=== PATIENT | male | born 1950 | race African-American/Black ===

== ENCOUNTER 2017-03-31 11:30 | Outpatient (RCR) | payer MEDICARE, MEDICAID ==
[~2017-03-31 11:30] MED LIST: ATORVASTATIN CA40 MG ORAL; GLIPIZIDE5 MG ORAL; GLUCOPHAGE500 MG PO; INVOKANA300 MG PO; LASIX40 MG PO; LEVAQUIN500 MG ORAL; LEVEMIR FL100 UNIT/1 SUBQ; LISINOPRIL5 MG ORAL; NOVOLOG100 UNIT/3 SUBQ; VIBRAMYCIN100 MG ORAL; asa
== END 2017-04-24 | disposition home or self-care (01) ==
LOC: WCC 11:30
DX: L97.512 Non-pressure chronic ulcer of other part of right foot with fat layer exposed (principal); M86.671 Other chronic osteomyelitis, right ankle and foot; E11.621 Type 2 diabetes mellitus with foot ulcer; E11.628 Type 2 diabetes mellitus with other skin complications; E11.9 Type 2 diabetes mellitus without complications; Z79.4 Long term (current) use of insulin
CPT/HCPCS: 82962; G0277; G0463

== ENCOUNTER 2017-03-31 13:27 | Outpatient (CLI) | payer MEDICARE, MEDICAID ==
--- NOTE | 2017-03-31 14:56 | Diagnostic Imaging Report ---
Indication: Dyspnea Comparison: 02/05/14 2 views of the chest obtained. Findings: Cardiomediastinal silhouette and pulmonary vascularity are within normal limits for age. The diaphragmatic contour is smooth and costophrenic angles are sharp. No pleural effusions are identified. The bones are osteopenic. Impression: No acute disease
== END 2017-03-31 15:27 | disposition home or self-care (01) ==
LOC: RAD 13:27
DX: R05 Cough (principal); M85.80 Other specified disorders of bone density and structure, unspecified site
CPT/HCPCS: 71020

== ENCOUNTER 2017-04-25 10:30 | Outpatient (RCR) | payer MEDICARE, MEDICAID | END 2017-05-25 | disposition home or self-care (01) | LOC: WCC 10:30 | DX: M86.671 Other chronic osteomyelitis, right ankle and foot (principal); L97.512 Non-pressure chronic ulcer of other part of right foot with fat layer exposed; E11.621 Type 2 diabetes mellitus with foot ulcer; E11.628 Type 2 diabetes mellitus with other skin complications; Z79.4 Long term (current) use of insulin | CPT/HCPCS: 82962; G0277 ==

== ENCOUNTER 2017-05-28 09:27 | Outpatient (RCR) | payer MEDICARE, MEDICAID | END 2017-06-25 | disposition home or self-care (01) | LOC: WCC 09:27 | DX: M86.671 Other chronic osteomyelitis, right ankle and foot (principal); L97.512 Non-pressure chronic ulcer of other part of right foot with fat layer exposed; E11.621 Type 2 diabetes mellitus with foot ulcer; E11.628 Type 2 diabetes mellitus with other skin complications; Z87.891 Personal history of nicotine dependence; Z80.9 Family history of malignant neoplasm, unspecified; Z82.49 Family history of ischemic heart disease and other diseases of the circulatory system; Z89.412 Acquired absence of left great toe; Z79.4 Long term (current) use of insulin | CPT/HCPCS: 82962; G0277 ==

== ENCOUNTER 2017-07-02 14:00 | Outpatient (RCR) | payer MEDICARE, MEDICAID ==
[2017-07-20] MEDS ORDERED: ACETAMINOPHEN325 M1 ORAL (07:48)
== END 2017-07-23 | disposition home or self-care (01) ==
LOC: WCC 14:00
DX: T86.821 Skin graft (allograft) (autograft) failure (principal); L97.512 Non-pressure chronic ulcer of other part of right foot with fat layer exposed; E11.621 Type 2 diabetes mellitus with foot ulcer; Z89.412 Acquired absence of left great toe; Z79.82 Long term (current) use of aspirin
CPT/HCPCS: 82962; G0277; G0463

== ENCOUNTER 2017-07-19 21:08 | Inpatient (IN) | payer MEDICARE, MEDICAID ==
[~2017-07-19] VITALS: Ht 193 cm; Wt 133.4 kg
[2017-07-19] MEDS ORDERED: Piperacillin/Tazobactam 3.375 GM in NS 110 ML IVPB ONE (21:30)
[2017-07-19] MEDS ORDERED: Vancomycin 1.5gm/D5W 250ml 250 ML IVPB ONE (21:30)
[2017-07-19] MEDS ORDERED: Zosyn 3.375gm inj ONE (21:39)
[2017-07-19 21:58] LABS: HEMATOCRIT 22.9 % (42.0-52.0); HEMOGLOBIN 7.5 G/DL (14.2-18.0); MEAN CORPUSCULAR VOLUME 92 FL (80-99); PLATELET COUNT 183 K/UL (150-450); RED CELL DISTRIBUTION WIDTH 16.7 % (11.6-14.8); WHITE BLOOD COUNT 2.8 K/UL (4.8-10.8)
[2017-07-19 22:02] LABS: ANION GAP 11 mmol/L (5-15); BLOOD UREA NITROGEN 33 mg/dL (7-18); CALCIUM 8.3 MG/DL (8.5-10.1); CARBON DIOXIDE 21 MMOL/L (21-32); CHLORIDE 105 MMOL/L (98-107); CREATININE 2.3 MG/DL (0.55-1.30); SODIUM 137 MMOL/L (136-145)
[2017-07-19 22:13] LABS: ALANINE AMINOTRANSFERASE 25 U/L (12-78); ALBUMIN/GLOBULIN RATIO 0.6 (1.0-2.7); ALKALINE PHOSPHATASE 63 U/L (46-116); ASPARTATE AMINO TRANSFERASE 42 U/L (15-37); BILIRUBIN,TOTAL 0.8 MG/DL (0.2-1.0)
--- NOTE | 2017-07-19 22:24 | Emergency Room Report ---
History of Present Illness General Chief Complaint: Lower Extremity Injury Source: Patient, EMS Present Illness HPI 67-year-old male, history of hypertension, diabetes, chronic right lower foot wound, recent surgery/debridement at [facility] 2 weeks ago, undergoing hyperbaric treatment, has a nurse every other day to wrap his wound, presenting with right lower leg pain for one day. Patient denying any fever or chills. States that his right lower lip it has been gradual. States that his foot does not hurt but his leg hurts. There was no trauma. Denies any history of DVT or PE in the past. Has been taking antibiotics since he was discharged from [facility] Allergies: Coded Allergies: No Known Allergies (Verified , 11/14/10) Patient History Past Medical History: see triage record Past Surgical History: none Pertinent Family History: none Reviewed Nursing Documentation: PMH: Agreed, PSxH: Agreed Nursing Documentation-PMH Hx Cardiac Problems: Yes Hx Hypertension: Yes Hx Diabetes: Yes Hx Cancer: No Hx Gastrointestinal Problems: Yes - GERD, nausea vomiting and recent stomach pain Hx Neurological Problems: No Review of Systems All Other Systems: negative except mentioned in HPI Physical Exam Vital Signs Date Time Temp Pulse Resp B/P (MAP) Pulse Ox O2 Delivery O2 Flow Rate FiO2 07/19/17 20:47 100.0 112 18 151/72 99 Room Air 100.0 Sp02 EP Interpretation: reviewed, normal General Appearance: alert, GCS 15, non-toxic, moderate distress Head: normocephalic, atraumatic Eyes: bilateral eye normal inspection, bilateral eye PERRL, bilateral eye EOMI ENT: normal ENT inspection, normal pharynx, normal voice, moist mucus membranes Neck: normal inspection, full range of motion, supple Respiratory: normal inspection, lungs clear, normal breath sounds, no respiratory distress, no retraction, no wheezing, speaking full sentences, chest symmetrical Cardiovascular #1: normal inspection, regular rate, rhythm, normal capillary refill Cardiovascular #2: 2+ radial (R), 2+ radial (L) Gastrointestinal: normal inspection, non tender, soft, non-distended, no guarding Genitourinary: no CVA tenderness Musculoskeletal: other - Bilateral lower extremity edema noted, right lower leg more swollen than left. Tender to palpation. Warm. Her skin is still unable to tell if there is erythema. Right foot with chronic wound. Ulceration. Mostly around the toe Neurologic: normal inspection, alert, oriented x3, responsive, motor strength/ tone normal, sensory intact, normal gait, speech normal Psychiatric: normal inspection, judgement/insight normal, memory normal Skin: normal inspection, normal color, no rash, warm/dry, well hydrated, normal turgor Procedures Critical Care Time Critical Care Time 40 minutes of CC time 67-year-old male with right lower leg pain VS: Fever, tachycardic Airway patent. Not hypoxic. PLAN: IV access, labs, lactate, troponin, Blood/Urine Cx, Abx, IVF, ultrasound, CT of extremity Anticipate admission to Tele CC time also includes review of labs, review of EMR, discussion with family and paperwork from SNF, d/w hospitalist CC could include dosing of pressors, additional Abx CC time does not include procedures Medical Decision Making Diagnostic Impression: Primary Impression: Cellulitis Additional Impressions: Anemia Renal failure (ARF), acute on chronic Osteomyelitis Severe sepsis ER Course 67-year-old male with right lower extremity pain DDX: Cellulitis /DVT No crepitus / pain out of proportion / rapid spreading for concern for nec fasc Plan: Obtain labs, ua, EKG, CXR Vascular study ER course: Patient given 2 L normal saline, pain control no definite DVT noted on US however + edema so limited study given broad spec abx CT lower ext - n eg for soft tissue gas, +osteomyelitis of great toe Sepsis Re-examination Time: 12 AM VS: Temp 100 HR 100 BP 120/80 RR 20 CVS: RRR Respiratory: Lungs clear bilaterally Peripheral pulses: 2+ radial Capillary refill: <2 seconds Skin exam: warm, dry, +cellulitis RLE Disposition: Patient is to be admitted to TELE D/W hospitalist Dr Hill covering for Dr Florez Please note that this Emergency Department Report was dictated using [employer] manager technology software, occasionally this can lead to erroneous entry secondary to interpretation by the dictation equipment. EKG Diagnostic Results EP Interpretation: Yes Rate: normal Rhythm: NSR ST Segments: No acute changes ASA given to patient: No Rhythm Strip EP Interpretation: Yes Rate: 100 Rhythm: NSR, no PVCs, no ectopy Chest X-ray CXR: Ordered: Yes 1 view Indication: Pain EP interpretation: Yes Interpretation: Cardiomegaly with slight pulmonary vascular congestion Impression: Mild CHF Electronically signed by Colt Queen MD Laboratory Tests Test 07/19/17 21:30 White Blood Count 2.8 K/UL (4.8-10.8) L Red Blood Count 2.50 M/UL (4.70-6.10) L Hemoglobin 7.5 G/DL (14.2-18.0) L Hematocrit 22.9 % (42.0-52.0) L Mean Corpuscular Volume 92 FL (80-99) Mean Corpuscular Hemoglobin 29.8 PG (27.0-31.0) Mean Corpuscular Hemoglobin Concent 32.6 G/DL (32.0-36.0) Red Cell Distribution Width 16.7 % (11.6-14.8) H Platelet Count 183 K/UL (150-450) Mean Platelet Volume 6.2 FL (6.5-10.1) L Neutrophils (%) (Auto) % (45.0-75.0) Lymphocytes (%) (Auto) % (20.0-45.0) Monocytes (%) (Auto) % (1.0-10.0) Eosinophils (%) (Auto) % (0.0-3.0) Basophils (%) (Auto) % (0.0-2.0) Neutrophils % (Manual) Pending Lymphocytes % (Manual) Pending Platelet Estimate Pending Platelet Morphology Pending Urine Color Pending Urine Appearance Pending Urine pH Pending Urine Specific [place] Pending Urine Protein Pending Urine Glucose (UA) Pending Urine Ketones Pending Urine Occult Blood Pending Urine Nitrite Pending Urine Bilirubin Pending Urine Urobilinogen Pending Urine Leukocyte Esterase Pending Sodium Level 137 MMOL/L (136-145) Potassium Level 5.0 MMOL/L (3.5-5.1) Chloride Level 105 MMOL/L (98-107) Carbon Dioxide Level 21 MMOL/L (21-32) Anion Gap 11 mmol/L (5-15) Blood Urea Nitrogen 33 mg/dL (7-18) H Creatinine 2.3 MG/DL (0.55-1.30) H Estimate Glomerular Filtration Rate 34.3 mL/min (>60) Glucose Level 184 MG/DL (74-106) H Lactic Acid Level 4.80 mmol/L (0.66-2.22) H Calcium Level 8.3 MG/DL (8.5-10.1) L Total Bilirubin 0.8 MG/DL (0.2-1.0) Aspartate Amino Transferase (AST) 42 U/L (15-37) H Alanine Aminotransferase (ALT) 25 U/L (12-78) Alkaline Phosphatase 63 U/L (46-116) Pro-B-Type Natriuretic Peptide 351 pg/mL (0-125) H Total Protein 8.3 G/DL (6.4-8.2) H Albumin 3.0 G/DL (3.4-5.0) L Globulin 5.3 g/dL Albumin/Globulin Ratio 0.6 (1.0-2.7) L CT/MRI/US Diagnostic Results CT/MRI/US Diagnostic Results #1: Imaging Test Ordered: DVT sono Impression no definite DVT noted however ++ edema so unable to properly see vessels per sonogram tech CT/MRI/US Diagnostic Results #2: Imaging Test Ordered: CT lower ext Impression CT EXTREMITY RIGHT LOWER: Limited without contrast. Large erosion at the distal phalanx of the great toe, likely due to osteomyelitis in the appropriate clinical setting. There is associated fracturing through the proximal aspect of the distal phalanx. Postoperative changes at the head of the proximal phalanx of the great toe. Erosion versus postoperative changes at the base of the proximal phalanx of the great toe. Chronic-appearing changes of the fifth metatarsal and fifth toe. Diffuse subcutaneous edema and skin thickening, may be due to cellulitis in the appropriate clinical setting. Last Vital Signs Date Time Temp Pulse Resp B/P (MAP) Pulse Ox O2 Delivery O2 Flow Rate FiO2 07/19/17 20:47 100.0 112 18 151/72 99 Room Air 100.0 Disposition: ADMITTED INPATIENT Condition: Serious Referrals: NON PHYSICIAN (PCP) Colt Queen M.D. Jul 19, 2017 22:24
[2017-07-19] MEDS ORDERED: Morphine Sulfate 4mg/ml Inj IVP ONE (22:30)
[2017-07-19 23:00] VITALS: BP 125/74
[2017-07-19 23:11] LABS: APPEARANCE,URINE CLEAR; BILIRUBIN, URINE NEGATIVE (NEGATIVE); COLOR,URINE PALE YELLOW; GLUCOSE, URINE (UA) NEGATIVE (NEGATIVE); KETONES,URINE NEGATIVE (NEGATIVE); LEUKOCYTE ESTERASE ,URINE 1+ (NEGATIVE); NITRITE,URINE NEGATIVE (NEGATIVE); PH,URINE 5 (4.5-8.0); PROTEIN,URINE 2+ (NEGATIVE); UROBILINOGEN,URINE NORMAL MG/DL (0.0-1.0)
[2017-07-20] VITALS (9 sets, daily range): BP systolic 115–132; BP diastolic 36–73
[2017-07-20] MEDS: HYDROcodone/Acetamin 10/325 tab ORAL PRN ×2 (04:23→13:56)
[2017-07-20] MEDS: NovoLOG Insulin Flexpen SUBQ SCH ×4 (06:30→20:55)
[2017-07-20] MEDS: GlipiZIDE 5mg tab ORAL SCH ×2 (06:35→17:17)
[2017-07-20] MEDS ORDERED: ACETAMINOPHEN325 M1 ORAL (07:48)
--- NOTE | 2017-07-20 08:21 | Diagnostic Imaging Report ---
Indication: Right lower extremity pain Technique: CT of the right lower extremity from just above the knee to the foot. Axial, coronal, and sagittal images were generated. Dose: Total Dose Length Product - DLP [address] Dose Index - CTDIvol(s) 15.26 mGy. Automated exposure control was utilized for dose reduction. Comparison: None Findings: There is soft tissue swelling in the subcutaneous tissues with diffuse increased density. Multiple phleboliths are present. There is erosive change in the first distal phalanx. Some flattening of the base of the first proximal phalanx is noted. This may be surgical. There is widening of the interphalangeal joint. Ulceration of the skin is noted over the distal phalanx of the first toe. There is some lucency in the base of the first metatarsal head as well. There is considerable deformity of the fifth metatarsal and fifth phalanx. Impression: Diffuse cellulitis in the lower leg. Erosive changes of the first distal phalanx and possibly first metatarsal head. This is consistent with osteomyelitis. Postoperative changes in the base of the first proximal phalanx. Chronic changes in the fifth metatarsal phalangeal joint. This may be surgical as well. The above report is concordant with preliminary reading by [employer] . The CT scanner at [facility] is accredited by the [employer] and the scans are performed using protocols designed to limit radiation exposure to as low as reasonably achievable to attain images of sufficient resolution adequate for diagnostic evaluation.
[2017-07-20] MEDS ORDERED: Lisinopril 2.5mg tab ORAL SCH (09:00)
[2017-07-20] MEDS: Atorvastatin 20mg tab ORAL SCH (09:15)
[2017-07-20] MEDS: Furosemide 40mg tab ORAL SCH (09:16)
--- NOTE | 2017-07-20 09:24 | Diagnostic Imaging Report ---
Indication: Chest pain Technique: XRAY Chest 1v. Comparison: 03/31/2017 Findings: The cardiomediastinal silhouette is stable. There are no acute infiltrates. Impression: No acute abnormality. .
[2017-07-20 09:54] LABS: HEMATOCRIT 20.6 % (42.0-52.0); HEMOGLOBIN 6.8 G/DL (14.2-18.0); MEAN CORPUSCULAR VOLUME 92 FL (80-99); PLATELET COUNT 177 K/UL (150-450); RED BLOOD COUNT 2.23 M/UL (4.70-6.10); RED CELL DISTRIBUTION WIDTH 17.6 % (11.6-14.8); WHITE BLOOD COUNT 5.4 K/UL (4.8-10.8)
[2017-07-20 10:04] LABS: ANION GAP 12 mmol/L (5-15); BLOOD UREA NITROGEN 34 mg/dL (7-18); CARBON DIOXIDE 21 MMOL/L (21-32); CHLORIDE 105 MMOL/L (98-107); CREATININE 2.2 MG/DL (0.55-1.30); POTASSIUM 4.9 MMOL/L (3.5-5.1); SODIUM 138 MMOL/L (136-145)
--- NOTE | 2017-07-20 12:14 | Infectious Diseases Prog Note ---
Assessment/Plan Assessment/Plan Full consult to follow: A) 1) right leg cellulitis, osteo right great toe/foot, right foot great toe wound infection, ? sepsis, elevated lactic acid, fevers 2) allergies - negative 3) pmh noted P) 1) zosyn and vancomycin 2) check wound culture, labs, sed rate, bc 3) podiatry evaluation 4) thanks Subjective Allergies: Coded Allergies: No Known Allergies (Verified , 11/14/10) Objective Vital Signs Last 24 Hour Vital Signs Date Time Temp Pulse Resp B/P (MAP) Pulse Ox O2 Delivery O2 Flow Rate FiO2 07/20/17 09:15 123/68 07/20/17 08:00 98.6 93 20 130/60 96 Room Air 98.6 07/20/17 06:36 100.0 07/20/17 04:00 106 22 123/68 97 Room Air 07/20/17 03:55 98.9 97 19 130/36 98 Room Air 100.0 07/20/17 03:30 97 19 130/36 98 Room Air 07/20/17 03:00 102 21 120/54 95 Room Air 07/20/17 01:00 56 11 115/73 99 Room Air 07/20/17 00:56 100.0 07/20/17 00:38 100.0 07/20/17 00:09 100.0 07/20/17 00:08 100.0 07/20/17 00:06 22 117/40 96 Room Air 07/19/17 23:00 71 19 125/74 99 Room Air 07/19/17 20:47 100.0 112 18 151/72 99 Room Air 100.0 Height (Feet): 6 Height (Inches): 4.00 Weight (Pounds): 295 Laboratory Tests Test 07/19/17 21:30 07/19/17 23:00 07/20/17 02:00 07/20/17 09:10 White Blood Count 2.8 K/UL (4.8-10.8) L 5.4 K/UL (4.8-10.8) # Red Blood Count 2.50 M/UL (4.70-6.10) L 2.23 M/UL (4.70-6.10) L Hemoglobin 7.5 G/DL (14.2-18.0) L 6.8 G/DL (14.2-18.0) *L Hematocrit 22.9 % (42.0-52.0) L 20.6 % (42.0-52.0) L Mean Corpuscular Volume 92 FL (80-99) 92 FL (80-99) Mean Corpuscular Hemoglobin 29.8 PG (27.0-31.0) 30.5 PG (27.0-31.0) Mean Corpuscular Hemoglobin Concent 32.6 G/DL (32.0-36.0) 33.1 G/DL (32.0-36.0) Red Cell Distribution Width 16.7 % (11.6-14.8) H 17.6 % (11.6-14.8) H Platelet Count 183 K/UL (150-450) 177 K/UL (150-450) Mean Platelet Volume 6.2 FL (6.5-10.1) L 6.5 FL (6.5-10.1) Neutrophils (%) (Auto) % (45.0-75.0) % (45.0-75.0) Lymphocytes (%) (Auto) % (20.0-45.0) % (20.0-45.0) Monocytes (%) (Auto) % (1.0-10.0) % (1.0-10.0) Eosinophils (%) (Auto) % (0.0-3.0) % (0.0-3.0) Basophils (%) (Auto) % (0.0-2.0) % (0.0-2.0) Differential Total Cells Counted 100 100 Neutrophils % (Manual) 64 % (45-75) 64 % (45-75) Lymphocytes % (Manual) 13 % (20-45) L 8 % (20-45) L Monocytes % (Manual) 4 % (1-10) 7 % (1-10) Eosinophils % (Manual) 0 % (0-3) 1 % (0-3) Basophils % (Manual) 0 % (0-2) 0 % (0-2) Band Neutrophils 19 % (0-8) H 20 % (0-8) H Platelet Estimate Adequate Adequate Platelet Morphology Normal Normal Hypochromasia 2+ 2+ Anisocytosis 2+ 1+ Sodium Level 137 MMOL/L (136-145) 138 MMOL/L (136-145) Potassium Level 5.0 MMOL/L (3.5-5.1) 4.9 MMOL/L (3.5-5.1) Chloride Level 105 MMOL/L (98-107) 105 MMOL/L (98-107) Carbon Dioxide Level 21 MMOL/L (21-32) 21 MMOL/L (21-32) Anion Gap 11 mmol/L (5-15) 12 mmol/L (5-15) Blood Urea Nitrogen 33 mg/dL (7-18) H 34 mg/dL (7-18) H Creatinine 2.3 MG/DL (0.55-1.30) H 2.2 MG/DL (0.55-1.30) H Estimat Glomerular Filtration Rate 34.3 mL/min (>60) 36.1 mL/min (>60) Glucose Level 184 MG/DL (74-106) H 94 MG/DL (74-106) Lactic Acid Level 4.80 mmol/L (0.66-2.22) H 5.00 mmol/L (0.66-2.22) H 4.40 mmol/L (0.66-2.22) H Pending Calcium Level 8.3 MG/DL (8.5-10.1) L 8.0 MG/DL (8.5-10.1) L Total Bilirubin 0.8 MG/DL (0.2-1.0) Aspartate Amino Transf (AST/SGOT) 42 U/L (15-37) H Alanine Aminotransferase (ALT/SGPT) 25 U/L (12-78) Alkaline Phosphatase 63 U/L (46-116) Pro-B-Type Natriuretic Peptide 351 pg/mL (0-125) H Total Protein 8.3 G/DL (6.4-8.2) H Albumin 3.0 G/DL (3.4-5.0) L Globulin 5.3 g/dL Albumin/Globulin Ratio 0.6 (1.0-2.7) L Urine Color Pale yellow Urine Appearance Clear Urine pH 5 (4.5-8.0) Urine Specific [place] 1.010 (1.005-1.035) Urine Protein 2+ (NEGATIVE) H Urine Glucose (UA) Negative (NEGATIVE) Urine Ketones Negative (NEGATIVE) Urine Occult Blood 1+ (NEGATIVE) H Urine Nitrite Negative (NEGATIVE) Urine Bilirubin Negative (NEGATIVE) Urine Urobilinogen Normal MG/DL (0.0-1.0) Urine Leukocyte Esterase 1+ (NEGATIVE) H Urine RBC 2-4 /HPF (0 - 0) H Urine WBC 0-2 /HPF (0 - 0) Urine Squamous Epithelial Cells None /LPF (NONE/OCC) Urine Bacteria Few /HPF (NONE) Hemoglobin A1c 10.7 % (4.3-6.0) H Current Medications Medications (Trade) Dose Ordered Sig/Xiao Route PRN Reason Start Time Stop Time Status Last Admin Dose Admin Acetaminophen (Tylenol) 650 mg Q4H PRN ORAL Mild Pain/Temp > 100.5 07/20/17 08:15 08/19/17 08:14 Acetaminophen/ Hydrocodone Bitart ([place] 10/325) 1 tab Q6H PRN ORAL Severe Pain (Pain Scale 7-10) 07/20/17 01:30 07/27/17 01:29 07/20/17 04:23 Acetaminophen/ Hydrocodone Bitart ([place] 5/325) 1 tab Q6H PRN ORAL Mild Pain (Pain Scale 1-3) 07/20/17 01:30 07/27/17 01:29 Atorvastatin Calcium (Lipitor) 40 mg DAILY ORAL 07/20/17 09:00 08/19/17 08:59 07/20/17 09:15 Dextrose (Dextrose 50%) STAT PRN IV Hypoglycemia 07/20/17 05:15 08/19/17 05:14 Furosemide (Lasix) 40 mg DAILY ORAL 07/20/17 09:00 08/19/17 08:59 07/20/17 09:16 Glipizide (Glucotrol) 5 mg BIAC ORAL 07/20/17 06:30 08/19/17 06:29 07/20/17 06:35 Insulin Aspart (NovoLOG) BEFORE MEALS AND HS SUBQ 07/20/17 06:30 08/19/17 06:29 Insulin Detemir (Levemir) 50 units BEDTIME SUBQ 07/20/17 21:00 08/19/17 20:59 Lisinopril (Zestril) 5 mg DAILY ORAL 07/20/17 09:00 08/19/17 08:59 07/20/17 09:15 Vancomycin HCl (Vanco rx to dose) 1 ea DAILY PRN MISC Per rx protocol 07/20/17 06:00 08/19/17 05:59 Vancomycin HCl/ Dextrose 250 ml @ 125 mls/hr Q24H IVPB 07/20/17 22:00 07/25/17 21:59 ESE HARO Jul 20, 2017 12:14
[2017-07-20] MEDS: Zosyn 4.5gm in NS 110ml q8h IVPB SCH ×2 (14:00→23:20)
--- NOTE | 2017-07-20 16:10 | Cardiology Report ---
APPROVED REPORT EKG Measurement Heart [id number] Sinus tachycardia Inferior infarct, age undetermined Abnormal ECG
--- NOTE | 2017-07-20 16:28 | History & Physical ---
History and Physical History & Physicial Patient seen and examined. Full H&P to follow. Assessment: 1. right big toe osteomyelitis 2. right leg cellulitis 3. diabetes 4. anemia Plan: podiatry and ID consulted. check MRI right foot, continue IV abx. f/u labs, wound cultures, blood cultures, A1c. blood sugar control transfuse prn hgb < 7. check stool OB and iron w/u. hematology consulted Suzanne Mustafa N.P. Jul 20, 2017 16:28
[2017-07-20 19:52] LABS: FERRITIN 308 NG/ML (8-388); LACTATE DEHYDROGENASE 213 U/L (81-234)
[2017-07-20 20:02] LABS: % IRON SATURATION 8 % (15-50); IRON 16 ug/dL (50-175); TOTAL IRON BINDING CAPACITY 198 ug/dL (250-450)
[2017-07-20] MEDS: Levemir Flexpen SUBQ SCH (20:57)
[2017-07-20] MEDS: Norco 5mg/325mg tab ORAL PRN (21:09)
[2017-07-20] MEDS ORDERED: Vancomycin 1500mg IVPB SCH (22:00)
--- NOTE | 2017-07-20 23:26 | History and Physical ---
History of Present Illness General Date patient seen: Jul 20, 2017 Time patient seen: 14:00 Reason for Hospitalization: Lower Extremity Injury Present Illness HPI 67 y/o male with a PMH of diabetes mellitus, HLD, and chronic diabetic ulcers presents from home for right foot swelling x 1 day. Patient states he noticed his right lower extremity became extremely red, swollen, and tender for 1 day and has been difficult to ambulate with it. He states that he regularly has a home health wound care nurse for his dressing changes to his diabetic ulcer to right great toe. He states he was just at another hospital a few weeks ago for his right foot gangrene and at that time he was discharged with PO antibiotics and wound care instructions. Patient states the right great toe has also been worsening and becoming more gangrenous. Denies chest pain, sob, n/v, abdominal pain, fevers, chills, myalgias. Allergies: Coded Allergies: No Known Allergies (Verified , 11/14/10) Medication History Scheduled Atorvastatin Calcium* (Atorvastatin Calcium*), 40 MG ORAL DAILY, (Reported) Doxycycline Hyclate* (Vibramycin*), 100 MG ORAL BID, (Reported) Furosemide* (Lasix*), 40 MG PO DAILY, (Reported) Glipizide* (Glipizide*), 5 MG ORAL BIDAC, (Reported) Insulin Aspart* (Novolog*), 15 UNITS SUBQ BID, (Reported) Levofloxacin* (Levaquin*), 500 MG ORAL DAILY, (Reported) Lisinopril (Lisinopril*), 5 MG ORAL DAILY, (Reported) Scheduled PRN Acetaminophen* (Acetaminophen 325MG Tablet*), 650 MG ORAL Q4H PRN for Prn Headache/Temp > 101, (Reported) Miscellaneous Medications Insulin Detemir (Levemir Flexpen), 50 SUBQ, (Reported) [asa ], (Reported) Patient History History Provided By: Patient Healthcare decision maker Resuscitation status Full Code Advanced Directive on File Review of Systems Constitutional: Reports: weakness Eye: Reports: no symptoms ENT: Reports: no symptoms Respiratory: Reports: no symptoms Cardiovascular: Reports: no symptoms Gastrointestinal: Reports: no symptoms Genitourinary: Reports: no symptoms Musculoskeletal: Reports: no symptoms Skin: Reports: see HPI Psychiatric: Reports: no symptoms Neurological: Reports: no symptoms Endocrine: Reports: no symptoms Hematologic/Lymphatic: Reports: no symptoms Physical Exam General Appearance: no apparent distress, alert HEENT: normocephalic, atraumatic Neck: non-tender, normal alignment, supple Respiratory/Chest: chest wall non-tender, lungs clear, normal breath sounds Cardiovascular/Chest: normal peripheral pulses, normal rate, regular rhythm Abdomen: normal bowel sounds, non tender, soft Skin Exam: other - right lower extremity erythema, edema, and TTP. 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, no motor/sensory deficits, alert, oriented x 3 Last 24 Hour Vital Signs Date Time Temp Pulse Resp B/P (MAP) Pulse Ox O2 Delivery O2 Flow Rate FiO2 07/20/17 20:00 98 07/20/17 20:00 99.7 98 21 132/50 99 Room Air 99.7 07/20/17 16:00 96 07/20/17 16:00 97.9 94 20 127/63 98 Room Air 97.9 07/20/17 12:00 97.9 99 20 131/67 98 Room Air 97.9 07/20/17 12:00 102 07/20/17 09:15 123/68 07/20/17 08:00 98.6 93 20 130/60 96 Room Air 98.6 07/20/17 08:00 94 07/20/17 06:36 100.0 07/20/17 04:00 106 22 123/68 97 Room Air 07/20/17 03:55 98.9 97 19 130/36 98 Room Air 100.0 07/20/17 03:30 97 19 130/36 98 Room Air 07/20/17 03:00 102 21 120/54 95 Room Air 07/20/17 01:00 56 11 115/73 99 Room Air 07/20/17 00:56 100.0 07/20/17 00:38 100.0 07/20/17 00:09 100.0 07/20/17 00:08 100.0 07/20/17 00:06 22 117/40 96 Room Air Intake and Output 07/19/17 07/20/17 19:00 07:00 Intake Total 0 ml Balance 0 ml Intake Oral 0 ml Laboratory Tests Test 07/20/17 02:00 07/20/17 09:10 07/20/17 16:18 Lactic Acid Level 4.40 mmol/L (0.66-2.22) H 4.20 mmol/L (0.66-2.22) H 4.90 mmol/L (0.66-2.22) H White Blood Count 5.4 K/UL (4.8-10.8) # Red Blood Count 2.23 M/UL (4.70-6.10) L Hemoglobin 6.8 G/DL (14.2-18.0) *L Hematocrit 20.6 % (42.0-52.0) L Mean Corpuscular Volume 92 FL (80-99) Mean Corpuscular Hemoglobin 30.5 PG (27.0-31.0) Mean Corpuscular Hemoglobin Concent 33.1 G/DL (32.0-36.0) Red Cell Distribution Width 17.6 % (11.6-14.8) H Platelet Count 177 K/UL (150-450) Mean Platelet Volume 6.5 FL (6.5-10.1) Neutrophils (%) (Auto) % (45.0-75.0) Lymphocytes (%) (Auto) % (20.0-45.0) Monocytes (%) (Auto) % (1.0-10.0) Eosinophils (%) (Auto) % (0.0-3.0) Basophils (%) (Auto) % (0.0-2.0) Differential Total Cells Counted 100 Neutrophils % (Manual) 64 % (45-75) Lymphocytes % (Manual) 8 % (20-45) L Monocytes % (Manual) 7 % (1-10) Eosinophils % (Manual) 1 % (0-3) Basophils % (Manual) 0 % (0-2) Band Neutrophils 20 % (0-8) H Platelet Estimate Adequate Platelet Morphology Normal Hypochromasia 2+ Anisocytosis 1+ Sodium Level 138 MMOL/L (136-145) Potassium Level 4.9 MMOL/L (3.5-5.1) Chloride Level 105 MMOL/L (98-107) Carbon Dioxide Level 21 MMOL/L (21-32) Anion Gap 12 mmol/L (5-15) Blood Urea Nitrogen 34 mg/dL (7-18) H Creatinine 2.2 MG/DL (0.55-1.30) H Estimat Glomerular Filtration Rate 36.1 mL/min (>60) Glucose Level 94 MG/DL (74-106) Hemoglobin A1c 10.7 % (4.3-6.0) H Calcium Level 8.0 MG/DL (8.5-10.1) L Reticulocyte Count 0.5 % (0.0-2.0) Haptoglobin Pending Uric Acid 7.1 MG/DL (2.6-7.2) Iron Level 16 ug/dL (50-175) L Total Iron Binding Capacity 198 ug/dL (250-450) L Percent Iron Saturation 8 % (15-50) L Unsaturated Iron Binding 182 ug/dL (112-346) Soluble Transferrin Receptor Pending Ferritin 308 NG/ML (8-388) Lactate Dehydrogenase 213 U/L (81-234) Vitamin B12 Level 637 PG/ML (193-986) Methylmalonic Acid Pending Folate 13.4 NG/ML (8.6-58.9) Homocystine Pending Thyroid Stimulating Hormone (TSH) 1.819 uiU/mL (0.358-3.740) Hepatitis A IgM Antibody Pending Hepatitis B Surface Antigen Pending Hepatitis B Core IgM Antibody Pending Hepatitis C Antibody Pending HIV (1&2) Antibody Rapid Negative (NEGATIVE) Height (Feet): 6 Height (Inches): 4.00 Weight (Pounds): 295 Medications Current Medications Medications (Trade) Dose Ordered Sig/Xiao Route PRN Reason Start Time Stop Time Status Last Admin Dose Admin Acetaminophen (Tylenol) 650 mg Q4H PRN ORAL Mild Pain/Temp > 100.5 07/20/17 08:15 08/19/17 08:14 Acetaminophen/ Hydrocodone Bitart ([place] 10/325) 1 tab Q6H PRN ORAL Severe Pain (Pain Scale 7-10) 07/20/17 01:30 07/27/17 01:29 07/20/17 13:56 Acetaminophen/ Hydrocodone Bitart ([place] 5/325) 1 tab Q6H PRN ORAL Mild Pain (Pain Scale 1-3) 07/20/17 01:30 07/27/17 01:29 07/20/17 21:09 Atorvastatin Calcium (Lipitor) 40 mg DAILY ORAL 07/20/17 09:00 08/19/17 08:59 07/20/17 09:15 Dextrose (Dextrose 50%) STAT PRN IV Hypoglycemia 07/20/17 05:15 08/19/17 05:14 Furosemide (Lasix) 40 mg DAILY ORAL 07/20/17 09:00 08/19/17 08:59 07/20/17 09:16 Glipizide (Glucotrol) 5 mg BIAC ORAL 07/20/17 06:30 08/19/17 06:29 07/20/17 17:17 Insulin Aspart (NovoLOG) BEFORE MEALS AND HS SUBQ 07/20/17 06:30 08/19/17 06:29 07/20/17 20:55 Insulin Detemir (Levemir) 50 units BEDTIME SUBQ 07/20/17 21:00 08/19/17 20:59 07/20/17 20:57 Lisinopril (Zestril) 5 mg DAILY ORAL 07/20/17 09:00 08/19/17 08:59 07/20/17 09:15 Piperacillin Sod/ Tazobactam Sod 4.5 gm/Sodium Chloride 110 ml @ 27.5 mls/hr EVERY 8 HOURS IVPB 07/20/17 14:00 07/25/17 13:59 07/20/17 23:20 Vancomycin HCl (Vanco rx to dose) 1 ea DAILY PRN MISC Per rx protocol 07/20/17 06:00 08/19/17 05:59 Vancomycin HCl/ Dextrose 250 ml @ 125 mls/hr Q24H IVPB 07/20/17 22:00 07/25/17 21:59 07/20/17 21:12 Assessment/Plan Problem List: (1) Diabetes ICD Codes: E11.9 - Diabetes SNOMED: 37242623 (2) Hyperlipidemia ICD Codes: E78.5 - Hyperlipidemia SNOMED: 08740890 (3) Hypertension ICD Codes: I10 - Hypertension SNOMED: 65311340 (4) Osteomyelitis ICD Codes: M86.9 - Osteomyelitis, unspecified SNOMED: 73327144 (5) Severe sepsis ICD Codes: A41.9 - Sepsis, unspecified organism; R65.20 - Severe sepsis without septic shock SNOMED: 24406611 (6) Cellulitis and abscess of foot ICD Codes: L03.119 - Cellulitis and abscess of foot; L02.619 - Cutaneous abscess of unspecified foot SNOMED: 695442255 (7) Renal failure (ARF), acute on chronic ICD Codes: N17.9 - Acute kidney failure, unspecified; N18.9 - Chronic kidney disease, unspecified SNOMED: 673836514 (8) Anemia ICD Codes: D64.9 - Anemia, unspecified SNOMED: 789656568 Status: stable Assessment/Plan Admit to inpatient Podiatry, ID, hematology, and nephrology consulted. s/p 1 unit pRBC check stool OB x 3 and iron workup per heme unknown baseline Cr, trend Cr hold ACEi in the setting of CHIQUITA IVF Continue IV vancomycin and zosyn (06/19 - ) F/u blood cultures, wound cultures CT of right foot noted with possible osteomyelitis. Will check non-contrast MRI of right foot as greater sensitivity for osteomyelitis F/u venous ultrasound of RLE to r/o DVT SSi and detemir Continue home diabetic meds Continue home bp meds Continue to achieve tight glucose control for improved wound healing Total time spent: 55 min. >50% time spent in care and coordination. D/w patient, RN, podiatry, and ID. Once patient is medically cleared, I anticipate patient to be discharged to: home with home health vs. SNF Suzanne Mustafa N.P. Jul 20, 2017 23:25
[2017-07-21] VITALS: BP 107/47
[2017-07-21 04:00] VITALS: BP 100/35
[2017-07-21] MEDS: Norco 5mg/325mg tab ORAL PRN (04:37)
[2017-07-21] MEDS: Zosyn 4.5gm in NS 110ml q8h IVPB SCH ×2 (05:59→15:06)
[2017-07-21] MEDS: GlipiZIDE 5mg tab ORAL SCH (06:00)
[2017-07-21] MEDS: NovoLOG Insulin Flexpen SUBQ SCH ×4 (06:08→21:00)
--- NOTE | 2017-07-21 06:45 | Consultation ---
DATE OF CONSULTATION: 07/20/2017 NOTE: POOR AUDIO HEMATOLOGY/ONCOLOGY CONSULTATION CONSULTING PHYSICIAN: Guido Lopez M.D. REQUESTING PHYSICIAN: Main Florez M.D. REASON FOR CONSULTATION: Evaluation of ongoing anemia, hemoglobin 6.8. IDENTIFICATION DATA: Dear Dr. Florez and . The patient is a pleasant 67-year-old male with past medical history, which is significant for right big toe osteomyelitis, right leg cellulitis, diabetes mellitus as well as anemia. He has been here before at the [facility] several times in the past. At this time, he presents to the ER, has been seen by Dr. Norris, currently on antibiotics broad spectrum. He was seen by Dr. Queen, three weeks ago. Denies any history of DVT or PE. Denies any fevers or chills. Hematology service consulted. PAST MEDICAL HISTORY: by review of systems. PAST SURGICAL HISTORY: None known. SOCIAL HISTORY: No alcohol, tobacco, or illicit drug use. FAMILY HISTORY: Noncontributory. REVIEW OF SYSTEMS: CONSTITUTIONAL: No fever, chills, or night sweats. SKIN: No rashes, bumps, or itching. HEENT: No headache, hearing, or vision changes. BREASTS: No lumps, pain, or discharge. PULMONARY: No cough, sputum, or shortness of breath. GASTROINTESTINAL: No nausea, vomiting, or diarrhea. GENITOURINARY: No dysuria, frequency, or urgency. MUSCULOSKELETAL: No joint swelling, muscle pain, or trauma. PHYSICAL EXAMINATION: VITAL SIGNS: Reviewed. GENERAL: No distress. PULMONARY: Decreased breath sounds. CARDIOVASCULAR: Regular rate. No S3 or S4. ABDOMEN: Soft, nontender, and nondistended. EXTREMITIES: No cyanosis, clubbing, or edema. LABORATORY AND DIAGNOSTIC DATA: WBC 5.4, hemoglobin 6.8, hematocrit 21, and platelet count 177,000. Imaging, lower extremity CAT scan showed diffuse cellulitis of the lower leg, erosive changes of the first distal phalanx and first metatarsal head. ASSESSMENT AND RECOMMENDATIONS: 1. Anemia. Obtain anemia workup at this time. We will order this workup including occult blood and other procedures as needed. 2. Leukopenia, likely secondary to underlying infection from osteomyelitis . 3. Lactic acidosis secondary to sepsis from underlying infection. Continue to monitor. 4. Diabetes mellitus, on insulin sliding scale. Blood sugar control as needed. 5. Right big toe osteomyelitis, to be seen by the Neuroscientist as well as surgical team. I appreciate consultation. Guido Lopez M.D. DR: Mitali JOB#: [id number] CC:
[2017-07-21 08:00] VITALS: BP 118/78
[2017-07-21 08:32] LABS: HEMOGLOBIN 7.7 G/DL (14.2-18.0); MEAN CORPUSCULAR VOLUME 91 FL (80-99); PLATELET COUNT 162 K/UL (150-450); RED BLOOD COUNT 2.52 M/UL (4.70-6.10); RED CELL DISTRIBUTION WIDTH 17.1 % (11.6-14.8); WHITE BLOOD COUNT 7.3 K/UL (4.8-10.8)
[2017-07-21 08:49] LABS: ALANINE AMINOTRANSFERASE 25 U/L (12-78); ALBUMIN 2.5 G/DL (3.4-5.0); ALBUMIN/GLOBULIN RATIO 0.5 (1.0-2.7); ALKALINE PHOSPHATASE 64 U/L (46-116); ANION GAP 12 mmol/L (5-15); ASPARTATE AMINO TRANSFERASE 49 U/L (15-37); BLOOD UREA NITROGEN 34 mg/dL (7-18); CALCIUM 8.2 MG/DL (8.5-10.1); CARBON DIOXIDE 22 MMOL/L (21-32); CHLORIDE 102 MMOL/L (98-107); CREATININE 2.3 MG/DL (0.55-1.30); POTASSIUM 4.5 MMOL/L (3.5-5.1); SODIUM 136 MMOL/L (136-145)
[2017-07-21] MEDS: Atorvastatin 20mg tab ORAL SCH (09:07)
[2017-07-21] MEDS: Furosemide 40mg tab ORAL SCH (09:07)
--- NOTE | 2017-07-21 11:38 | Consultation ---
Consult Note Assessment/Plan Podiatry consult A/ 1) Cellulitis right LE with possible abscess 2) Osteomyelitis seen on CT 3) Sepsis 4) DM foot ulcer P/ 1) Patient could not have MRI done due to his weight. 2) NPO after midnight tonight. Consent ordered 3) Discussed with patient need for amputation due to severity of infection. Understands that this is limb salvage procedure. 4) Case d/w PMD. 5) Arterial ultrasound BLE pending. Thank you !! Wiliam Bernard DPM Jul 21, 2017 11:38
[2017-07-21] MEDS ORDERED: NS 275ml ONE (15:02)
[2017-07-21] MEDS ORDERED: Tubing Blood Filter IV ONE (15:02)
[2017-07-21] MEDS ORDERED: Tubing IV Secondary IV ONE (15:02)
--- NOTE | 2017-07-21 15:29 | Consultation ---
Consult Note Consult Note asked to eval for renal failure- 67-year-old male, history of hypertension, diabetes, chronic right lower foot wound, recent surgery/debridement at [facility] 2 weeks ago, undergoing hyperbaric treatment, has a nurse every other day to wrap his wound, presenting with right lower leg pain for one day. Patient denying any fever or chills. States that his right lower lip it has been gradual. States that his foot does not hurt but his leg hurts. There was no trauma. Denies any history of DVT or PE in the past. Has been taking antibiotics since he was discharged from [place] Hx Cardiac Problems: Yes Hx Hypertension: Yes Hx Diabetes: Yes Hx Gastrointestinal Problems: Yes - GERD, nausea vomiting and recent stomach pain patient interviewed and examined data reviewed . Assessment/Plan Renal failure, Mainly Chronic due to DM Proteinuria, Diabetic Nephropathy, HypoAlbuminemia On going lower exteremity cellulitis / Osteo and high Lactic level PVD High Cholestrol Plan: 2D echo- Kidney Noemi slow hydrate urine studies per orders GRIFFIN ASTORGA Jul 21, 2017 15:29
[2017-07-21 16:00] VITALS: BP 123/61
[2017-07-21] MEDS ORDERED: Iron Sucrose 200 MG in NS 110 ML IV ONE (16:30)
--- NOTE | 2017-07-21 17:17 | General Progress Note ---
Assessment/Plan Problem List: (1) Severe sepsis ICD Codes: A41.9 - Sepsis, unspecified organism; R65.20 - Severe sepsis without septic shock SNOMED: 94435716 (2) Cellulitis of right lower extremity ICD Codes: L03.115 - Cellulitis of right lower limb SNOMED: 660587382 (3) Concern for abscess of R foot (4) Likely 1st toe ostemyelitis (5) Lactic acidosis ICD Codes: E87.2 - Acidosis SNOMED: 20203502 (6) Diabetic foot ulcer ICD Codes: E11.621 - Type 2 diabetes mellitus with foot ulcer; L97.509 - Non- pressure chronic ulcer of other part of unspecified foot with unspecified severity SNOMED: 22384307, 340395288 (7) DM2 (diabetes mellitus, type 2) Assessment & Plan: A1C 10.7 ICD Codes: E11.9 - Type 2 diabetes mellitus without complications SNOMED: 38866399 Qualifiers: (8) Renal failure (ARF), acute on chronic ICD Codes: N17.9 - Acute kidney failure, unspecified; N18.9 - Chronic kidney disease, unspecified SNOMED: 562170523 (9) Acute on chronic anemia (10) Leukopenia ICD Codes: D72.819 - Decreased white blood cell count, unspecified SNOMED: 35322157, 512136523 (11) Hypertension ICD Codes: I10 - Hypertension SNOMED: 93735855 (12) Hyperlipidemia ICD Codes: E78.5 - Hyperlipidemia SNOMED: 72677647 Status: stable Assessment/Plan Podiatry, ID, hematology, and nephrology consulted s/p 1 unit pRBC on 07/20/17 F/u stool OB x 3 and iron workup per heme Unknown baseline Cr, trend Cr Hold ACEi and lasix in the setting of CHIQUITA Continue IV vancomycin and zosyn (06/19 - ) F/u blood cultures, wound cultures CT of right foot noted with possible osteomyelitis and concern for abscess. D/w podiatry who plans for OR tomorrow. Unable to get MRI given pt size F/u venous ultrasound of RLE to r/o DVT F/u arterial duplex SSi and detemir Hold PO hypoglycemic agents Continue home bp meds Continue to achieve tight glucose control for improved wound healing If patient is required to have surgery, based on the patient's medical history, and other available ancillary data, the patient is a INTERMEDIATE risk for an INTERMEDIATE risk procedure. Per the most recent ACC/AHA guidelines, the patient does not need any further cardiopulmonary testing prior to the procedure and there do not appear to be any clear medical contraindications to proceeding with the proposed procedure. TTE shows EF 55%. No active cardiac issues. DVT Prophylaxis: SCD, HSQ Code Status: Full Hospital Classification Declaration: Based on this initial evaluation, and depending on the patient's clinical course, I anticipate that this patient will require hospitalization for 2-3 days for surgical mgmt and close respiratory/ hemodynamic monitoring. Disposition: Once the patient is stable to leave the hospital, I anticipate the patient will likely be discharged to the following environment: home with HH vs SNF Discussed with patient/family, nursing staff, SW/CM, podiatry, ID, renal regarding clinical status, treatment course, and disposition planning. Time of note may not reflect time of encounter. Subjective Date patient seen: Jul 21, 2017 Time patient seen: 14:00 ROS Limited/Unobtainable: No Constitutional: Reports: malaise, weakness HEENT: Reports: no symptoms Cardiovascular: Reports: no symptoms Respiratory: Reports: no symptoms Gastrointestinal/Abdominal: Reports: no symptoms Genitourinary: Reports: no symptoms Neurologic/Psychiatric: Reports: no symptoms Endocrine: Reports: no symptoms Allergies: Coded Allergies: No Known Allergies (Verified , 11/14/10) All Systems: reviewed and negative except above Subjective No acute o/n events Unable to get MRI given pt size C/o R foot pain. Sarah f/c, n/v, d/c, chest pain, SOB, abd pain Objective Last 24 Hour Vital Signs Date Time Temp Pulse Resp B/P (MAP) Pulse Ox O2 Delivery O2 Flow Rate FiO2 07/21/17 12:00 98.2 81 22 98.2 81 07/21/17 08:00 97.5 97 21 118/78 97 97.5 97 07/21/17 04:00 99.4 97 21 100/35 93 Room Air 99.4 07/21/17 04:00 100 07/21/17 00:00 98.7 99 21 107/47 95 Room Air 98.7 07/21/17 00:00 99 07/20/17 20:00 98 07/20/17 20:00 99.7 98 21 132/50 99 Room Air 99.7 Intake and Output 07/20/17 07/21/17 19:00 07:00 Intake Total 360 ml 717.5 ml Output Total 1000 ml 1210 ml Balance -640 ml -492.5 ml Intake Oral 360 ml 240 ml IV Total 477.5 ml Output Urine Total 1000 ml 1210 ml # Voids 1 Laboratory Tests 07/21/17 07:10: White Blood Count 7.3, Red Blood Count 2.52L, Hemoglobin 7.7L, Hematocrit 23.0L , Mean Corpuscular Volume 91, Mean Corpuscular Hemoglobin 30.5, Mean Corpuscular Hemoglobin Concent 33.5, Red Cell Distribution Width 17.1H, Platelet Count 162, Mean Platelet Volume 5.8L, Neutrophils (%) (Auto) , Lymphocytes (%) (Auto) , Monocytes (%) (Auto) , Eosinophils (%) (Auto) , Basophils (%) (Auto) , Differential Total Cells Counted 100, Neutrophils % ( Manual) 76H, Lymphocytes % (Manual) 10L, Monocytes % (Manual) 12H, Eosinophils % (Manual) 2, Basophils % (Manual) 0, Band Neutrophils 0, Platelet Estimate Adequate, Platelet Morphology Normal, Hypochromasia 3+, Anisocytosis 1+, Sodium Level 136, Potassium Level 4.5, Chloride Level 102, Carbon Dioxide Level 22, Anion Gap 12, Blood Urea Nitrogen 34H, Creatinine 2.3H, Estimat Glomerular Filtration Rate 34.3, Glucose Level 79, Calcium Level 8.2L, Total Bilirubin 1.0 , Aspartate Amino Transf (AST/SGOT) 49H, Alanine Aminotransferase (ALT/SGPT) 25 , Alkaline Phosphatase 64, Total Protein 7.9, Albumin 2.5L, Globulin 5.4, Albumin/Globulin Ratio 0.5L 07/21/17 12:20: Lactic Acid Level 5.60H 07/21/17 16:50: Lactic Acid Level [Pending], Prothrombin Time [Pending], Prothromb Time International Ratio [Pending], Activated Partial Thromboplast Time [Pending], C- Reactive Protein, Quantitative [Pending] Height (Feet): 6 Height (Inches): 4.00 Weight (Pounds): 295 Objective General Appearance: no apparent distress, alert HEENT: normocephalic, atraumatic Neck: non-tender, normal alignment, supple Respiratory/Chest: chest wall non-tender, lungs clear, normal breath sounds Cardiovascular/Chest: normal peripheral pulses, normal rate, regular rhythm Abdomen: normal bowel sounds, non tender, soft Skin Exam: other - right lower extremity erythema, edema, and TTP. 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 Jul 21, 2017 17:17
[2017-07-21 17:26] LABS: INR 1.2 (0.9-1.1)
[2017-07-21] MEDS: Docusate 100mg cap ORAL SCH (17:43)
[2017-07-21] MEDS: D5NS 1,000 ML IV SCH (17:43)
--- NOTE | 2017-07-21 17:45 | Consultation ---
DATE OF CONSULTATION: 07/20/2017 HISTORY: This is a 67-year-old male with a history of multiple medical problems, osteomyelitis, cellulitis of right leg, diabetic mellitus, anemia of chronic disease who has been admitted to the hospital due to cellulitis. Psychiatry was consulted as the patient presented with anxiety and depressive symptoms. During the evaluation, the patient endorses anxiety, depressed mood, hopelessness, helplessness, difficulty sleeping and at times decreased appetite. PAST MEDICAL HISTORY: Significant for osteomyelitis, right leg cellulitis, diabetic mellitus, possible neuropathy and anemia. ALLERGIES: No known drug allergies. SUBSTANCE ABUSE HISTORY: He denies any illicit drug use or alcohol. No history of smoking, MENTAL STATUS EXAMINATION: The patient is alert and oriented times self, place, and situation he is in. Mood is dysphoric. Affect is constricted, congruent with mood. Thought process is concrete. Thought content, no suicidal or homicidal ideation. ASSESSMENT: 1. Depression. 2. Anxiety. 3. Diabetic mellitus. 4. Lactic acidosis. 5. Leukopenia. 6. Depression. PLAN: 1. I do suggest SSRI for the patient. 2. Provide the patient with supportive therapy and reality orientation. Kory Bales M.D. DR: SARMAD JOB#: [id number] CC:
--- NOTE | 2017-07-21 17:54 | Infectious Diseases Prog Note ---
Assessment/Plan Assessment/Plan Full consult dictated: A) 1) right leg cellulitis/abscess, osteo right great toe/foot, right foot great toe wound infection, sepsis, elevated lactic acid, fevers 2) allergies - negative 3) pmh noted P) 1) zosyn and vancomycin - day # 2 abx 2) check wound culture, labs, sed rate, bc 3) podiatry evaluation noted, plan for surgery/?amputation 4) watch cr Subjective Constitutional: Denies: fever Respiratory: Denies: shortness of breath Cardiovascular: Denies: chest pain Gastrointestinal/Abdominal: Denies: nausea Genitourinary: Denies: dysuria Allergies: Coded Allergies: No Known Allergies (Verified , 11/14/10) Objective Vital Signs Last 24 Hour Vital Signs Date Time Temp Pulse Resp B/P (MAP) Pulse Ox O2 Delivery O2 Flow Rate FiO2 07/21/17 12:00 98.2 81 22 98.2 81 07/21/17 08:00 97.5 97 21 118/78 97 97.5 97 07/21/17 04:00 99.4 97 21 100/35 93 Room Air 99.4 07/21/17 04:00 100 07/21/17 00:00 98.7 99 21 107/47 95 Room Air 98.7 07/21/17 00:00 99 07/20/17 20:00 98 07/20/17 20:00 99.7 98 21 132/50 99 Room Air 99.7 Height (Feet): 6 Height (Inches): 4.00 Weight (Pounds): 295 General Appearance: no acute distress HEENT: normocephalic, atraumatic, anicteric, mucous membranes moist Respiratory/Chest: lungs clear, normal breath sounds, no accessory muscle use Cardiovascular: normal rate, regular rhythm Abdomen: normal bowel sounds, soft, non tender, no organomegaly Microbiology Date/Time Source Procedure Growth Status 07/19/17 21:30 Blood Blood Culture - Preliminary NO GROWTH AFTER 24 HOURS Resulted 07/19/17 21:15 Blood Blood Culture - Preliminary NO GROWTH AFTER 24 HOURS Resulted Laboratory Tests Test 07/21/17 07:10 07/21/17 12:20 07/21/17 16:50 White Blood Count 7.3 K/UL (4.8-10.8) Red Blood Count 2.52 M/UL (4.70-6.10) L Hemoglobin 7.7 G/DL (14.2-18.0) L Hematocrit 23.0 % (42.0-52.0) L Mean Corpuscular Volume 91 FL (80-99) Mean Corpuscular Hemoglobin 30.5 PG (27.0-31.0) Mean Corpuscular Hemoglobin Concent 33.5 G/DL (32.0-36.0) Red Cell Distribution Width 17.1 % (11.6-14.8) H Platelet Count 162 K/UL (150-450) Mean Platelet Volume 5.8 FL (6.5-10.1) L Neutrophils (%) (Auto) % (45.0-75.0) Lymphocytes (%) (Auto) % (20.0-45.0) Monocytes (%) (Auto) % (1.0-10.0) Eosinophils (%) (Auto) % (0.0-3.0) Basophils (%) (Auto) % (0.0-2.0) Differential Total Cells Counted 100 Neutrophils % (Manual) 76 % (45-75) H Lymphocytes % (Manual) 10 % (20-45) L Monocytes % (Manual) 12 % (1-10) H Eosinophils % (Manual) 2 % (0-3) Basophils % (Manual) 0 % (0-2) Band Neutrophils 0 % (0-8) Platelet Estimate Adequate Platelet Morphology Normal Hypochromasia 3+ Anisocytosis 1+ Sodium Level 136 MMOL/L (136-145) Potassium Level 4.5 MMOL/L (3.5-5.1) Chloride Level 102 MMOL/L (98-107) Carbon Dioxide Level 22 MMOL/L (21-32) Anion Gap 12 mmol/L (5-15) Blood Urea Nitrogen 34 mg/dL (7-18) H Creatinine 2.3 MG/DL (0.55-1.30) H Estimat Glomerular Filtration Rate 34.3 mL/min (>60) Glucose Level 79 MG/DL (74-106) Calcium Level 8.2 MG/DL (8.5-10.1) L Total Bilirubin 1.0 MG/DL (0.2-1.0) Aspartate Amino Transf (AST/SGOT) 49 U/L (15-37) H Alanine Aminotransferase (ALT/SGPT) 25 U/L (12-78) Alkaline Phosphatase 64 U/L (46-116) Total Protein 7.9 G/DL (6.4-8.2) Albumin 2.5 G/DL (3.4-5.0) L Globulin 5.4 g/dL Albumin/Globulin Ratio 0.5 (1.0-2.7) L Lactic Acid Level 5.60 mmol/L (0.66-2.22) H 2.00 mmol/L (0.66-2.22) Prothrombin Time 12.4 SEC (9.30-11.50) H Prothromb Time International Ratio 1.2 (0.9-1.1) H Activated Partial Thromboplast Time 40 SEC (23-33) H C-Reactive Protein, Quantitative Pending Current Medications Medications (Trade) Dose Ordered Sig/Xiao Route PRN Reason Start Time Stop Time Status Last Admin Dose Admin Acetaminophen (Tylenol) 650 mg Q4H PRN ORAL Mild Pain/Temp > 100.5 07/20/17 08:15 08/19/17 08:14 Acetaminophen/ Hydrocodone Bitart ([place] 10/325) 1 tab Q6H PRN ORAL Severe Pain (Pain Scale 7-10) 07/20/17 01:30 07/27/17 01:29 07/20/17 13:56 Acetaminophen/ Hydrocodone Bitart ([place] 5/325) 1 tab Q6H PRN ORAL Mild Pain (Pain Scale 1-3) 07/20/17 01:30 07/27/17 01:29 07/21/17 04:37 Atorvastatin Calcium (Lipitor) 40 mg QHS ORAL 07/22/17 21:00 08/19/17 08:59 Dextrose (Dextrose 50%) STAT PRN IV Hypoglycemia 07/20/17 05:15 08/19/17 05:14 Dextrose/Sodium Chloride 1,000 ml @ 75 mls/hr [id number] IV 07/21/17 15:30 08/20/17 15:29 07/21/17 17:43 Docusate Sodium (Colace) 100 mg THREE TIMES A DAY ORAL 07/21/17 18:00 08/20/17 17:59 07/21/17 17:43 Insulin Aspart (NovoLOG) BEFORE MEALS AND HS SUBQ 07/20/17 06:30 08/19/17 06:29 07/20/17 20:55 Insulin Detemir (Levemir) 50 units BEDTIME SUBQ 07/20/17 21:00 08/19/17 20:59 07/20/17 20:57 Pantoprazole (Protonix) 40 mg EVERY 12 HOURS ORAL 07/21/17 15:30 08/20/17 15:29 07/21/17 17:45 Piperacillin Sod/ Tazobactam Sod 2.25 gm/Sodium Chloride 55 ml @ 13.75 mls/ hr EVERY 8 HOURS IVPB 07/21/17 22:00 07/28/17 21:59 Vancomycin HCl (Vanco rx to dose) 1 ea DAILY PRN MISC Per rx protocol 07/20/17 06:00 08/19/17 05:59 Vancomycin HCl/ Dextrose 250 ml @ 125 mls/hr Q24H IVPB 07/20/17 22:00 07/25/17 21:59 07/20/17 21:12 ESE HARO Jul 21, 2017 17:54
--- NOTE | 2017-07-21 18:30 | Consultation ---
DATE OF CONSULTATION: 07/21/2017 REQUESTING PHYSICIAN: Main Florez M.D. CONSULTING PHYSICIAN: Wiliam Bernard D.P.M. REASON FOR CONSULTATION: Right lower extremity cellulitis and osteomyelitis. HISTORY OF PRESENT ILLNESS: The patient is a 67-year-old male who was admitted to [facility] on 07/19/2017 for the above diagnoses. The patient has been followed by Dr. Arellano, body and fender worker who has been managing his wound and has been coming to [facility] for hyperbaric oxygen treatments for chronic osteomyelitis. The patient noted over the weekend that his foot is becoming increasingly swollen and more painful. The patient had to call paramedics to take him to the hospital. He denies any fevers, chills, nausea, or vomiting. PAST MEDICAL HISTORY: Significant for 1. Diabetes mellitus. 2. Hyperlipidemia. 3. Diabetic foot ulcers. MEDICATIONS: Per MAR and include vancomycin and Zosyn as well as Lasix. ALLERGIES: He has no known drug allergies. SOCIAL HISTORY: Noncontributory. FAMILY HISTORY: Noncontributory. REVIEW OF SYSTEMS: HEENT: The patient denies any headaches, blurred vision, or ringing in the ears. CARDIOVASCULAR: The patient denies any chest pain or shortness of breath. GENITOURINARY: The patient denies any urgency, frequency, burning upon urination or hematuria. GASTROINTESTINAL: The patient denies any constipation, diarrhea or blood in stool. PHYSICAL EXAMINATION: VITAL SIGNS: Temperature is 97.5 degrees, pulse is 97, respirations 21, blood pressure 118/78 and saturating 97% on room air. EXTREMITIES: Lower extremity physical exam, vascular, weakly palpable pedal pulses noted bilaterally. Right foot is warmer than the left. There is 3+ pitting edema noted on the right lower extremity. Mild edema noted on the left. DERMATOLOGICAL: There is a full-thickness ulceration noted of the right hallux, which is rather extensive, there is bone exposed. There is a serous sanguinous drainage noted from the site. No malodor is noted. No other wounds are noted in the lower extremities. NEUROLOGICAL: Protective threshold is diminished. MUSCULOSKELETAL: The patient is ambulatory. LABORATORY AND DIAGNOSTIC DATA: White blood cell count 7.3, hemoglobin and hematocrit is 7.7 and 23.0 and platelet count is 162. BUN is 34 and creatinine is 2.3, potassium is 4.5, and glucose is 79. Hemoglobin A1c is 10.7. Lactic acid on admission was 4.90. Albumin is 2.5. Imaging, of the right lower extremity shows diffuse cellulitis of the lower leg, erosive change of the first distal phalanx and possibly first metatarsal head consistent with osteomyelitis. Postoperative changes noted to the base of the first proximal phalanx. ASSESSMENT: 1. Cellulitis right lower extremity with possible abscess. 2. Osteomyelitis seen on CT. 3. Sepsis. 4. Diabetic foot ulcer. PLAN: 1. The patient cannot have MRI done due to his weight. Technologist just called and reported to me. 2. NPO after midnight tonight, consent ordered. 3. Discussed with patient need for amputation due to severity of infection. The patient understands that it is a long salvage procedure. 4. Case was discussed with the Dr. Weinstein. The patient will be cleared preoperatively. 5. Arterial ultrasound bilateral lower extremity is pending. Thank you for the courtesy of this consultation. Wiliam Bernard D.P.M. DR: ZAC JOB#: [id number] CC:
[2017-07-21 20:00] VITALS: BP 126/79
[2017-07-21] MEDS: Levemir Flexpen SUBQ SCH (21:00)
[2017-07-21] MEDS: Vancomycin 1500mg IVPB SCH (21:09)
--- NOTE | 2017-07-21 21:30 | Consultation ---
DATE OF CONSULTATION: 07/21/2017 INFECTIOUS DISEASE PROGRESS NOTE CONSULTING PHYSICIAN: Jerome Norris M.D. ATTENDING PHYSICIAN: Main Florez M.D. REFERRING PHYSICIAN: Dr. Weinstein. REASON FOR CONSULTATION: Right leg cellulitis, possible abscess and also right foot infected wound with cellulitis, possible abscess, also sepsis, fevers, leukopenia. REASON FOR ADMISSION: Cellulitis of right lower extremity, infected right foot, also sepsis. HISTORY OF PRESENT ILLNESS: This is a 67-year-old male, who has history of multiple medical problems, who comes in to [facility] with right leg cellulitis. The patient has severe right leg cellulitis. The patient has infected right foot great toe/first toe wound. CT scan showed osteomyelitis. There is also concern of abscess to the right lower extremity. The patient was seen by Podiatry and surgery is planned. The patient currently is on vancomycin and Zosyn. The patient came in febrile and temperatures have improved somewhat. The patient was leukopenic and septic. MAR was noted. Orders were noted. Notes were reviewed. Again, infectious disease consultation was requested for antibiotic management. This patient has multiple infectious disease issues. REVIEW OF SYSTEMS: CONSTITUTIONAL: The patient has generalized weakness and fatigue. He has no central line or Saavedra. HEAD AND NECK: No thrush, dysphagia, sinus tenderness, neck stiffness, or change in vision. CARDIAC: No chest pain or palpitations. GASTROINTESTINAL: No nausea, vomiting, or diarrhea. GENITOURINARY: He has no history of frequency. PULMONARY: No significant congestion, shortness of breath, hemoptysis, or secretions. SKIN: No rash or itching. EXTREMITIES: He has right leg pain that is severe. NEUROLOGIC: No seizures. He has fevers and chills coming in. No night sweats or weight loss. PAST MEDICAL HISTORY: The patient's past medical history includes history of following. The patient has past medical history of chronic renal failure, anemia, history of diabetic ulcers, history of right foot swelling, history of right leg swelling, he has elevated creatinine, hyperlipidemia, diabetes, questionable history of hypertension. He is on lisinopril. He does have history of hypertension also actually and history of anemia. ALLERGIES: The patient has no known drug allergies. No antibiotic allergies. FAMILY HISTORY: Noncontributory. Negative for exposure to tuberculosis or cancer. SOCIAL HISTORY: At this time, negative for smoking, alcohol, or drug use. MEDICATIONS: Upon reviewing the MAR, he is on the following medications. He is on atorvastatin. He is on Zosyn, vancomycin, docusate, pantoprazole, IV fluids. He is on insulin. He is on acetaminophen, lisinopril, hydrocodone. Outside medications were reviewed and reconciliated. PHYSICAL EXAMINATION: VITAL SIGNS: Temperature 98.2, pulse rate is 81, respiratory rate 21, blood pressure is 118/70, saturation 97%. GENERAL: Alert, responsive, in no acute distress. HEAD AND NECK: Oral exam, no thrush. Eye exam, no icterus. Normocephalic. No facial droop. No neck stiffness. Neck is supple. HEART: Regular. No gallop or murmur. ABDOMEN: Soft. Positive bowel sounds. Nontender. LUNGS: Clear bilaterally. No rhonchi or rales. SKIN: No rash. MUSCULOSKELETAL: No evidence of arthritis. Lower extremity exam, he has severe right leg cellulitis and right foot cellulitis. He has an infected right foot great toe ulcer and wound. No evidence of gangrene that I could appreciate at this time. LINE SITES: Without phlebitis. GENITOURINARY: No Saavedra. No CVA tenderness. NEUROLOGIC: Awake, alert, and responsive. LABORATORY DATA: On admission, white count 2.8 and now it is 7.3, hemoglobin 7.7, and platelet count is 162,000. Creatinine is 2.3. LFTs were noted. UA was 0 to 2 white blood cells. Blood cultures are negative to date. IMAGING STUDIES: Chest x-ray showed no acute abnormality, no evidence of pneumonia. Lower extremity CT scan showed the following. It showed cellulitis of right lower extremity, it showed erosive changes of the first distal phalanx and possible first metatarsal head consistent with osteomyelitis. ASSESSMENT AND PLAN: 1. The patient has right leg and right foot cellulitis. Possible abscess in the right lower extremity. The patient has right foot/great toe osteomyelitis and infected wound and ulcer. The patient is to undergo surgery by Podiatry. The patient may need amputation, it is unclear at what level at this time, and also possible debridement. Continue vancomycin and Zosyn for now. Check final cultures. Watch labs. Watch creatinine closely on vancomycin. 2. Sepsis, fevers. The patient did have temperature on admission of 100.0 and SIRS criteria included heart rate over 102. Sepsis seems to be improved today. Fevers have improved. Leukopenia is improved. 3. Elevated creatinine, chronic renal failure. 4. Anemia. 5. Diabetes. 6. Hypertension. 7. Hyperlipidemia. 8. Blood sugar, blood pressure, and lipid treatment per primary. 9. History of ulcers. 10. Wound care protocol. 11. No known allergies. 12. Social history negative. 13. Family history noncontributory. 14. MAR was noted. 15. Continue treatment per primary consultants. 16. Podiatry followup. 17. Notes and records were noted. 18. Orders were entered. 19. Case discussed with RN. Jerome Norris M.D. DR: Jack JOB#: [id number] CC:
[2017-07-21] MEDS: Piperacillin/Tazobactam 2.25 GM in NS 55 ML IVPB SCH (22:33)
--- NOTE | 2017-07-21 23:55 | General Progress Note ---
Assessment/Plan Assessment/Plan 1. Anemia. --> Anemia workup reviewed. --> Iron 16, TIBC 198, % sat 8, Folate 13.4, B12 637, Ferritin 308 --> Iron levels are low. Monitor closely and trend cbc daily. --> Transfuse if hgb <7 2. Leukopenia, likely secondary to underlying infection from osteomyelitis --> HIV/Hep panel pending --> On abx. ID following. 3. Lactic acidosis secondary to sepsis from underlying infection. --> Continue to monitor. 4. Diabetes mellitus, on insulin sliding scale. Blood sugar control as needed. 5. Right big toe osteomyelitis, to be seen by the Steam Turbine Operator as well as surgical team. Subjective Date patient seen: Jul 21, 2017 Constitutional: Denies: no symptoms, chills, diaphoresis, fever, malaise, weakness, other HEENT: Denies: no symptoms, eye pain, blurred vision, tearing, double vision, ear pain, ear discharge, nose pain, nose congestion, throat pain, throat swelling, mouth pain, mouth swelling, other Cardiovascular: Denies: no symptoms, chest pain, edema, irregular heart rate, lightheadedness, palpitations, syncope, other Respiratory: Denies: no symptoms, cough, orthopnea, shortness of breath, SOB with excertion, SOB at rest, sputum, stridor, wheezing, other Gastrointestinal/Abdominal: Denies: no symptoms, abdomen distended, abdominal pain, black stools, tarry stools, blood in stool, constipated, diarrhea, difficulty swallowing, nausea, poor appetite, poor fluid intake, rectal bleeding , vomiting, other Genitourinary: Denies: no symptoms, burning, discharge, frequency, flank pain, hematuria, incontinence, pain, urgency, other Neurologic/Psychiatric: Denies: no symptoms, anxiety, depressed, emotional problems, headache, numbness, paresthesia, pre-existing deficit, seizure, tingling, tremors, weakness, other Hematologic/Lymphatic: Reports: anemia Allergies: Coded Allergies: No Known Allergies (Verified , 11/14/10) Subjective S/P PRBC. Patient on antibiotics. BP low today. Objective Last 24 Hour Vital Signs Date Time Temp Pulse Resp B/P (MAP) Pulse Ox O2 Delivery O2 Flow Rate FiO2 07/21/17 20:00 99 07/21/17 20:00 99.7 100 20 126/79 97 Room Air 99.7 07/21/17 16:00 99.3 88 20 123/61 97 Room Air 99.3 88 07/21/17 16:00 88 07/21/17 12:00 98.2 81 22 98.2 81 07/21/17 12:00 78 07/21/17 08:00 97.5 97 21 118/78 97 97.5 97 07/21/17 08:00 69 07/21/17 04:00 99.4 97 21 100/35 93 Room Air 99.4 07/21/17 04:00 100 07/21/17 00:00 98.7 99 21 107/47 95 Room Air 98.7 07/21/17 00:00 99 Intake and Output 07/20/17 07/21/17 19:00 07:00 Intake Total 360 ml 717.5 ml Output Total 1000 ml 1210 ml Balance -640 ml -492.5 ml Intake Oral 360 ml 240 ml IV Total 477.5 ml Output Urine Total 1000 ml 1210 ml # Voids 1 Laboratory Tests 07/21/17 07:10: White Blood Count 7.3, Red Blood Count 2.52L, Hemoglobin 7.7L, Hematocrit 23.0L , Mean Corpuscular Volume 91, Mean Corpuscular Hemoglobin 30.5, Mean Corpuscular Hemoglobin Concent 33.5, Red Cell Distribution Width 17.1H, Platelet Count 162, Mean Platelet Volume 5.8L, Neutrophils (%) (Auto) , Lymphocytes (%) (Auto) , Monocytes (%) (Auto) , Eosinophils (%) (Auto) , Basophils (%) (Auto) , Differential Total Cells Counted 100, Neutrophils % ( Manual) 76H, Lymphocytes % (Manual) 10L, Monocytes % (Manual) 12H, Eosinophils % (Manual) 2, Basophils % (Manual) 0, Band Neutrophils 0, Platelet Estimate Adequate, Platelet Morphology Normal, Hypochromasia 3+, Anisocytosis 1+, Sodium Level 136, Potassium Level 4.5, Chloride Level 102, Carbon Dioxide Level 22, Anion Gap 12, Blood Urea Nitrogen 34H, Creatinine 2.3H, Estimat Glomerular Filtration Rate 34.3, Glucose Level 79, Calcium Level 8.2L, Total Bilirubin 1.0 , Aspartate Amino Transf (AST/SGOT) 49H, Alanine Aminotransferase (ALT/SGPT) 25 , Alkaline Phosphatase 64, Total Protein 7.9, Albumin 2.5L, Globulin 5.4, Albumin/Globulin Ratio 0.5L 07/21/17 12:20: Lactic Acid Level 5.60H 07/21/17 16:50: Lactic Acid Level 2.00, Prothrombin Time 12.4H, Prothromb Time International Ratio 1.2H, Activated Partial Thromboplast Time 40H, C-Reactive Protein, Quantitative > 70.0H 07/21/17 19:13: Vancomycin Level Trough < 2.0L Height (Feet): 6 Height (Inches): 4.00 Weight (Pounds): 294 General Appearance: confused Respiratory/Chest: decreased breath sounds Abdomen: non tender, soft Edema: other - cellulitis lower leg Guido Lopez Jul 21, 2017 23:55
[2017-07-22] VITALS (11 sets, daily range): BP systolic 95–133; BP diastolic 42–72
[2017-07-22] MEDS: D5NS 1,000 ML IV SCH (04:24)
[2017-07-22 04:52] LABS: HEMATOCRIT 21.7 % (42.0-52.0); HEMOGLOBIN 7.2 G/DL (14.2-18.0); MEAN CORPUSCULAR VOLUME 91 FL (80-99); PLATELET COUNT 163 K/UL (150-450); RED BLOOD COUNT 2.39 M/UL (4.70-6.10); WHITE BLOOD COUNT 8.5 K/UL (4.8-10.8)
[2017-07-22 04:56] LABS: INR 1.1 (0.9-1.1)
[2017-07-22 05:33] LABS: ALANINE AMINOTRANSFERASE 26 U/L (12-78); ALBUMIN 2.2 G/DL (3.4-5.0); ALBUMIN/GLOBULIN RATIO 0.4 (1.0-2.7); ALKALINE PHOSPHATASE 87 U/L (46-116); ANION GAP 9 mmol/L (5-15); ASPARTATE AMINO TRANSFERASE 56 U/L (15-37); BILIRUBIN,TOTAL 1.3 MG/DL (0.2-1.0); BLOOD UREA NITROGEN 29 mg/dL (7-18); CALCIUM 7.9 MG/DL (8.5-10.1); CARBON DIOXIDE 23 MMOL/L (21-32); CHLORIDE 104 MMOL/L (98-107); POTASSIUM 3.5 MMOL/L (3.5-5.1); SODIUM 136 MMOL/L (136-145)
[2017-07-22] MEDS: Piperacillin/Tazobactam 2.25 GM in NS 55 ML IVPB SCH ×3 (06:00→23:22)
[2017-07-22 06:02] LABS: CHOLESTEROL 71 MG/DL (< 200); CREATINE KINASE 114 U/L (26-308); GAMMA GLUTAMYL TRANSPEPTIDASE 45 U/L (5-85); HDL CHOLESTEROL 34 MG/DL (40-60); PHOSPHORUS 2.1 MG/DL (2.5-4.9); TRIGLYCERIDES 66 MG/DL (30-150)
[2017-07-22 06:05] LABS: BILIRUBIN,DIRECT 0.5 MG/DL (0.0-0.3)
[2017-07-22] MEDS: NovoLOG Insulin Flexpen SUBQ SCH ×4 (06:30→21:38)
--- NOTE | 2017-07-22 06:47 | Pre-Procedure Note/Attestation ---
Pre-Procedure Note/Attestation Complete Prior to Procedure Planned Procedure: right Procedure Narrative: Right hallux amputation with debridement and I&D Indications for Procedure Pre-Operative Diagnosis: 1) Cellulitis right LE with possible abscess 2) Osteomyelitis seen on CT 3) Sepsis 4) DM foot ulcer Attestation I attest that I discussed the nature of the procedure; its benefits; risks and complications; and alternatives (and the risks and benefits of such alternatives ), prior to the procedure, with the patient (or the patient's legal retail field representative). I attest that, if there was a reasonable possibility of needing a blood transfusion, the patient (or the patient's legal retail field representative) was given the [place] Department of [employer] Services standardized written summary, pursuant to the Trevon [place] Blood Safety Act ([place] Health and Safety Code # 1645, as amended). I attest that I re-evaluated the patient just prior to the surgery and that there has been no change in the patient's H&P, except as documented below: Wiliam Bernard DPM Jul 22, 2017 06:47
[2017-07-22] MEDS ORDERED: Bupivacaine 0.25% Inj 30ml INJ ONE (06:54)
[2017-07-22] MEDS ORDERED: Labetalol 5mg/ml 20ml vial IV ONE (07:00)
[2017-07-22] MEDS ORDERED: Midazolam 2mg/2ml Inj ONE (07:00)
[2017-07-22] MEDS ORDERED: LR 1000ml ONE (07:00)
[2017-07-22] MEDS ORDERED: Sterile Water Irrig 1000ml IRRIG ONE (07:00)
[2017-07-22] MEDS ORDERED: fentaNYL 100 mcg/2 mL IV ONE (07:00)
[2017-07-22] MEDS ORDERED: NS Irrig 1000ml ONE (07:00)
[2017-07-22] MEDS ORDERED: Propofol 200mg/20ml IV ONE (07:49)
[2017-07-22] MEDS ORDERED: LR 1000ml 1,000 ML IVLG SCH (08:03)
--- NOTE | 2017-07-22 08:09 | Anethesia Preoperative Eval ---
Anesthesia Pre-op PMH/ROS General Date of Evaluation: Jul 22, 2017 Time of Evaluation: 06:50 Anesthesiologist: Zheng ASA Score: ASA 3 Mallampati Score Class I : Soft palate, uvula, fauces, pillars visible Class II: Soft palate, uvula, fauces visible Class III: Soft palate, base of uvula visible Class IV: Only hard plate visible Mallampati Classification: Class III Surgeon: Marco Antonio Diagnosis: Osteomyelitis right great toe Surgical Procedure: Amputation Allergies: Coded Allergies: No Known Allergies (Verified , 11/14/10) Medications: see eMAR Past Medical History Cardiovascular: Denies: HTN, CAD, AR, valve dz, arrhythmia, other Pulmonary: Denies: asthma, COPD, NEFTALI, other Gastrointestinal/Genitourinary: Reports: GERD, CRI, Denies: ESRD, other Neurologic/Psychiatric: Denies: dementia, CVA, depression/anxiety, TIA, other Endocrine: Reports: DM, Denies: hypothyroidism, steroids, other HEENT: Denies: cataract (L), cataract (R), glaucoma, DIOMEDE (L), DIOMEDE (R), other Hematology/Immune: Reports: anemia, Denies: DVT, bleeding disorder, other Musculoskeletal/Integumentary: Denies: OA, RA, DJD, DDD, edema, other Other: obesity PMH Narrative: DM, GERD, CRI, obesity, osteomyelitis/cellulitis PSxH Narrative: Right foot Anesthesia Pre-op Phys. Exam Physician Exam Last Vital Signs Date Time Temp Pulse Resp B/P (MAP) Pulse Ox O2 Delivery O2 Flow Rate FiO2 07/22/17 05:24 99.8 07/22/17 04:00 86 07/22/17 04:00 18 133/53 97 Room Air Constitutional: NAD Neurologic: CN 2-12 intact Cardiovascular: no M/R/G Respiratory: CTA Gastrointestinal: S/NT/ND Airway Exam Mallampati Score: Class III MO: full ROM: full Teeth: missing Anesthesia Pre-op A/P Labs Hematology Test 07/22/17 04:15 White Blood Count 8.5 K/UL (4.8-10.8) Red Blood Count 2.39 M/UL (4.70-6.10) L Hemoglobin 7.2 G/DL (14.2-18.0) L Hematocrit 21.7 % (42.0-52.0) L Mean Corpuscular Volume 91 FL (80-99) Mean Corpuscular Hemoglobin 30.0 PG (27.0-31.0) Mean Corpuscular Hemoglobin Concent 33.1 G/DL (32.0-36.0) Red Cell Distribution Width 17.0 % (11.6-14.8) H Platelet Count 163 K/UL (150-450) Mean Platelet Volume 6.1 FL (6.5-10.1) L Neutrophils (%) (Auto) % (45.0-75.0) Lymphocytes (%) (Auto) % (20.0-45.0) Monocytes (%) (Auto) % (1.0-10.0) Eosinophils (%) (Auto) % (0.0-3.0) Basophils (%) (Auto) % (0.0-2.0) Neutrophils % (Manual) Pending Lymphocytes % (Manual) Pending Platelet Estimate Pending Platelet Morphology Pending Coagulation Test 07/21/17 16:50 07/22/17 04:15 Prothrombin Time 12.4 SEC (9.30-11.50) H 12.0 SEC (9.30-11.50) H Prothromb Time International Ratio 1.2 (0.9-1.1) H 1.1 (0.9-1.1) Activated Partial Thromboplast Time 40 SEC (23-33) H 41 SEC (23-33) H Chemistry Test 07/21/17 12:20 07/21/17 16:50 07/22/17 04:15 07/22/17 06:00 Lactic Acid Level 5.60 mmol/L (0.66-2.22) H 2.00 mmol/L (0.66-2.22) 1.00 mmol/L (0.66-2.22) C-Reactive Protein, Quantitative > 70.0 mg/dL (0.00-0.90) H Sodium Level 136 MMOL/L (136-145) Potassium Level 3.5 MMOL/L (3.5-5.1) Chloride Level 104 MMOL/L (98-107) Carbon Dioxide Level 23 MMOL/L (21-32) Anion Gap 9 mmol/L (5-15) Blood Urea Nitrogen 29 mg/dL (7-18) H Creatinine 2.0 MG/DL (0.55-1.30) H Estimat Glomerular Filtration Rate 40.4 mL/min (>60) Glucose Level 58 MG/DL (74-106) L Hemoglobin A1c 9.6 % (4.3-6.0) H Uric Acid 5.7 MG/DL (2.6-7.2) Calcium Level 7.9 MG/DL (8.5-10.1) L Phosphorus Level 2.1 MG/DL (2.5-4.9) L Magnesium Level 2.1 MG/DL (1.8-2.4) Total Bilirubin 1.3 MG/DL (0.2-1.0) H Direct Bilirubin 0.5 MG/DL (0.0-0.3) H Gamma Glutamyl Transpeptidase 45 U/L (5-85) Aspartate Amino Transf (AST/SGOT) 56 U/L (15-37) H Alanine Aminotransferase (ALT/SGPT) 26 U/L (12-78) Alkaline Phosphatase 87 U/L (46-116) Total Creatine Kinase 114 U/L (26-308) Troponin I 0.052 ng/mL (0.000-0.056) Pro-B-Type Natriuretic Peptide 1171 pg/mL (0-125) H Total Protein 7.5 G/DL (6.4-8.2) Albumin 2.2 G/DL (3.4-5.0) L Globulin 5.3 g/dL Albumin/Globulin Ratio 0.4 (1.0-2.7) L Triglycerides Level 66 MG/DL (30-150) Cholesterol Level 71 MG/DL (< 200) LDL Cholesterol 26 mg/dL (<100) HDL Cholesterol 34 MG/DL (40-60) L Cholesterol/HDL Ratio 2.1 (3.3-4.4) L Vitamin D 25-Hydroxy Pending 25-Hydroxy Vitamin D2 Pending 25-Hydroxy Vitamin D3 Pending Studies Pre-op Studies: EKG - NSR, echo - Difficult study, EF- 55% Risk Assessment & Plan Assessment: Class 3 patient for right great toe amputation Plan: MAC, ankle block by surgeon, transfusion 1 unit PRBC Status Change Before Surgery: No Pre-Antibiotics Drug: Patient on antibiotics BRENDAN EASON M.D. Jul 22, 2017 08:09
--- NOTE | 2017-07-22 08:10 | Immediate Post-Op Evaluation ---
Immediate Post-Op Evalulation Immediate Post-Op Evalulation Procedure: Amputation of right great toe Date of Evaluation: Jul 22, 2017 Time of Evaluation: 09:20 IV Fluids: 500 Blood Products: 250 PRBC Estimated Blood Loss: 100 Blood Pressure Systolic: 113 Blood Pressure Diastolic: 53 Pulse Rate: 78 Respiratory Rate: 20 O2 Sat by Pulse Oximetry: 100 Temperature (Fahrenheit): 97.9 Pain Score (1-10): 0 Nausea: No Vomiting: No Complications No complication Patient Status: awake, patent, none Hydration Status: adequate Drug: Patient on antibiotics BRENDAN EASON M.D. Jul 22, 2017 08:10
[2017-07-22] MEDS ORDERED: DiphenhydrAMINE 50mg/ml Inj IVP PRN (08:15)
[2017-07-22] MEDS ORDERED: Hydromorphone 0.5mg/0.5ml inj IVP PRN (08:15)
[2017-07-22] MEDS ORDERED: Surgicel 4in x 8in TOPIC ONE ×2 (08:19→08:24)
[2017-07-22] MEDS ORDERED: Lidocaine 1% 10mg/ml/Epi 0.005mg/ml 30ml vial INJ ONE (08:49)
--- NOTE | 2017-07-22 09:11 | Brief Operative Note ---
Immediate Post Operative Note Operative Note Chief Complaint: Dict # [id number] Pre-op Diagnosis: 1) Cellulitis right LE with possible abscess 2) Osteomyelitis seen on CT 3) Sepsis 4) DM foot ulcer Procedure: 1) Right partial first ray amp 2) Excisional debridement of necrotic tissue to level of bone Post-op Diagnosis: same as pre-op Surgeon: LILLIE BERNARD DPM Mirror Machine Feeder: NONE Anesthesiologist: DR EASON Anesthesia: local, MAC Specimen: yes - PARTIAL FIRST RAY, BONE FOR CULTURE Complications: none Condition: stable Fluids: per anesthesia Estimated Blood Loss: volume - 100 Drains: none Tourniquet time: 75 - min Implant(s) used?: No Lillie Bernard DPM Jul 22, 2017 09:10
--- NOTE | 2017-07-22 09:21 | Wound Nurse Progress Note ---
Wound RN Progress Note Wound Consult Pt is under the care of Dr Bernard. No further recommendation. Follow Md's order. CRISTI RING RN Jul 22, 2017 09:21
[2017-07-22 10:01] LABS: HEMATOCRIT 23.7 % (42.0-52.0); HEMOGLOBIN 7.9 G/DL (14.2-18.0); MEAN CORPUSCULAR VOLUME 91 FL (80-99); PLATELET COUNT 159 K/UL (150-450); RED CELL DISTRIBUTION WIDTH 16.7 % (11.6-14.8); WHITE BLOOD COUNT 11.1 K/UL (4.8-10.8)
[2017-07-22] MEDS: Docusate 100mg cap ORAL SCH ×3 (10:41→18:00)
[2017-07-22] MEDS: Vancomycin 1500mg IVPB SCH (10:42)
--- NOTE | 2017-07-22 11:10 | Nephrology Progress Note ---
Assessment/Plan Problem List: (1) Renal failure (ARF), acute on chronic (2) DM2 (diabetes mellitus, type 2) (3) Acute on chronic anemia (4) Diabetic foot ulcer Assessment Renal failure, Mainly Chronic due to DM Cr lower at 2 Proteinuria, Diabetic Nephropathy, HypoAlbuminemia On going lower exteremity cellulitis / Osteo and high Lactic level PVD High Cholestrol Anemia Plan Plan: 2D echo- pending Kidney Noemi pending slow hydrate urine studies per orders Subjective ROS Limited/Unobtainable: No Constitutional: Reports: malaise Objective Objective Last 24 Hour Vital Signs Date Time Temp Pulse Resp B/P (MAP) Pulse Ox O2 Delivery O2 Flow Rate FiO2 07/22/17 10:00 82 07/22/17 09:45 98.6 79 18 115/53 100 Nasal Cannula 3.0 98.6 07/22/17 09:30 77 13 112/53 100 Simple Mask 6.0 07/22/17 09:21 208.2 78 20 100 07/22/17 09:20 77 15 109/50 100 Simple Mask 6.0 07/22/17 09:15 76 19 110/42 100 Simple Mask 6.0 07/22/17 09:10 98.5 83 13 113/53 100 Simple Mask 6.0 98.5 07/22/17 05:24 99.8 07/22/17 04:25 101.0 07/22/17 04:00 86 07/22/17 04:00 101.0 94 18 133/53 97 Room Air 101.0 07/22/17 00:00 100.6 70 20 95/60 95 Room Air 100.6 07/22/17 00:00 89 07/21/17 20:00 99 07/21/17 20:00 99.7 100 20 126/79 97 Room Air 99.7 07/21/17 16:00 99.3 88 20 123/61 97 Room Air 99.3 88 07/21/17 16:00 88 07/21/17 12:00 98.2 81 22 98.2 81 07/21/17 12:00 78 Intake and Output 07/21/17 07/22/17 19:00 07:00 Intake Total 575 ml 670 ml Output Total 800 ml 500 ml Balance -225 ml 170 ml Intake Oral 500 ml 120 ml IV Total 75 ml 550 ml Output Urine Total 800 ml 500 ml # Voids 2 # Bowel Movements 1 Laboratory Tests 07/21/17 12:20: Lactic Acid Level 5.60H 07/21/17 16:50: Lactic Acid Level 2.00, Prothrombin Time 12.4H, Prothromb Time International Ratio 1.2H, Activated Partial Thromboplast Time 40H, C-Reactive Protein, Quantitative > 70.0H 07/21/17 19:13: Vancomycin Level Trough < 2.0L 07/22/17 04:15: Lactic Acid Level 1.00, Prothrombin Time 12.0H, Prothromb Time International Ratio 1.1, Activated Partial Thromboplast Time 41H, White Blood Count 8.5, Red Blood Count 2.39L, Hemoglobin 7.2L, Hematocrit 21.7L, Mean Corpuscular Volume 91 , Mean Corpuscular Hemoglobin 30.0, Mean Corpuscular Hemoglobin Concent 33.1, Red Cell Distribution Width 17.0H, Platelet Count 163, Mean Platelet Volume 6.1L , Neutrophils (%) (Auto) , Lymphocytes (%) (Auto) , Monocytes (%) (Auto) , Eosinophils (%) (Auto) , Basophils (%) (Auto) , Differential Total Cells Counted 100, Neutrophils % (Manual) 86H, Lymphocytes % (Manual) 3L, Monocytes % (Manual) 11H, Eosinophils % (Manual) 0, Basophils % (Manual) 0, Band Neutrophils 0, Platelet Estimate Adequate, Platelet Morphology Normal, Hypochromasia 3+, Anisocytosis 1+, Spherocytes 2+, Sodium Level 136, Potassium Level 3.5, Chloride Level 104, Carbon Dioxide Level 23, Anion Gap 9, Blood Urea Nitrogen 29H, Creatinine 2.0H, Estimat Glomerular Filtration Rate 40.4, Glucose Level 58L, Hemoglobin A1c 9.6H, Uric Acid 5.7, Calcium Level 7.9L, Phosphorus Level 2.1L, Magnesium Level 2.1, Total Bilirubin 1.3H, Direct Bilirubin 0.5H, Gamma Glutamyl Transpeptidase 45, Aspartate Amino Transf (AST/SGOT) 56H, Alanine Aminotransferase (ALT/SGPT) 26, Alkaline Phosphatase 87, Total Creatine Kinase 114, Troponin I 0.052, Pro-B-Type Natriuretic Peptide 1171H, Total Protein 7.5, Albumin 2.2L, Globulin 5.3, Albumin/Globulin Ratio 0.4L, Triglycerides Level 66, Cholesterol Level 71, LDL Cholesterol 26, HDL Cholesterol 34L, Cholesterol/HDL Ratio 2.1L 07/22/17 06:00: Vitamin D 25-Hydroxy [Pending], 25-Hydroxy Vitamin D2 [Pending], 25-Hydroxy Vitamin D3 [Pending] 07/22/17 06:27: Urine Random Sodium 86 07/22/17 09:45: White Blood Count 11.1H, Red Blood Count 2.60L, Hemoglobin 7.9L, Hematocrit 23.7L, Mean Corpuscular Volume 91, Mean Corpuscular Hemoglobin 30.5, Mean Corpuscular Hemoglobin Concent 33.6, Red Cell Distribution Width 16.7H, Platelet Count 159, Mean Platelet Volume 6.3L, Neutrophils (%) (Auto) , Lymphocytes (%) (Auto) , Monocytes (%) (Auto) , Eosinophils (%) (Auto) , Basophils (%) (Auto) , Differential Total Cells Counted 100, Neutrophils % ( Manual) 83H, Lymphocytes % (Manual) 5L, Monocytes % (Manual) 11H, Eosinophils % (Manual) 0, Basophils % (Manual) 0, Band Neutrophils 1, Platelet Estimate Adequate, Platelet Morphology Normal, Hypochromasia 3+, Anisocytosis 1+, Spherocytes 2+ Height (Feet): 6 Height (Inches): 4.00 Weight (Pounds): 294 General Appearance: no apparent distress Respiratory/Chest: decreased breath sounds Abdomen: soft, distended GRIFFIN ASTORGA Jul 22, 2017 11:10
[2017-07-22] MEDS ORDERED: Phospha 250 Neutral tab ORAL ONE (11:15)
[2017-07-22] MEDS: Vitamin D 50,000 units cap ORAL SCH (13:00)
--- NOTE | 2017-07-22 13:05 | General Progress Note ---
Assessment/Plan Problem List: (1) Severe sepsis ICD Codes: A41.9 - Sepsis, unspecified organism; R65.20 - Severe sepsis without septic shock SNOMED: 59833693 (2) Cellulitis of right lower extremity ICD Codes: L03.115 - Cellulitis of right lower limb SNOMED: 066461852 (3) Concern for abscess of R foot (4) Likely 1st toe ostemyelitis (5) Acute blood loss anemia ICD Codes: D62 - Acute posthemorrhagic anemia SNOMED: 253504777 (6) Lactic acidosis ICD Codes: E87.2 - Acidosis SNOMED: 25394735 (7) Diabetic foot ulcer ICD Codes: E11.621 - Type 2 diabetes mellitus with foot ulcer; L97.509 - Non- pressure chronic ulcer of other part of unspecified foot with unspecified severity SNOMED: 46237353, 889847971 (8) DM2 (diabetes mellitus, type 2) Assessment & Plan: A1C 10.7 ICD Codes: E11.9 - Type 2 diabetes mellitus without complications SNOMED: 19204836 Qualifiers: (9) Renal failure (ARF), acute on chronic ICD Codes: N17.9 - Acute kidney failure, unspecified; N18.9 - Chronic kidney disease, unspecified SNOMED: 753643163 (10) Acute on chronic anemia (11) Leukopenia ICD Codes: D72.819 - Decreased white blood cell count, unspecified SNOMED: 82403166, 796245450 (12) Hypertension ICD Codes: I10 - Hypertension SNOMED: 14942478 (13) Hyperlipidemia ICD Codes: E78.5 - Hyperlipidemia SNOMED: 05150611 Status: stable Assessment/Plan Podiatry, ID, hematology, and nephrology consulted s/p 1 unit pRBC on 07/20/17 Transfuse 1U pRBC today for hgb 7.2 F/u stool OB x 3 and iron workup per heme Unknown baseline Cr, trend Cr F/u renal U/S--neg Hold ACEi and lasix in the setting of CHIQUITA mIVFs Continue IV vancomycin and zosyn (06/19 - ) F/u blood cultures, wound cultures CT of right foot noted with possible osteomyelitis and concern for abscess. Unable to get MRI given pt size s/p R partial first ray amputation, and excisional debridement of necrotic tissue to level of bone on 07/22/17 F/u venous ultrasound of RLE to r/o DVT--neg F/u arterial duplex SSI Hold PO hypoglycemic agents Continue home bp meds Continue to achieve tight glucose control for improved wound healing DVT Prophylaxis: SCD, HSQ Code Status: Full Hospital Classification Declaration: Based on this initial evaluation, and depending on the patient's clinical course, I anticipate that this patient will require hospitalization for 2-3 days for surgical mgmt and close respiratory/ hemodynamic monitoring. Disposition: Once the patient is stable to leave the hospital, I anticipate the patient will likely be discharged to the following environment: home with HH vs SNF Discussed with patient/family, nursing staff, SW/CM, podiatry, ID, renal regarding clinical status, treatment course, and disposition planning. Time of note may not reflect time of encounter. Subjective Date patient seen: Jul 22, 2017 Time patient seen: 13:05 ROS Limited/Unobtainable: No Constitutional: Reports: no symptoms HEENT: Reports: no symptoms Cardiovascular: Reports: no symptoms Respiratory: Reports: no symptoms Gastrointestinal/Abdominal: Reports: no symptoms Genitourinary: Reports: no symptoms Neurologic/Psychiatric: Reports: no symptoms Endocrine: Reports: no symptoms Hematologic/Lymphatic: Reports: no symptoms Allergies: Coded Allergies: No Known Allergies (Verified , 11/14/10) Subjective No acute o/n events Unable to get MRI given pt size Hgb 7.2 this AM. 1U pRBC transfused s/p R partial first ray amputation, and excisional debridement of necrotic tissue to level of bone C/o R foot pain. Sarah f/c, n/v, d/c, chest pain, SOB, abd pain Objective Last 24 Hour Vital Signs Date Time Temp Pulse Resp B/P (MAP) Pulse Ox O2 Delivery O2 Flow Rate FiO2 07/22/17 12:00 99.1 87 20 116/69 99 Nasal Cannula 3.0 99.1 07/22/17 10:00 82 07/22/17 09:45 98.6 79 18 115/53 100 Nasal Cannula 3.0 98.6 07/22/17 09:30 77 13 112/53 100 Simple Mask 6.0 07/22/17 09:21 208.2 78 20 100 07/22/17 09:20 77 15 109/50 100 Simple Mask 6.0 07/22/17 09:15 76 19 110/42 100 Simple Mask 6.0 07/22/17 09:10 98.5 83 13 113/53 100 Simple Mask 6.0 98.5 07/22/17 05:24 99.8 07/22/17 04:25 101.0 07/22/17 04:00 86 07/22/17 04:00 101.0 94 18 133/53 97 Room Air 101.0 07/22/17 00:00 100.6 70 20 95/60 95 Room Air 100.6 07/22/17 00:00 89 07/21/17 20:00 99 07/21/17 20:00 99.7 100 20 126/79 97 Room Air 99.7 07/21/17 16:00 99.3 88 20 123/61 97 Room Air 99.3 88 07/21/17 16:00 88 Intake and Output 07/21/17 07/22/17 19:00 07:00 Intake Total 575 ml 670 ml Output Total 800 ml 500 ml Balance -225 ml 170 ml Intake Oral 500 ml 120 ml IV Total 75 ml 550 ml Output Urine Total 800 ml 500 ml # Voids 2 # Bowel Movements 1 Laboratory Tests 07/21/17 16:50: Prothrombin Time 12.4H, Prothromb Time International Ratio 1.2H, Activated Partial Thromboplast Time 40H, Lactic Acid Level 2.00, C-Reactive Protein, Quantitative > 70.0H 07/21/17 19:13: Vancomycin Level Trough < 2.0L 07/22/17 04:15: Prothrombin Time 12.0H, Prothromb Time International Ratio 1.1, Activated Partial Thromboplast Time 41H, Lactic Acid Level 1.00, White Blood Count 8.5, Red Blood Count 2.39L, Hemoglobin 7.2L, Hematocrit 21.7L, Mean Corpuscular Volume 91, Mean Corpuscular Hemoglobin 30.0, Mean Corpuscular Hemoglobin Concent 33.1, Red Cell Distribution Width 17.0H, Platelet Count 163, Mean Platelet Volume 6.1L, Neutrophils (%) (Auto) , Lymphocytes (%) (Auto) , Monocytes (%) (Auto) , Eosinophils (%) (Auto) , Basophils (%) (Auto) , Differential Total Cells Counted 100, Neutrophils % (Manual) 86H, Lymphocytes % (Manual) 3L, Monocytes % (Manual) 11H, Eosinophils % (Manual) 0, Basophils % ( Manual) 0, Band Neutrophils 0, Platelet Estimate Adequate, Platelet Morphology Normal, Hypochromasia 3+, Anisocytosis 1+, Spherocytes 2+, Sodium Level 136, Potassium Level 3.5, Chloride Level 104, Carbon Dioxide Level 23, Anion Gap 9, Blood Urea Nitrogen 29H, Creatinine 2.0H, Estimat Glomerular Filtration Rate 40.4, Glucose Level 58L, Hemoglobin A1c 9.6H, Uric Acid 5.7, Calcium Level 7.9L , Phosphorus Level 2.1L, Magnesium Level 2.1, Total Bilirubin 1.3H, Direct Bilirubin 0.5H, Gamma Glutamyl Transpeptidase 45, Aspartate Amino Transf (AST/ SGOT) 56H, Alanine Aminotransferase (ALT/SGPT) 26, Alkaline Phosphatase 87, Total Creatine Kinase 114, Troponin I 0.052, Pro-B-Type Natriuretic Peptide 1171H, Total Protein 7.5, Albumin 2.2L, Globulin 5.3, Albumin/Globulin Ratio 0.4L, Triglycerides Level 66, Cholesterol Level 71, LDL Cholesterol 26, HDL Cholesterol 34L, Cholesterol/HDL Ratio 2.1L 07/22/17 06:00: Vitamin D 25-Hydroxy [Pending], 25-Hydroxy Vitamin D2 [Pending], 25-Hydroxy Vitamin D3 [Pending] 07/22/17 06:27: Urine Random Sodium 86 07/22/17 09:45: White Blood Count 11.1H, Red Blood Count 2.60L, Hemoglobin 7.9L, Hematocrit 23.7L, Mean Corpuscular Volume 91, Mean Corpuscular Hemoglobin 30.5, Mean Corpuscular Hemoglobin Concent 33.6, Red Cell Distribution Width 16.7H, Platelet Count 159, Mean Platelet Volume 6.3L, Neutrophils (%) (Auto) , Lymphocytes (%) (Auto) , Monocytes (%) (Auto) , Eosinophils (%) (Auto) , Basophils (%) (Auto) , Differential Total Cells Counted 100, Neutrophils % ( Manual) 83H, Lymphocytes % (Manual) 5L, Monocytes % (Manual) 11H, Eosinophils % (Manual) 0, Basophils % (Manual) 0, Band Neutrophils 1, Platelet Estimate Adequate, Platelet Morphology Normal, Hypochromasia 3+, Anisocytosis 1+, Spherocytes 2+, C-Reactive Protein, Quantitative 26.3H Height (Feet): 6 Height (Inches): 4.00 Weight (Pounds): 294 Objective General Appearance: no apparent distress, alert HEENT: normocephalic, atraumatic Neck: non-tender, normal alignment, supple Respiratory/Chest: chest wall non-tender, lungs clear, normal breath sounds Cardiovascular/Chest: normal peripheral pulses, normal rate, regular rhythm Abdomen: normal bowel sounds, non tender, soft Skin Exam: other - right lower extremity erythema, edema, and TTP. right great toe with gangrenous changes and open wound but no drainage, [id number] Neurologic: celery cutter II-XII grossly normal, no motor/sensory deficits, alert, oriented x 3 Js Garcia M.D. Jul 22, 2017 13:05
--- NOTE | 2017-07-22 14:49 | Diagnostic Imaging Report ---
Indication:Renal failure. Elevated BUN/creatinine. Flank pain Technique: Grayscale and duplex Doppler imaging of the kidneys performed. Comparison: None Findings: Size, contour, echogenicity the kidneys are within normal limits. There is no hydronephrosis demonstrated. The right kidney measures 10 cm. The left kidney measures 11.8 cm. The bladder is moderately distended with a volume of 474 cc. There is no postvoid residual. IVC is unremarkable. IMPRESSION: Negative ultrasound of the kidneys.
--- NOTE | 2017-07-22 15:00 | Operative Note - Dictated ---
DATE OF OPERATION: 07/22/2017 SURGEON: Wiliam Bernard D.P.M. SCRAP SEPARATOR SURGEON: None. ANESTHESIOLOGIST: Trevon Calzada M.D. TYPE OF ANESTHESIA: MAC with local. PREOPERATIVE DIAGNOSES: 1. Cellulitis, right lower extremity with possible abscess. 2. Osteomyelitis seen on CT. 3. Sepsis. 4. Diabetic foot ulcer. POSTOPERATIVE DIAGNOSES: 1. Cellulitis, right lower extremity with possible abscess. 2. Osteomyelitis seen on CT. 3. Sepsis. 4. Diabetic foot ulcer. PROCEDURE PERFORMED: 1. Right partial first ray amputation. 2. Excisional debridement of necrotic tissue to the level of bone, right foot. OPERATIVE PROCEDURE: The patient was transported to the operating room and placed on the operating table in supine position. Anesthesiologist then began IV sedation. Also one unit of blood was also given to the patient during the procedure due to his decreased H and H. Right lower extremity was anesthetized utilizing an ankle block 6 mL of 0.25% plain Marcaine. Right lower extremity was scrubbed, prepped, and draped in usual aseptic manner. After anesthesia check, right hallux was disarticulated One-third of the distal aspect of first metatarsal head was freed of soft tissue attachments and sagittal saw was utilized to excise. Sesamoids were also removed. The wound was debrided of nonviable tissue. Bleeders were cauterized. There was oozing noted from the wound. Surgicel was placed in the wound as well as 1% lidocaine with epinephrine was utilized for hemostasis. Wound was coapted utilizing 2-0 Vicryl and 2-0 nylon stitch and augie. The patient tolerated procedure and anesthesia well. He was transferred to the recovery room in stable condition. There were no complications, had about 100 mL of blood loss. Wiliam Bernard D.P.M. DR: MARY JO JOB#: [id number] CC:
--- NOTE | 2017-07-22 17:52 | General Progress Note ---
Assessment/Plan Status: stable Assessment/Plan mdd -cont current meds provided ro/st Subjective Date patient seen: Jul 22, 2017 Neurologic/Psychiatric: Reports: anxiety, depressed, emotional problems Allergies: Coded Allergies: No Known Allergies (Verified , 11/14/10) Objective Last 24 Hour Vital Signs Date Time Temp Pulse Resp B/P (MAP) Pulse Ox O2 Delivery O2 Flow Rate FiO2 07/22/17 16:33 99.0 07/22/17 16:00 100.6 93 20 125/72 97 Nasal Cannula 3.0 100.6 07/22/17 16:00 93 07/22/17 15:34 100.6 07/22/17 12:00 90 07/22/17 12:00 99.1 87 20 116/69 99 Nasal Cannula 3.0 99.1 07/22/17 10:00 82 07/22/17 09:45 98.6 79 18 115/53 100 Nasal Cannula 3.0 98.6 07/22/17 09:30 77 13 112/53 100 Simple Mask 6.0 07/22/17 09:21 208.2 78 20 100 07/22/17 09:20 77 15 109/50 100 Simple Mask 6.0 07/22/17 09:15 76 19 110/42 100 Simple Mask 6.0 07/22/17 09:10 98.5 83 13 113/53 100 Simple Mask 6.0 98.5 07/22/17 04:25 101.0 07/22/17 04:00 86 07/22/17 04:00 101.0 94 18 133/53 97 Room Air 101.0 07/22/17 00:00 100.6 70 20 95/60 95 Room Air 100.6 07/22/17 00:00 89 07/21/17 20:00 99 07/21/17 20:00 99.7 100 20 126/79 97 Room Air 99.7 Intake and Output 07/21/17 07/22/17 19:00 07:00 Intake Total 575 ml 670 ml Output Total 800 ml 500 ml Balance -225 ml 170 ml Intake Oral 500 ml 120 ml IV Total 75 ml 550 ml Output Urine Total 800 ml 500 ml # Voids 2 # Bowel Movements 1 Laboratory Tests 07/21/17 19:13: Vancomycin Level Trough < 2.0L 07/22/17 04:15: White Blood Count 8.5, Red Blood Count 2.39L, Hemoglobin 7.2L, Hematocrit 21.7L , Mean Corpuscular Volume 91, Mean Corpuscular Hemoglobin 30.0, Mean Corpuscular Hemoglobin Concent 33.1, Red Cell Distribution Width 17.0H, Platelet Count 163, Mean Platelet Volume 6.1L, Neutrophils (%) (Auto) , Lymphocytes (%) (Auto) , Monocytes (%) (Auto) , Eosinophils (%) (Auto) , Basophils (%) (Auto) , Differential Total Cells Counted 100, Neutrophils % ( Manual) 86H, Lymphocytes % (Manual) 3L, Monocytes % (Manual) 11H, Eosinophils % (Manual) 0, Basophils % (Manual) 0, Band Neutrophils 0, Platelet Estimate Adequate, Platelet Morphology Normal, Hypochromasia 3+, Anisocytosis 1+, Spherocytes 2+, Prothrombin Time 12.0H, Prothromb Time International Ratio 1.1, Activated Partial Thromboplast Time 41H, Sodium Level 136, Potassium Level 3.5, Chloride Level 104, Carbon Dioxide Level 23, Anion Gap 9, Blood Urea Nitrogen 29H, Creatinine 2.0H, Estimat Glomerular Filtration Rate 40.4, Glucose Level 58L , Hemoglobin A1c 9.6H, Lactic Acid Level 1.00, Uric Acid 5.7, Calcium Level 7.9L , Phosphorus Level 2.1L, Magnesium Level 2.1, Total Bilirubin 1.3H, Direct Bilirubin 0.5H, Gamma Glutamyl Transpeptidase 45, Aspartate Amino Transf (AST/ SGOT) 56H, Alanine Aminotransferase (ALT/SGPT) 26, Alkaline Phosphatase 87, Total Creatine Kinase 114, Troponin I 0.052, Pro-B-Type Natriuretic Peptide 1171H, Total Protein 7.5, Albumin 2.2L, Globulin 5.3, Albumin/Globulin Ratio 0.4L, Triglycerides Level 66, Cholesterol Level 71, LDL Cholesterol 26, HDL Cholesterol 34L, Cholesterol/HDL Ratio 2.1L 07/22/17 06:00: Vitamin D 25-Hydroxy [Pending], 25-Hydroxy Vitamin D2 [Pending], 25-Hydroxy Vitamin D3 [Pending] 07/22/17 06:27: Urine Random Sodium 86 07/22/17 09:45: White Blood Count 11.1H, Red Blood Count 2.60L, Hemoglobin 7.9L, Hematocrit 23.7L, Mean Corpuscular Volume 91, Mean Corpuscular Hemoglobin 30.5, Mean Corpuscular Hemoglobin Concent 33.6, Red Cell Distribution Width 16.7H, Platelet Count 159, Mean Platelet Volume 6.3L, Neutrophils (%) (Auto) , Lymphocytes (%) (Auto) , Monocytes (%) (Auto) , Eosinophils (%) (Auto) , Basophils (%) (Auto) , Differential Total Cells Counted 100, Neutrophils % ( Manual) 83H, Lymphocytes % (Manual) 5L, Monocytes % (Manual) 11H, Eosinophils % (Manual) 0, Basophils % (Manual) 0, Band Neutrophils 1, Platelet Estimate Adequate, Platelet Morphology Normal, Hypochromasia 3+, Anisocytosis 1+, Spherocytes 2+, C-Reactive Protein, Quantitative 26.3H Height (Feet): 6 Height (Inches): 4.00 Weight (Pounds): 294 General Appearance: no apparent distress, alert Neurologic: alert, oriented x 3, responsive, depressed affect Kory Bales M.D. Jul 22, 2017 17:52
--- NOTE | 2017-07-22 17:53 | Geriatric Progress Note ---
Subjective Interval Events 07/21/17 Mood/Memory: Reports: prior hx, depressed feelings, emotional problems Geriatric Geriatric Last 24 Hour Vital Signs Date Time Temp Pulse Resp B/P (MAP) Pulse Ox O2 Delivery O2 Flow Rate FiO2 07/22/17 16:33 99.0 07/22/17 16:00 100.6 93 20 125/72 97 Nasal Cannula 3.0 100.6 07/22/17 16:00 93 07/22/17 15:34 100.6 07/22/17 12:00 90 07/22/17 12:00 99.1 87 20 116/69 99 Nasal Cannula 3.0 99.1 07/22/17 10:00 82 07/22/17 09:45 98.6 79 18 115/53 100 Nasal Cannula 3.0 98.6 07/22/17 09:30 77 13 112/53 100 Simple Mask 6.0 07/22/17 09:21 208.2 78 20 100 07/22/17 09:20 77 15 109/50 100 Simple Mask 6.0 07/22/17 09:15 76 19 110/42 100 Simple Mask 6.0 07/22/17 09:10 98.5 83 13 113/53 100 Simple Mask 6.0 98.5 07/22/17 04:25 101.0 07/22/17 04:00 86 07/22/17 04:00 101.0 94 18 133/53 97 Room Air 101.0 07/22/17 00:00 100.6 70 20 95/60 95 Room Air 100.6 07/22/17 00:00 89 07/21/17 20:00 99 07/21/17 20:00 99.7 100 20 126/79 97 Room Air 99.7 Intake and Output 07/21/17 07/22/17 18:59 06:59 Intake Total 550 ml 745 ml Output Total 800 ml 500 ml Balance -250 ml 245 ml Intake Oral 500 ml 120 ml IV Total 50 ml 625 ml Output Urine Total 800 ml 500 ml # Voids 2 # Bowel Movements 1 Laboratory Tests Test 07/21/17 19:13 07/22/17 04:15 07/22/17 06:00 07/22/17 06:27 Vancomycin Level Trough < 2.0 ug/mL (5.0-12.0) L White Blood Count 8.5 K/UL (4.8-10.8) Red Blood Count 2.39 M/UL (4.70-6.10) L Hemoglobin 7.2 G/DL (14.2-18.0) L Hematocrit 21.7 % (42.0-52.0) L Mean Corpuscular Volume 91 FL (80-99) Mean Corpuscular Hemoglobin 30.0 PG (27.0-31.0) Mean Corpuscular Hemoglobin Concent 33.1 G/DL (32.0-36.0) Red Cell Distribution Width 17.0 % (11.6-14.8) H Platelet Count 163 K/UL (150-450) Mean Platelet Volume 6.1 FL (6.5-10.1) L Neutrophils (%) (Auto) % (45.0-75.0) Lymphocytes (%) (Auto) % (20.0-45.0) Monocytes (%) (Auto) % (1.0-10.0) Eosinophils (%) (Auto) % (0.0-3.0) Basophils (%) (Auto) % (0.0-2.0) Differential Total Cells Counted 100 Neutrophils % (Manual) 86 % (45-75) H Lymphocytes % (Manual) 3 % (20-45) L Monocytes % (Manual) 11 % (1-10) H Eosinophils % (Manual) 0 % (0-3) Basophils % (Manual) 0 % (0-2) Band Neutrophils 0 % (0-8) Platelet Estimate Adequate Platelet Morphology Normal Hypochromasia 3+ Anisocytosis 1+ Spherocytes 2+ Prothrombin Time 12.0 SEC (9.30-11.50) H Prothromb Time International Ratio 1.1 (0.9-1.1) Activated Partial Thromboplast Time 41 SEC (23-33) H Sodium Level 136 MMOL/L (136-145) Potassium Level 3.5 MMOL/L (3.5-5.1) Chloride Level 104 MMOL/L (98-107) Carbon Dioxide Level 23 MMOL/L (21-32) Anion Gap 9 mmol/L (5-15) Blood Urea Nitrogen 29 mg/dL (7-18) H Creatinine 2.0 MG/DL (0.55-1.30) H Estimat Glomerular Filtration Rate 40.4 mL/min (>60) Glucose Level 58 MG/DL (74-106) L Hemoglobin A1c 9.6 % (4.3-6.0) H Lactic Acid Level 1.00 mmol/L (0.66-2.22) Uric Acid 5.7 MG/DL (2.6-7.2) Calcium Level 7.9 MG/DL (8.5-10.1) L Phosphorus Level 2.1 MG/DL (2.5-4.9) L Magnesium Level 2.1 MG/DL (1.8-2.4) Total Bilirubin 1.3 MG/DL (0.2-1.0) H Direct Bilirubin 0.5 MG/DL (0.0-0.3) H Gamma Glutamyl Transpeptidase 45 U/L (5-85) Aspartate Amino Transf (AST/SGOT) 56 U/L (15-37) H Alanine Aminotransferase (ALT/SGPT) 26 U/L (12-78) Alkaline Phosphatase 87 U/L (46-116) Total Creatine Kinase 114 U/L (26-308) Troponin I 0.052 ng/mL (0.000-0.056) Pro-B-Type Natriuretic Peptide 1171 pg/mL (0-125) H Total Protein 7.5 G/DL (6.4-8.2) Albumin 2.2 G/DL (3.4-5.0) L Globulin 5.3 g/dL Albumin/Globulin Ratio 0.4 (1.0-2.7) L Triglycerides Level 66 MG/DL (30-150) Cholesterol Level 71 MG/DL (< 200) LDL Cholesterol 26 mg/dL (<100) HDL Cholesterol 34 MG/DL (40-60) L Cholesterol/HDL Ratio 2.1 (3.3-4.4) L Vitamin D 25-Hydroxy Pending 25-Hydroxy Vitamin D2 Pending 25-Hydroxy Vitamin D3 Pending Urine Random Sodium 86 MEQ/L (20-110) Test 07/22/17 09:45 White Blood Count 11.1 K/UL (4.8-10.8) H Red Blood Count 2.60 M/UL (4.70-6.10) L Hemoglobin 7.9 G/DL (14.2-18.0) L Hematocrit 23.7 % (42.0-52.0) L Mean Corpuscular Volume 91 FL (80-99) Mean Corpuscular Hemoglobin 30.5 PG (27.0-31.0) Mean Corpuscular Hemoglobin Concent 33.6 G/DL (32.0-36.0) Red Cell Distribution Width 16.7 % (11.6-14.8) H Platelet Count 159 K/UL (150-450) Mean Platelet Volume 6.3 FL (6.5-10.1) L Neutrophils (%) (Auto) % (45.0-75.0) Lymphocytes (%) (Auto) % (20.0-45.0) Monocytes (%) (Auto) % (1.0-10.0) Eosinophils (%) (Auto) % (0.0-3.0) Basophils (%) (Auto) % (0.0-2.0) Differential Total Cells Counted 100 Neutrophils % (Manual) 83 % (45-75) H Lymphocytes % (Manual) 5 % (20-45) L Monocytes % (Manual) 11 % (1-10) H Eosinophils % (Manual) 0 % (0-3) Basophils % (Manual) 0 % (0-2) Band Neutrophils 1 % (0-8) Platelet Estimate Adequate Platelet Morphology Normal Hypochromasia 3+ Anisocytosis 1+ Spherocytes 2+ C-Reactive Protein, Quantitative 26.3 mg/dL (0.00-0.90) H Current Medications Medications (Trade) Dose Ordered Sig/Xiao Route PRN Reason Start Time Stop Time Status Last Admin Dose Admin Acetaminophen (Tylenol) 650 mg Q4H PRN ORAL Mild Pain/Temp > 100.5 07/20/17 08:15 08/19/17 08:14 07/22/17 15:34 Acetaminophen/ Hydrocodone Bitart ([place] 10/325) 1 tab Q6H PRN ORAL Severe Pain (Pain Scale 7-10) 07/20/17 01:30 07/27/17 01:29 07/20/17 13:56 Acetaminophen/ Hydrocodone Bitart ([place] 5/325) 1 tab Q6H PRN ORAL Mild Pain (Pain Scale 1-3) 07/20/17 01:30 07/27/17 01:29 07/21/17 04:37 Atorvastatin Calcium (Lipitor) 40 mg QHS ORAL 07/22/17 21:00 08/19/17 08:59 Dextrose (Dextrose 50%) STAT PRN IV Hypoglycemia 07/20/17 05:15 08/19/17 05:14 Docusate Sodium (Colace) 100 mg THREE TIMES A DAY ORAL 07/22/17 13:00 08/21/17 12:59 07/22/17 13:00 Epoetin Norberto (Procrit (for non ESRD use)) 10,000 units MON-WED-FRI SUBQ 07/23/17 21:00 08/22/17 20:59 Ergocalciferol (Drisdol) 50,000 intlu QWEEK ORAL 07/22/17 12:30 08/21/17 12:29 07/22/17 13:00 Insulin Aspart (NovoLOG) BEFORE MEALS AND HS SUBQ 07/20/17 06:30 08/19/17 06:29 07/20/17 20:55 Insulin Detemir (Levemir) 50 units BEDTIME SUBQ 07/20/17 21:00 08/19/17 20:59 07/21/17 21:00 Iron Sucrose 100 mg/Sodium Chloride 60 ml @ 240 mls/hr BEDTIME IVPB 07/22/17 21:00 07/26/17 21:14 Pantoprazole (Protonix) 40 mg EVERY 12 HOURS ORAL 07/21/17 15:30 08/20/17 15:29 07/22/17 10:41 Piperacillin Sod/ Tazobactam Sod 2.25 gm/Sodium Chloride 55 ml @ 13.75 mls/ hr EVERY 8 HOURS IVPB 07/21/17 22:00 07/28/17 21:59 07/22/17 13:46 Sodium Chloride 1,000 ml @ 75 mls/hr [id number] IV 07/22/17 13:15 08/21/17 13:14 07/22/17 14:38 Vancomycin HCl (Vanco rx to dose) 1 ea DAILY PRN MISC Per rx protocol 07/20/17 06:00 08/19/17 05:59 Vancomycin HCl/ Dextrose 250 ml @ 125 mls/hr Q12H IVPB 07/21/17 22:00 07/26/17 21:59 07/22/17 10:42 Height (Feet): 6 Height (Inches): 4.00 Weight (Pounds): 294 General Appearance: well appearing, well dressed, well groomed, well nourished , no apparent distress, alert Psychiatric Orientation: person, place, time, situation Kory Bales M.D. Jul 22, 2017 17:53
[2017-07-22] MEDS: Iron Sucrose 100 MG in NS 55 ML IVPB SCH (21:35)
[2017-07-22] MEDS: Atorvastatin 20mg tab ORAL SCH (21:35)
[2017-07-22] MEDS: Levemir Flexpen SUBQ SCH (21:44)
[2017-07-23] VITALS (7 sets, daily range): BP systolic 117–166; BP diastolic 43–94
[2017-07-23] MEDS: Piperacillin/Tazobactam 2.25 GM in NS 55 ML IVPB SCH ×4 (02:11→21:46)
[2017-07-23] MEDS: Vancomycin 1gm/D5W 275ml IVPB SCH ×4 (05:17→18:23)
[2017-07-23] MEDS: NovoLOG Insulin Flexpen SUBQ SCH ×4 (06:30→20:51)
--- NOTE | 2017-07-23 07:06 | 48 Hour Post Anesthesia Eval ---
Post Anesthesia Evaluation Procedure: Amputation of right great toe Date of Evaluation: Jul 23, 2017 Time of Evaluation: 06:05 Blood Pressure Systolic: 128 0: 68 Pulse Rate: 73 Respiratory Rate: 20 Temperature (Fahrenheit): 100 O2 Sat by Pulse Oximetry: 98 Airway: patent Nausea: No Vomiting: No Pain Intensity: 2 Hydration Status: adequate Cardiopulmonary Status: at baseline Mental Status/LOC: patient returned to baseline Post-Anesthesia Complications: 0 Follow-up care needed: N/A - further care as per primary team CINDY OKEEFE M.D. Jul 23, 2017 07:05
[2017-07-23] MEDS: Docusate 100mg cap ORAL SCH ×3 (09:08→17:26)
[2017-07-23] MEDS: HYDROcodone/Acetamin 10/325 tab ORAL PRN (09:09)
[2017-07-23] MEDS: Heparin 5000 units/ml inj SUBQ SCH ×2 (09:14→20:53)
[2017-07-23 09:36] LABS: HEMATOCRIT 21.3 % (42.0-52.0); HEMOGLOBIN 7.2 G/DL (14.2-18.0); MEAN CORPUSCULAR VOLUME 90 FL (80-99); PLATELET COUNT 145 K/UL (150-450); RED BLOOD COUNT 2.36 M/UL (4.70-6.10); RED CELL DISTRIBUTION WIDTH 16.3 % (11.6-14.8); WHITE BLOOD COUNT 15.3 K/UL (4.8-10.8)
[2017-07-23 10:03] LABS: ALANINE AMINOTRANSFERASE 24 U/L (12-78); ALBUMIN/GLOBULIN RATIO 0.4 (1.0-2.7); ALKALINE PHOSPHATASE 106 U/L (46-116); ANION GAP 9 mmol/L (5-15); ASPARTATE AMINO TRANSFERASE 54 U/L (15-37); BILIRUBIN,TOTAL 1.2 MG/DL (0.2-1.0); BLOOD UREA NITROGEN 22 mg/dL (7-18); CALCIUM 7.7 MG/DL (8.5-10.1); CARBON DIOXIDE 22 MMOL/L (21-32); CHLORIDE 106 MMOL/L (98-107); CREATININE 1.9 MG/DL (0.55-1.30); PHOSPHORUS 1.8 MG/DL (2.5-4.9); POTASSIUM 3.4 MMOL/L (3.5-5.1); SODIUM 136 MMOL/L (136-145)
[2017-07-23 10:07] LABS: BILIRUBIN,DIRECT 0.6 MG/DL (0.0-0.3)
--- NOTE | 2017-07-23 10:17 | General Progress Note ---
Assessment/Plan Assessment/Plan 1. Anemia. --> Anemia workup reviewed. --> Iron 16, TIBC 198, % sat 8, Folate 13.4, B12 637, Ferritin 308 --> Iron levels are low. Monitor closely and trend cbc daily. --> Hgb levels downtrended, pending prbc. --> Transfuse if hgb <7 2. Leukopenia, likely secondary to underlying infection from osteomyelitis --> HIV/Hep panel pending --> On abx. ID following. 3. Lactic acidosis secondary to sepsis from underlying infection. --> Continue to monitor. 4. Diabetes mellitus, on insulin sliding scale. Blood sugar control as needed. 5. Right big toe osteomyelitis, to be seen by the [facility] as well as surgical team. Subjective Date patient seen: Jul 22, 2017 Constitutional: Denies: no symptoms, chills, diaphoresis, fever, malaise, weakness, other HEENT: Denies: no symptoms, eye pain, blurred vision, tearing, double vision, ear pain, ear discharge, nose pain, nose congestion, throat pain, throat swelling, mouth pain, mouth swelling, other Cardiovascular: Denies: no symptoms, chest pain, edema, irregular heart rate, lightheadedness, palpitations, syncope, other Respiratory: Denies: no symptoms, cough, orthopnea, shortness of breath, SOB with excertion, SOB at rest, sputum, stridor, wheezing, other Gastrointestinal/Abdominal: Denies: no symptoms, abdomen distended, abdominal pain, black stools, tarry stools, blood in stool, constipated, diarrhea, difficulty swallowing, nausea, poor appetite, poor fluid intake, rectal bleeding , vomiting, other Genitourinary: Denies: no symptoms, burning, discharge, frequency, flank pain, hematuria, incontinence, pain, urgency, other Hematologic/Lymphatic: Reports: anemia Allergies: Coded Allergies: No Known Allergies (Verified , 11/14/10) Subjective Hemoglobin downtrending again. Pending PRBC. ++Hematochezia. Objective Last 24 Hour Vital Signs Date Time Temp Pulse Resp B/P (MAP) Pulse Ox O2 Delivery O2 Flow Rate FiO2 07/23/17 09:47 102.0 07/23/17 07:05 212.0 73 20 98 07/23/17 04:00 100.0 73 20 128/68 98 Nasal Cannula 3.0 100.0 07/23/17 04:00 91 07/23/17 01:52 99.5 07/23/17 00:53 101.7 07/23/17 00:00 101.7 95 20 142/76 99 Nasal Cannula 3.0 101.7 07/23/17 00:00 90 07/22/17 20:00 100.2 96 20 124/60 98 Nasal Cannula 3.0 100.2 07/22/17 20:00 92 07/22/17 16:00 100.6 93 20 125/72 97 Nasal Cannula 3.0 100.6 07/22/17 16:00 93 07/22/17 15:34 100.6 07/22/17 12:00 90 07/22/17 12:00 99.1 87 20 116/69 99 Nasal Cannula 3.0 99.1 Intake and Output 07/22/17 07/23/17 19:00 07:00 Intake Total 1480 ml Output Total 800 ml 900 ml Balance 680 ml -900 ml Intake Oral 680 ml IV Total 550 ml Blood Product 250 ml Output Urine Total 700 ml 900 ml Estimated Blood Loss 100 ml # Voids 3 Laboratory Tests 07/22/17 18:30: Stool Occult Blood Positive 07/22/17 21:00: Vancomycin Level Trough 23.7H 07/23/17 09:30: White Blood Count 15.3H, Red Blood Count 2.36L, Hemoglobin 7.2L, Hematocrit 21.3L, Mean Corpuscular Volume 90, Mean Corpuscular Hemoglobin 30.4, Mean Corpuscular Hemoglobin Concent 33.7, Red Cell Distribution Width 16.3H, Platelet Count 145L, Mean Platelet Volume 7.5, Neutrophils (%) (Auto) , Lymphocytes (%) (Auto) , Monocytes (%) (Auto) , Eosinophils (%) (Auto) , Basophils (%) (Auto) , Neutrophils % (Manual) [Pending], Lymphocytes % (Manual) [Pending], Platelet Estimate [Pending], Platelet Morphology [Pending], Sodium Level 136, Potassium Level 3.4L, Chloride Level 106, Carbon Dioxide Level 22, Anion Gap 9, Blood Urea Nitrogen 22H, Creatinine 1.9H, Estimat Glomerular Filtration Rate 42.8, Glucose Level 124H, Uric Acid 5.5, Calcium Level 7.7L, Phosphorus Level 1.8L, Magnesium Level 2.0, Total Bilirubin 1.2H, Direct Bilirubin 0.6H, Aspartate Amino Transf (AST/SGOT) 54H, Alanine Aminotransferase (ALT/SGPT) 24, Alkaline Phosphatase 106, Pro-B-Type Natriuretic Peptide 1799H, Total Protein 6.9, Albumin 2.0L, Globulin 4.9, Albumin/Globulin Ratio 0.4L Height (Feet): 6 Height (Inches): 4.00 Weight (Pounds): 294 General Appearance: confused Respiratory/Chest: decreased breath sounds Skin: warm/dry Guido Lopez Jul 23, 2017 10:17
--- NOTE | 2017-07-23 10:22 | Nephrology Progress Note ---
Assessment/Plan Problem List: (1) Renal failure (ARF), acute on chronic (2) DM2 (diabetes mellitus, type 2) (3) Acute on chronic anemia (4) Diabetic foot ulcer Assessment Renal failure, Mainly Chronic due to DM Cr lower Proteinuria, Diabetic Nephropathy, HypoAlbuminemia On going lower exteremity cellulitis / Osteo and high Lactic level- FEVER PERSISTS PVD High Cholestrol Anemia Plan Plan: K Phos IV 2D echo- 55% EjFx Kidney Noemi Negative ultrasound of the kidneys. slow hydrate urine studies per orders Subjective ROS Limited/Unobtainable: No Constitutional: Reports: fever Objective Objective Last 24 Hour Vital Signs Date Time Temp Pulse Resp B/P (MAP) Pulse Ox O2 Delivery O2 Flow Rate FiO2 07/23/17 09:47 102.0 07/23/17 07:05 212.0 73 20 98 07/23/17 04:00 100.0 73 20 128/68 98 Nasal Cannula 3.0 100.0 07/23/17 04:00 91 07/23/17 01:52 99.5 07/23/17 00:53 101.7 07/23/17 00:00 101.7 95 20 142/76 99 Nasal Cannula 3.0 101.7 07/23/17 00:00 90 07/22/17 20:00 100.2 96 20 124/60 98 Nasal Cannula 3.0 100.2 07/22/17 20:00 92 07/22/17 16:00 100.6 93 20 125/72 97 Nasal Cannula 3.0 100.6 07/22/17 16:00 93 07/22/17 15:34 100.6 07/22/17 12:00 90 07/22/17 12:00 99.1 87 20 116/69 99 Nasal Cannula 3.0 99.1 Intake and Output 07/22/17 07/23/17 19:00 07:00 Intake Total 1480 ml Output Total 800 ml 900 ml Balance 680 ml -900 ml Intake Oral 680 ml IV Total 550 ml Blood Product 250 ml Output Urine Total 700 ml 900 ml Estimated Blood Loss 100 ml # Voids 3 Laboratory Tests 07/22/17 18:30: Stool Occult Blood Positive 07/22/17 21:00: Vancomycin Level Trough 23.7H 07/23/17 09:30: White Blood Count 15.3H, Red Blood Count 2.36L, Hemoglobin 7.2L, Hematocrit 21.3L, Mean Corpuscular Volume 90, Mean Corpuscular Hemoglobin 30.4, Mean Corpuscular Hemoglobin Concent 33.7, Red Cell Distribution Width 16.3H, Platelet Count 145L, Mean Platelet Volume 7.5, Neutrophils (%) (Auto) , Lymphocytes (%) (Auto) , Monocytes (%) (Auto) , Eosinophils (%) (Auto) , Basophils (%) (Auto) , Neutrophils % (Manual) [Pending], Lymphocytes % (Manual) [Pending], Platelet Estimate [Pending], Platelet Morphology [Pending], Sodium Level 136, Potassium Level 3.4L, Chloride Level 106, Carbon Dioxide Level 22, Anion Gap 9, Blood Urea Nitrogen 22H, Creatinine 1.9H, Estimat Glomerular Filtration Rate 42.8, Glucose Level 124H, Uric Acid 5.5, Calcium Level 7.7L, Phosphorus Level 1.8L, Magnesium Level 2.0, Total Bilirubin 1.2H, Direct Bilirubin 0.6H, Aspartate Amino Transf (AST/SGOT) 54H, Alanine Aminotransferase (ALT/SGPT) 24, Alkaline Phosphatase 106, Pro-B-Type Natriuretic Peptide 1799H, Total Protein 6.9, Albumin 2.0L, Globulin 4.9, Albumin/Globulin Ratio 0.4L Height (Feet): 6 Height (Inches): 4.00 Weight (Pounds): 294 General Appearance: no apparent distress, lethargic Respiratory/Chest: decreased breath sounds Abdomen: soft GRIFFIN ASTORGA Jul 23, 2017 10:22
[2017-07-23] MEDS ORDERED: Potassium Phosphate 30 MM in NS 275 ML IV ONE (11:30)
--- NOTE | 2017-07-23 12:39 | GI Initial Consult Note ---
Adele Avila N.PSylvie 07/23/17 1239: History of Present Illness General Date patient seen: Jul 23, 2017 Time patient seen: 12:33 Reason for Hospitalization: Lower Extremity Injury Referring physician: JULIET Reason for Consultation: GI BLEED Present Illness HPI 67-year-old male, history of hypertension, diabetes, chronic right lower foot wound, recent surgery/debridement at [facility] 2 weeks ago, undergoing hyperbaric treatment, has a nurse every other day to wrap his wound, presenting with right lower leg pain for one day. Patient denying any fever or chills. States that his right lower lip it has been gradual. States that his foot does not hurt but his leg hurts. There was no trauma. Denies any history of DVT or PE in the past. Has been taking antibiotics since he was discharged from [place]. GI consulted for GI bleed. Pt seen, awake A&Ox4 NAD with no active s/sx of N/ V. Patient presents today with anemia requiring multiple blood transfusions over the past few days. OB stool was sent, positive. Lab reviewed showed electrolyte imbalance, abnormal LFTs, elevated CRP. Hepatitis panel negative. Patient unsure about any history of endoscopy / colonoscopies. Home Meds Reported Medications Acetaminophen* (ACETAMINOPHEN 325MG TABLET*) 325 Mg Tablet, 650 MG ORAL Q4H Y for Prn Headache/Temp > 101, TAB 07/20/17 Doxycycline Hyclate* (VIBRAMYCIN*) 100 Mg Capsule, 100 MG ORAL BID for 5 Days, CAP 0 Refills 02/09/14 Levofloxacin* (LEVAQUIN*) 500 Mg Tablet, 500 MG ORAL DAILY for 5 Days, TAB 02/09/14 Glipizide* (GLIPIZIDE*) 5 Mg Tablet, 5 MG ORAL BIDAC, TAB 12/07/13 Atorvastatin Calcium* (ATORVASTATIN CALCIUM*) 40 Mg Tablet, 40 MG ORAL DAILY, TAB 08/31/13 Lisinopril (LISINOPRIL*) 5 Mg Tablet, 5 MG ORAL DAILY, TAB 08/31/13 [asa ] No Conflict Check 01/21/13 Insulin Detemir (LEVEMIR FLEXPEN) 100 Unit/1 Ml Insuln.pen, 50 SUBQ, #1 UNITS 15 Refills 01/21/13 Insulin Aspart* (NOVOLOG*) 100 Unit/1 Ml Insuln.pen, 15 UNITS SUBQ BID, UNITS Inject subcutaneously per sliding scale order 04/03/12 Furosemide* (LASIX*) 40 Mg Tablet, 40 MG PO DAILY, TAB Take 1 tablet by mouth every day. 04/03/12 Med list reviewed/reconciled: Yes Allergies: Coded Allergies: No Known Allergies (Verified , 11/14/10) Patient History History Provided By: Patient, Medical Record PMH Narrative Past Medical History: see triage record Past Surgical History: none Pertinent Family History: none Reviewed Nursing Documentation: PMH: Agreed, PSxH: Agreed Nursing Documentation-PMH Hx Cardiac Problems: Yes Hx Hypertension: Yes Hx Diabetes: Yes Hx Cancer: No Hx Gastrointestinal Problems: Yes - GERD, nausea vomiting and recent stomach pain Hx Neurological Problems: No Review of Systems All Other Systems: negative except mentioned in HPI Physical Exam Vital Signs Date Time Temp Pulse Resp B/P (MAP) Pulse Ox O2 Delivery O2 Flow Rate FiO2 07/19/17 20:47 100.0 112 18 151/72 99 Room Air 100.0 07/22/17 09:10 6.0 Sp02 EP Interpretation: reviewed, normal Labs Laboratory Tests Test 07/22/17 18:30 07/22/17 21:00 07/23/17 09:30 Stool Occult Blood Positive (NEGATIVE) Vancomycin Level Trough 23.7 ug/mL (5.0-12.0) H White Blood Count 15.3 K/UL (4.8-10.8) H Red Blood Count 2.36 M/UL (4.70-6.10) L Hemoglobin 7.2 G/DL (14.2-18.0) L Hematocrit 21.3 % (42.0-52.0) L Mean Corpuscular Volume 90 FL (80-99) Mean Corpuscular Hemoglobin 30.4 PG (27.0-31.0) Mean Corpuscular Hemoglobin Concent 33.7 G/DL (32.0-36.0) Red Cell Distribution Width 16.3 % (11.6-14.8) H Platelet Count 145 K/UL (150-450) L Mean Platelet Volume 7.5 FL (6.5-10.1) Neutrophils (%) (Auto) % (45.0-75.0) Lymphocytes (%) (Auto) % (20.0-45.0) Monocytes (%) (Auto) % (1.0-10.0) Eosinophils (%) (Auto) % (0.0-3.0) Basophils (%) (Auto) % (0.0-2.0) Differential Total Cells Counted 100 Neutrophils % (Manual) 81 % (45-75) H Lymphocytes % (Manual) 4 % (20-45) L Monocytes % (Manual) 14 % (1-10) H Eosinophils % (Manual) 0 % (0-3) Basophils % (Manual) 0 % (0-2) Band Neutrophils 1 % (0-8) Platelet Estimate Decreased L Platelet Morphology Normal Hypochromasia 1+ Anisocytosis 1+ Sodium Level 136 MMOL/L (136-145) Potassium Level 3.4 MMOL/L (3.5-5.1) L Chloride Level 106 MMOL/L (98-107) Carbon Dioxide Level 22 MMOL/L (21-32) Anion Gap 9 mmol/L (5-15) Blood Urea Nitrogen 22 mg/dL (7-18) H Creatinine 1.9 MG/DL (0.55-1.30) H Estimat Glomerular Filtration Rate 42.8 mL/min (>60) Glucose Level 124 MG/DL (74-106) H Uric Acid 5.5 MG/DL (2.6-7.2) Calcium Level 7.7 MG/DL (8.5-10.1) L Phosphorus Level 1.8 MG/DL (2.5-4.9) L Magnesium Level 2.0 MG/DL (1.8-2.4) Total Bilirubin 1.2 MG/DL (0.2-1.0) H Direct Bilirubin 0.6 MG/DL (0.0-0.3) H Aspartate Amino Transf (AST/SGOT) 54 U/L (15-37) H Alanine Aminotransferase (ALT/SGPT) 24 U/L (12-78) Alkaline Phosphatase 106 U/L (46-116) C-Reactive Protein, Quantitative 27.0 mg/dL (0.00-0.90) H Pro-B-Type Natriuretic Peptide 1799 pg/mL (0-125) H Total Protein 6.9 G/DL (6.4-8.2) Albumin 2.0 G/DL (3.4-5.0) L Globulin 4.9 g/dL Albumin/Globulin Ratio 0.4 (1.0-2.7) L General Appearance: well appearing, no apparent distress, alert, obese Head: normocephalic EENT: PERRL/EOMI, normal ENT inspection Neck: supple Respiratory: normal breath sounds, no respiratory distress Cardiovascular: normal rate Gastrointestinal: normal inspection, non tender, soft, normal bowel sounds, non -distended Rectal: deferred Genitourinary: deferred Musculoskeletal: normal inspection, back normal Neurologic: normal inspection, alert, oriented x3, responsive Psychiatric: normal inspection, judgement/insight normal, memory normal Skin: normal inspection, normal color, no rash, warm/dry, palpation normal, well hydrated Lymphatic: normal inspection, no adenopathy Current Medications Current Medications Medications (Trade) Dose Ordered Sig/Xiao Route PRN Reason Start Time Stop Time Status Last Admin Dose Admin Acetaminophen (Tylenol) 650 mg Q4H PRN ORAL Mild Pain/Temp > 100.5 07/20/17 08:15 08/19/17 08:14 07/23/17 09:47 Acetaminophen/ Hydrocodone Bitart ([place] 10/325) 1 tab Q6H PRN ORAL Severe Pain (Pain Scale 7-10) 07/20/17 01:30 07/27/17 01:29 07/23/17 09:09 Acetaminophen/ Hydrocodone Bitart ([place] 5/325) 1 tab Q6H PRN ORAL Mild Pain (Pain Scale 1-3) 07/20/17 01:30 07/27/17 01:29 07/21/17 04:37 Atorvastatin Calcium (Lipitor) 40 mg QHS ORAL 07/22/17 21:00 08/19/17 08:59 07/22/17 21:35 Dextrose (Dextrose 50%) STAT PRN IV Hypoglycemia 07/20/17 05:15 08/19/17 05:14 Docusate Sodium (Colace) 100 mg THREE TIMES A DAY ORAL 07/22/17 13:00 08/21/17 12:59 07/23/17 12:26 Epoetin Norberto (Procrit (for non ESRD use)) 10,000 units MON-WED-FRI SUBQ 07/23/17 21:00 08/22/17 20:59 Ergocalciferol (Drisdol) 50,000 intlu QWEEK ORAL 07/22/17 12:30 08/21/17 12:29 07/22/17 13:00 Heparin Sodium (Porcine) (Heparin 5000 units/ml) 5,000 units EVERY 12 HOURS SUBQ 07/23/17 09:00 08/22/17 08:59 07/23/17 09:14 Insulin Aspart (NovoLOG) BEFORE MEALS AND HS SUBQ 07/20/17 06:30 08/19/17 06:29 07/23/17 12:28 Insulin Detemir (Levemir) 50 units BEDTIME SUBQ 07/20/17 21:00 08/19/17 20:59 07/22/17 21:44 Iron Sucrose 100 mg/Sodium Chloride 60 ml @ 240 mls/hr BEDTIME IVPB 07/22/17 21:00 07/26/17 21:14 07/22/17 21:35 Pantoprazole (Protonix) 40 mg EVERY 12 HOURS ORAL 07/21/17 15:30 08/20/17 15:29 07/23/17 09:08 Piperacillin Sod/ Tazobactam Sod 2.25 gm/Sodium Chloride 55 ml @ 110 mls/hr EVERY 8 HOURS IVPB 07/23/17 14:00 07/30/17 13:59 Potassium Phosphate 30 mm/ Sodium Chloride 285 ml @ 47.5 mls/hr ONCE ONCE IV 07/23/17 11:30 07/23/17 17:29 07/23/17 11:58 Sodium Chloride 1,000 ml @ 75 mls/hr [id number] IV 07/22/17 13:15 08/21/17 13:14 07/23/17 08:10 Vancomycin HCl (Vanco rx to dose) 1 ea DAILY PRN MISC Per rx protocol 07/20/17 06:00 08/19/17 05:59 Vancomycin HCl 1 gm/Dextrose 275 ml @ 183.708 mls/hr Q12H IVPB 07/23/17 05:00 07/28/17 23:59 07/23/17 05:17 GI: Plan Problems: (1) Abdominal pain (2) Acute blood loss anemia Plan OB stool positive downtrending Hgb requiring blood transfusion hepatitis panel negative anemia work up reviewed >> iron deficiency EGD/colonoscopy scheduled for tomorrow. - CLD now, NPO @ [facility]. - hold all blood thinners tonight. monitor H&H, prn transfusions bowel regime ppi fu labs Discussed with Dr. Yoder. Thank you for this patient referral, we will follow. DREWELDER 07/23/17 1329: History of Present Illness General Reason for Hospitalization: Lower Extremity Injury Present Illness Home Meds Reported Medications Acetaminophen* (ACETAMINOPHEN 325MG TABLET*) 325 Mg Tablet, 650 MG ORAL Q4H Y for Prn Headache/Temp > 101, TAB 07/20/17 Doxycycline Hyclate* (VIBRAMYCIN*) 100 Mg Capsule, 100 MG ORAL BID for 5 Days, CAP 0 Refills 02/09/14 Levofloxacin* (LEVAQUIN*) 500 Mg Tablet, 500 MG ORAL DAILY for 5 Days, TAB 02/09/14 Glipizide* (GLIPIZIDE*) 5 Mg Tablet, 5 MG ORAL BIDAC, TAB 12/07/13 Atorvastatin Calcium* (ATORVASTATIN CALCIUM*) 40 Mg Tablet, 40 MG ORAL DAILY, TAB 08/31/13 Lisinopril (LISINOPRIL*) 5 Mg Tablet, 5 MG ORAL DAILY, TAB 08/31/13 [asa ] No Conflict Check 01/21/13 Insulin Detemir (LEVEMIR FLEXPEN) 100 Unit/1 Ml Insuln.pen, 50 SUBQ, #1 UNITS 15 Refills 01/21/13 Insulin Aspart* (NOVOLOG*) 100 Unit/1 Ml Insuln.pen, 15 UNITS SUBQ BID, UNITS Inject subcutaneously per sliding scale order 04/03/12 Furosemide* (LASIX*) 40 Mg Tablet, 40 MG PO DAILY, TAB Take 1 tablet by mouth every day. 04/03/12 Allergies: Coded Allergies: No Known Allergies (Verified , 11/14/10) GI: Plan Plan The patient was seen and examined at bedside and all new and available data was reviewed in the patients chart. I agree with the above findings, impression and plan. (Patient seen earlier today. Signature stamp does not reflect patient encounter time.). - MD Margarita Sawant,[facility] Jul 23, 2017 12:39 ELDER YODER Jul 23, 2017 13:29
--- NOTE | 2017-07-23 13:02 | Diagnostic Imaging Report ---
APPROVED REPORT CPT Code: 97451 Symptoms Comments: RIGHT LEG WOUND BILATERAL: Common femoral artery waveform analysis is within normal limits at rest. Color flow duplex sonography reveals patency of the superficial femoral, popliteal, and tibial arteries, there is no evidence of stenosis or occlusion within these segments. Doppler tibial artery waveform analysis is within normal limits, bilaterally. There is no evidence of significant arterial occlusive disease, bilaterally.
--- NOTE | 2017-07-23 13:03 | Diagnostic Imaging Report ---
APPROVED REPORT CPT Code: 44896 Present Symptoms Lower Extremity Pain: Right Lower Extremity Edema: Right RIGHT LEG: Venous imaging reveals a patent deep venous system. There is no evidence of thrombus within the femoral or popliteal vain .Calf veins not visualized due to swelling. The greater saphenous vein is also within normal limits. Doppler indicates normal spontaneous flow within these segments.
[2017-07-23] MEDS ORDERED: Bisacodyl EC 5mg tab ORAL ONE (16:00)
[2017-07-23] MEDS ORDERED: Nulytely 4L ORAL ONE (16:00)
[2017-07-23] MEDS ORDERED: Tubing IV Secondary IV ONE (17:40)
[2017-07-23] MEDS ORDERED: Tubing Blood Filter IV ONE (17:40)
[2017-07-23] MEDS ORDERED: D5NS 1000ml IV ONE (17:40)
[2017-07-23] MEDS ORDERED: NS 275ml ONE (17:40)
--- NOTE | 2017-07-23 19:57 | Cardiology Report ---
APPROVED REPORT EXAM: Two-dimensional and M-mode echocardiogram with Doppler and color Doppler. INDICATION Pre-Op M-Mode DIMENSIONS IVSd0.9 (0.7-1.1cm)Left Atrium (MM)3.8 (1.6-4.0cm) LVDd5.4 (3.5-5.6cm)Aortic Root3.6 (2.0-3.7cm) PWd0.8 (0.7-1.1cm)Aortic Cusp Exc.2.7 (1.5-2.0cm) LVDs3.1 (2.5-4.0cm) PWs1.8 cm Technically difficult study due to poor acoustic windows. Study quality precludes accurate assessment of regional wall motion. Normal left ventricular chamber size, systolic function and wall motion to extent visualized. Left ventricular ejection fraction estimated to be 55 %. No evidence of left ventricular hypertrophy. No evidence of pericardial effusion. All other cardiac chamber sizes are within normal limits. Focal aortic valve sclerosis with adequate cusp excursion. Thickened mitral valve leaflets with normal excursion. Mild mitral annulus and aortic root calcification. Normal pulmonic valve structure. Normal tricuspid valve structure. Subcostal views not obtained. A color flow and spectral Doppler study was performed and revealed: No aortic regurgitation. Trace mitral regurgitation. reduced left ventricular relaxation c/w impaired relaxation diastolic dysfunction. Trace tricuspid regurgitation. Tricuspid systolic velocities suggests peak right ventricular systolic pressure of 47 mmHg, consistent with moderate pulmonary hypertension. No pulmonic regurgitation present.
--- NOTE | 2017-07-23 20:16 | Progress Note ---
DATE: 07/23/2017 SUBJECTIVE: The patient is calm and cooperative. Still has anxiety and mild depressive symptoms. Compliant with his medication. No behavior issues. Participates in evaluation and answer questions appropriately. MENTAL STATUS EXAMINATION: The patient is alert and oriented times self, place, and situation he is in. Mood is dysphoric. Affect is constricted, congruent with mood. Thought process is concrete. Thought content, no suicidal or homicidal ideations. ASSESSMENT: 1. Anxiety. 2. Depression. PLAN: We will continue with the current medications. Kory Bales M.D. DR: Brigid JOB#: [id number] CC:
[2017-07-23] MEDS: Atorvastatin 20mg tab ORAL SCH (20:48)
[2017-07-23] MEDS: Epogen (for non ESRD use) SUBQ SCH (20:50)
[2017-07-23] MEDS: Levemir Flexpen SUBQ SCH (20:52)
[2017-07-23] MEDS: Iron Sucrose 100 MG in NS 55 ML IVPB SCH (20:53)
--- NOTE | 2017-07-23 21:30 | Infectious Diseases Prog Note ---
Assessment/Plan Assessment/Plan ASSESSMENT AND PLAN: 1. right leg/foot cellulitis, ? 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 Weinstein and Dr. Bernard - post op fevers and leukocytosis noted, f/u on labs and watch temps 2. Sepsis, fevers and leukocytosis - continue abx, check cultures 3. Elevated creatinine, chronic renal failure. 4. Anemia. 5. Diabetes. 6. Hypertension. 7. Hyperlipidemia. 8. Blood sugar, blood pressure, and lipid treatment per primary. 9. History of ulcers. 10. Wound care protocol. 11. No known allergies. 12. Social history negative. 13. Family history noncontributory. 14. MAR was noted. 15. Continue treatment per primary consultants. 16. Podiatry followup. 17. Notes and records were noted. 18. Orders were entered. 19. Case discussed with RN. Subjective Constitutional: Reports: fever, fatigue HEENT: Denies: congestion Respiratory: Denies: shortness of breath, dry cough Cardiovascular: Denies: chest pain, palpitations Gastrointestinal/Abdominal: Denies: nausea, vomiting Genitourinary: Reports: other - no meyer, Denies: dysuria, hematuria Psychiatric: Denies: depression Skin: Denies: rash Hematologic: Denies: bleeding Musculoskeletal: Denies: pain Allergies: Coded Allergies: No Known Allergies (Verified , 11/14/10) Objective Vital Signs Last 24 Hour Vital Signs Date Time Temp Pulse Resp B/P (MAP) Pulse Ox O2 Delivery O2 Flow Rate FiO2 07/23/17 16:00 88 07/23/17 16:00 98.8 98 20 131/70 100 Nasal Cannula 3.0 98.8 07/23/17 13:42 Nasal Cannula 2.0 28 07/23/17 13:42 98 Nasal Cannula 2.0 28 07/23/17 12:00 100.9 91 20 127/67 98 Nasal Cannula 3.0 100.9 07/23/17 12:00 87 07/23/17 10:46 100.0 07/23/17 10:08 102.0 07/23/17 09:47 102.0 07/23/17 09:00 102.0 98 20 134/67 100 Nasal Cannula 3.0 102.0 07/23/17 08:00 97.9 100 20 166/94 100 Nasal Cannula 3.0 97.9 07/23/17 08:00 95 07/23/17 07:05 212.0 73 20 98 07/23/17 04:00 100.0 73 20 128/68 98 Nasal Cannula 3.0 100.0 07/23/17 04:00 91 07/23/17 00:53 101.7 07/23/17 00:00 101.7 95 20 142/76 99 Nasal Cannula 3.0 101.7 07/23/17 00:00 90 Height (Feet): 6 Height (Inches): 4.00 Weight (Pounds): 294 General Appearance: no acute distress HEENT: normocephalic, atraumatic, anicteric, mucous membranes moist, pharynx normal, supple, no JVD Respiratory/Chest: lungs clear, normal breath sounds, no respiratory distress, no accessory muscle use Cardiovascular: normal rate, regular rhythm, no gallop/murmur, no JVD Abdomen: normal bowel sounds, soft, non tender, no organomegaly, non distended Genitourinary: other - no meyer Extremities: no cyanosis, other - right foot covered, right leg cellulitis noted with swelling Skin: no rash Neurologic/Psychiatric: general ophthalmologist II-XII grossly normal, alert, responsive Lymphatic: no neck adenopathy Musculoskeletal: no effusion Objective Right leg/foot CT scan - Impression: Diffuse cellulitis in the lower leg. Erosive changes of the first distal phalanx and possibly first metatarsal head. This is consistent with osteomyelitis. Postoperative changes in the base of the first proximal phalanx. Chronic changes in the fifth metatarsal phalangeal joint. This may be surgical as well. The above report is concordant with preliminary reading by [facility] . Chest x-ray - negative Microbiology Date/Time Source Procedure Growth Status 07/19/17 21:30 Blood Blood Culture - Preliminary NO GROWTH AFTER 72 HOURS Resulted 07/20/17 01:55 Nasal Nares MRSA Culture - Final NO METHICILLIN RESISTANT STAPH AUREUS... Complete 07/22/17 09:00 Toe Right Big Gram Stain - Final Resulted 07/22/17 09:00 Toe Right Big Aerobic Culture - Preliminary NO GROWTH AFTER 24 HOURS Resulted 07/22/17 09:00 Toe Right Big Anaerobic Culture Pending Resulted Microbiology Date/Time Source Procedure Growth Status 07/22/17 09:00 Toe Right Big Gram Stain - Final Resulted 07/22/17 09:00 Toe Right Big Aerobic Culture - Preliminary NO GROWTH AFTER 24 HOURS Resulted 07/22/17 09:00 Toe Right Big Anaerobic Culture Pending Resulted 07/21/17 04:45 Toe Right Big Gram Stain Pending Resulted 07/21/17 04:45 Wound Culture - Preliminary Gram Negative Bacillus 1 Gram Negative Bacillus 2 Resulted Laboratory Tests Test 07/23/17 09:30 White Blood Count 15.3 K/UL (4.8-10.8) H Red Blood Count 2.36 M/UL (4.70-6.10) L Hemoglobin 7.2 G/DL (14.2-18.0) L Hematocrit 21.3 % (42.0-52.0) L Mean Corpuscular Volume 90 FL (80-99) Mean Corpuscular Hemoglobin 30.4 PG (27.0-31.0) Mean Corpuscular Hemoglobin Concent 33.7 G/DL (32.0-36.0) Red Cell Distribution Width 16.3 % (11.6-14.8) H Platelet Count 145 K/UL (150-450) L Mean Platelet Volume 7.5 FL (6.5-10.1) Neutrophils (%) (Auto) % (45.0-75.0) Lymphocytes (%) (Auto) % (20.0-45.0) Monocytes (%) (Auto) % (1.0-10.0) Eosinophils (%) (Auto) % (0.0-3.0) Basophils (%) (Auto) % (0.0-2.0) Differential Total Cells Counted 100 Neutrophils % (Manual) 81 % (45-75) H Lymphocytes % (Manual) 4 % (20-45) L Monocytes % (Manual) 14 % (1-10) H Eosinophils % (Manual) 0 % (0-3) Basophils % (Manual) 0 % (0-2) Band Neutrophils 1 % (0-8) Platelet Estimate Decreased L Platelet Morphology Normal Hypochromasia 1+ Anisocytosis 1+ Sodium Level 136 MMOL/L (136-145) Potassium Level 3.4 MMOL/L (3.5-5.1) L Chloride Level 106 MMOL/L (98-107) Carbon Dioxide Level 22 MMOL/L (21-32) Anion Gap 9 mmol/L (5-15) Blood Urea Nitrogen 22 mg/dL (7-18) H Creatinine 1.9 MG/DL (0.55-1.30) H Estimat Glomerular Filtration Rate 42.8 mL/min (>60) Glucose Level 124 MG/DL (74-106) H Uric Acid 5.5 MG/DL (2.6-7.2) Calcium Level 7.7 MG/DL (8.5-10.1) L Phosphorus Level 1.8 MG/DL (2.5-4.9) L Magnesium Level 2.0 MG/DL (1.8-2.4) Total Bilirubin 1.2 MG/DL (0.2-1.0) H Direct Bilirubin 0.6 MG/DL (0.0-0.3) H Aspartate Amino Transf (AST/SGOT) 54 U/L (15-37) H Alanine Aminotransferase (ALT/SGPT) 24 U/L (12-78) Alkaline Phosphatase 106 U/L (46-116) C-Reactive Protein, Quantitative 27.0 mg/dL (0.00-0.90) H Pro-B-Type Natriuretic Peptide 1799 pg/mL (0-125) H Total Protein 6.9 G/DL (6.4-8.2) Albumin 2.0 G/DL (3.4-5.0) L Globulin 4.9 g/dL Albumin/Globulin Ratio 0.4 (1.0-2.7) L Current Medications Medications (Trade) Dose Ordered Sig/Xiao Route PRN Reason Start Time Stop Time Status Last Admin Dose Admin Acetaminophen (Tylenol) 650 mg Q4H PRN ORAL Mild Pain/Temp > 100.5 07/20/17 08:15 08/19/17 08:14 07/23/17 09:47 Acetaminophen/ Hydrocodone Bitart ([place] 10/325) 1 tab Q6H PRN ORAL Severe Pain (Pain Scale 7-10) 07/20/17 01:30 07/27/17 01:29 07/23/17 09:09 Acetaminophen/ Hydrocodone Bitart ([place] 5/325) 1 tab Q6H PRN ORAL Mild Pain (Pain Scale 1-3) 07/20/17 01:30 07/27/17 01:29 07/21/17 04:37 Atorvastatin Calcium (Lipitor) 40 mg QHS ORAL 07/22/17 21:00 08/19/17 08:59 07/23/17 20:48 Dextrose (Dextrose 50%) STAT PRN IV Hypoglycemia 07/20/17 05:15 08/19/17 05:14 Docusate Sodium (Colace) 100 mg THREE TIMES A DAY ORAL 07/22/17 13:00 08/21/17 12:59 07/23/17 17:26 Epoetin Norberto (Procrit (for non ESRD use)) 10,000 units FRI-FRI-FRI SUBQ 07/23/17 21:00 08/22/17 20:59 07/23/17 20:50 Ergocalciferol (Drisdol) 50,000 intlu QWEEK ORAL 07/22/17 12:30 08/21/17 12:29 07/22/17 13:00 Heparin Sodium (Porcine) (Heparin 5000 units/ml) 5,000 units EVERY 12 HOURS SUBQ 07/23/17 09:00 08/22/17 08:59 07/23/17 09:14 Insulin Aspart (NovoLOG) BEFORE MEALS AND HS SUBQ 07/20/17 06:30 08/19/17 06:29 07/23/17 20:51 Insulin Detemir (Levemir) 50 units BEDTIME SUBQ 07/20/17 21:00 08/19/17 20:59 07/23/17 20:52 Iron Sucrose 100 mg/Sodium Chloride 60 ml @ 240 mls/hr BEDTIME IVPB 07/22/17 21:00 07/26/17 21:14 07/22/17 21:35 Pantoprazole (Protonix) 40 mg EVERY 12 HOURS ORAL 07/21/17 15:30 08/20/17 15:29 07/23/17 20:48 Piperacillin Sod/ Tazobactam Sod 2.25 gm/Sodium Chloride 55 ml @ 110 mls/hr EVERY 8 HOURS IVPB 07/23/17 14:00 07/30/17 13:59 Sodium Chloride 1,000 ml @ 75 mls/hr [id number] IV 07/22/17 13:15 08/21/17 13:14 07/23/17 08:10 Sodium Phosphate (Fleet's Sodium Phosl Enema) 133 ml ONCE ONCE RECTAL 07/23/17 23:00 07/23/17 23:01 Vancomycin HCl (Vanco rx to dose) 1 ea DAILY PRN MISC Per rx protocol 07/20/17 06:00 08/19/17 05:59 Vancomycin HCl 1 gm/Dextrose 275 ml @ 183.708 mls/hr Q12H IVPB 07/23/17 05:00 07/28/17 23:59 07/23/17 18:23 ESE HARO Jul 23, 2017 21:30
[2017-07-23] MEDS ORDERED: Fleet's Enema 133ml RECTAL ONE (23:00)
--- NOTE | 2017-07-23 23:39 | General Progress Note ---
Assessment/Plan Problem List: (1) Severe sepsis ICD Codes: A41.9 - Sepsis, unspecified organism; R65.20 - Severe sepsis without septic shock SNOMED: 86108322 (2) Cellulitis of right lower extremity ICD Codes: L03.115 - Cellulitis of right lower limb SNOMED: 040385581 (3) Concern for abscess of R foot (4) Likely 1st toe ostemyelitis (5) Acute blood loss anemia ICD Codes: D62 - Acute posthemorrhagic anemia SNOMED: 836775190 (6) Lactic acidosis ICD Codes: E87.2 - Acidosis SNOMED: 29745197 (7) Diabetic foot ulcer ICD Codes: E11.621 - Type 2 diabetes mellitus with foot ulcer; L97.509 - Non- pressure chronic ulcer of other part of unspecified foot with unspecified severity SNOMED: 20843104, 400984394 (8) DM2 (diabetes mellitus, type 2) Assessment & Plan: A1C 9.6 ICD Codes: E11.9 - Type 2 diabetes mellitus without complications SNOMED: 63217773 Qualifiers: (9) Renal failure (ARF), acute on chronic ICD Codes: N17.9 - Acute kidney failure, unspecified; N18.9 - Chronic kidney disease, unspecified SNOMED: 424453492 (10) Acute on chronic anemia (11) Leukopenia ICD Codes: D72.819 - Decreased white blood cell count, unspecified SNOMED: 17014143, 480682827 (12) Hypertension ICD Codes: I10 - Hypertension SNOMED: 30108446 (13) Hyperlipidemia ICD Codes: E78.5 - Hyperlipidemia SNOMED: 62986034 Status: stable Assessment/Plan Podiatry, ID, hematology, and nephrology consulted s/p 1 unit pRBC on 07/20/17 s/p 1 units pRBCs on 07/22/17 Transfuse 1 unit pRBC today Epogen + IV iron per renal F/u stool OB--positive GI consulted w/ plan for EGD and colo tomorrow, NPO at IN Hold ACEi and lasix in the setting of CHIQUITA mIVFs Continue IV vancomycin and zosyn (06/19-) per ID F/u blood cultures, wound cultures CT of right foot noted with possible osteomyelitis and concern for abscess. Unable to get MRI given pt size s/p R partial first ray amputation, and excisional debridement of necrotic tissue to level of bone on 07/22/17. Per Dr. Bernard margins are positive, so pt will need PICC and long-term IV abx F/u venous ultrasound of RLE to r/o DVT--neg F/u arterial duplex-wnl SSI Hold PO hypoglycemic agents Continue home bp meds CM consult for SNF placement DVT Prophylaxis: SCD, HSQ Code Status: Full Hospital Classification Declaration: Based on this initial evaluation, and depending on the patient's clinical course, I anticipate that this patient will require hospitalization for 2-3 days for surgical mgmt and close respiratory/ hemodynamic monitoring. Disposition: Once the patient is stable to leave the hospital, I anticipate the patient will likely be discharged to the following environment: home with HH vs SNF Discussed with patient/family, nursing staff, SW/CM, podiatry, ID, renal regarding clinical status, treatment course, and disposition planning. D/w GI re plan for scope. D/w ID re abx Time of note may not reflect time of encounter. Subjective Date patient seen: Jul 23, 2017 Time patient seen: 13:00 ROS Limited/Unobtainable: No Constitutional: Reports: weakness HEENT: Reports: no symptoms Cardiovascular: Reports: no symptoms Respiratory: Reports: no symptoms Genitourinary: Reports: no symptoms Neurologic/Psychiatric: Reports: no symptoms Endocrine: Reports: no symptoms Hematologic/Lymphatic: Reports: no symptoms Allergies: Coded Allergies: No Known Allergies (Verified , 11/14/10) All Systems: reviewed and negative except above Subjective No acute o/n events Unable to get MRI given pt size Hgb 7.2 this AM despite transfusions yesterday. FOBT positive. GI consulted s/p R partial first ray amputation, and excisional debridement of necrotic tissue to level of bone POD#1 C/o R foot pain. Sarah f/c, n/v, d/c, chest pain, SOB, abd pain Objective Last 24 Hour Vital Signs Date Time Temp Pulse Resp B/P (MAP) Pulse Ox O2 Delivery O2 Flow Rate FiO2 07/23/17 20:00 99.5 95 20 117/43 99 Nasal Cannula 3.0 99.5 07/23/17 20:00 92 07/23/17 19:30 Nasal Cannula 2.0 28 07/23/17 19:30 94 Nasal Cannula 2.0 28 07/23/17 16:00 88 07/23/17 16:00 98.8 98 20 131/70 100 Nasal Cannula 3.0 98.8 07/23/17 13:42 Nasal Cannula 2.0 28 07/23/17 13:42 98 Nasal Cannula 2.0 28 07/23/17 12:00 100.9 91 20 127/67 98 Nasal Cannula 3.0 100.9 07/23/17 12:00 87 07/23/17 10:46 100.0 07/23/17 10:08 102.0 07/23/17 09:47 102.0 07/23/17 09:00 102.0 98 20 134/67 100 Nasal Cannula 3.0 102.0 07/23/17 08:00 97.9 100 20 166/94 100 Nasal Cannula 3.0 97.9 07/23/17 08:00 95 07/23/17 07:05 212.0 73 20 98 07/23/17 04:00 100.0 73 20 128/68 98 Nasal Cannula 3.0 100.0 07/23/17 04:00 91 07/23/17 00:53 101.7 07/23/17 00:00 101.7 95 20 142/76 99 Nasal Cannula 3.0 101.7 07/23/17 00:00 90 Intake and Output 07/22/17 07/23/17 19:00 07:00 Intake Total 1480 ml Output Total 800 ml 900 ml Balance 680 ml -900 ml Intake Oral 680 ml IV Total 550 ml Blood Product 250 ml Output Urine Total 700 ml 900 ml Estimated Blood Loss 100 ml # Voids 3 Laboratory Tests 07/23/17 09:30: White Blood Count 15.3H, Red Blood Count 2.36L, Hemoglobin 7.2L, Hematocrit 21.3L, Mean Corpuscular Volume 90, Mean Corpuscular Hemoglobin 30.4, Mean Corpuscular Hemoglobin Concent 33.7, Red Cell Distribution Width 16.3H, Platelet Count 145L, Mean Platelet Volume 7.5, Neutrophils (%) (Auto) , Lymphocytes (%) (Auto) , Monocytes (%) (Auto) , Eosinophils (%) (Auto) , Basophils (%) (Auto) , Differential Total Cells Counted 100, Neutrophils % ( Manual) 81H, Lymphocytes % (Manual) 4L, Monocytes % (Manual) 14H, Eosinophils % (Manual) 0, Basophils % (Manual) 0, Band Neutrophils 1, Platelet Estimate DecreasedL, Platelet Morphology Normal, Hypochromasia 1+, Anisocytosis 1+, Sodium Level 136, Potassium Level 3.4L, Chloride Level 106, Carbon Dioxide Level 22, Anion Gap 9, Blood Urea Nitrogen 22H, Creatinine 1.9H, Estimat Glomerular Filtration Rate 42.8, Glucose Level 124H, Uric Acid 5.5, Calcium Level 7.7L, Phosphorus Level 1.8L, Magnesium Level 2.0, Total Bilirubin 1.2H, Direct Bilirubin 0.6H, Aspartate Amino Transf (AST/SGOT) 54H, Alanine Aminotransferase (ALT/SGPT) 24, Alkaline Phosphatase 106, C-Reactive Protein, Quantitative 27.0H, Pro-B-Type Natriuretic Peptide 1799H, Total Protein 6.9, Albumin 2.0L, Globulin 4.9, Albumin/Globulin Ratio 0.4L Height (Feet): 6 Height (Inches): 4.00 Weight (Pounds): 294 Objective General Appearance: no apparent distress, alert HEENT: normocephalic, atraumatic Neck: non-tender, normal alignment, supple Respiratory/Chest: chest wall non-tender, lungs clear, normal breath sounds Cardiovascular/Chest: normal peripheral pulses, normal rate, regular rhythm Abdomen: normal bowel sounds, non tender, soft Skin Exam: other - right lower extremity erythema, edema, and TTP. right foot dressing c/d/i Neurologic: orthotics technician II-XII grossly normal, no motor/sensory deficits, alert, oriented x 3 Js Garcia M.D. Jul 23, 2017 23:39
[2017-07-24] VITALS (11 sets, daily range): BP systolic 122–166; BP diastolic 59–88
[2017-07-24] MEDS: Zoysn 3.37gm in NS 100ML IVPB SCH ×2 (06:25→14:44)
[2017-07-24] MEDS: NovoLOG Insulin Flexpen SUBQ SCH ×4 (06:30→22:12)
[2017-07-24 08:36] LABS: HEMATOCRIT 21.2 % (42.0-52.0); HEMOGLOBIN 7.3 G/DL (14.2-18.0); MEAN CORPUSCULAR VOLUME 90 FL (80-99); PLATELET COUNT 149 K/UL (150-450); RED BLOOD COUNT 2.36 M/UL (4.70-6.10); RED CELL DISTRIBUTION WIDTH 16.1 % (11.6-14.8); WHITE BLOOD COUNT 16.7 K/UL (4.8-10.8)
[2017-07-24 08:38] LABS: INR 1.1 (0.9-1.1)
[2017-07-24] MEDS: Heparin 5000 units/ml inj SUBQ SCH ×2 (09:00→22:10)
[2017-07-24] MEDS ORDERED: Acetaminophen 650 MG SUPP RECTAL ONE (09:00)
[2017-07-24] MEDS: Docusate 100mg cap ORAL SCH ×3 (09:00→17:47)
[2017-07-24 09:26] LABS: ALANINE AMINOTRANSFERASE 31 U/L (12-78); ALBUMIN/GLOBULIN RATIO 0.4 (1.0-2.7); ALKALINE PHOSPHATASE 131 U/L (46-116); ANION GAP 9 mmol/L (5-15); ASPARTATE AMINO TRANSFERASE 69 U/L (15-37); BLOOD UREA NITROGEN 18 mg/dL (7-18); CALCIUM 7.6 MG/DL (8.5-10.1); CARBON DIOXIDE 22 MMOL/L (21-32); CHLORIDE 107 MMOL/L (98-107); CREATININE 1.9 MG/DL (0.55-1.30); PHOSPHORUS 2.1 MG/DL (2.5-4.9); POTASSIUM 3.1 MMOL/L (3.5-5.1); SODIUM 138 MMOL/L (136-145)
--- NOTE | 2017-07-24 09:39 | General Progress Note ---
Assessment/Plan Assessment/Plan 1. Anemia of chronic disease. --> Occult blood has been found. --> Anemia workup reviewed. --> Iron 16, TIBC 198, % sat 8, Folate 13.4, B12 637, Ferritin 308 --> Iron levels are low. Monitor closely and trend cbc daily. --> Hgb levels downtrended, S/P PRBC. --> Transfuse if hgb <7 2. Leukopenia, likely secondary to underlying infection from osteomyelitis --> HIV/Hep panel both negative. --> Improving. --> On abx. ID following. 3. Lactic acidosis secondary to sepsis from underlying infection. --> Continue to monitor. 4. Diabetes mellitus, on insulin sliding scale. Blood sugar control as needed. 5. Right big toe osteomyelitis, to be seen by the Cartoon Designer as well as surgical team. Subjective Date patient seen: Jul 23, 2017 Constitutional: Denies: no symptoms, chills, diaphoresis, fever, malaise, weakness, other HEENT: Denies: no symptoms, eye pain, blurred vision, tearing, double vision, ear pain, ear discharge, nose pain, nose congestion, throat pain, throat swelling, mouth pain, mouth swelling, other Cardiovascular: Denies: no symptoms, chest pain, edema, irregular heart rate, lightheadedness, palpitations, syncope, other Respiratory: Denies: no symptoms, cough, orthopnea, shortness of breath, SOB with excertion, SOB at rest, sputum, stridor, wheezing, other Gastrointestinal/Abdominal: Denies: no symptoms, abdomen distended, abdominal pain, black stools, tarry stools, blood in stool, constipated, diarrhea, difficulty swallowing, nausea, poor appetite, poor fluid intake, rectal bleeding , vomiting, other Genitourinary: Denies: no symptoms, burning, discharge, frequency, flank pain, hematuria, incontinence, pain, urgency, other Neurologic/Psychiatric: Denies: no symptoms, anxiety, depressed, emotional problems, headache, numbness, paresthesia, pre-existing deficit, seizure, tingling, tremors, weakness, other Hematologic/Lymphatic: Reports: anemia Allergies: Coded Allergies: No Known Allergies (Verified , 11/14/10) Subjective S/P PRBC. No adverse events. Hgb remains low. Objective Last 24 Hour Vital Signs Date Time Temp Pulse Resp B/P (MAP) Pulse Ox O2 Delivery O2 Flow Rate FiO2 07/24/17 09:15 101.5 07/24/17 04:00 94 07/24/17 04:00 97.4 89 20 122/62 96 Nasal Cannula 3.0 97.4 07/24/17 00:00 99.5 96 20 128/66 99 Nasal Cannula 3.0 99.5 07/24/17 00:00 91 07/23/17 20:00 99.5 95 20 117/43 99 Nasal Cannula 3.0 99.5 07/23/17 20:00 92 07/23/17 19:30 Nasal Cannula 2.0 28 07/23/17 19:30 94 Nasal Cannula 2.0 28 07/23/17 16:00 88 07/23/17 16:00 98.8 98 20 131/70 100 Nasal Cannula 3.0 98.8 07/23/17 13:42 Nasal Cannula 2.0 28 07/23/17 13:42 98 Nasal Cannula 2.0 28 07/23/17 12:00 100.9 91 20 127/67 98 Nasal Cannula 3.0 100.9 07/23/17 12:00 87 07/23/17 10:46 100.0 07/23/17 10:08 102.0 07/23/17 09:47 102.0 Intake and Output 07/23/17 07/24/17 19:00 07:00 Intake Total 360 ml 927.5 ml Output Total 800 ml 800 ml Balance -440 ml 127.5 ml Intake Oral 360 ml IV Total 927.5 ml Output Urine Total 800 ml 800 ml # Bowel Movements 4 Laboratory Tests 07/24/17 07:50: White Blood Count 16.7H, Red Blood Count 2.36L, Hemoglobin 7.3L, Hematocrit 21.2L, Mean Corpuscular Volume 90, Mean Corpuscular Hemoglobin 31.1H, Mean Corpuscular Hemoglobin Concent 34.6, Red Cell Distribution Width 16.1H, Platelet Count 149L, Mean Platelet Volume 7.8, Neutrophils (%) (Auto) , Lymphocytes (%) (Auto) , Monocytes (%) (Auto) , Eosinophils (%) (Auto) , Basophils (%) (Auto) , Neutrophils % (Manual) [Pending], Lymphocytes % (Manual) [Pending], Platelet Estimate [Pending], Platelet Morphology [Pending], Prothrombin Time 11.1, Prothromb Time International Ratio 1.1, Activated Partial Thromboplast Time 38H, Sodium Level 138, Potassium Level 3.1L, Chloride Level 107, Carbon Dioxide Level 22, Anion Gap 9, Blood Urea Nitrogen 18, Creatinine 1.9H, Estimat Glomerular Filtration Rate 42.8, Glucose Level 48L, Uric Acid 5.2, Calcium Level 7.6L, Phosphorus Level 2.1L, Magnesium Level 1.9, Total Bilirubin 1.0, Aspartate Amino Transf (AST/SGOT) 69H, Alanine Aminotransferase (ALT/SGPT) 31, Alkaline Phosphatase 131H, Pro-B-Type Natriuretic Peptide 2744H, Total Protein 6.9, Albumin 2.0L, Globulin 4.9, Albumin/Globulin Ratio 0.4L Height (Feet): 6 Height (Inches): 4.00 Weight (Pounds): 294 General Appearance: lethargic Respiratory/Chest: decreased breath sounds Abdomen: non tender, soft Edema: mild edema Guido Lopez Jul 24, 2017 09:39
--- NOTE | 2017-07-24 09:57 | Anethesia Preoperative Eval ---
Anesthesia Pre-op PMH/ROS General Date of Evaluation: Jul 24, 2017 Time of Evaluation: 09:55 Anesthesiologist: carolyn ASA Score: ASA 4 Mallampati Score Class I : Soft palate, uvula, fauces, pillars visible Class II: Soft palate, uvula, fauces visible Class III: Soft palate, base of uvula visible Class IV: Only hard plate visible Mallampati Classification: Class II Surgeon: darlene Diagnosis: abdominal pain Surgical Procedure: egd/colonoscopy Anesthesia History: none Social History: current smoker Family History: no anesthesia problems Allergies: Coded Allergies: No Known Allergies (Verified , 11/14/10) Medications: see eMAR Past Medical History Cardiovascular: Reports: HTN Gastrointestinal/Genitourinary: Reports: GERD, CRI Endocrine: Reports: DM Hematology/Immune: Reports: anemia Musculoskeletal/Integumentary: Reports: OA, other - osteomyelitis Other: obesity Anesthesia Pre-op Phys. Exam Physician Exam Last Vital Signs Date Time Temp Pulse Resp B/P (MAP) Pulse Ox O2 Delivery O2 Flow Rate FiO2 07/24/17 09:15 101.5 07/24/17 04:00 94 07/24/17 04:00 20 122/62 96 Nasal Cannula 3.0 07/23/17 19:30 28 Constitutional: NAD Neurologic: CN 2-12 intact Cardiovascular: RRR Respiratory: CTA Gastrointestinal: S/NT/ND Airway Exam Mallampati Score: Class III MO: full Neck: supple TMD: 2fb ROM: limited Teeth: missing Anesthesia Pre-op A/P Labs Hematology Test 07/24/17 07:50 White Blood Count 16.7 K/UL (4.8-10.8) H Red Blood Count 2.36 M/UL (4.70-6.10) L Hemoglobin 7.3 G/DL (14.2-18.0) L Hematocrit 21.2 % (42.0-52.0) L Mean Corpuscular Volume 90 FL (80-99) Mean Corpuscular Hemoglobin 31.1 PG (27.0-31.0) H Mean Corpuscular Hemoglobin Concent 34.6 G/DL (32.0-36.0) Red Cell Distribution Width 16.1 % (11.6-14.8) H Platelet Count 149 K/UL (150-450) L Mean Platelet Volume 7.8 FL (6.5-10.1) Neutrophils (%) (Auto) % (45.0-75.0) Lymphocytes (%) (Auto) % (20.0-45.0) Monocytes (%) (Auto) % (1.0-10.0) Eosinophils (%) (Auto) % (0.0-3.0) Basophils (%) (Auto) % (0.0-2.0) Neutrophils % (Manual) Pending Lymphocytes % (Manual) Pending Platelet Estimate Pending Platelet Morphology Pending Coagulation Test 07/24/17 07:50 Prothrombin Time 11.1 SEC (9.30-11.50) Prothromb Time International Ratio 1.1 (0.9-1.1) Activated Partial Thromboplast Time 38 SEC (23-33) H Chemistry Test 07/24/17 07:50 Sodium Level 138 MMOL/L (136-145) Potassium Level 3.1 MMOL/L (3.5-5.1) L Chloride Level 107 MMOL/L (98-107) Carbon Dioxide Level 22 MMOL/L (21-32) Anion Gap 9 mmol/L (5-15) Blood Urea Nitrogen 18 mg/dL (7-18) Creatinine 1.9 MG/DL (0.55-1.30) H Estimat Glomerular Filtration Rate 42.8 mL/min (>60) Glucose Level 48 MG/DL (74-106) L Uric Acid 5.2 MG/DL (2.6-7.2) Calcium Level 7.6 MG/DL (8.5-10.1) L Phosphorus Level 2.1 MG/DL (2.5-4.9) L Magnesium Level 1.9 MG/DL (1.8-2.4) Total Bilirubin 1.0 MG/DL (0.2-1.0) Aspartate Amino Transf (AST/SGOT) 69 U/L (15-37) H Alanine Aminotransferase (ALT/SGPT) 31 U/L (12-78) Alkaline Phosphatase 131 U/L (46-116) H Pro-B-Type Natriuretic Peptide 2744 pg/mL (0-125) H Total Protein 6.9 G/DL (6.4-8.2) Albumin 2.0 G/DL (3.4-5.0) L Globulin 4.9 g/dL Albumin/Globulin Ratio 0.4 (1.0-2.7) L Risk Assessment & Plan Assessment: [email or web address] Plan: mac Status Change Before Surgery: No Pre-Antibiotics Drug: GRECIA Gunderson Jul 24, 2017 09:57
[2017-07-24] MEDS ORDERED: Fleet's Enema 133ml RECTAL ONE (10:00)
[2017-07-24] MEDS ORDERED: Lidocaine 1% MPF 10mg/ml 5ml INJ ONE (10:00)
[2017-07-24] MEDS ORDERED: Heparin 2000 units/Ns 1000ml IV ONE (10:30)
--- NOTE | 2017-07-24 11:37 | Diagnostic Imaging Report ---
Indications: Needs long-term IV access Technique: Ultrasound confirms patent compressible left basilic vein. Total sterile technique, including sterile probe cover and sterile gel, hat, mask,, sterile gown, large sterile drape, and preparation with 2% chlorhexidine utilized. Local anesthesia with 1% lidocaine. Under real-time ultrasound guidance, puncture basilic vein using 21-gauge needle, documented and archived, passage 0.018 guidewire under direct fluoroscopy, which was used to determine appropriate catheter length, exchange for 5 Khmer peel-away sheath. 5 Khmer Bard dual-lumen power PICC cut to 49 cm. It was inserted through the peel-away sheath. Peel-away sheath and guidewire were removed. Fluoroscopy indicated the catheter was cut too long. The guidewire was reinserted, the catheter was removed and cut to 46 cm. A new peel-away sheath was inserted, through which was inserted the shorter catheter. Peel-away sheath and guidewire removed. Catheter fixed to the skin. Both catheter ports aspirated and flushed. Patient tolerated procedure well, without immediate complication. Digital radiograph documents satisfactory catheter tip position, at the cavoatrial junction. Total fluoroscopy time 0.9 minutes. Total dose area product 30 dGycm2 Impression: Successful placement of left arm PICC under sonographic and fluoroscopic guidance, as described above.
[2017-07-24] MEDS ORDERED: Propofol 200mg/20ml IV ONE (12:00)
[2017-07-24] MEDS ORDERED: Lidocaine 1% MPF 10mg/ml 5ml ONE (12:00)
[2017-07-24] MEDS ORDERED: Potassium Phosphate 30 MM in NS 275 ML IV ONE (12:00)
[2017-07-24] MEDS ORDERED: NS 500ML IV ONE (12:15)
--- NOTE | 2017-07-24 12:16 | General Progress Note ---
Assessment/Plan Problem List: (1) Abdominal pain ICD Codes: R10.9 - Unspecified abdominal pain SNOMED: 58388061 (2) Anemia ICD Codes: D64.9 - Anemia, unspecified SNOMED: 115131546 (3) DM2 (diabetes mellitus, type 2) ICD Codes: E11.9 - Type 2 diabetes mellitus without complications SNOMED: 88685426 Qualifiers: (4) Diabetes ICD Codes: E11.9 - Diabetes SNOMED: 07463869 Assessment/Plan plan EGD and colonoscopy today Subjective ROS Limited/Unobtainable: Yes Allergies: Coded Allergies: No Known Allergies (Verified , 11/14/10) All Systems: reviewed and negative except above Objective Last 24 Hour Vital Signs Date Time Temp Pulse Resp B/P (MAP) Pulse Ox O2 Delivery O2 Flow Rate FiO2 07/24/17 12:01 99.0 85 20 155/85 98 Nasal Cannula 3.0 99.0 07/24/17 09:15 101.5 07/24/17 08:00 101.5 93 18 134/59 95 Nasal Cannula 3.0 101.5 07/24/17 04:00 94 07/24/17 04:00 97.4 89 20 122/62 96 Nasal Cannula 3.0 97.4 07/24/17 00:00 99.5 96 20 128/66 99 Nasal Cannula 3.0 99.5 07/24/17 00:00 91 07/23/17 20:00 99.5 95 20 117/43 99 Nasal Cannula 3.0 99.5 07/23/17 20:00 92 07/23/17 19:30 Nasal Cannula 2.0 28 07/23/17 19:30 94 Nasal Cannula 2.0 28 07/23/17 16:00 88 07/23/17 16:00 98.8 98 20 131/70 100 Nasal Cannula 3.0 98.8 07/23/17 13:42 Nasal Cannula 2.0 28 07/23/17 13:42 98 Nasal Cannula 2.0 28 Intake and Output 07/23/17 07/24/17 19:00 07:00 Intake Total 360 ml 927.5 ml Output Total 800 ml 800 ml Balance -440 ml 127.5 ml Intake Oral 360 ml IV Total 927.5 ml Output Urine Total 800 ml 800 ml # Bowel Movements 4 Laboratory Tests 3/1/18 07:50: White Blood Count 16.7H, Red Blood Count 2.36L, Hemoglobin 7.3L, Hematocrit 21.2L, Mean Corpuscular Volume 90, Mean Corpuscular Hemoglobin 31.1H, Mean Corpuscular Hemoglobin Concent 34.6, Red Cell Distribution Width 16.1H, Platelet Count 149L, Mean Platelet Volume 7.8, Neutrophils (%) (Auto) , Lymphocytes (%) (Auto) , Monocytes (%) (Auto) , Eosinophils (%) (Auto) , Basophils (%) (Auto) , Differential Total Cells Counted 100, Neutrophils % ( Manual) 74, Lymphocytes % (Manual) 9L, Monocytes % (Manual) 17H, Eosinophils % ( Manual) 0, Basophils % (Manual) 0, Band Neutrophils 0, Platelet Estimate Adequate, Platelet Morphology Normal, Polychromasia 1+, Hypochromasia 1+, Anisocytosis 1+, Prothrombin Time 11.1, Prothromb Time International Ratio 1.1, Activated Partial Thromboplast Time 38H, Sodium Level 138, Potassium Level 3.1L , Chloride Level 107, Carbon Dioxide Level 22, Anion Gap 9, Blood Urea Nitrogen 18, Creatinine 1.9H, Estimat Glomerular Filtration Rate 42.8, Glucose Level 48L , Uric Acid 5.2, Calcium Level 7.6L, Phosphorus Level 2.1L, Magnesium Level 1.9 , Total Bilirubin 1.0, Aspartate Amino Transf (AST/SGOT) 69H, Alanine Aminotransferase (ALT/SGPT) 31, Alkaline Phosphatase 131H, Pro-B-Type Natriuretic Peptide 2744H, Total Protein 6.9, Albumin 2.0L, Globulin 4.9, Albumin/Globulin Ratio 0.4L Height (Feet): 6 Height (Inches): 4.00 Weight (Pounds): 294 General Appearance: no apparent distress EENT: normal ENT inspection Neck: supple Cardiovascular: normal rate Respiratory/Chest: decreased breath sounds Abdomen: normal bowel sounds, non tender, soft Extremities: non-tender ELDER RUSSELL Jul 24, 2017 12:16
[2017-07-24] MEDS ORDERED: Midazolam 2mg/2ml Inj IVP PRN (13:00)
[2017-07-24] MEDS ORDERED: DiphenhydrAMINE 50mg/ml Inj IVP PRN (13:00)
[2017-07-24] MEDS ORDERED: Atropine Inj 1mg/10ml Syr IV PRN (13:00)
[2017-07-24] MEDS ORDERED: fentaNYL 100 mcg/2 mL IV PRN (13:00)
--- NOTE | 2017-07-24 13:01 | Endoscopy Procedure Note ---
Endoscopy Procedure Note General Indication for Procedure: anemia Procedures Performed: EGD, colonoscopy Operative Findings/Diagnosis: esophagitis, gastritis, one colon polyp Specimen: yes Pt Tolerated Procedure Well: Yes Estimated Blood Loss: none Anesthesia Anesthesiologist: jose Anesthesia: MAC Inserted Devices Implant(s) used?: No Quality Quality of Bowel Preparation: Poor Did scope reach the cecum?: No Why scope didn't reach cecum: Bowel preparation poor Was there any complications?: No GI Core Measures 50 yrs or older w/o bx or poly: Not Applicable 10yrs. F/U not recommended: Not Applicable ELDER RUSSELL Jul 24, 2017 13:00
--- NOTE | 2017-07-24 15:02 | Nephrology Progress Note ---
Assessment/Plan Problem List: (1) Renal failure (ARF), acute on chronic (2) DM2 (diabetes mellitus, type 2) (3) Acute on chronic anemia (4) Diabetic foot ulcer Assessment Renal failure, Mainly Chronic due to DM Cr lower 1.9 Proteinuria, Diabetic Nephropathy, HypoAlbuminemia On going lower exteremity cellulitis / Osteo and high Lactic level- FEVER PERSISTS PVD High Cholestrol Anemia Plan Plan: consider transfusion K Phos IV 2D echo- 55% EjFx Kidney Noemi Negative ultrasound of the kidneys. slow hydrate urine studies per orders Subjective ROS Limited/Unobtainable: No Constitutional: Reports: malaise Objective Objective Last 24 Hour Vital Signs Date Time Temp Pulse Resp B/P (MAP) Pulse Ox O2 Delivery O2 Flow Rate FiO2 07/24/17 13:45 98.2 81 22 165/85 100 Nasal Cannula 3.0 98.2 07/24/17 13:30 81 22 166/88 100 Nasal Cannula 3.0 07/24/17 13:18 82 22 146/83 100 Nasal Cannula 3.0 07/24/17 13:13 86 22 155/84 100 Nasal Cannula 3.0 07/24/17 13:08 98.2 82 22 151/80 99 Nasal Cannula 3.0 98.2 07/24/17 12:01 99.0 85 20 155/85 98 Nasal Cannula 3.0 99.0 07/24/17 09:15 101.5 07/24/17 08:00 101.5 93 18 134/59 95 Nasal Cannula 3.0 101.5 07/24/17 04:00 94 07/24/17 04:00 97.4 89 20 122/62 96 Nasal Cannula 3.0 97.4 07/24/17 00:00 99.5 96 20 128/66 99 Nasal Cannula 3.0 99.5 07/24/17 00:00 91 07/23/17 20:00 99.5 95 20 117/43 99 Nasal Cannula 3.0 99.5 07/23/17 20:00 92 07/23/17 19:30 Nasal Cannula 2.0 28 07/23/17 19:30 94 Nasal Cannula 2.0 28 07/23/17 16:00 88 07/23/17 16:00 98.8 98 20 131/70 100 Nasal Cannula 3.0 98.8 Intake and Output 07/23/17 07/24/17 19:00 07:00 Intake Total 360 ml 927.5 ml Output Total 800 ml 800 ml Balance -440 ml 127.5 ml Intake Oral 360 ml IV Total 927.5 ml Output Urine Total 800 ml 800 ml # Bowel Movements 4 Laboratory Tests 07/24/17 07:50: White Blood Count 16.7H, Red Blood Count 2.36L, Hemoglobin 7.3L, Hematocrit 21.2L, Mean Corpuscular Volume 90, Mean Corpuscular Hemoglobin 31.1H, Mean Corpuscular Hemoglobin Concent 34.6, Red Cell Distribution Width 16.1H, Platelet Count 149L, Mean Platelet Volume 7.8, Neutrophils (%) (Auto) , Lymphocytes (%) (Auto) , Monocytes (%) (Auto) , Eosinophils (%) (Auto) , Basophils (%) (Auto) , Differential Total Cells Counted 100, Neutrophils % ( Manual) 74, Lymphocytes % (Manual) 9L, Monocytes % (Manual) 17H, Eosinophils % ( Manual) 0, Basophils % (Manual) 0, Band Neutrophils 0, Platelet Estimate Adequate, Platelet Morphology Normal, Polychromasia 1+, Hypochromasia 1+, Anisocytosis 1+, Prothrombin Time 11.1, Prothromb Time International Ratio 1.1, Activated Partial Thromboplast Time 38H, Sodium Level 138, Potassium Level 3.1L , Chloride Level 107, Carbon Dioxide Level 22, Anion Gap 9, Blood Urea Nitrogen 18, Creatinine 1.9H, Estimat Glomerular Filtration Rate 42.8, Glucose Level 48L , Uric Acid 5.2, Calcium Level 7.6L, Phosphorus Level 2.1L, Magnesium Level 1.9 , Total Bilirubin 1.0, Aspartate Amino Transf (AST/SGOT) 69H, Alanine Aminotransferase (ALT/SGPT) 31, Alkaline Phosphatase 131H, Pro-B-Type Natriuretic Peptide 2744H, Total Protein 6.9, Albumin 2.0L, Globulin 4.9, Albumin/Globulin Ratio 0.4L Height (Feet): 6 Height (Inches): 4.00 Weight (Pounds): 294 General Appearance: no apparent distress, lethargic Cardiovascular: regular rhythm Respiratory/Chest: decreased breath sounds Abdomen: distended GRIFFIN ASTORGA Jul 24, 2017 15:02
--- NOTE | 2017-07-24 15:17 | Podiatric Progress Note ---
Assessment/Plan Patient Best Dhillon is a 67 year old male who was admitted on Jul 19, 2017 at 21:57 with Problems: Assessment/Plan A/ 1) Cellulitis right LE 2) Osteomyelitis seen on CT 3) Sepsis 4) DM foot ulcer P/ 1) Dressings changed today. 2 augie removed and wound was flushed and packed. Will order daily wound care to consist of flushing inside wound and packing 2) Cont abx per ID 3) Patient was advised of his condition and possible residual infection. He understands. 4) Case d/w PMD and ID, also concern for anemia. s/p transfusion 5) Patient is amenable to SNF placement. Subjective Allergies: Coded Allergies: No Known Allergies (Verified , 11/14/10) Subjective Patient states he is feeling better and his pain is better. Objective Exam Last 24 Hour Vital Signs Date Time Temp Pulse Resp B/P (MAP) Pulse Ox O2 Delivery O2 Flow Rate FiO2 07/24/17 13:45 98.2 81 22 165/85 100 Nasal Cannula 3.0 98.2 07/24/17 13:30 81 22 166/88 100 Nasal Cannula 3.0 07/24/17 13:18 82 22 146/83 100 Nasal Cannula 3.0 07/24/17 13:13 86 22 155/84 100 Nasal Cannula 3.0 07/24/17 13:08 98.2 82 22 151/80 99 Nasal Cannula 3.0 98.2 07/24/17 12:01 99.0 85 20 155/85 98 Nasal Cannula 3.0 99.0 07/24/17 09:15 101.5 07/24/17 08:00 101.5 93 18 134/59 95 Nasal Cannula 3.0 101.5 07/24/17 04:00 94 07/24/17 04:00 97.4 89 20 122/62 96 Nasal Cannula 3.0 97.4 07/24/17 00:00 99.5 96 20 128/66 99 Nasal Cannula 3.0 99.5 07/24/17 00:00 91 07/23/17 20:00 99.5 95 20 117/43 99 Nasal Cannula 3.0 99.5 07/23/17 20:00 92 07/23/17 19:30 Nasal Cannula 2.0 28 07/23/17 19:30 94 Nasal Cannula 2.0 28 07/23/17 16:00 88 07/23/17 16:00 98.8 98 20 131/70 100 Nasal Cannula 3.0 98.8 Laboratory Tests Test 07/24/17 07:50 White Blood Count 16.7 K/UL (4.8-10.8) H Red Blood Count 2.36 M/UL (4.70-6.10) L Hemoglobin 7.3 G/DL (14.2-18.0) L Hematocrit 21.2 % (42.0-52.0) L Mean Corpuscular Volume 90 FL (80-99) Mean Corpuscular Hemoglobin 31.1 PG (27.0-31.0) H Mean Corpuscular Hemoglobin Concent 34.6 G/DL (32.0-36.0) Red Cell Distribution Width 16.1 % (11.6-14.8) H Platelet Count 149 K/UL (150-450) L Mean Platelet Volume 7.8 FL (6.5-10.1) Neutrophils (%) (Auto) % (45.0-75.0) Lymphocytes (%) (Auto) % (20.0-45.0) Monocytes (%) (Auto) % (1.0-10.0) Eosinophils (%) (Auto) % (0.0-3.0) Basophils (%) (Auto) % (0.0-2.0) Differential Total Cells Counted 100 Neutrophils % (Manual) 74 % (45-75) Lymphocytes % (Manual) 9 % (20-45) L Monocytes % (Manual) 17 % (1-10) H Eosinophils % (Manual) 0 % (0-3) Basophils % (Manual) 0 % (0-2) Band Neutrophils 0 % (0-8) Platelet Estimate Adequate Platelet Morphology Normal Polychromasia 1+ Hypochromasia 1+ Anisocytosis 1+ Prothrombin Time 11.1 SEC (9.30-11.50) Prothromb Time International Ratio 1.1 (0.9-1.1) Activated Partial Thromboplast Time 38 SEC (23-33) H Sodium Level 138 MMOL/L (136-145) Potassium Level 3.1 MMOL/L (3.5-5.1) L Chloride Level 107 MMOL/L (98-107) Carbon Dioxide Level 22 MMOL/L (21-32) Anion Gap 9 mmol/L (5-15) Blood Urea Nitrogen 18 mg/dL (7-18) Creatinine 1.9 MG/DL (0.55-1.30) H Estimat Glomerular Filtration Rate 42.8 mL/min (>60) Glucose Level 48 MG/DL (74-106) L Uric Acid 5.2 MG/DL (2.6-7.2) Calcium Level 7.6 MG/DL (8.5-10.1) L Phosphorus Level 2.1 MG/DL (2.5-4.9) L Magnesium Level 1.9 MG/DL (1.8-2.4) Total Bilirubin 1.0 MG/DL (0.2-1.0) Aspartate Amino Transf (AST/SGOT) 69 U/L (15-37) H Alanine Aminotransferase (ALT/SGPT) 31 U/L (12-78) Alkaline Phosphatase 131 U/L (46-116) H Pro-B-Type Natriuretic Peptide 2744 pg/mL (0-125) H Total Protein 6.9 G/DL (6.4-8.2) Albumin 2.0 G/DL (3.4-5.0) L Globulin 4.9 g/dL Albumin/Globulin Ratio 0.4 (1.0-2.7) L Microbiology Date/Time Source Procedure Growth Status 07/19/17 21:30 Blood Blood Culture - Preliminary NO GROWTH AFTER 4 DAYS Resulted 07/20/17 01:55 Nasal Nares MRSA Culture - Final NO METHICILLIN RESISTANT STAPH AUREUS... Complete 07/22/17 09:00 Toe Right Big Gram Stain - Final Resulted 07/22/17 09:00 Toe Right Big Aerobic Culture - Preliminary NO GROWTH AFTER 48 HOURS Resulted 07/22/17 09:00 Toe Right Big Anaerobic Culture Pending Resulted Dermatological Dermatological Narrative Right foot incision is well coapted. Mild serous drainage noted from wound. Concern for residual infection in foot. Edema has improved. Remaining toes remain viable Wiliam Bernard DPM Jul 24, 2017 15:16
[2017-07-24] MEDS ORDERED: NS 275ml ONE (15:31)
--- NOTE | 2017-07-24 15:37 | General Progress Note ---
Assessment/Plan Problem List: (1) Severe sepsis ICD Codes: A41.9 - Sepsis, unspecified organism; R65.20 - Severe sepsis without septic shock SNOMED: 14966626 (2) Cellulitis of right lower extremity ICD Codes: L03.115 - Cellulitis of right lower limb SNOMED: 841221072 (3) Concern for abscess of R foot (4) Likely 1st toe ostemyelitis (5) Acute blood loss anemia ICD Codes: D62 - Acute posthemorrhagic anemia SNOMED: 845466095 (6) Lactic acidosis ICD Codes: E87.2 - Acidosis SNOMED: 42298914 (7) Diabetic foot ulcer ICD Codes: E11.621 - Type 2 diabetes mellitus with foot ulcer; L97.509 - Non- pressure chronic ulcer of other part of unspecified foot with unspecified severity SNOMED: 92026695, 923074628 (8) DM2 (diabetes mellitus, type 2) Assessment & Plan: A1C 9.6 ICD Codes: E11.9 - Type 2 diabetes mellitus without complications SNOMED: 62650206 Qualifiers: (9) Renal failure (ARF), acute on chronic ICD Codes: N17.9 - Acute kidney failure, unspecified; N18.9 - Chronic kidney disease, unspecified SNOMED: 795942044 (10) Acute on chronic anemia (11) Leukopenia ICD Codes: D72.819 - Decreased white blood cell count, unspecified SNOMED: 35371310, 826884936 (12) Hypertension ICD Codes: I10 - Hypertension SNOMED: 67957293 (13) Hyperlipidemia ICD Codes: E78.5 - Hyperlipidemia SNOMED: 32474381 Status: stable Assessment/Plan Podiatry, ID, hematology, and nephrology consulted s/p 1 unit pRBC on 07/20/17 s/p 1 units pRBC on 07/22/17 s/p 1U pRBC on 07/23/17 Transfuse 1 unit pRBC today Epogen + IV iron per renal F/u stool OB--positive GI consulted s/p EGD and colo on 07/24/17 which showed gastritis, distal esophageal ulcerations w/ esophagitis, hemorrhoids, 1 colonic polyp s/p removal, no active bleeidng Hold ACEi and lasix in the setting of CHIQUITA Continue IV vancomycin Start meropenem given persistent fevers (07/24-), d/c zosyn (06/19-07/24) per ID F/u blood cultures, wound cultures Repeat FFWU today CT of right foot noted with possible osteomyelitis and concern for abscess. Unable to get MRI given pt size s/p R partial first ray amputation, and excisional debridement of necrotic tissue to level of bone on 07/22/17. Per Dr. Bernard margins are positive, so pt will need PICC and long-term IV abx F/u OR culture and path PICC ordered F/u venous ultrasound of RLE to r/o DVT--neg F/u arterial duplex-wnl SSI Hold PO hypoglycemic agents Continue home bp meds CM consult for SNF placement DVT Prophylaxis: SCD, HSQ Code Status: Full Hospital Classification Declaration: Based on this initial evaluation, and depending on the patient's clinical course, I anticipate that this patient will require hospitalization for 2-3 days for surgical mgmt and close respiratory/ hemodynamic monitoring. Disposition: Once the patient is stable to leave the hospital, I anticipate the patient will likely be discharged to the following environment: home with HH vs SNF Discussed with patient/family, nursing staff, SW/CM, podiatry, ID, renal regarding clinical status, treatment course, and disposition planning. D/w GI re scope results. D/w ID re abx. D/w podiatry re wound infection Time of note may not reflect time of encounter. Subjective Date patient seen: Jul 24, 2017 Time patient seen: 15:37 ROS Limited/Unobtainable: No Allergies: Coded Allergies: No Known Allergies (Verified , 11/14/10) Subjective No acute o/n events Fever to 101.5 this AM. Repeat cultures sent. D/w ID and zosyn changed to meropenem s/p EGD and colo this AM which showed gastritis, distal esophageal ulcerations w / esophagitis, hemorrhoids, 1 colonic polyp s/p removal, no active bleeding Hgb 7.3 this AM despite 1U pRBC transfusions yesterday s/p R partial first ray amputation, and excisional debridement of necrotic tissue to level of bone POD#2 C/o R foot pain. Sarah f/c, n/v, d/c, chest pain, SOB, abd pain Purulent discharge expressed from R foot wound Objective Last 24 Hour Vital Signs Date Time Temp Pulse Resp B/P (MAP) Pulse Ox O2 Delivery O2 Flow Rate FiO2 07/24/17 13:45 98.2 81 22 165/85 100 Nasal Cannula 3.0 98.2 07/24/17 13:30 81 22 166/88 100 Nasal Cannula 3.0 07/24/17 13:18 82 22 146/83 100 Nasal Cannula 3.0 07/24/17 13:13 86 22 155/84 100 Nasal Cannula 3.0 07/24/17 13:08 98.2 82 22 151/80 99 Nasal Cannula 3.0 98.2 07/24/17 12:01 99.0 85 20 155/85 98 Nasal Cannula 3.0 99.0 07/24/17 09:15 101.5 07/24/17 08:00 101.5 93 18 134/59 95 Nasal Cannula 3.0 101.5 07/24/17 04:00 94 07/24/17 04:00 97.4 89 20 122/62 96 Nasal Cannula 3.0 97.4 07/24/17 00:00 99.5 96 20 128/66 99 Nasal Cannula 3.0 99.5 07/24/17 00:00 91 07/23/17 20:00 99.5 95 20 117/43 99 Nasal Cannula 3.0 99.5 07/23/17 20:00 92 07/23/17 19:30 Nasal Cannula 2.0 28 07/23/17 19:30 94 Nasal Cannula 2.0 28 07/23/17 16:00 88 07/23/17 16:00 98.8 98 20 131/70 100 Nasal Cannula 3.0 98.8 Intake and Output 07/23/17 07/24/17 19:00 07:00 Intake Total 360 ml 927.5 ml Output Total 800 ml 800 ml Balance -440 ml 127.5 ml Intake Oral 360 ml IV Total 927.5 ml Output Urine Total 800 ml 800 ml # Bowel Movements 4 Laboratory Tests 07/24/17 07:50: White Blood Count 16.7H, Red Blood Count 2.36L, Hemoglobin 7.3L, Hematocrit 21.2L, Mean Corpuscular Volume 90, Mean Corpuscular Hemoglobin 31.1H, Mean Corpuscular Hemoglobin Concent 34.6, Red Cell Distribution Width 16.1H, Platelet Count 149L, Mean Platelet Volume 7.8, Neutrophils (%) (Auto) , Lymphocytes (%) (Auto) , Monocytes (%) (Auto) , Eosinophils (%) (Auto) , Basophils (%) (Auto) , Differential Total Cells Counted 100, Neutrophils % ( Manual) 74, Lymphocytes % (Manual) 9L, Monocytes % (Manual) 17H, Eosinophils % ( Manual) 0, Basophils % (Manual) 0, Band Neutrophils 0, Platelet Estimate Adequate, Platelet Morphology Normal, Polychromasia 1+, Hypochromasia 1+, Anisocytosis 1+, Prothrombin Time 11.1, Prothromb Time International Ratio 1.1, Activated Partial Thromboplast Time 38H, Sodium Level 138, Potassium Level 3.1L , Chloride Level 107, Carbon Dioxide Level 22, Anion Gap 9, Blood Urea Nitrogen 18, Creatinine 1.9H, Estimat Glomerular Filtration Rate 42.8, Glucose Level 48L , Uric Acid 5.2, Calcium Level 7.6L, Phosphorus Level 2.1L, Magnesium Level 1.9 , Total Bilirubin 1.0, Aspartate Amino Transf (AST/SGOT) 69H, Alanine Aminotransferase (ALT/SGPT) 31, Alkaline Phosphatase 131H, Pro-B-Type Natriuretic Peptide 2744H, Total Protein 6.9, Albumin 2.0L, Globulin 4.9, Albumin/Globulin Ratio 0.4L Height (Feet): 6 Height (Inches): 4.00 Weight (Pounds): 294 Objective General Appearance: no apparent distress, alert HEENT: normocephalic, atraumatic Neck: non-tender, normal alignment, supple Respiratory/Chest: chest wall non-tender, lungs clear, normal breath sounds Cardiovascular/Chest: normal peripheral pulses, normal rate, regular rhythm Abdomen: normal bowel sounds, non tender, soft Skin Exam: other - right lower extremity erythema, edema, and TTP. right foot dressing c/d/i Neurologic: rn procedures II-XII grossly normal, no motor/sensory deficits, alert, oriented x 3 Js Garcia M.D. Jul 24, 2017 15:37
--- NOTE | 2017-07-24 16:45 | Procedure Note ---
DATE OF PROCEDURE: 07/24/2017 PROCEDURE: Upper endoscopy with biopsy and colonoscopy with biopsy. SURGEON: Catarino Yoder M.D. ANESTHESIOLOGIST: Dr. Barger. REFERRING PHYSICIAN: Main Florez M.D. ANESTHESIA: Per Dr. Charbel M.D. INSTRUMENT: Olympus adult flexible upper endoscope and colonoscope. INDICATION: Anemia, stool OB positive, iron deficiency. The procedure, risks, benefits, and possible consequences, including hemorrhage, aspiration, perforation and infection, and alternative treatments, were explained to the patient/legal guardian by Dr. Catarino Yoder and the patient/legal guardian understood and accepted these risks. DESCRIPTION OF PROCEDURE: After informed consent was obtained and the patient was adequately sedated, Olympus upper endoscope was advanced from the mouth to the second portion of duodenum and retroflexion was performed in the stomach. The patient has evidence of 4-cm hiatal hernia with associated distal esophageal ulceration and distal esophagitis that also was right at the GE junction, most probably the source of bleeding. In the stomach, there was diffuse gastritis. Random biopsy from antrum was obtained to rule out H. pylori infection. At this time, the upper endoscope was retrieved and the patient was turned over for colonoscopy. First, rectal exam was performed which was normal. Then, the scope was advanced from rectum into what seems to be proximal transverse colon. We could not see exactly where we were because the prep was poor but we definitely were deeply into the colon, may be ascending but for sure proximal transverse colon. Quality of prep was poor, so we could not do full colonoscopy examination. There was one diminutive polyp in the transverse colon, which was removed with cold biopsy forceps technique. There was no active bleeding at this time in the colon. One diverticulum was seen in the left colon. The retroflexion of rectum was not performed given there was lot of stool in the rectum. SUMMARY OF FINDINGS: 1. A 4-cm hiatal hernia. 2. Distal esophageal ulcerations plus esophagitis. 3. Gastritis, status post biopsy. 4. Poor colonic prep and incomplete colonoscopy examination. 5. One colonic polyp removed, see above for details. 6. One diverticulum seen in the left colon. 7. Hemorrhoids. RECOMMENDATIONS: Follow up biopsy results and treat accordingly. I want to thank Dr. Florez for this kind referral. Catarino Yoder M.D. DR: Odilia JOB#: [id number] CC: Main Florez M.D.; Fax#: [phone]
--- NOTE | 2017-07-24 18:27 | Immediate Post-Op Evaluation ---
Immediate Post-Op Evalulation Immediate Post-Op Evalulation Procedure: egd/colonoscopy Date of Evaluation: Jul 24, 2017 Time of Evaluation: 13:20 IV Fluids: 300ml 0.9ns Blood Products: none Estimated Blood Loss: negligible Blood Pressure Systolic: 151 Blood Pressure Diastolic: 80 Pulse Rate: 81 Respiratory Rate: 18 O2 Sat by Pulse Oximetry: 100 Temperature (Fahrenheit): 98.2 Pain Score (1-10): 0 Nausea: No Vomiting: No Complications none Patient Status: awake, reacts, patent Hydration Status: adequate Drug: GRECIA Gunderson Jul 24, 2017 18:27
--- NOTE | 2017-07-24 18:29 | 48 Hour Post Anesthesia Eval ---
Post Anesthesia Evaluation Procedure: egd/colonoscopy Date of Evaluation: Jul 24, 2017 Time of Evaluation: 13:22 Blood Pressure Systolic: 146 0: 83 Pulse Rate: 82 Respiratory Rate: 18 Temperature (Fahrenheit): 98.2 O2 Sat by Pulse Oximetry: 100 Airway: patent Nausea: No Vomiting: No Pain Intensity: 0 Hydration Status: adequate Cardiopulmonary Status: stable Mental Status/LOC: patient returned to baseline Post-Anesthesia Complications: none Follow-up care needed: N/A GRECIA BUSTOS Jul 24, 2017 18:29
[2017-07-24] MEDS: Meropenem 2 GM in NS 110 ML IVPB SCH ×2 (18:55→23:49)
[2017-07-24] MEDS: Atorvastatin 20mg tab ORAL SCH (22:07)
[2017-07-24] MEDS: Iron Sucrose 100 MG in NS 55 ML IVPB SCH (22:07)
[2017-07-24] MEDS: Levemir Flexpen SUBQ SCH (22:10)
--- NOTE | 2017-07-24 23:15 | Progress Note ---
DATE: 07/24/2017 SUBJECTIVE: The patient is doing well in bed, no acute distress. Continues to have mild anxiety. No behavior issues. Compliant, difficulty sleeping last night falling sleep. MENTAL STATUS EXAMINATION: Alert and oriented x3. Mood is neutral. Affect is constricted, congruent with mood. Thought process is concrete. Thought content, no suicidal or homicidal ideation. ASSESSMENT: Anxiety and depression. PLAN: 1. We will continue current medications. 2. Provide the patient supportive therapy and reality orientation. Kory Bales M.D. DR: SARMAD JOB#: [id number] CC:
--- NOTE | 2017-07-24 23:45 | General Progress Note ---
Assessment/Plan Assessment/Plan 1. Anemia of chronic disease. --> Occult blood has been found. Consider GI services and recs. --> Anemia workup reviewed. --> Iron 16, TIBC 198, % sat 8, Folate 13.4, B12 637, Ferritin 308 --> Iron levels are low. Monitor closely and trend cbc daily. --> Hemoglobin levels remain low, prbc pending. --> Transfuse if hgb <7 2. Leukopenia, likely secondary to underlying infection from osteomyelitis --> HIV/Hep panel both negative. --> Improving. --> On abx. ID following. 3. Lactic acidosis secondary to sepsis from underlying infection. --> Continue to monitor. 4. Diabetes mellitus, on insulin sliding scale. Blood sugar control as needed. 5. Right big toe osteomyelitis, to be seen by the Senior Military Analyst as well as surgical team. Subjective Date patient seen: Jul 24, 2017 Constitutional: Denies: no symptoms, chills, diaphoresis, fever, malaise, weakness, other HEENT: Denies: no symptoms, eye pain, blurred vision, tearing, double vision, ear pain, ear discharge, nose pain, nose congestion, throat pain, throat swelling, mouth pain, mouth swelling, other Cardiovascular: Denies: no symptoms, chest pain, edema, irregular heart rate, lightheadedness, palpitations, syncope, other Respiratory: Denies: no symptoms, cough, orthopnea, shortness of breath, SOB with excertion, SOB at rest, sputum, stridor, wheezing, other Gastrointestinal/Abdominal: Denies: no symptoms, abdomen distended, abdominal pain, black stools, tarry stools, blood in stool, constipated, diarrhea, difficulty swallowing, nausea, poor appetite, poor fluid intake, rectal bleeding , vomiting, other Genitourinary: Denies: no symptoms, burning, discharge, frequency, flank pain, hematuria, incontinence, pain, urgency, other Hematologic/Lymphatic: Reports: anemia Allergies: Coded Allergies: No Known Allergies (Verified , 11/14/10) Subjective S/P blood transfusion. No adverse events. Resting in bed. Objective Last 24 Hour Vital Signs Date Time Temp Pulse Resp B/P (MAP) Pulse Ox O2 Delivery O2 Flow Rate FiO2 07/24/17 20:23 Nasal Cannula 2.0 28 07/24/17 20:23 97 Nasal Cannula 2.0 28 07/24/17 20:00 86 07/24/17 20:00 100.2 92 20 153/85 99 Nasal Cannula 2.0 100.2 07/24/17 18:29 208.8 82 18 100 07/24/17 18:27 208.8 81 18 100 07/24/17 16:56 98.1 07/24/17 16:00 93 07/24/17 15:57 101.7 07/24/17 15:49 101.7 88 22 143/79 16 Nasal Cannula 2.0 101.7 07/24/17 13:45 98.2 81 22 165/85 100 Nasal Cannula 3.0 98.2 07/24/17 13:30 81 22 166/88 100 Nasal Cannula 3.0 07/24/17 13:18 82 22 146/83 100 Nasal Cannula 3.0 07/24/17 13:13 86 22 155/84 100 Nasal Cannula 3.0 07/24/17 13:08 98.2 82 22 151/80 99 Nasal Cannula 3.0 98.2 07/24/17 12:01 99.0 85 20 155/85 98 Nasal Cannula 3.0 99.0 07/24/17 10:15 99.0 07/24/17 09:15 101.5 07/24/17 08:00 89 07/24/17 08:00 101.5 93 18 134/59 95 Nasal Cannula 3.0 101.5 07/24/17 04:00 94 07/24/17 04:00 97.4 89 20 122/62 96 Nasal Cannula 3.0 97.4 07/24/17 00:00 99.5 96 20 128/66 99 Nasal Cannula 3.0 99.5 07/24/17 00:00 91 Intake and Output 07/23/17 07/24/17 19:00 07:00 Intake Total 360 ml 927.5 ml Output Total 800 ml 800 ml Balance -440 ml 127.5 ml Intake Oral 360 ml IV Total 927.5 ml Output Urine Total 800 ml 800 ml # Bowel Movements 4 Laboratory Tests 07/24/17 07:50: White Blood Count 16.7H, Red Blood Count 2.36L, Hemoglobin 7.3L, Hematocrit 21.2L, Mean Corpuscular Volume 90, Mean Corpuscular Hemoglobin 31.1H, Mean Corpuscular Hemoglobin Concent 34.6, Red Cell Distribution Width 16.1H, Platelet Count 149L, Mean Platelet Volume 7.8, Neutrophils (%) (Auto) , Lymphocytes (%) (Auto) , Monocytes (%) (Auto) , Eosinophils (%) (Auto) , Basophils (%) (Auto) , Differential Total Cells Counted 100, Neutrophils % ( Manual) 74, Lymphocytes % (Manual) 9L, Monocytes % (Manual) 17H, Eosinophils % ( Manual) 0, Basophils % (Manual) 0, Band Neutrophils 0, Platelet Estimate Adequate, Platelet Morphology Normal, Polychromasia 1+, Hypochromasia 1+, Anisocytosis 1+, Prothrombin Time 11.1, Prothromb Time International Ratio 1.1, Activated Partial Thromboplast Time 38H, Sodium Level 138, Potassium Level 3.1L , Chloride Level 107, Carbon Dioxide Level 22, Anion Gap 9, Blood Urea Nitrogen 18, Creatinine 1.9H, Estimat Glomerular Filtration Rate 42.8, Glucose Level 48L , Uric Acid 5.2, Calcium Level 7.6L, Phosphorus Level 2.1L, Magnesium Level 1.9 , Total Bilirubin 1.0, Aspartate Amino Transf (AST/SGOT) 69H, Alanine Aminotransferase (ALT/SGPT) 31, Alkaline Phosphatase 131H, Pro-B-Type Natriuretic Peptide 2744H, Total Protein 6.9, Albumin 2.0L, Globulin 4.9, Albumin/Globulin Ratio 0.4L 07/24/17 18:00: Vancomycin Level Trough 11.8 Height (Feet): 6 Height (Inches): 4.00 Weight (Pounds): 294 Neck: normal alignment Cardiovascular: normal rate Respiratory/Chest: decreased breath sounds Guido Lopez Jul 24, 2017 23:45
[2017-07-24] MEDS: Vancomycin 750mg/NS 250ml IVPB SCH (23:49)
[2017-07-25] VITALS (7 sets, daily range): BP systolic 126–167; BP diastolic 70–88
[2017-07-25 05:39] LABS: APPEARANCE,URINE CLEAR; BILIRUBIN, URINE NEGATIVE (NEGATIVE); GLUCOSE, URINE (UA) NEGATIVE (NEGATIVE); KETONES,URINE NEGATIVE (NEGATIVE); LEUKOCYTE ESTERASE ,URINE NEGATIVE (NEGATIVE); NITRITE,URINE NEGATIVE (NEGATIVE); PH,URINE 5 (4.5-8.0); PROTEIN,URINE 3+ (NEGATIVE); UROBILINOGEN,URINE NORMAL MG/DL (0.0-1.0)
[2017-07-25] MEDS: NovoLOG Insulin Flexpen SUBQ SCH ×4 (06:25→21:31)
[2017-07-25 06:45] LABS: COLOR,URINE YELLOW
[2017-07-25 07:04] LABS: HEMATOCRIT 20.5 % (42.0-52.0); MEAN CORPUSCULAR VOLUME 91 FL (80-99); PLATELET COUNT 154 K/UL (150-450); RED BLOOD COUNT 2.26 M/UL (4.70-6.10); RED CELL DISTRIBUTION WIDTH 17.8 % (11.6-14.8); WHITE BLOOD COUNT 13.8 K/UL (4.8-10.8)
[2017-07-25 07:16] LABS: HEMOGLOBIN 6.9 G/DL (14.2-18.0)
[2017-07-25 07:22] LABS: ALANINE AMINOTRANSFERASE 37 U/L (12-78); ALBUMIN 1.8 G/DL (3.4-5.0); ALBUMIN/GLOBULIN RATIO 0.4 (1.0-2.7); ALKALINE PHOSPHATASE 151 U/L (46-116); ANION GAP 11 mmol/L (5-15); ASPARTATE AMINO TRANSFERASE 78 U/L (15-37); BILIRUBIN,TOTAL 0.6 MG/DL (0.2-1.0); BLOOD UREA NITROGEN 17 mg/dL (7-18); CALCIUM 7.7 MG/DL (8.5-10.1); CARBON DIOXIDE 21 MMOL/L (21-32); CHLORIDE 106 MMOL/L (98-107); CREATININE 1.8 MG/DL (0.55-1.30); PHOSPHORUS 2.3 MG/DL (2.5-4.9); POTASSIUM 3.2 MMOL/L (3.5-5.1); SODIUM 138 MMOL/L (136-145)
[2017-07-25] MEDS: Heparin 5000 units/ml inj SUBQ SCH ×2 (07:36→21:31)
[2017-07-25] MEDS: Docusate 100mg cap ORAL SCH ×3 (07:55→17:57)
[2017-07-25] MEDS ORDERED: HydrALAZINE 10mg Tab ORAL PRN (08:30)
[2017-07-25] MEDS: Vancomycin 750mg/NS 250ml IVPB SCH ×2 (10:00→23:17)
--- NOTE | 2017-07-25 11:44 | Diagnostic Imaging Report ---
Indication: Dyspnea Comparison: 07/15/1939 A single view chest radiograph was obtained. Findings: PICC line noted in good position with the tip in the SVC. There is vascular congestion present. The heart is enlarged. Bones are unremarkable. IMPRESSION: CHF/interstitial edema.
--- NOTE | 2017-07-25 12:08 | Infectious Diseases Prog Note ---
Assessment/Plan Assessment/Plan ASSESSMENT AND PLAN: 1. right leg/foot cellulitis, ? abscess, right foot great toe/1st toes infected wound and osteomyelitis on CT scan - s/p right partial first ray amputation and debridement - 07/21 great toe wound culture with enterobacter and klebsiella, jerri likely colonizer - surgical culture negative, path pending - check surgical margins and culture final - abx changed to meropenem and vancomycin - favor 6 weeks abx total - d/w Dr. Weinstein and Dr. Bernard - post op fevers and leukocytosis noted, f/u on labs and watch temps, f/u cultures ordered 2. Sepsis, fevers and leukocytosis - continue abx, check cultures, chest x-ray with chf/edema 3. Elevated creatinine, chronic renal failure. 4. Anemia. 5. Diabetes. 6. Hypertension. 7. Hyperlipidemia. 8. Blood sugar, blood pressure, and lipid treatment per primary. 9. History of ulcers. 10. Wound care protocol. 11. No known allergies. 12. Social history negative. 13. Family history noncontributory. 14. MAR was noted. 15. Continue treatment per primary consultants. 16. Podiatry followup. 17. Notes and records were noted. 18. Orders were entered. 19. Case discussed with RN. Subjective Constitutional: Reports: fever, fatigue HEENT: Reports: congestion - mild Respiratory: Reports: shortness of breath - mild Cardiovascular: Denies: chest pain Gastrointestinal/Abdominal: Denies: nausea, vomiting, diarrhea Genitourinary: Reports: other - no meyer, Denies: dysuria, hematuria Neurologic: Denies: headache Psychiatric: Denies: depression Skin: Denies: rash Hematologic: Denies: bleeding Musculoskeletal: Denies: pain Allergies: Coded Allergies: No Known Allergies (Verified , 11/14/10) Objective Vital Signs Last 24 Hour Vital Signs Date Time Temp Pulse Resp B/P (MAP) Pulse Ox O2 Delivery O2 Flow Rate FiO2 07/25/17 09:50 100.2 07/25/17 09:40 100.2 91 18 144/70 97 Room Air 100.2 07/25/17 08:53 167/88 07/25/17 08:51 100.6 07/25/17 08:19 100.6 91 18 167/88 97 Room Air 100.6 3/2/18 07:43 93 07/25/17 04:00 86 07/25/17 04:00 100.0 91 20 147/74 97 Nasal Cannula 2.0 100.0 07/25/17 00:00 101.8 91 20 154/80 98 Nasal Cannula 2.0 101.8 07/25/17 00:00 92 07/24/17 23:50 100.2 07/24/17 20:23 Nasal Cannula 2.0 28 07/24/17 20:23 97 Nasal Cannula 2.0 28 07/24/17 20:00 86 07/24/17 20:00 100.2 92 20 153/85 99 Nasal Cannula 2.0 100.2 07/24/17 18:29 208.8 82 18 100 07/24/17 18:27 208.8 81 18 100 07/24/17 16:00 93 07/24/17 15:57 101.7 07/24/17 15:49 101.7 88 22 143/79 16 Nasal Cannula 2.0 101.7 07/24/17 13:45 98.2 81 22 165/85 100 Nasal Cannula 3.0 98.2 07/24/17 13:30 81 22 166/88 100 Nasal Cannula 3.0 07/24/17 13:18 82 22 146/83 100 Nasal Cannula 3.0 07/24/17 13:13 86 22 155/84 100 Nasal Cannula 3.0 07/24/17 13:08 98.2 82 22 151/80 99 Nasal Cannula 3.0 98.2 07/24/17 12:01 99.0 85 20 155/85 98 Nasal Cannula 3.0 99.0 Height (Feet): 6 Height (Inches): 4.00 Weight (Pounds): 294 General Appearance: no acute distress HEENT: normocephalic, atraumatic, anicteric, mucous membranes moist, EOMI, pharynx normal, supple, no JVD Respiratory/Chest: crackles/rales, rhonchi - bilaterally Cardiovascular: normal rate, regular rhythm, no gallop/murmur, no JVD Abdomen: normal bowel sounds, soft, non tender, no organomegaly, non distended Genitourinary: other - no meyer, no cva pain Extremities: other - + right leg cellulitis, edema, right foot covered post surgery Skin: no rash 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 Erosive changes of the first distal phalanx and possibly first metatarsal head. This is consistent with osteomyelitis. Postoperative changes in the base of the first proximal phalanx. Chronic changes in the fifth metatarsal phalangeal joint. This may be surgical as well. The above report is concordant with preliminary reading by [facility] . Chest - x-ray with chf and edema Microbiology Date/Time Source Procedure Growth Status 07/19/17 21:30 Blood Blood Culture - Final NO GROWTH AFTER 5 DAYS Complete 07/20/17 01:55 Nasal Nares MRSA Culture - Final NO METHICILLIN RESISTANT STAPH AUREUS... Complete 07/22/17 09:00 Toe Right Big Gram Stain - Final Resulted 07/22/17 09:00 Toe Right Big Aerobic Culture - Preliminary NO GROWTH AFTER 48 HOURS Resulted 07/22/17 09:00 Toe Right Big Anaerobic Culture - Preliminary NO GROWTH AFTER 48 HOURS Resulted Laboratory Tests Test 07/24/17 18:00 07/25/17 04:50 07/25/17 06:00 Vancomycin Level Trough 11.8 ug/mL (5.0-12.0) Urine Color Yellow Urine Appearance Clear Urine pH 5 (4.5-8.0) Urine Specific [place] 1.020 (1.005-1.035) Urine Protein 3+ (NEGATIVE) H Urine Glucose (UA) Negative (NEGATIVE) Urine Ketones Negative (NEGATIVE) Urine Occult Blood 3+ (NEGATIVE) H Urine Nitrite Negative (NEGATIVE) Urine Bilirubin Negative (NEGATIVE) Urine Urobilinogen Normal MG/DL (0.0-1.0) Urine Leukocyte Esterase Negative (NEGATIVE) Urine RBC 2-4 /HPF (0 - 0) H Urine WBC 0-2 /HPF (0 - 0) Urine Squamous Epithelial Cells Occasional /LPF Urine Bacteria Occasional /HPF (NONE) Urine Yeast Few /HPF (NONE) H White Blood Count 13.8 K/UL (4.8-10.8) H Red Blood Count 2.26 M/UL (4.70-6.10) L Hemoglobin 6.9 G/DL (14.2-18.0) *L Hematocrit 20.5 % (42.0-52.0) L Mean Corpuscular Volume 91 FL (80-99) Mean Corpuscular Hemoglobin 30.4 PG (27.0-31.0) Mean Corpuscular Hemoglobin Concent 33.5 G/DL (32.0-36.0) Red Cell Distribution Width 17.8 % (11.6-14.8) H Platelet Count 154 K/UL (150-450) Mean Platelet Volume 8.0 FL (6.5-10.1) Neutrophils (%) (Auto) % (45.0-75.0) Lymphocytes (%) (Auto) % (20.0-45.0) Monocytes (%) (Auto) % (1.0-10.0) Eosinophils (%) (Auto) % (0.0-3.0) Basophils (%) (Auto) % (0.0-2.0) Differential Total Cells Counted 100 Neutrophils % (Manual) 74 % (45-75) Lymphocytes % (Manual) 14 % (20-45) L Monocytes % (Manual) 11 % (1-10) H Eosinophils % (Manual) 1 % (0-3) Basophils % (Manual) 0 % (0-2) Band Neutrophils 0 % (0-8) Platelet Estimate Adequate Platelet Morphology Normal Polychromasia 2+ Hypochromasia 2+ Anisocytosis 1+ Sodium Level 138 MMOL/L (136-145) Potassium Level 3.2 MMOL/L (3.5-5.1) L Chloride Level 106 MMOL/L (98-107) Carbon Dioxide Level 21 MMOL/L (21-32) Anion Gap 11 mmol/L (5-15) Blood Urea Nitrogen 17 mg/dL (7-18) Creatinine 1.8 MG/DL (0.55-1.30) H Estimat Glomerular Filtration Rate 45.6 mL/min (>60) Glucose Level 73 MG/DL (74-106) L Calcium Level 7.7 MG/DL (8.5-10.1) L Phosphorus Level 2.3 MG/DL (2.5-4.9) L Magnesium Level 1.8 MG/DL (1.8-2.4) Total Bilirubin 0.6 MG/DL (0.2-1.0) Aspartate Amino Transf (AST/SGOT) 78 U/L (15-37) H Alanine Aminotransferase (ALT/SGPT) 37 U/L (12-78) Alkaline Phosphatase 151 U/L (46-116) H Total Protein 6.7 G/DL (6.4-8.2) Albumin 1.8 G/DL (3.4-5.0) L Globulin 4.9 g/dL Albumin/Globulin Ratio 0.4 (1.0-2.7) L Current Medications Medications (Trade) Dose Ordered Sig/Xiao Route PRN Reason Start Time Stop Time Status Last Admin Dose Admin Acetaminophen (Tylenol) 650 mg Q4H PRN ORAL Mild Pain/Temp > 100.5 07/20/17 08:15 08/19/17 08:14 07/25/17 08:51 Acetaminophen/ Hydrocodone Bitart ([place] 10/325) 1 tab Q6H PRN ORAL Severe Pain (Pain Scale 7-10) 07/20/17 01:30 07/27/17 01:29 07/23/17 09:09 Acetaminophen/ Hydrocodone Bitart ([place] 5/325) 1 tab Q6H PRN ORAL Mild Pain (Pain Scale 1-3) 07/20/17 01:30 07/27/17 01:29 07/21/17 04:37 Atorvastatin Calcium (Lipitor) 40 mg QHS ORAL 07/22/17 21:00 08/19/17 08:59 07/24/17 22:07 Chlorhexidine Gluconate (Joyce-Hex 2%) 1 applic DAILY@1999 TOPIC 07/25/17 20:00 08/24/17 19:59 Dextrose (Dextrose 50%) STAT PRN IV Hypoglycemia 07/20/17 05:15 08/19/17 05:14 07/24/17 11:41 Docusate Sodium (Colace) 100 mg THREE TIMES A DAY ORAL 07/22/17 13:00 08/21/17 12:59 07/25/17 07:55 Epoetin Norberto (Procrit (for non ESRD use)) 10,000 units FRI-WED-FRI SUBQ 07/23/17 21:00 08/22/17 20:59 07/23/17 20:50 Ergocalciferol (Drisdol) 50,000 intlu QWEEK ORAL 07/22/17 12:30 08/21/17 12:29 07/22/17 13:00 Heparin Sodium (Porcine) (Heparin 5000 units/ml) 5,000 units EVERY 12 HOURS SUBQ 07/23/17 09:00 08/22/17 08:59 07/24/17 22:10 Hydralazine HCl (Apresoline) 20 mg Q6HR PRN ORAL SBP>160 07/25/17 08:30 08/24/17 08:29 07/25/17 08:53 Insulin Aspart (NovoLOG) BEFORE MEALS AND HS SUBQ 07/20/17 06:30 08/19/17 06:29 07/24/17 22:12 Insulin Detemir (Levemir) 35 units BEDTIME SUBQ 07/24/17 21:00 08/23/17 20:59 07/24/17 22:10 Iron Sucrose 100 mg/Sodium Chloride 60 ml @ 240 mls/hr BEDTIME IVPB 07/22/17 21:00 07/26/17 21:14 07/24/17 22:07 Meropenem 2 gm/ Sodium Chloride 110 ml @ 220 mls/hr Q8HR@0000,1600,1800 IVPB 07/24/17 18:00 07/29/17 17:59 07/24/17 23:49 Pantoprazole (Protonix) 40 mg EVERY 12 HOURS ORAL 07/21/17 15:30 08/20/17 15:29 07/25/17 07:55 Vancomycin HCl (Vanco rx to dose) 1 ea DAILY PRN MISC Per rx protocol 07/20/17 06:00 08/19/17 05:59 Vancomycin/Sodium Chloride 250 ml @ 166.667 mls/hr Q12HR@1000,2200 IVPB 07/24/17 22:00 07/29/17 21:59 07/25/17 10:00 ESE HARO 2, 2018 12:08
--- NOTE | 2017-07-25 13:00 | GI Progress Note ---
Assessment/Plan Problems: (1) Abdominal pain ICD Codes: R10.9 - Unspecified abdominal pain SNOMED: 39621233 (2) Acute blood loss anemia ICD Codes: D62 - Acute posthemorrhagic anemia SNOMED: 566450139 (3) Acute on chronic anemia (4) Anemia ICD Codes: D64.9 - Anemia, unspecified SNOMED: 610749382 Status: progressing Status Narrative Discussed with Dr. Yoder. Assessment/Plan EGD/colonoscopy SUMMARY OF FINDINGS: 1. A 4-cm hiatal hernia. 2. Distal esophageal ulcerations plus esophagitis. 3. Gastritis, status post biopsy. 4. Poor colonic prep and incomplete colonoscopy examination. 5. One colonic polyp removed, see above for details. 6. One diverticulum seen in the left colon. 7. Hemorrhoids. RECOMMENDATIONS: Follow up biopsy results and treat accordingly. monitor H&H, prn transfusions bowel regime ppi fu labs The patient was seen and examined at bedside and all new and available data was reviewed in the patients chart. I agree with the above findings, impression and plan. (Patient seen earlier today. Signature stamp does not reflect patient encounter time.). - Janneth Yoder MD Subjective Gastrointestinal/Abdominal: Reports: no symptoms Objective Last 24 Hour Vital Signs Date Time Temp Pulse Resp B/P (MAP) Pulse Ox O2 Delivery O2 Flow Rate FiO2 07/25/17 09:50 100.2 07/25/17 09:40 100.2 91 18 144/70 97 Room Air 100.2 07/25/17 08:53 167/88 07/25/17 08:51 100.6 07/25/17 08:19 100.6 91 18 167/88 97 Room Air 100.6 07/25/17 07:43 93 07/25/17 04:00 86 07/25/17 04:00 100.0 91 20 147/74 97 Nasal Cannula 2.0 100.0 07/25/17 00:00 101.8 91 20 154/80 98 Nasal Cannula 2.0 101.8 07/25/17 00:00 92 07/24/17 23:50 100.2 07/24/17 20:23 Nasal Cannula 2.0 28 07/24/17 20:23 97 Nasal Cannula 2.0 28 07/24/17 20:00 86 07/24/17 20:00 100.2 92 20 153/85 99 Nasal Cannula 2.0 100.2 07/24/17 18:29 208.8 82 18 100 07/24/17 18:27 208.8 81 18 100 07/24/17 16:00 93 07/24/17 15:57 101.7 07/24/17 15:49 101.7 88 22 143/79 16 Nasal Cannula 2.0 101.7 07/24/17 13:45 98.2 81 22 165/85 100 Nasal Cannula 3.0 98.2 07/24/17 13:30 81 22 166/88 100 Nasal Cannula 3.0 07/24/17 13:18 82 22 146/83 100 Nasal Cannula 3.0 07/24/17 13:13 86 22 155/84 100 Nasal Cannula 3.0 07/24/17 13:08 98.2 82 22 151/80 99 Nasal Cannula 3.0 98.2 Intake and Output 07/24/17 07/25/17 19:00 07:00 Intake Total 497.5 ml 1600 ml Output Total 600 ml Balance -102.5 ml 1600 ml Intake Oral 120 ml 1600 ml IV Total 377.5 ml Output Urine Total 600 ml # Bowel Movements 2 1 Laboratory Tests Test 07/24/17 18:00 07/25/17 04:50 07/25/17 06:00 Vancomycin Level Trough 11.8 ug/mL (5.0-12.0) Urine Color Yellow Urine Appearance Clear Urine pH 5 (4.5-8.0) Urine Specific [place] 1.020 (1.005-1.035) Urine Protein 3+ (NEGATIVE) H Urine Glucose (UA) Negative (NEGATIVE) Urine Ketones Negative (NEGATIVE) Urine Occult Blood 3+ (NEGATIVE) H Urine Nitrite Negative (NEGATIVE) Urine Bilirubin Negative (NEGATIVE) Urine Urobilinogen Normal MG/DL (0.0-1.0) Urine Leukocyte Esterase Negative (NEGATIVE) Urine RBC 2-4 /HPF (0 - 0) H Urine WBC 0-2 /HPF (0 - 0) Urine Squamous Epithelial Cells Occasional /LPF Urine Bacteria Occasional /HPF (NONE) Urine Yeast Few /HPF (NONE) H White Blood Count 13.8 K/UL (4.8-10.8) H Red Blood Count 2.26 M/UL (4.70-6.10) L Hemoglobin 6.9 G/DL (14.2-18.0) *L Hematocrit 20.5 % (42.0-52.0) L Mean Corpuscular Volume 91 FL (80-99) Mean Corpuscular Hemoglobin 30.4 PG (27.0-31.0) Mean Corpuscular Hemoglobin Concent 33.5 G/DL (32.0-36.0) Red Cell Distribution Width 17.8 % (11.6-14.8) H Platelet Count 154 K/UL (150-450) Mean Platelet Volume 8.0 FL (6.5-10.1) Neutrophils (%) (Auto) % (45.0-75.0) Lymphocytes (%) (Auto) % (20.0-45.0) Monocytes (%) (Auto) % (1.0-10.0) Eosinophils (%) (Auto) % (0.0-3.0) Basophils (%) (Auto) % (0.0-2.0) Differential Total Cells Counted 100 Neutrophils % (Manual) 74 % (45-75) Lymphocytes % (Manual) 14 % (20-45) L Monocytes % (Manual) 11 % (1-10) H Eosinophils % (Manual) 1 % (0-3) Basophils % (Manual) 0 % (0-2) Band Neutrophils 0 % (0-8) Platelet Estimate Adequate Platelet Morphology Normal Polychromasia 2+ Hypochromasia 2+ Anisocytosis 1+ Sodium Level 138 MMOL/L (136-145) Potassium Level 3.2 MMOL/L (3.5-5.1) L Chloride Level 106 MMOL/L (98-107) Carbon Dioxide Level 21 MMOL/L (21-32) Anion Gap 11 mmol/L (5-15) Blood Urea Nitrogen 17 mg/dL (7-18) Creatinine 1.8 MG/DL (0.55-1.30) H Estimat Glomerular Filtration Rate 45.6 mL/min (>60) Glucose Level 73 MG/DL (74-106) L Calcium Level 7.7 MG/DL (8.5-10.1) L Phosphorus Level 2.3 MG/DL (2.5-4.9) L Magnesium Level 1.8 MG/DL (1.8-2.4) Total Bilirubin 0.6 MG/DL (0.2-1.0) Aspartate Amino Transf (AST/SGOT) 78 U/L (15-37) H Alanine Aminotransferase (ALT/SGPT) 37 U/L (12-78) Alkaline Phosphatase 151 U/L (46-116) H Total Protein 6.7 G/DL (6.4-8.2) Albumin 1.8 G/DL (3.4-5.0) L Globulin 4.9 g/dL Albumin/Globulin Ratio 0.4 (1.0-2.7) L Height (Feet): 6 Height (Inches): 4.00 Weight (Pounds): 294 General Appearance: WD/WN, no apparent distress, alert Cardiovascular: normal rate Respiratory/Chest: normal breath sounds, no respiratory distress Abdominal Exam: normal bowel sounds, non tender, soft Extremities: normal range of motion, non-tender Adele Avila N.P. Jul 25, 2017 12:59 ELDER YODER Jul 28, 2017 10:10
[2017-07-25] MEDS: Meropenem 2 GM in NS 110 ML IVPB SCH (15:52)
--- NOTE | 2017-07-25 17:37 | Nephrology Progress Note ---
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 slow hydrate urine studies per orders Subjective ROS Limited/Unobtainable: No Constitutional: Reports: malaise Objective Objective Last 24 Hour Vital Signs Date Time Temp Pulse Resp B/P (MAP) Pulse Ox O2 Delivery O2 Flow Rate FiO2 07/25/17 16:00 99.1 93 18 144/71 97 Room Air 99.1 07/25/17 15:12 92 07/25/17 12:00 100.0 95 18 140/71 97 Room Air 100.0 07/25/17 11:40 80 07/25/17 09:50 100.2 07/25/17 09:40 100.2 91 18 144/70 97 Room Air 100.2 07/25/17 08:53 167/88 07/25/17 08:51 100.6 07/25/17 08:19 100.6 91 18 167/88 97 Room Air 100.6 07/25/17 07:43 93 07/25/17 04:00 86 07/25/17 04:00 100.0 91 20 147/74 97 Nasal Cannula 2.0 100.0 07/25/17 00:00 101.8 91 20 154/80 98 Nasal Cannula 2.0 101.8 07/25/17 00:00 92 07/24/17 23:50 100.2 07/24/17 20:23 Nasal Cannula 2.0 28 07/24/17 20:23 97 Nasal Cannula 2.0 28 07/24/17 20:00 86 07/24/17 20:00 100.2 92 20 153/85 99 Nasal Cannula 2.0 100.2 07/24/17 18:29 208.8 82 18 100 07/24/17 18:27 208.8 81 18 100 Intake and Output 07/24/17 07/25/17 19:00 07:00 Intake Total 497.5 ml 1600 ml Output Total 600 ml Balance -102.5 ml 1600 ml Intake Oral 120 ml 1600 ml IV Total 377.5 ml Output Urine Total 600 ml # Bowel Movements 2 1 Laboratory Tests 07/24/17 18:00: Vancomycin Level Trough 11.8 07/25/17 04:50: Urine Color Yellow, Urine Appearance Clear, Urine pH 5, Urine Specific [place] 1.020, Urine Protein 3+H, Urine Glucose (UA) Negative, Urine Ketones Negative, Urine Occult Blood 3+H, Urine Nitrite Negative, Urine Bilirubin Negative, Urine Urobilinogen Normal, Urine Leukocyte Esterase Negative, Urine RBC 2-4H, Urine WBC 0-2, Urine Squamous Epithelial Cells Occasional, Urine Bacteria Occasional, Urine Yeast FewH 07/25/17 06:00: White Blood Count 13.8H, Red Blood Count 2.26L, Hemoglobin 6.9*L, Hematocrit 20.5L, Mean Corpuscular Volume 91, Mean Corpuscular Hemoglobin 30.4, Mean Corpuscular Hemoglobin Concent 33.5, Red Cell Distribution Width 17.8H, Platelet Count 154, Mean Platelet Volume 8.0, Neutrophils (%) (Auto) , Lymphocytes (%) (Auto) , Monocytes (%) (Auto) , Eosinophils (%) (Auto) , Basophils (%) (Auto) , Differential Total Cells Counted 100, Neutrophils % ( Manual) 74, Lymphocytes % (Manual) 14L, Monocytes % (Manual) 11H, Eosinophils % (Manual) 1, Basophils % (Manual) 0, Band Neutrophils 0, Platelet Estimate Adequate, Platelet Morphology Normal, Polychromasia 2+, Hypochromasia 2+, Anisocytosis 1+, Sodium Level 138, Potassium Level 3.2L, Chloride Level 106, Carbon Dioxide Level 21, Anion Gap 11, Blood Urea Nitrogen 17, Creatinine 1.8H, Estimat Glomerular Filtration Rate 45.6, Glucose Level 73L, Calcium Level 7.7L, Phosphorus Level 2.3L, Magnesium Level 1.8, Total Bilirubin 0.6, Aspartate Amino Transf (AST/SGOT) 78H, Alanine Aminotransferase (ALT/SGPT) 37, Alkaline Phosphatase 151H, Total Protein 6.7, Albumin 1.8L, Globulin 4.9, Albumin/ Globulin Ratio 0.4L Height (Feet): 6 Height (Inches): 4.00 Weight (Pounds): 294 General Appearance: no apparent distress Objective no change GRIFFIN ASTORGA Jul 25, 2017 17:37
[2017-07-25] MEDS ORDERED: HydrALAZINE 25mg tab ORAL PRN (18:00)
[2017-07-25] MEDS ORDERED: Potassium Phosphate 30 MM in NS 275 ML IV ONE (19:30)
[2017-07-25] MEDS: Dyna-Hex 2% Top Sol 2oz TOPIC SCH (20:08)
--- NOTE | 2017-07-25 21:00 | Progress Note ---
DATE: 07/25/2017 SUBJECTIVE: The patient is in bed, in no acute distress, has anxiety. MENTAL STATUS EXAMINATION: The patient is alert and oriented x3. Mood is anxious. Affect is constricted. Thought process is concrete. Thought content, no suicidal or homicidal ideations. ASSESSMENT: 1. Depression. 2. Anxiety. PLAN: We will continue current medications. Provide the patient with supportive therapy and reality orientation. We will continue to follow and readjust the medications. Kory Bales M.D. DR: Brigid JOB#: [id number] CC:
[2017-07-25] MEDS: Epogen (for non ESRD use) SUBQ SCH (21:27)
[2017-07-25] MEDS: Iron Sucrose 100 MG in NS 55 ML IVPB SCH (21:27)
[2017-07-25] MEDS: Levemir Flexpen SUBQ SCH (21:30)
[2017-07-25] MEDS: Atorvastatin 20mg tab ORAL SCH (21:32)
--- NOTE | 2017-07-25 23:59 | General Progress Note ---
Assessment/Plan Problem List: (1) Severe sepsis ICD Codes: A41.9 - Sepsis, unspecified organism; R65.20 - Severe sepsis without septic shock SNOMED: 37939923 (2) Cellulitis of right lower extremity ICD Codes: L03.115 - Cellulitis of right lower limb SNOMED: 410221079 (3) Concern for abscess of R foot (4) Likely 1st toe ostemyelitis (5) Acute blood loss anemia ICD Codes: D62 - Acute posthemorrhagic anemia SNOMED: 976891520 (6) Lactic acidosis ICD Codes: E87.2 - Acidosis SNOMED: 15887943 (7) Diabetic foot ulcer ICD Codes: E11.621 - Type 2 diabetes mellitus with foot ulcer; L97.509 - Non- pressure chronic ulcer of other part of unspecified foot with unspecified severity SNOMED: 94385404, 764606711 (8) DM2 (diabetes mellitus, type 2) Assessment & Plan: A1C 9.6 ICD Codes: E11.9 - Type 2 diabetes mellitus without complications SNOMED: 73443606 Qualifiers: (9) Renal failure (ARF), acute on chronic ICD Codes: N17.9 - Acute kidney failure, unspecified; N18.9 - Chronic kidney disease, unspecified SNOMED: 851432398 (10) Acute on chronic anemia (11) Leukopenia ICD Codes: D72.819 - Decreased white blood cell count, unspecified SNOMED: 19348390, 460980237 (12) Hypertension ICD Codes: I10 - Hypertension SNOMED: 93649860 (13) Hyperlipidemia ICD Codes: E78.5 - Hyperlipidemia SNOMED: 77543534 Status: stable Assessment/Plan Podiatry, ID, hematology, and nephrology consulted s/p 1U pRBC on 07/20/17 s/p 1U pRBC on 07/22/17 s/p 1U pRBC on 07/23/17 Transfuse 1 unit pRBC today (was not given yesterday) Consider CT a/p if cont to drop Epogen + IV iron per renal F/u stool OB--positive GI consulted s/p EGD and colo on 07/24/17 which showed gastritis, distal esophageal ulcerations w/ esophagitis, hemorrhoids, 1 colonic polyp s/p removal, no active bleeding Hold ACEi and lasix in the setting of CHIQUITA Continue IV vancomycin Cont meropenem given persistent fevers (07/24-), d/c zosyn (06/19-07/24) per ID F/u blood cultures, wound cultures Repeat FFWU today CT of right foot noted with possible osteomyelitis and concern for abscess. Unable to get MRI given pt size s/p R partial first ray amputation, and excisional debridement of necrotic tissue to level of bone on 07/22/17 F/u OR culture and path PICC placed 07/24/17 F/u venous ultrasound of RLE to r/o DVT--neg F/u arterial duplex-wnl SSI Hold PO hypoglycemic agents Continue home bp meds CM consult for SNF placement DC pending hgb stabilized and improvement in fevers DVT Prophylaxis: SCD, HSQ Code Status: Full Hospital Classification Declaration: Based on this initial evaluation, and depending on the patient's clinical course, I anticipate that this patient will require hospitalization for 2-3 days for surgical mgmt and close respiratory/ hemodynamic monitoring. Disposition: Once the patient is stable to leave the hospital, I anticipate the patient will likely be discharged to the following environment: home with HH vs SNF Discussed with patient/family, nursing staff, SW/CM, podiatry, ID, renal regarding clinical status, treatment course, and disposition planning. D/w GI re scope results. D/w ID re abx. D/w podiatry re wound infection Time of note may not reflect time of encounter. Subjective Date patient seen: Jul 25, 2017 Time patient seen: 15:50 ROS Limited/Unobtainable: No Constitutional: Reports: no symptoms HEENT: Reports: no symptoms Cardiovascular: Reports: no symptoms Respiratory: Reports: no symptoms Gastrointestinal/Abdominal: Reports: no symptoms Genitourinary: Reports: no symptoms Neurologic/Psychiatric: Reports: no symptoms Endocrine: Reports: no symptoms Hematologic/Lymphatic: Reports: no symptoms Allergies: Coded Allergies: No Known Allergies (Verified , 11/14/10) Subjective No acute o/n events Fever to 101 o/n s/p EGD and colo yesterday which showed gastritis, distal esophageal ulcerations w/ esophagitis, hemorrhoids, 1 colonic polyp s/p removal, no active bleeding Hgg 6.9 this AM. Did not get pRBC transfusion yesterday given fever s/p R partial first ray amputation, and excisional debridement of necrotic tissue to level of bone POD#3 C/o R foot pain. Sarah f/c, n/v, d/c, chest pain, SOB, abd pain Objective Last 24 Hour Vital Signs Date Time Temp Pulse Resp B/P (MAP) Pulse Ox O2 Delivery O2 Flow Rate FiO2 07/25/17 21:33 102.1 07/25/17 20:29 96 Room Air 21 07/25/17 20:29 Room Air 07/25/17 20:00 90 07/25/17 20:00 102.0 90 26 156/72 95 Room Air 102.0 07/25/17 16:00 99.1 93 18 144/71 97 Room Air 99.1 07/25/17 15:12 92 07/25/17 12:00 100.0 95 18 140/71 97 Room Air 100.0 07/25/17 11:40 80 07/25/17 09:50 100.2 07/25/17 09:40 100.2 91 18 144/70 97 Room Air 100.2 07/25/17 08:53 167/88 07/25/17 08:51 100.6 07/25/17 08:19 100.6 91 18 167/88 97 Room Air 100.6 07/25/17 07:43 93 07/25/17 04:00 86 07/25/17 04:00 100.0 91 20 147/74 97 Nasal Cannula 2.0 100.0 07/25/17 00:00 101.8 91 20 154/80 98 Nasal Cannula 2.0 101.8 07/25/17 00:00 92 Intake and Output 07/24/17 07/25/17 19:00 07:00 Intake Total 497.5 ml 1600 ml Output Total 600 ml Balance -102.5 ml 1600 ml Intake Oral 120 ml 1600 ml IV Total 377.5 ml Output Urine Total 600 ml # Bowel Movements 2 1 Laboratory Tests 07/25/17 04:50: Urine Color Yellow, Urine Appearance Clear, Urine pH 5, Urine Specific [place] 1.020, Urine Protein 3+H, Urine Glucose (UA) Negative, Urine Ketones Negative, Urine Occult Blood 3+H, Urine Nitrite Negative, Urine Bilirubin Negative, Urine Urobilinogen Normal, Urine Leukocyte Esterase Negative, Urine RBC 2-4H, Urine WBC 0-2, Urine Squamous Epithelial Cells Occasional, Urine Bacteria Occasional, Urine Yeast FewH 3/2/18 06:00: White Blood Count 13.8H, Red Blood Count 2.26L, Hemoglobin 6.9*L, Hematocrit 20.5L, Mean Corpuscular Volume 91, Mean Corpuscular Hemoglobin 30.4, Mean Corpuscular Hemoglobin Concent 33.5, Red Cell Distribution Width 17.8H, Platelet Count 154, Mean Platelet Volume 8.0, Neutrophils (%) (Auto) , Lymphocytes (%) (Auto) , Monocytes (%) (Auto) , Eosinophils (%) (Auto) , Basophils (%) (Auto) , Differential Total Cells Counted 100, Neutrophils % ( Manual) 74, Lymphocytes % (Manual) 14L, Monocytes % (Manual) 11H, Eosinophils % (Manual) 1, Basophils % (Manual) 0, Band Neutrophils 0, Platelet Estimate Adequate, Platelet Morphology Normal, Polychromasia 2+, Hypochromasia 2+, Anisocytosis 1+, Sodium Level 138, Potassium Level 3.2L, Chloride Level 106, Carbon Dioxide Level 21, Anion Gap 11, Blood Urea Nitrogen 17, Creatinine 1.8H, Estimat Glomerular Filtration Rate 45.6, Glucose Level 73L, Calcium Level 7.7L, Phosphorus Level 2.3L, Magnesium Level 1.8, Total Bilirubin 0.6, Aspartate Amino Transf (AST/SGOT) 78H, Alanine Aminotransferase (ALT/SGPT) 37, Alkaline Phosphatase 151H, Total Protein 6.7, Albumin 1.8L, Globulin 4.9, Albumin/ Globulin Ratio 0.4L Height (Feet): 6 Height (Inches): 4.00 Weight (Pounds): 294 Objective General Appearance: no apparent distress, alert HEENT: normocephalic, atraumatic Neck: non-tender, normal alignment, supple Respiratory/Chest: chest wall non-tender, lungs clear, normal breath sounds Cardiovascular/Chest: normal peripheral pulses, normal rate, regular rhythm Abdomen: normal bowel sounds, non tender, soft Skin Exam: other - right lower extremity erythema, edema, and TTP. right foot dressing c/d/i Neurologic: pot fisher II-XII grossly normal, no motor/sensory deficits, alert, oriented x 3 Js Garcia M.D. Jul 25, 2017 23:59
[2017-07-26] VITALS: BP 146/68
[2017-07-26] MEDS: Meropenem 2 GM in NS 110 ML IVPB SCH ×3 (01:57→15:50)
[2017-07-26 04:00] VITALS: BP 151/55
[2017-07-26] MEDS: NovoLOG Insulin Flexpen SUBQ SCH ×4 (06:30→20:52)
[2017-07-26 08:00] VITALS: BP 137/64
--- NOTE | 2017-07-26 08:19 | Podiatric Progress Note ---
Assessment/Plan Patient Best Dhillon is a 67 year old male who was admitted on Jul 19, 2017 at 21:57 with Problems: Assessment/Plan A/ 1) Cellulitis right LE 2) Osteomyelitis seen on CT 3) Sepsis 4) DM foot ulcer P/ 1) Dressings changed today. AWund was flushed and packed. Cont daily wound care to consist of flushing inside wound and packing 2) Cont abx per ID 3) Patient was advised of his condition and possible residual infection. He understands. May need return to OR if drainage continues 4) Patient's anemia is not attributed to surgical foot Subjective Allergies: Coded Allergies: No Known Allergies (Verified , 11/14/10) Subjective Patient is feeling better. Not drowsy anymore Objective Exam Last 24 Hour Vital Signs Date Time Temp Pulse Resp B/P (MAP) Pulse Ox O2 Delivery O2 Flow Rate FiO2 07/26/17 04:00 77 07/26/17 04:00 97.7 58 20 151/55 95 Room Air 97.7 07/26/17 00:00 87 07/26/17 00:00 99.5 82 20 146/68 95 Room Air 99.5 07/25/17 22:32 100.6 07/25/17 21:33 102.1 07/25/17 20:29 96 Room Air 21 07/25/17 20:29 Room Air 07/25/17 20:00 90 07/25/17 20:00 102.0 90 26 156/72 95 Room Air 102.0 07/25/17 16:00 99.1 93 18 144/71 97 Room Air 99.1 07/25/17 15:12 92 07/25/17 12:00 100.0 95 18 140/71 97 Room Air 100.0 07/25/17 11:40 80 07/25/17 09:40 100.2 91 18 144/70 97 Room Air 100.2 07/25/17 08:53 167/88 07/25/17 08:51 100.6 07/25/17 08:19 100.6 91 18 167/88 97 Room Air 100.6 Microbiology Date/Time Source Procedure Growth Status 07/19/17 21:30 Blood Blood Culture - Final NO GROWTH AFTER 5 DAYS Complete 07/20/17 01:55 Nasal Nares MRSA Culture - Final NO METHICILLIN RESISTANT STAPH AUREUS... Complete 07/25/17 04:50 Urine,Clean Catch Urine Culture - Preliminary Mixed Gram Positive Organism Resulted 07/22/17 09:00 Toe Right Big Gram Stain - Final Resulted 07/22/17 09:00 Toe Right Big Aerobic Culture - Preliminary NO GROWTH AFTER 48 HOURS Resulted 07/22/17 09:00 Toe Right Big Anaerobic Culture - Final NO ANAEROBES ISOLATED Resulted Dermatological Dermatological Narrative right foot cont to have drainage. still edematous No pain now with palpation of site Wiliam Bernard DPM Jul 26, 2017 08:19
[2017-07-26 08:40] LABS: HEMATOCRIT 23.3 % (42.0-52.0); HEMOGLOBIN 7.8 G/DL (14.2-18.0); MEAN CORPUSCULAR VOLUME 90 FL (80-99); PLATELET COUNT 163 K/UL (150-450); RED BLOOD COUNT 2.58 M/UL (4.70-6.10); RED CELL DISTRIBUTION WIDTH 17.2 % (11.6-14.8); WHITE BLOOD COUNT 17.2 K/UL (4.8-10.8)
[2017-07-26] MEDS: Docusate 100mg cap ORAL SCH ×3 (08:42→17:17)
[2017-07-26] MEDS: Heparin 5000 units/ml inj SUBQ SCH ×2 (08:43→20:51)
[2017-07-26 08:51] LABS: ANION GAP 9 mmol/L (5-15); BLOOD UREA NITROGEN 14 mg/dL (7-18); CALCIUM 7.3 MG/DL (8.5-10.1); CARBON DIOXIDE 20 MMOL/L (21-32); CHLORIDE 106 MMOL/L (98-107); CREATININE 1.6 MG/DL (0.55-1.30); POTASSIUM 2.9 MMOL/L (3.5-5.1); SODIUM 135 MMOL/L (136-145)
--- NOTE | 2017-07-26 09:51 | General Progress Note ---
Assessment/Plan Assessment/Plan #. Anemia of chronic disease. --> Occult blood has been found. Consider GI services and recs. --> Anemia workup reviewed. --> Iron 16, TIBC 198, % sat 8, Folate 13.4, B12 637, Ferritin 308 --> Iron levels are low. --> S/P PRBC, but levels remain low. Monitor closely and trend cbc daily. --> Transfuse if hgb <7 #. Leukopenia, likely secondary to underlying infection from osteomyelitis --> HIV/Hep panel both negative. --> Worsened from yesterday. --> On abx. ID following. #. Lactic acidosis secondary to sepsis from underlying infection. --> Continue to monitor. #. Diabetes mellitus, on insulin sliding scale. Blood sugar control as needed. #. Right big toe osteomyelitis, to be seen by the [facility] as well as surgical team. Subjective Date patient seen: Jul 25, 2017 Constitutional: Denies: no symptoms, chills, diaphoresis, fever, malaise, weakness, other HEENT: Denies: no symptoms, eye pain, blurred vision, tearing, double vision, ear pain, ear discharge, nose pain, nose congestion, throat pain, throat swelling, mouth pain, mouth swelling, other Cardiovascular: Denies: no symptoms, chest pain, edema, irregular heart rate, lightheadedness, palpitations, syncope, other Respiratory: Denies: no symptoms, cough, orthopnea, shortness of breath, SOB with excertion, SOB at rest, sputum, stridor, wheezing, other Gastrointestinal/Abdominal: Denies: no symptoms, abdomen distended, abdominal pain, black stools, tarry stools, blood in stool, constipated, diarrhea, difficulty swallowing, nausea, poor appetite, poor fluid intake, rectal bleeding , vomiting, other Genitourinary: Denies: no symptoms, burning, discharge, frequency, flank pain, hematuria, incontinence, pain, urgency, other Neurologic/Psychiatric: Denies: no symptoms, anxiety, depressed, emotional problems, headache, numbness, paresthesia, pre-existing deficit, seizure, tingling, tremors, weakness, other Allergies: Coded Allergies: No Known Allergies (Verified , 11/14/10) Subjective S/P prbc. Hemoglobin levels have been low past few days Objective Last 24 Hour Vital Signs Date Time Temp Pulse Resp B/P (MAP) Pulse Ox O2 Delivery O2 Flow Rate FiO2 07/26/17 08:00 98.4 90 18 137/64 94 Room Air 98.4 07/26/17 04:00 77 07/26/17 04:00 97.7 58 20 151/55 95 Room Air 97.7 07/26/17 00:00 87 07/26/17 00:00 99.5 82 20 146/68 95 Room Air 99.5 07/25/17 22:32 100.6 07/25/17 21:33 102.1 07/25/17 20:29 96 Room Air 21 07/25/17 20:29 Room Air 07/25/17 20:00 90 07/25/17 20:00 102.0 90 26 156/72 95 Room Air 102.0 07/25/17 16:00 99.1 93 18 144/71 97 Room Air 99.1 07/25/17 15:12 92 07/25/17 12:00 100.0 95 18 140/71 97 Room Air 100.0 07/25/17 11:40 80 Intake and Output 07/25/17 07/26/17 19:00 07:00 Intake Total 773.334 ml 600 ml Output Total 425 ml Balance 773.334 ml 175 ml Intake Oral 440 ml 600 ml IV Total 333.334 ml Output Urine Total 425 ml # Voids 1 # Bowel Movements 1 Laboratory Tests 07/26/17 08:15: White Blood Count 17.2H, Red Blood Count 2.58L, Hemoglobin 7.8L, Hematocrit 23.3L, Mean Corpuscular Volume 90, Mean Corpuscular Hemoglobin 30.2, Mean Corpuscular Hemoglobin Concent 33.5, Red Cell Distribution Width 17.2H, Platelet Count 163, Mean Platelet Volume 7.6, Neutrophils (%) (Auto) , Lymphocytes (%) (Auto) , Monocytes (%) (Auto) , Eosinophils (%) (Auto) , Basophils (%) (Auto) , Neutrophils % (Manual) [Pending], Lymphocytes % (Manual) [Pending], Platelet Estimate [Pending], Platelet Morphology [Pending], Sodium Level 135L, Potassium Level 2.9L, Chloride Level 106, Carbon Dioxide Level 20L, Anion Gap 9, Blood Urea Nitrogen 14, Creatinine 1.6H, Estimat Glomerular Filtration Rate 52.2, Glucose Level 73L, Calcium Level 7.3L Height (Feet): 6 Height (Inches): 4.00 Weight (Pounds): 294 Guido Lopez Jul 26, 2017 09:50
[2017-07-26] MEDS ORDERED: Potassium Chloride 40 MEQ in Sodium Chloride 500ML 550 ML IVPB ONE (10:00)
[2017-07-26] MEDS: Vancomycin 750mg/NS 250ml IVPB SCH ×2 (10:30→22:21)
--- NOTE | 2017-07-26 11:39 | Nephrology Progress Note ---
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 slow hydrate urine studies per orders Subjective ROS Limited/Unobtainable: No Objective Objective Last 24 Hour Vital Signs Date Time Temp Pulse Resp B/P (MAP) Pulse Ox O2 Delivery O2 Flow Rate FiO2 07/26/17 08:00 98.4 90 18 137/64 94 Room Air 98.4 07/26/17 04:00 77 07/26/17 04:00 97.7 58 20 151/55 95 Room Air 97.7 07/26/17 00:00 87 07/26/17 00:00 99.5 82 20 146/68 95 Room Air 99.5 07/25/17 22:32 100.6 07/25/17 21:33 102.1 07/25/17 20:29 96 Room Air 21 07/25/17 20:29 Room Air 07/25/17 20:00 90 07/25/17 20:00 102.0 90 26 156/72 95 Room Air 102.0 07/25/17 16:00 99.1 93 18 144/71 97 Room Air 99.1 07/25/17 15:12 92 07/25/17 12:00 100.0 95 18 140/71 97 Room Air 100.0 07/25/17 11:40 80 Intake and Output 07/25/17 07/26/17 19:00 07:00 Intake Total 773.334 ml 600 ml Output Total 425 ml Balance 773.334 ml 175 ml Intake Oral 440 ml 600 ml IV Total 333.334 ml Output Urine Total 425 ml # Voids 1 # Bowel Movements 1 Laboratory Tests 07/26/17 08:15: White Blood Count 17.2H, Red Blood Count 2.58L, Hemoglobin 7.8L, Hematocrit 23.3L, Mean Corpuscular Volume 90, Mean Corpuscular Hemoglobin 30.2, Mean Corpuscular Hemoglobin Concent 33.5, Red Cell Distribution Width 17.2H, Platelet Count 163, Mean Platelet Volume 7.6, Neutrophils (%) (Auto) , Lymphocytes (%) (Auto) , Monocytes (%) (Auto) , Eosinophils (%) (Auto) , Basophils (%) (Auto) , Differential Total Cells Counted 100, Neutrophils % ( Manual) 87H, Lymphocytes % (Manual) 5L, Monocytes % (Manual) 8, Eosinophils % ( Manual) 0, Basophils % (Manual) 0, Band Neutrophils 0, Platelet Estimate Adequate, Platelet Morphology Normal, Hypochromasia 3+, Anisocytosis 1+, Spherocytes 2+, Sodium Level 135L, Potassium Level 2.9L, Chloride Level 106, Carbon Dioxide Level 20L, Anion Gap 9, Blood Urea Nitrogen 14, Creatinine 1.6H, Estimat Glomerular Filtration Rate 52.2, Glucose Level 73L, Calcium Level 7.3L Height (Feet): 6 Height (Inches): 4.00 Weight (Pounds): 294 General Appearance: no apparent distress Cardiovascular: normal rate Respiratory/Chest: decreased breath sounds Abdomen: soft Objective no change GRIFFIN ASTORGA Jul 26, 2017 11:39
[2017-07-26 12:00] VITALS: BP 144/76
--- NOTE | 2017-07-26 12:31 | General Progress Note ---
Assessment/Plan Problem List: (1) Severe sepsis ICD Codes: A41.9 - Sepsis, unspecified organism; R65.20 - Severe sepsis without septic shock SNOMED: 75381847 (2) Cellulitis of right lower extremity ICD Codes: L03.115 - Cellulitis of right lower limb SNOMED: 681792948 (3) Concern for abscess of R foot (4) Likely 1st toe ostemyelitis (5) Acute blood loss anemia ICD Codes: D62 - Acute posthemorrhagic anemia SNOMED: 713344048 (6) Lactic acidosis ICD Codes: E87.2 - Acidosis SNOMED: 42863410 (7) Diabetic foot ulcer ICD Codes: E11.621 - Type 2 diabetes mellitus with foot ulcer; L97.509 - Non- pressure chronic ulcer of other part of unspecified foot with unspecified severity SNOMED: 93266170, 484080722 (8) DM2 (diabetes mellitus, type 2) Assessment & Plan: A1C 9.6 ICD Codes: E11.9 - Type 2 diabetes mellitus without complications SNOMED: 59583631 Qualifiers: (9) Renal failure (ARF), acute on chronic ICD Codes: N17.9 - Acute kidney failure, unspecified; N18.9 - Chronic kidney disease, unspecified SNOMED: 643750140 (10) Acute on chronic anemia (11) Leukopenia ICD Codes: D72.819 - Decreased white blood cell count, unspecified SNOMED: 59140200, 739281603 (12) Hypertension ICD Codes: I10 - Hypertension SNOMED: 76433987 (13) Hyperlipidemia ICD Codes: E78.5 - Hyperlipidemia SNOMED: 95443500 Status: stable Assessment/Plan Podiatry, ID, hematology, and nephrology consulted s/p 1U pRBC on 07/20/17 s/p 1U pRBC on 07/22/17 s/p 1U pRBC on 07/23/17 s/p 1U pRBC on 07/25/[address] a/p if hgb cont to drop Epogen + IV iron per renal F/u stool OB--positive GI consulted s/p EGD and colo on 07/24/17 which showed gastritis, distal esophageal ulcerations w/ esophagitis, hemorrhoids, 1 colonic polyp s/p removal, no active bleeding Hold ACEi and lasix in the setting of CHIQUITA Continue IV vancomycin Cont meropenem given persistent fevers (07/24-), d/c zosyn (06/19-07/24) per ID F/u blood cultures, wound cultures Repeat FFWU today CT of right foot noted with possible osteomyelitis and concern for abscess. Unable to get MRI given pt size s/p R partial first ray amputation, and excisional debridement of necrotic tissue to level of bone on 07/22/17 F/u OR culture F/u path PICC placed 07/24/17 F/u venous ultrasound of RLE to r/o DVT--neg F/u arterial duplex-wnl SSI Hold PO hypoglycemic agents Continue home bp meds CM consult for SNF placement DC pending hgb stabilized and improvement in fevers DVT Prophylaxis: SCD, HSQ Code Status: Full Hospital Classification Declaration: Based on this initial evaluation, and depending on the patient's clinical course, I anticipate that this patient will require hospitalization for 2-3 days for surgical mgmt and close respiratory/ hemodynamic monitoring. Disposition: Once the patient is stable to leave the hospital, I anticipate the patient will likely be discharged to the following environment: SNF Discussed with patient/family, nursing staff, SW/CM, podiatry, ID, renal regarding clinical status, treatment course, and disposition planning. D/w GI re scope results. D/w ID re abx. D/w podiatry re wound infection Time of note may not reflect time of encounter. Subjective Date patient seen: Jul 26, 2017 Time patient seen: 13:00 ROS Limited/Unobtainable: No Constitutional: Reports: no symptoms HEENT: Reports: no symptoms Cardiovascular: Reports: no symptoms Respiratory: Reports: no symptoms Gastrointestinal/Abdominal: Reports: no symptoms Genitourinary: Reports: no symptoms Neurologic/Psychiatric: Reports: no symptoms Endocrine: Reports: no symptoms Hematologic/Lymphatic: Reports: no symptoms Allergies: Coded Allergies: No Known Allergies (Verified , 11/14/10) Subjective No acute o/n events Fever to 102 o/n s/p EGD and colo which showed gastritis, distal esophageal ulcerations w/ esophagitis, hemorrhoids, 1 colonic polyp s/p removal, no active bleeding Hgb 7.8 this AM s/p 1U pRBC s/p R partial first ray amputation, and excisional debridement of necrotic tissue to level of bone POD#4 C/o R foot pain. Sarah f/c, n/v, d/c, chest pain, SOB, abd pain Objective Last 24 Hour Vital Signs Date Time Temp Pulse Resp B/P (MAP) Pulse Ox O2 Delivery O2 Flow Rate FiO2 07/26/17 08:00 98.4 90 18 137/64 94 Room Air 98.4 07/26/17 04:00 77 07/26/17 04:00 97.7 58 20 151/55 95 Room Air 97.7 07/26/17 00:00 87 07/26/17 00:00 99.5 82 20 146/68 95 Room Air 99.5 07/25/17 22:32 100.6 07/25/17 21:33 102.1 07/25/17 20:29 96 Room Air 21 07/25/17 20:29 Room Air 07/25/17 20:00 90 07/25/17 20:00 102.0 90 26 156/72 95 Room Air 102.0 07/25/17 16:00 99.1 93 18 144/71 97 Room Air 99.1 07/25/17 15:12 92 Intake and Output 07/25/17 07/26/17 19:00 07:00 Intake Total 773.334 ml 600 ml Output Total 425 ml Balance 773.334 ml 175 ml Intake Oral 440 ml 600 ml IV Total 333.334 ml Output Urine Total 425 ml # Voids 1 # Bowel Movements 1 Laboratory Tests 07/26/17 08:15: White Blood Count 17.2H, Red Blood Count 2.58L, Hemoglobin 7.8L, Hematocrit 23.3L, Mean Corpuscular Volume 90, Mean Corpuscular Hemoglobin 30.2, Mean Corpuscular Hemoglobin Concent 33.5, Red Cell Distribution Width 17.2H, Platelet Count 163, Mean Platelet Volume 7.6, Neutrophils (%) (Auto) , Lymphocytes (%) (Auto) , Monocytes (%) (Auto) , Eosinophils (%) (Auto) , Basophils (%) (Auto) , Differential Total Cells Counted 100, Neutrophils % ( Manual) 87H, Lymphocytes % (Manual) 5L, Monocytes % (Manual) 8, Eosinophils % ( Manual) 0, Basophils % (Manual) 0, Band Neutrophils 0, Platelet Estimate Adequate, Platelet Morphology Normal, Hypochromasia 3+, Anisocytosis 1+, Spherocytes 2+, Sodium Level 135L, Potassium Level 2.9L, Chloride Level 106, Carbon Dioxide Level 20L, Anion Gap 9, Blood Urea Nitrogen 14, Creatinine 1.6H, Estimat Glomerular Filtration Rate 52.2, Glucose Level 73L, Calcium Level 7.3L Height (Feet): 6 Height (Inches): 4.00 Weight (Pounds): 294 Objective General Appearance: no apparent distress, alert HEENT: normocephalic, atraumatic Neck: non-tender, normal alignment, supple Respiratory/Chest: chest wall non-tender, lungs clear, normal breath sounds Cardiovascular/Chest: normal peripheral pulses, normal rate, regular rhythm Abdomen: normal bowel sounds, non tender, soft Skin Exam: other - right lower extremity erythema, edema, and TTP. right foot dressing c/d/i Neurologic: bi specialist II-XII grossly normal, no motor/sensory deficits, alert, oriented x 3 Js Garcia M.D. Jul 26, 2017 12:31
--- NOTE | 2017-07-26 14:34 | General Progress Note ---
Assessment/Plan Problem List: (1) Abdominal pain ICD Codes: R10.9 - Unspecified abdominal pain SNOMED: 70019878 (2) Anemia ICD Codes: D64.9 - Anemia, unspecified SNOMED: 613131256 (3) DM2 (diabetes mellitus, type 2) ICD Codes: E11.9 - Type 2 diabetes mellitus without complications SNOMED: 19832182 Qualifiers: (4) Diabetes ICD Codes: E11.9 - Diabetes SNOMED: 98710464 Assessment/Plan EGD/colonoscopy SUMMARY OF FINDINGS: 1. A 4-cm hiatal hernia. 2. Distal esophageal ulcerations plus esophagitis. 3. Gastritis, status post biopsy. 4. Poor colonic prep and incomplete colonoscopy examination. 5. One colonic polyp removed, see above for details. 6. One diverticulum seen in the left colon. 7. Hemorrhoids. RECOMMENDATIONS: Follow up biopsy results and treat accordingly. monitor H&H, prn transfusions bowel regime ppi fu labs Subjective ROS Limited/Unobtainable: No Allergies: Coded Allergies: No Known Allergies (Verified , 11/14/10) Objective Last 24 Hour Vital Signs Date Time Temp Pulse Resp B/P (MAP) Pulse Ox O2 Delivery O2 Flow Rate FiO2 07/26/17 12:00 98.3 83 18 144/76 95 Room Air 98.3 07/26/17 08:00 87 07/26/17 08:00 98.4 90 18 137/64 94 Room Air 98.4 07/26/17 04:00 77 07/26/17 04:00 97.7 58 20 151/55 95 Room Air 97.7 07/26/17 00:00 87 07/26/17 00:00 99.5 82 20 146/68 95 Room Air 99.5 07/25/17 22:32 100.6 07/25/17 21:33 102.1 07/25/17 20:29 96 Room Air 21 07/25/17 20:29 Room Air 07/25/17 20:00 90 07/25/17 20:00 102.0 90 26 156/72 95 Room Air 102.0 07/25/17 16:00 99.1 93 18 144/71 97 Room Air 99.1 07/25/17 15:12 92 Intake and Output 07/25/17 07/26/17 19:00 07:00 Intake Total 773.334 ml 600 ml Output Total 425 ml Balance 773.334 ml 175 ml Intake Oral 440 ml 600 ml IV Total 333.334 ml Output Urine Total 425 ml # Voids 1 # Bowel Movements 1 Laboratory Tests 07/26/17 08:15: White Blood Count 17.2H, Red Blood Count 2.58L, Hemoglobin 7.8L, Hematocrit 23.3L, Mean Corpuscular Volume 90, Mean Corpuscular Hemoglobin 30.2, Mean Corpuscular Hemoglobin Concent 33.5, Red Cell Distribution Width 17.2H, Platelet Count 163, Mean Platelet Volume 7.6, Neutrophils (%) (Auto) , Lymphocytes (%) (Auto) , Monocytes (%) (Auto) , Eosinophils (%) (Auto) , Basophils (%) (Auto) , Differential Total Cells Counted 100, Neutrophils % ( Manual) 87H, Lymphocytes % (Manual) 5L, Monocytes % (Manual) 8, Eosinophils % ( Manual) 0, Basophils % (Manual) 0, Band Neutrophils 0, Platelet Estimate Adequate, Platelet Morphology Normal, Hypochromasia 3+, Anisocytosis 1+, Spherocytes 2+, Sodium Level 135L, Potassium Level 2.9L, Chloride Level 106, Carbon Dioxide Level 20L, Anion Gap 9, Blood Urea Nitrogen 14, Creatinine 1.6H, Estimat Glomerular Filtration Rate 52.2, Glucose Level 73L, Calcium Level 7.3L Height (Feet): 6 Height (Inches): 4.00 Weight (Pounds): 294 General Appearance: no apparent distress EENT: normal ENT inspection Neck: supple Cardiovascular: normal rate Respiratory/Chest: decreased breath sounds Abdomen: normal bowel sounds, non tender, soft Extremities: non-tender ELDER RUSSELL Jul 26, 2017 14:34
[2017-07-26 16:00] VITALS: BP 134/69
[2017-07-26 20:31] VITALS: BP 153/76
[2017-07-26] MEDS: Dyna-Hex 2% Top Sol 2oz TOPIC SCH (20:42)
[2017-07-26] MEDS: Iron Sucrose 100 MG in NS 55 ML IVPB SCH (20:42)
[2017-07-26] MEDS: Atorvastatin 20mg tab ORAL SCH (20:43)
[2017-07-26] MEDS: Levemir Flexpen SUBQ SCH (20:51)
--- NOTE | 2017-07-26 23:42 | General Progress Note ---
Assessment/Plan Assessment/Plan #. Anemia of chronic disease. --> Occult blood has been found. Consider GI services and recs. --> Anemia workup reviewed. --> Iron 16, TIBC 198, % sat 8, Folate 13.4, B12 637, Ferritin 308 --> Iron levels are low. --> Received blood transfusion yesterday, hgb levels improved a little --> continue to monitor closely. #. Leukopenia, likely secondary to underlying infection from osteomyelitis --> HIV/Hep panel both negative. --> Worsened from yesterday. --> On abx. ID following. #. Lactic acidosis secondary to sepsis from underlying infection. --> Continue to monitor. #. Diabetes mellitus, on insulin sliding scale. Blood sugar control as needed. #. Right big toe osteomyelitis, to be seen by the [facility] as well as surgical team. #. Sepsis. Subjective Date patient seen: Jul 26, 2017 Constitutional: Denies: no symptoms, chills, diaphoresis, fever, malaise, weakness, other HEENT: Denies: no symptoms, eye pain, blurred vision, tearing, double vision, ear pain, ear discharge, nose pain, nose congestion, throat pain, throat swelling, mouth pain, mouth swelling, other Cardiovascular: Denies: no symptoms, chest pain, edema, irregular heart rate, lightheadedness, palpitations, syncope, other Respiratory: Denies: no symptoms, cough, orthopnea, shortness of breath, SOB with excertion, SOB at rest, sputum, stridor, wheezing, other Gastrointestinal/Abdominal: Denies: no symptoms, abdomen distended, abdominal pain, black stools, tarry stools, blood in stool, constipated, diarrhea, difficulty swallowing, nausea, poor appetite, poor fluid intake, rectal bleeding , vomiting, other Genitourinary: Denies: no symptoms, burning, discharge, frequency, flank pain, hematuria, incontinence, pain, urgency, other Neurologic/Psychiatric: Denies: no symptoms, anxiety, depressed, emotional problems, headache, numbness, paresthesia, pre-existing deficit, seizure, tingling, tremors, weakness, other Allergies: Coded Allergies: No Known Allergies (Verified , 11/14/10) Subjective No acute events. No fever or chills. Objective Last 24 Hour Vital Signs Date Time Temp Pulse Resp B/P (MAP) Pulse Ox O2 Delivery O2 Flow Rate FiO2 07/26/17 21:42 99.0 07/26/17 20:43 101.1 07/26/17 20:31 101.1 87 19 153/76 96 Room Air 101.1 07/26/17 19:41 84 07/26/17 16:00 99.9 88 19 134/69 97 Room Air 99.9 07/26/17 16:00 84 07/26/17 12:00 83 07/26/17 12:00 98.3 83 18 144/76 95 Room Air 98.3 07/26/17 08:00 87 07/26/17 08:00 98.4 90 18 137/64 94 Room Air 98.4 07/26/17 04:00 77 07/26/17 04:00 97.7 58 20 151/55 95 Room Air 97.7 07/26/17 00:00 87 07/26/17 00:00 99.5 82 20 146/68 95 Room Air 99.5 Intake and Output 07/25/17 07/26/17 19:00 07:00 Intake Total 773.334 ml 600 ml Output Total 425 ml Balance 773.334 ml 175 ml Intake Oral 440 ml 600 ml IV Total 333.334 ml Output Urine Total 425 ml # Voids 1 # Bowel Movements 1 Laboratory Tests 07/26/17 08:15: White Blood Count 17.2H, Red Blood Count 2.58L, Hemoglobin 7.8L, Hematocrit 23.3L, Mean Corpuscular Volume 90, Mean Corpuscular Hemoglobin 30.2, Mean Corpuscular Hemoglobin Concent 33.5, Red Cell Distribution Width 17.2H, Platelet Count 163, Mean Platelet Volume 7.6, Neutrophils (%) (Auto) , Lymphocytes (%) (Auto) , Monocytes (%) (Auto) , Eosinophils (%) (Auto) , Basophils (%) (Auto) , Differential Total Cells Counted 100, Neutrophils % ( Manual) 87H, Lymphocytes % (Manual) 5L, Monocytes % (Manual) 8, Eosinophils % ( Manual) 0, Basophils % (Manual) 0, Band Neutrophils 0, Platelet Estimate Adequate, Platelet Morphology Normal, Hypochromasia 3+, Anisocytosis 1+, Spherocytes 2+, Sodium Level 135L, Potassium Level 2.9L, Chloride Level 106, Carbon Dioxide Level 20L, Anion Gap 9, Blood Urea Nitrogen 14, Creatinine 1.6H, Estimat Glomerular Filtration Rate 52.2, Glucose Level 73L, Calcium Level 7.3L 07/26/17 21:00: Vancomycin Level Trough 12.3H Height (Feet): 6 Height (Inches): 4.00 Weight (Pounds): 294 Guido Lopez Jul 26, 2017 23:42
[2017-07-27] VITALS (7 sets, daily range): BP systolic 138–160; BP diastolic 70–89
[2017-07-27] MEDS: Meropenem 2 GM in NS 110 ML IVPB SCH ×3 (00:37→16:19)
[2017-07-27] MEDS: NovoLOG Insulin Flexpen SUBQ SCH ×4 (05:41→21:24)
[2017-07-27] MEDS: Docusate 100mg cap ORAL SCH ×3 (08:12→17:08)
[2017-07-27] MEDS: Heparin 5000 units/ml inj SUBQ SCH ×2 (08:13→21:21)
--- NOTE | 2017-07-27 09:56 | General Progress Note ---
Assessment/Plan Problem List: (1) Abdominal pain ICD Codes: R10.9 - Unspecified abdominal pain SNOMED: 76819460 (2) Anemia ICD Codes: D64.9 - Anemia, unspecified SNOMED: 354981585 (3) DM2 (diabetes mellitus, type 2) ICD Codes: E11.9 - Type 2 diabetes mellitus without complications SNOMED: 08309352 Qualifiers: (4) Diabetes ICD Codes: E11.9 - Diabetes SNOMED: 99923433 Assessment/Plan EGD/colonoscopy SUMMARY OF FINDINGS: 1. A 4-cm hiatal hernia. 2. Distal esophageal ulcerations plus esophagitis. 3. Gastritis, status post biopsy. 4. Poor colonic prep and incomplete colonoscopy examination. 5. One colonic polyp removed, see above for details. 6. One diverticulum seen in the left colon. 7. Hemorrhoids. RECOMMENDATIONS: Follow up biopsy results and treat accordingly. monitor H&H, prn transfusions bowel regime ppi fu labs Subjective ROS Limited/Unobtainable: No Allergies: Coded Allergies: No Known Allergies (Verified , 11/14/10) Objective Last 24 Hour Vital Signs Date Time Temp Pulse Resp B/P (MAP) Pulse Ox O2 Delivery O2 Flow Rate FiO2 07/27/17 04:20 98.2 77 19 152/83 98 Room Air 98.2 07/27/17 03:40 76 07/27/17 00:00 98.0 82 19 150/79 96 Room Air 98.0 07/26/17 23:34 82 07/26/17 21:42 99.0 07/26/17 20:43 101.1 07/26/17 20:31 101.1 87 19 153/76 96 Room Air 101.1 07/26/17 19:41 84 07/26/17 16:00 99.9 88 19 134/69 97 Room Air 99.9 07/26/17 16:00 84 07/26/17 12:00 83 07/26/17 12:00 98.3 83 18 144/76 95 Room Air 98.3 Intake and Output 07/26/17 07/27/17 19:00 07:00 Intake Total 1217.000 ml 789.334 ml Output Total 900 ml 250 ml Balance 317.000 ml 539.334 ml Intake Oral 352 ml 236 ml IV Total 865.000 ml 553.334 ml Output Urine Total 900 ml 250 ml # Voids 3 1 Laboratory Tests 07/26/17 21:00: Vancomycin Level Trough 12.3H Height (Feet): 6 Height (Inches): 4.00 Weight (Pounds): 294 General Appearance: no apparent distress EENT: PERRL/EOMI Neck: supple Cardiovascular: normal rate Respiratory/Chest: decreased breath sounds Abdomen: normal bowel sounds, non tender, soft Extremities: non-tender ELDER RUSSELL Jul 27, 2017 09:56
[2017-07-27] MEDS: Vancomycin 1gm/D5W 275ml IVPB SCH ×4 (10:07→21:18)
--- NOTE | 2017-07-27 12:24 | Nephrology Progress Note ---
Assessment/Plan Problem List: (1) Renal failure (ARF), acute on chronic (2) DM2 (diabetes mellitus, type 2) (3) Acute on chronic anemia (4) Diabetic foot ulcer Assessment Renal failure, Mainly Chronic due to DM Cr lower 1.6 Proteinuria, Diabetic Nephropathy, HypoAlbuminemia On going lower exteremity cellulitis / Osteo and high Lactic level- FEVER PERSISTS PVD High Cholestrol Anemia worsenning Plan Plan: Po K transfusion 2D echo- 55% EjFx Kidney Noemi Negative ultrasound of the kidneys. slow hydrate urine studies per orders Subjective ROS Limited/Unobtainable: No Objective Objective Last 24 Hour Vital Signs Date Time Temp Pulse Resp B/P (MAP) Pulse Ox O2 Delivery O2 Flow Rate FiO2 07/27/17 08:00 80 07/27/17 08:00 98.2 81 20 138/70 96 Room Air 98.2 07/27/17 04:20 98.2 77 19 152/83 98 Room Air 98.2 07/27/17 03:40 76 07/27/17 00:00 98.0 82 19 150/79 96 Room Air 98.0 07/26/17 23:34 82 07/26/17 21:42 99.0 07/26/17 20:43 101.1 07/26/17 20:31 101.1 87 19 153/76 96 Room Air 101.1 07/26/17 19:41 84 07/26/17 16:00 99.9 88 19 134/69 97 Room Air 99.9 07/26/17 16:00 84 Intake and Output 07/26/17 07/27/17 19:00 07:00 Intake Total 1217.000 ml 789.334 ml Output Total 900 ml 250 ml Balance 317.000 ml 539.334 ml Intake Oral 352 ml 236 ml IV Total 865.000 ml 553.334 ml Output Urine Total 900 ml 250 ml # Voids 3 1 Laboratory Tests 07/26/17 21:00: Vancomycin Level Trough 12.3H Height (Feet): 6 Height (Inches): 4.00 Weight (Pounds): 294 General Appearance: no apparent distress Cardiovascular: normal rate Respiratory/Chest: decreased breath sounds Abdomen: soft Objective no change GRIFFIN ASTORGA Jul 27, 2017 12:24
--- NOTE | 2017-07-27 13:22 | General Progress Note ---
Assessment/Plan Problem List: (1) Severe sepsis ICD Codes: A41.9 - Sepsis, unspecified organism; R65.20 - Severe sepsis without septic shock SNOMED: 65244168 (2) Cellulitis of right lower extremity ICD Codes: L03.115 - Cellulitis of right lower limb SNOMED: 545725878 (3) Concern for abscess of R foot (4) Likely 1st toe ostemyelitis (5) Acute blood loss anemia ICD Codes: D62 - Acute posthemorrhagic anemia SNOMED: 702053384 (6) Lactic acidosis ICD Codes: E87.2 - Acidosis SNOMED: 52738465 (7) Diabetic foot ulcer ICD Codes: E11.621 - Type 2 diabetes mellitus with foot ulcer; L97.509 - Non- pressure chronic ulcer of other part of unspecified foot with unspecified severity SNOMED: 36734190, 126669942 (8) DM2 (diabetes mellitus, type 2) Assessment & Plan: A1C 9.6 ICD Codes: E11.9 - Type 2 diabetes mellitus without complications SNOMED: 85988746 Qualifiers: (9) Renal failure (ARF), acute on chronic ICD Codes: N17.9 - Acute kidney failure, unspecified; N18.9 - Chronic kidney disease, unspecified SNOMED: 478963792 (10) Acute on chronic anemia (11) Leukopenia ICD Codes: D72.819 - Decreased white blood cell count, unspecified SNOMED: 92688722, 461429400 (12) Hypertension ICD Codes: I10 - Hypertension SNOMED: 37987397 (13) Hyperlipidemia ICD Codes: E78.5 - Hyperlipidemia SNOMED: 41880145 (14) Postoperative fever ICD Codes: R50.82 - Postprocedural fever SNOMED: 222884030 (15) postop fever Status: stable Assessment/Plan Podiatry, ID, hematology, and nephrology consulted s/p 1U pRBC on 07/20/17 s/p 1U pRBC on 07/22/17 s/p 1U pRBC on 07/23/17 s/p 1U pRBC on 07/25/[address] a/p if hgb cont to drop Epogen + IV iron per renal F/u stool OB--positive GI consulted s/p EGD and colo on 07/24/17 which showed gastritis, distal esophageal ulcerations w/ esophagitis, hemorrhoids, 1 colonic polyp s/p removal, no active bleeding Hold ACEi and lasix in the setting of CHIQUITA Continue IV vancomycin (07/19-) Cont meropenem (07/24-) s/p zosyn (06/19-07/24) F/u wound culture--shows multiple org CT of right foot noted with possible osteomyelitis and concern for abscess. Unable to get MRI given pt size s/p R partial first ray amputation, and excisional debridement of necrotic tissue to level of bone on 07/22/17 F/u OR culture--shows Acinetobacter baumanii complex F/u path PICC placed 07/24/17 F/u venous ultrasound of RLE to r/o DVT--neg F/u arterial duplex-wnl SSI Hold PO hypoglycemic agents Continue home bp meds CM consult for SNF placement DC pending hgb stabilized, and improvement in fevers and WBC DVT Prophylaxis: SCD, HSQ Code Status: Full Hospital Classification Declaration: Based on this initial evaluation, and depending on the patient's clinical course, I anticipate that this patient will require hospitalization for 1-2 days for surgical mgmt and close respiratory/ hemodynamic monitoring. Disposition: Once the patient is stable to leave the hospital, I anticipate the patient will likely be discharged to the following environment: SNF Discussed with patient/family, nursing staff, SW/CM, podiatry, ID, renal regarding clinical status, treatment course, and disposition planning. D/w GI re scope results. D/w ID re abx. D/w podiatry re wound infection Time of note may not reflect time of encounter. Subjective Date patient seen: Jul 27, 2017 Time patient seen: 13:22 ROS Limited/Unobtainable: No Constitutional: Reports: fever Cardiovascular: Reports: no symptoms Respiratory: Reports: no symptoms Gastrointestinal/Abdominal: Reports: no symptoms Genitourinary: Reports: no symptoms Neurologic/Psychiatric: Reports: no symptoms Endocrine: Reports: no symptoms Hematologic/Lymphatic: Reports: no symptoms Allergies: Coded Allergies: No Known Allergies (Verified , 11/14/10) Subjective No acute o/n events Fever to 101 last night s/p EGD and colo which showed gastritis, distal esophageal ulcerations w/ esophagitis, hemorrhoids, 1 colonic polyp s/p removal, no active bleeding s/p R partial first ray amputation, and excisional debridement of necrotic tissue to level of bone POD#5 C/o R foot pain. Sarah f/c, n/v, d/c, chest pain, SOB, abd pain Objective Last 24 Hour Vital Signs Date Time Temp Pulse Resp B/P (MAP) Pulse Ox O2 Delivery O2 Flow Rate FiO2 07/27/17 08:00 80 07/27/17 08:00 98.2 81 20 138/70 96 Room Air 98.2 07/27/17 04:20 98.2 77 19 152/83 98 Room Air 98.2 07/27/17 03:40 76 07/27/17 00:00 98.0 82 19 150/79 96 Room Air 98.0 07/26/17 23:34 82 07/26/17 21:42 99.0 07/26/17 20:43 101.1 07/26/17 20:31 101.1 87 19 153/76 96 Room Air 101.1 07/26/17 19:41 84 07/26/17 16:00 99.9 88 19 134/69 97 Room Air 99.9 07/26/17 16:00 84 Intake and Output 07/26/17 07/27/17 19:00 07:00 Intake Total 1217.000 ml 789.334 ml Output Total 900 ml 250 ml Balance 317.000 ml 539.334 ml Intake Oral 352 ml 236 ml IV Total 865.000 ml 553.334 ml Output Urine Total 900 ml 250 ml # Voids 3 1 Laboratory Tests 07/26/17 21:00: Vancomycin Level Trough 12.3H 07/27/17 12:55: C-Reactive Protein, Quantitative [Pending] Height (Feet): 6 Height (Inches): 4.00 Weight (Pounds): 294 Objective General Appearance: no apparent distress, alert HEENT: normocephalic, atraumatic Neck: non-tender, normal alignment, supple Respiratory/Chest: chest wall non-tender, lungs clear, normal breath sounds Cardiovascular/Chest: normal peripheral pulses, normal rate, regular rhythm Abdomen: normal bowel sounds, non tender, soft Skin Exam: other - right lower extremity erythema, edema, and TTP. right foot dressing c/d/i Neurologic: trestle mechanic II-XII grossly normal, no motor/sensory deficits, alert, oriented x 3 Js GarciaD. Jul 27, 2017 13:22
[2017-07-27] MEDS ORDERED: NS 275ml ONE (16:34)
--- NOTE | 2017-07-27 16:46 | Infectious Diseases Prog Note ---
Assessment/Plan Assessment/Plan ASSESSMENT AND PLAN: 1. right leg/foot cellulitis, ? abscess, right foot great toe/1st toes infected wound and osteomyelitis on CT scan, s/p debridement by podiatry - s/p right partial first ray amputation and debridement - 07/21 great toe wound culture with enterobacter and klebsiella, jerri likely colonizer - surgery cultures with acinetobacter - surgical path pending - check surgical margins and culture final - meropenem and vancomycin - day # 3 combination - favor 6 weeks abx total - d/w Dr. Weinstein and Dr. Bernard - post op fevers and leukocytosis noted, f/u on labs and watch temps, f/u cultures ordered - urine culture likely colonizer, ua benign - d/w pharmacy about meropenem dosing and will adjust for osteomyelitis tx 2. Sepsis, fevers and leukocytosis - continue abx, check cultures, chest x-ray with chf/edema 3. Elevated creatinine, chronic renal failure. 4. Anemia. 5. Diabetes. 6. Hypertension. 7. Hyperlipidemia. 8. Blood sugar, blood pressure, and lipid treatment per primary. 9. History of ulcers. 10. Wound care protocol. 11. No known allergies. 12. Social history negative. 13. Family history noncontributory. 14. MAR was noted. 15. Continue treatment per primary consultants. 16. Podiatry followup. 17. Notes and records were noted. 18. Orders were entered. 19. Case discussed with RN. Subjective Constitutional: Reports: fever - fevers earlier , fatigue, Denies: chills HEENT: Denies: congestion Respiratory: Denies: shortness of breath Cardiovascular: Denies: chest pain Gastrointestinal/Abdominal: Denies: nausea, vomiting, diarrhea Genitourinary: Denies: dysuria Psychiatric: Denies: depression Skin: Denies: rash Hematologic: Denies: bleeding Musculoskeletal: Denies: pain Allergies: Coded Allergies: No Known Allergies (Verified , 11/14/10) Objective Vital Signs Last 24 Hour Vital Signs Date Time Temp Pulse Resp B/P (MAP) Pulse Ox O2 Delivery O2 Flow Rate FiO2 07/27/17 12:00 97.3 89 20 156/86 96 Room Air 97.3 07/27/17 08:00 80 07/27/17 08:00 98.2 81 20 138/70 96 Room Air 98.2 07/27/17 04:20 98.2 77 19 152/83 98 Room Air 98.2 07/27/17 03:40 76 07/27/17 00:00 98.0 82 19 150/79 96 Room Air 98.0 07/26/17 23:34 82 07/26/17 21:42 99.0 07/26/17 20:43 101.1 07/26/17 20:31 101.1 87 19 153/76 96 Room Air 101.1 07/26/17 19:41 84 Height (Feet): 6 Height (Inches): 4.00 Weight (Pounds): 294 General Appearance: no acute distress HEENT: normocephalic, atraumatic, anicteric, mucous membranes moist, EOMI, pharynx normal, supple, no JVD Respiratory/Chest: lungs clear, normal breath sounds, no respiratory distress, no accessory muscle use Cardiovascular: normal rate, regular rhythm, no gallop/murmur, no JVD Abdomen: normal bowel sounds, soft, non tender, no organomegaly, non distended Genitourinary: other - no meyer Extremities: other - right foot wound covered Skin: no rash, other Neurologic/Psychiatric: trouble shooter II-XII grossly normal, alert, oriented x 3, responsive Lymphatic: no neck adenopathy Musculoskeletal: no effusion Objective Right leg/foot CT scan - Impression: Diffuse cellulitis in the lower leg. Erosive changes of the first distal phalanx and possibly first metatarsal head. This is consistent with osteomyelitis. Postoperative changes in the base of the first proximal phalanx. Chronic changes in the fifth metatarsal phalangeal joint. This may be surgical as well. The above report is concordant with preliminary reading by [facility] . 07/25 - Chest - x-ray with chf and edema Microbiology Date/Time Source Procedure Growth Status 07/24/17 18:15 Blood Blood Culture - Preliminary NO GROWTH AFTER 48 HOURS Resulted 07/20/17 01:55 Nasal Nares MRSA Culture - Final NO METHICILLIN RESISTANT STAPH AUREUS... Complete 07/26/17 01:04 Stool Clostridium difficile Toxin Assay - Final Complete 07/25/17 04:50 Urine,Clean Catch Urine Culture - Preliminary Yeast Species Resulted 07/22/17 09:00 Toe Right Big Gram Stain - Final Complete 07/22/17 09:00 Aerobic Culture - Final Acinetobacter Baumannii Complx Complete 07/22/17 09:00 Toe Right Big Anaerobic Culture - Final NO ANAEROBES ISOLATED Complete Microbiology Date/Time Source Procedure Growth Status 07/24/17 18:15 Blood Blood Culture - Preliminary NO GROWTH AFTER 48 HOURS Resulted 07/24/17 18:00 Blood Blood Culture - Preliminary NO GROWTH AFTER 48 HOURS Resulted 07/26/17 01:04 Stool Clostridium difficile Toxin Assay - Final Complete 07/25/17 04:50 Urine,Clean Catch Urine Culture - Preliminary Yeast Species Resulted Labs Test 07/24/17 18:00 07/25/17 04:50 07/25/17 06:00 07/26/17 08:15 Vancomycin Level Trough 11.8 ug/mL (5.0-12.0) Urine Color Yellow Urine Appearance Clear Urine pH 5 (4.5-8.0) Urine Specific [place] 1.020 (1.005-1.035) Urine Protein 3+ (NEGATIVE) Urine Glucose (UA) Negative (NEGATIVE) Urine Ketones Negative (NEGATIVE) Urine Occult Blood 3+ (NEGATIVE) Urine Nitrite Negative (NEGATIVE) Urine Bilirubin Negative (NEGATIVE) Urine Urobilinogen Normal MG/DL (0.0-1.0) Urine Leukocyte Esterase Negative (NEGATIVE) Urine RBC 2-4 /HPF (0 - 0) Urine WBC 0-2 /HPF (0 - 0) Urine Squamous Epithelial Cells Occasional /LPF Urine Bacteria Occasional /HPF (NONE) Urine Yeast Few /HPF (NONE) White Blood Count 13.8 K/UL (4.8-10.8) 17.2 K/UL (4.8-10.8) Red Blood Count 2.26 M/UL (4.70-6.10) 2.58 M/UL (4.70-6.10) Hemoglobin 6.9 G/DL (14.2-18.0) 7.8 G/DL (14.2-18.0) Hematocrit 20.5 % (42.0-52.0) 23.3 % (42.0-52.0) Mean Corpuscular Volume 91 FL (80-99) 90 FL (80-99) Mean Corpuscular Hemoglobin 30.4 PG (27.0-31.0) 30.2 PG (27.0-31.0) Mean Corpuscular Hemoglobin Concent 33.5 G/DL (32.0-36.0) 33.5 G/DL (32.0-36.0) Red Cell Distribution Width 17.8 % (11.6-14.8) 17.2 % (11.6-14.8) Platelet Count 154 K/UL (150-450) 163 K/UL (150-450) Mean Platelet Volume 8.0 FL (6.5-10.1) 7.6 FL (6.5-10.1) Neutrophils (%) (Auto) % (45.0-75.0) % (45.0-75.0) Lymphocytes (%) (Auto) % (20.0-45.0) % (20.0-45.0) Monocytes (%) (Auto) % (1.0-10.0) % (1.0-10.0) Eosinophils (%) (Auto) % (0.0-3.0) % (0.0-3.0) Basophils (%) (Auto) % (0.0-2.0) % (0.0-2.0) Differential Total Cells Counted 100 100 Neutrophils % (Manual) 74 % (45-75) 87 % (45-75) Lymphocytes % (Manual) 14 % (20-45) 5 % (20-45) Monocytes % (Manual) 11 % (1-10) 8 % (1-10) Eosinophils % (Manual) 1 % (0-3) 0 % (0-3) Basophils % (Manual) 0 % (0-2) 0 % (0-2) Band Neutrophils 0 % (0-8) 0 % (0-8) Platelet Estimate Adequate Adequate Platelet Morphology Normal Normal Polychromasia 2+ Hypochromasia 2+ 3+ Anisocytosis 1+ 1+ Sodium Level 138 MMOL/L (136-145) 135 MMOL/L (136-145) Potassium Level 3.2 MMOL/L (3.5-5.1) 2.9 MMOL/L (3.5-5.1) Chloride Level 106 MMOL/L (98-107) 106 MMOL/L (98-107) Carbon Dioxide Level 21 MMOL/L (21-32) 20 MMOL/L (21-32) Anion Gap 11 mmol/L (5-15) 9 mmol/L (5-15) Blood Urea Nitrogen 17 mg/dL (7-18) 14 mg/dL (7-18) Creatinine 1.8 MG/DL (0.55-1.30) 1.6 MG/DL (0.55-1.30) Estimat Glomerular Filtration Rate 45.6 mL/min (>60) 52.2 mL/min (>60) Glucose Level 73 MG/DL (74-106) 73 MG/DL (74-106) Calcium Level 7.7 MG/DL (8.5-10.1) 7.3 MG/DL (8.5-10.1) Phosphorus Level 2.3 MG/DL (2.5-4.9) Magnesium Level 1.8 MG/DL (1.8-2.4) Total Bilirubin 0.6 MG/DL (0.2-1.0) Aspartate Amino Transf (AST/SGOT) 78 U/L (15-37) Alanine Aminotransferase (ALT/SGPT) 37 U/L (12-78) Alkaline Phosphatase 151 U/L (46-116) Total Protein 6.7 G/DL (6.4-8.2) Albumin 1.8 G/DL (3.4-5.0) Globulin 4.9 g/dL Albumin/Globulin Ratio 0.4 (1.0-2.7) Spherocytes 2+ Test 07/26/17 21:00 07/27/17 12:55 Vancomycin Level Trough 12.3 ug/mL (5.0-12.0) C-Reactive Protein, Quantitative < 70.0 mg/dL (0.00-0.90) Laboratory Tests Test 07/26/17 21:00 07/27/17 12:55 Vancomycin Level Trough 12.3 ug/mL (5.0-12.0) H C-Reactive Protein, Quantitative < 70.0 mg/dL (0.00-0.90) H Current Medications Medications (Trade) Dose Ordered Sig/Xiao Route PRN Reason Start Time Stop Time Status Last Admin Dose Admin Acetaminophen (Tylenol) 650 mg Q4H PRN ORAL Mild Pain/Temp > 100.5 07/20/17 08:15 08/19/17 08:14 07/26/17 20:43 Atorvastatin Calcium (Lipitor) 40 mg QHS ORAL 07/22/17 21:00 08/19/17 08:59 07/26/17 20:43 Chlorhexidine Gluconate (Joyce-Hex 2%) 1 applic DAILY@2000 TOPIC 07/25/17 20:00 08/24/17 19:59 07/26/17 20:42 Dextrose (Dextrose 50%) STAT PRN IV Hypoglycemia 07/20/17 05:15 08/19/17 05:14 07/24/17 11:41 Docusate Sodium (Colace) 100 mg THREE TIMES A DAY ORAL 07/22/17 13:00 08/21/17 12:59 07/27/17 12:48 Epoetin Norberto (Procrit (for non ESRD use)) 10,000 units MON-FRI-FRI SUBQ 07/23/17 21:00 08/22/17 20:59 07/25/17 21:27 Ergocalciferol (Drisdol) 50,000 intlu QWEEK ORAL 07/22/17 12:30 08/21/17 12:29 07/22/17 13:00 Heparin Sodium (Porcine) (Heparin 5000 units/ml) 5,000 units EVERY 12 HOURS SUBQ 07/23/17 09:00 08/22/17 08:59 07/27/17 08:13 Hydralazine HCl (Apresoline) 25 mg Q4H PRN ORAL for sbp>160 07/25/17 18:00 08/24/17 17:59 Insulin Aspart (NovoLOG) BEFORE MEALS AND HS SUBQ 07/20/17 06:30 08/19/17 06:29 07/27/17 12:49 Insulin Detemir (Levemir) 35 units BEDTIME SUBQ 07/24/17 21:00 08/23/17 20:59 07/26/17 20:51 Meropenem 2 gm/ Sodium Chloride 110 ml @ 220 mls/hr Q8H IVPB 07/26/17 00:00 07/31/17 00:00 07/27/17 16:19 Pantoprazole (Protonix) 40 mg EVERY 12 HOURS ORAL 07/21/17 15:30 08/20/17 15:29 07/27/17 08:12 Vancomycin HCl (Vanco rx to dose) 1 ea DAILY PRN MISC Per rx protocol 07/20/17 06:00 08/19/17 05:59 Vancomycin HCl 1 gm/Dextrose 275 ml @ 183.708 mls/hr Q12H IVPB 07/27/17 08:00 08/01/17 07:59 07/27/17 10:07 ESE HARO Jul 27, 2017 16:46
[2017-07-27] MEDS: Dyna-Hex 2% Top Sol 2oz TOPIC SCH (21:18)
[2017-07-27] MEDS: Atorvastatin 20mg tab ORAL SCH (21:19)
[2017-07-27] MEDS: Levemir Flexpen SUBQ SCH (21:22)
--- NOTE | 2017-07-27 23:41 | General Progress Note ---
Assessment/Plan Assessment/Plan #. Anemia of chronic disease. --> Anemia workup reviewed. --> Iron 16, TIBC 198, % sat 8, Folate 13.4, B12 637, Ferritin 308 --> Iron levels are low. --> Received blood transfusion yesterday, hgb levels remain low but improving after prbc. --> continue to monitor closely. --> Occult blood has been found. Consider GI services and recs. --> S/P EGD and colonoscopy revealing gastritis, distal esophageal ulcerations w / esophagitis, and hemorrhoids #. Leukopenia, likely secondary to underlying infection from osteomyelitis --> HIV/Hep panel both negative. --> Worsened from yesterday. --> On abx. ID following. #. Lactic acidosis secondary to sepsis from underlying infection. --> Continue to monitor. #. Diabetes mellitus, on insulin sliding scale. Blood sugar control as needed. #. Right big toe osteomyelitis, to be seen by the [facility] as well as surgical team. #. Sepsis. Subjective Date patient seen: Jul 27, 2017 Constitutional: Denies: no symptoms, chills, diaphoresis, fever, malaise, weakness, other HEENT: Denies: no symptoms, eye pain, blurred vision, tearing, double vision, ear pain, ear discharge, nose pain, nose congestion, throat pain, throat swelling, mouth pain, mouth swelling, other Cardiovascular: Denies: no symptoms, chest pain, edema, irregular heart rate, lightheadedness, palpitations, syncope, other Respiratory: Denies: no symptoms, cough, orthopnea, shortness of breath, SOB with excertion, SOB at rest, sputum, stridor, wheezing, other Gastrointestinal/Abdominal: Denies: no symptoms, abdomen distended, abdominal pain, black stools, tarry stools, blood in stool, constipated, diarrhea, difficulty swallowing, nausea, poor appetite, poor fluid intake, rectal bleeding , vomiting, other Genitourinary: Denies: no symptoms, burning, discharge, frequency, flank pain, hematuria, incontinence, pain, urgency, other Neurologic/Psychiatric: Denies: no symptoms, anxiety, depressed, emotional problems, headache, numbness, paresthesia, pre-existing deficit, seizure, tingling, tremors, weakness, other Hematologic/Lymphatic: Reports: anemia Allergies: Coded Allergies: No Known Allergies (Verified , 11/14/10) Subjective S/P EGD and colonoscopy. No acute events. Objective Last 24 Hour Vital Signs Date Time Temp Pulse Resp B/P (MAP) Pulse Ox O2 Delivery O2 Flow Rate FiO2 07/27/17 20:37 99.7 84 17 160/80 96 99.7 07/27/17 20:07 79 07/27/17 16:00 76 07/27/17 16:00 99.5 76 19 149/89 96 Room Air 99.5 07/27/17 12:00 97.3 89 20 156/86 96 Room Air 97.3 07/27/17 12:00 77 07/27/17 08:00 80 07/27/17 08:00 98.2 81 20 138/70 96 Room Air 98.2 07/27/17 04:20 98.2 77 19 152/83 98 Room Air 98.2 07/27/17 03:40 76 07/27/17 00:00 98.0 82 19 150/79 96 Room Air 98.0 Intake and Output 07/26/17 07/27/17 19:00 07:00 Intake Total 1217.000 ml 789.334 ml Output Total 900 ml 250 ml Balance 317.000 ml 539.334 ml Intake Oral 352 ml 236 ml IV Total 865.000 ml 553.334 ml Output Urine Total 900 ml 250 ml # Voids 3 1 Laboratory Tests 07/27/17 12:55: C-Reactive Protein, Quantitative < 70.0H Height (Feet): 6 Height (Inches): 4.00 Weight (Pounds): 294 Guido Lopez Jul 27, 2017 23:41
[2017-07-28] VITALS (13 sets, daily range): BP systolic 125–162; BP diastolic 63–81
[2017-07-28] MEDS: Meropenem 1 GM in NS 110 ML IVPB SCH ×3 (02:37→18:02)
[2017-07-28] MEDS ORDERED: Albuterol ud Inhalation ONE (06:00)
[2017-07-28] MEDS ORDERED: NeoSporin Gu Irrig 1ml Amp IRRIG ONE ×2 (06:00→15:15)
[2017-07-28] MEDS ORDERED: Bacitracin 50000 Units Vial ONE (06:00)
[2017-07-28] MEDS ORDERED: Lidocaine 1% 10mg/ml/EPI 0.01mg/ml 50ml INJ ONE (06:00)
[2017-07-28] MEDS: NovoLOG Insulin Flexpen SUBQ SCH ×4 (06:04→21:18)
[2017-07-28 06:34] LABS: HEMATOCRIT 23.4 % (42.0-52.0); HEMOGLOBIN 7.9 G/DL (14.2-18.0); MEAN CORPUSCULAR VOLUME 91 FL (80-99); PLATELET COUNT 211 K/UL (150-450); RED BLOOD COUNT 2.59 M/UL (4.70-6.10); RED CELL DISTRIBUTION WIDTH 17.7 % (11.6-14.8)
[2017-07-28 07:15] LABS: ALANINE AMINOTRANSFERASE 121 U/L (12-78); ALBUMIN 1.5 G/DL (3.4-5.0); ALBUMIN/GLOBULIN RATIO 0.3 (1.0-2.7); ALKALINE PHOSPHATASE 170 U/L (46-116); ANION GAP 9 mmol/L (5-15); ASPARTATE AMINO TRANSFERASE 227 U/L (15-37); BILIRUBIN,TOTAL 0.4 MG/DL (0.2-1.0); BLOOD UREA NITROGEN 13 mg/dL (7-18); CALCIUM 7.7 MG/DL (8.5-10.1); CARBON DIOXIDE 21 MMOL/L (21-32); CHLORIDE 106 MMOL/L (98-107); CREATININE 1.6 MG/DL (0.55-1.30); PHOSPHORUS 2.5 MG/DL (2.5-4.9); POTASSIUM 3.6 MMOL/L (3.5-5.1); SODIUM 136 MMOL/L (136-145)
[2017-07-28] MEDS: Docusate 100mg cap ORAL SCH ×3 (07:39→18:02)
[2017-07-28] MEDS: Heparin 5000 units/ml inj SUBQ SCH ×2 (07:39→21:18)
[2017-07-28] MEDS: Vancomycin 1gm/D5W 275ml IVPB SCH ×4 (08:51→20:01)
--- NOTE | 2017-07-28 11:16 | GI Progress Note ---
Assessment/Plan Problems: (1) Abdominal pain ICD Codes: R10.9 - Unspecified abdominal pain SNOMED: 89089010 (2) Acute blood loss anemia ICD Codes: D62 - Acute posthemorrhagic anemia SNOMED: 598190993 (3) Acute on chronic anemia (4) Anemia ICD Codes: D64.9 - Anemia, unspecified SNOMED: 489569411 Status: stable Status Narrative Discussed with Dr. Yoder. Assessment/Plan EGD/colonoscopy SUMMARY OF FINDINGS: 1. A 4-cm hiatal hernia. 2. Distal esophageal ulcerations plus esophagitis. 3. Gastritis, status post biopsy. 4. Poor colonic prep and incomplete colonoscopy examination. 5. One colonic polyp removed, see above for details. 6. One diverticulum seen in the left colon. 7. Hemorrhoids. RECOMMENDATIONS: Follow up biopsy results and treat accordingly. monitor H&H, prn transfusions bowel regime ppi fu labs The patient was seen and examined at bedside and all new and available data was reviewed in the patients chart. I agree with the above findings, impression and plan. (Patient seen earlier today. Signature stamp does not reflect patient encounter time.). - Janneth Yoder MD Subjective Gastrointestinal/Abdominal: Reports: no symptoms Objective Last 24 Hour Vital Signs Date Time Temp Pulse Resp B/P (MAP) Pulse Ox O2 Delivery O2 Flow Rate FiO2 07/28/17 08:01 97.7 79 17 150/76 98 97.7 07/28/17 04:07 99.1 79 17 150/77 98 99.1 07/28/17 03:37 78 07/27/17 23:55 82 07/27/17 23:50 99.1 78 18 155/84 96 99.1 07/27/17 20:37 99.7 84 17 160/80 96 99.7 07/27/17 20:07 79 07/27/17 16:00 76 07/27/17 16:00 99.5 76 19 149/89 96 Room Air 99.5 07/27/17 12:00 97.3 89 20 156/86 96 Room Air 97.3 07/27/17 12:00 77 Intake and Output 07/27/17 07/28/17 19:00 07:00 Intake Total 967.000 ml 1307.416 ml Output Total 700 ml Balance 267.000 ml 1307.416 ml Intake Oral 472 ml 720 ml IV Total 495.000 ml 587.416 ml Output Urine Total 700 ml # Voids 4 3 Laboratory Tests Test 07/27/17 12:55 07/28/17 06:00 C-Reactive Protein, Quantitative < 70.0 mg/dL (0.00-0.90) H White Blood Count 23.0 K/UL (4.8-10.8) *H Red Blood Count 2.59 M/UL (4.70-6.10) L Hemoglobin 7.9 G/DL (14.2-18.0) L Hematocrit 23.4 % (42.0-52.0) L Mean Corpuscular Volume 91 FL (80-99) Mean Corpuscular Hemoglobin 30.4 PG (27.0-31.0) Mean Corpuscular Hemoglobin Concent 33.5 G/DL (32.0-36.0) Red Cell Distribution Width 17.7 % (11.6-14.8) H Platelet Count 211 K/UL (150-450) Mean Platelet Volume 7.2 FL (6.5-10.1) Neutrophils (%) (Auto) % (45.0-75.0) Lymphocytes (%) (Auto) % (20.0-45.0) Monocytes (%) (Auto) % (1.0-10.0) Eosinophils (%) (Auto) % (0.0-3.0) Basophils (%) (Auto) % (0.0-2.0) Differential Total Cells Counted 100 Neutrophils % (Manual) 84 % (45-75) H Lymphocytes % (Manual) 7 % (20-45) L Monocytes % (Manual) 8 % (1-10) Eosinophils % (Manual) 1 % (0-3) Basophils % (Manual) 0 % (0-2) Band Neutrophils 0 % (0-8) Platelet Estimate Adequate Platelet Morphology Normal Anisocytosis 1+ Sodium Level 136 MMOL/L (136-145) Potassium Level 3.6 MMOL/L (3.5-5.1) Chloride Level 106 MMOL/L (98-107) Carbon Dioxide Level 21 MMOL/L (21-32) Anion Gap 9 mmol/L (5-15) Blood Urea Nitrogen 13 mg/dL (7-18) Creatinine 1.6 MG/DL (0.55-1.30) H Estimat Glomerular Filtration Rate 52.2 mL/min (>60) Glucose Level 153 MG/DL (74-106) H Uric Acid 5.2 MG/DL (2.6-7.2) Calcium Level 7.7 MG/DL (8.5-10.1) L Phosphorus Level 2.5 MG/DL (2.5-4.9) Magnesium Level 1.5 MG/DL (1.8-2.4) L Total Bilirubin 0.4 MG/DL (0.2-1.0) Aspartate Amino Transf (AST/SGOT) 227 U/L (15-37) H Alanine Aminotransferase (ALT/SGPT) 121 U/L (12-78) H Alkaline Phosphatase 170 U/L (46-116) H Total Protein 6.5 G/DL (6.4-8.2) Albumin 1.5 G/DL (3.4-5.0) L Globulin 5.0 g/dL Albumin/Globulin Ratio 0.3 (1.0-2.7) L Height (Feet): 6 Height (Inches): 4.00 Weight (Pounds): 294 General Appearance: WD/WN, no apparent distress, alert Cardiovascular: normal rate Respiratory/Chest: normal breath sounds, no respiratory distress Abdominal Exam: normal bowel sounds, non tender, soft Extremities: normal range of motion, non-tender Adele Avila N.P. Jul 28, 2017 11:16 ELDER YODER Aug 04, 2017 12:37
[2017-07-28 12:38] LABS: HEMATOCRIT 24.3 % (42.0-52.0); HEMOGLOBIN 8.1 G/DL (14.2-18.0); MEAN CORPUSCULAR VOLUME 92 FL (80-99); PLATELET COUNT 341 K/UL (150-450); RED BLOOD COUNT 2.65 M/UL (4.70-6.10)
[2017-07-28] MEDS ORDERED: LR 1000ml 1,000 ML IVLG SCH (13:56)
--- NOTE | 2017-07-28 13:56 | Anethesia Preoperative Eval ---
Anesthesia Pre-op PMH/ROS General Date of Evaluation: Jul 28, 2017 Time of Evaluation: 13:00 Anesthesiologist: Zheng ASA Score: ASA 3 Mallampati Score Class I : Soft palate, uvula, fauces, pillars visible Class II: Soft palate, uvula, fauces visible Class III: Soft palate, base of uvula visible Class IV: Only hard plate visible Mallampati Classification: Class II Surgeon: Marco Antonio Diagnosis: Infected right foot, right LE cellulitis Surgical Procedure: I&D right foot Family History: no anesthesia problems Allergies: Coded Allergies: No Known Allergies (Verified , 11/14/10) Medications: see eMAR Past Medical History Cardiovascular: Reports: HTN, Denies: CAD, MT, valve dz, arrhythmia, other Pulmonary: Denies: asthma, COPD, NEFTALI, other Gastrointestinal/Genitourinary: Reports: GERD Neurologic/Psychiatric: Denies: dementia, CVA, depression/anxiety, TIA, other Endocrine: Reports: DM, Denies: hypothyroidism, steroids, other HEENT: Denies: cataract (L), cataract (R), glaucoma, [place] (L), [place] (R), other Hematology/Immune: Reports: anemia, Denies: DVT, bleeding disorder, other Musculoskeletal/Integumentary: Denies: OA, RA, DJD, DDD, edema, other Other: obesity PMH Narrative: HTN, DM, GERD, obesity PSxH Narrative: Right foot surgery, left foot surgery, patient unable to remember other surgeries Anesthesia Pre-op Phys. Exam Physician Exam Last Vital Signs Date Time Temp Pulse Resp B/P (MAP) Pulse Ox O2 Delivery O2 Flow Rate FiO2 07/28/17 13:06 98.4 84 17 155/81 98 Room Air 98.4 07/25/17 20:29 21 07/25/17 04:00 2.0 Constitutional: NAD Neurologic: CN 2-12 intact Cardiovascular: RRR, no M/R/G Respiratory: CTA Gastrointestinal: S/NT/ND Airway Exam Mallampati Score: Class III MO: full ROM: full Teeth: missing Anesthesia Pre-op A/P Labs Hematology Test 07/28/17 06:00 07/28/17 12:30 White Blood Count 23.0 K/UL (4.8-10.8) *H 23.0 K/UL (4.8-10.8) *H Red Blood Count 2.59 M/UL (4.70-6.10) L 2.65 M/UL (4.70-6.10) L Hemoglobin 7.9 G/DL (14.2-18.0) L 8.1 G/DL (14.2-18.0) L Hematocrit 23.4 % (42.0-52.0) L 24.3 % (42.0-52.0) L Mean Corpuscular Volume 91 FL (80-99) 92 FL (80-99) Mean Corpuscular Hemoglobin 30.4 PG (27.0-31.0) 30.4 PG (27.0-31.0) Mean Corpuscular Hemoglobin Concent 33.5 G/DL (32.0-36.0) 33.2 G/DL (32.0-36.0) Red Cell Distribution Width 17.7 % (11.6-14.8) H 18.0 % (11.6-14.8) H Platelet Count 211 K/UL (150-450) 341 K/UL (150-450) # Mean Platelet Volume 7.2 FL (6.5-10.1) 6.6 FL (6.5-10.1) Neutrophils (%) (Auto) % (45.0-75.0) % (45.0-75.0) Lymphocytes (%) (Auto) % (20.0-45.0) % (20.0-45.0) Monocytes (%) (Auto) % (1.0-10.0) % (1.0-10.0) Eosinophils (%) (Auto) % (0.0-3.0) % (0.0-3.0) Basophils (%) (Auto) % (0.0-2.0) % (0.0-2.0) Differential Total Cells Counted 100 100 Neutrophils % (Manual) 84 % (45-75) H 89 % (45-75) H Lymphocytes % (Manual) 7 % (20-45) L 3 % (20-45) L Monocytes % (Manual) 8 % (1-10) 7 % (1-10) Eosinophils % (Manual) 1 % (0-3) 1 % (0-3) Basophils % (Manual) 0 % (0-2) 0 % (0-2) Band Neutrophils 0 % (0-8) 0 % (0-8) Platelet Estimate Adequate Adequate Platelet Morphology Normal Normal Anisocytosis 1+ 1+ Polychromasia 1+ Hypochromasia 1+ Chemistry Test 07/28/17 06:00 Sodium Level 136 MMOL/L (136-145) Potassium Level 3.6 MMOL/L (3.5-5.1) Chloride Level 106 MMOL/L (98-107) Carbon Dioxide Level 21 MMOL/L (21-32) Anion Gap 9 mmol/L (5-15) Blood Urea Nitrogen 13 mg/dL (7-18) Creatinine 1.6 MG/DL (0.55-1.30) H Estimat Glomerular Filtration Rate 52.2 mL/min (>60) Glucose Level 153 MG/DL (74-106) H Uric Acid 5.2 MG/DL (2.6-7.2) Calcium Level 7.7 MG/DL (8.5-10.1) L Phosphorus Level 2.5 MG/DL (2.5-4.9) Magnesium Level 1.5 MG/DL (1.8-2.4) L Total Bilirubin 0.4 MG/DL (0.2-1.0) Aspartate Amino Transf (AST/SGOT) 227 U/L (15-37) H Alanine Aminotransferase (ALT/SGPT) 121 U/L (12-78) H Alkaline Phosphatase 170 U/L (46-116) H Total Protein 6.5 G/DL (6.4-8.2) Albumin 1.5 G/DL (3.4-5.0) L Globulin 5.0 g/dL Albumin/Globulin Ratio 0.3 (1.0-2.7) L Studies Pre-op Studies: EKG - ST, no acute changes Risk Assessment & Plan Assessment: Right foot wound infection with h/o DM, HTN, obesity, GERD. Patient ate at 7: 30 AM. Plan: GETA, cricoid pressure, rapid sequence Status Change Before Surgery: No Pre-Antibiotics Drug: Patient on antibiotics BRENDAN EASON M.D. Jul 28, 2017 13:56
--- NOTE | 2017-07-28 13:56 | Nephrology Progress Note ---
Assessment/Plan Problem List: (1) Renal failure (ARF), acute on chronic (2) DM2 (diabetes mellitus, type 2) (3) Acute on chronic anemia (4) Diabetic foot ulcer Assessment Renal failure, Mainly Chronic due to DM Cr lower 1.6 Proteinuria, Diabetic Nephropathy, HypoAlbuminemia On going lower exteremity cellulitis / Osteo and high Lactic level- FEVER PERSISTS PVD High Cholestrol Anemia worsenning Plan Plan: Po K transfusion 2D echo- 55% EjFx Kidney Noemi Negative ultrasound of the kidneys. slow hydrate urine studies per orders Subjective ROS Limited/Unobtainable: No Constitutional: Reports: malaise Objective Objective Last 24 Hour Vital Signs Date Time Temp Pulse Resp B/P (MAP) Pulse Ox O2 Delivery O2 Flow Rate FiO2 07/28/17 13:06 98.4 84 17 155/81 98 Room Air 98.4 07/28/17 08:01 97.7 79 17 150/76 98 97.7 07/28/17 07:58 83 07/28/17 04:07 99.1 79 17 150/77 98 99.1 07/28/17 03:37 78 07/27/17 23:55 82 07/27/17 23:50 99.1 78 18 155/84 96 99.1 07/27/17 20:37 99.7 84 17 160/80 96 99.7 07/27/17 20:07 79 07/27/17 16:00 76 07/27/17 16:00 99.5 76 19 149/89 96 Room Air 99.5 Intake and Output 07/27/17 07/28/17 19:00 07:00 Intake Total 967.000 ml 1307.416 ml Output Total 700 ml Balance 267.000 ml 1307.416 ml Intake Oral 472 ml 720 ml IV Total 495.000 ml 587.416 ml Output Urine Total 700 ml # Voids 4 3 Laboratory Tests 07/28/17 06:00: White Blood Count 23.0*H, Red Blood Count 2.59L, Hemoglobin 7.9L, Hematocrit 23.4L, Mean Corpuscular Volume 91, Mean Corpuscular Hemoglobin 30.4, Mean Corpuscular Hemoglobin Concent 33.5, Red Cell Distribution Width 17.7H, Platelet Count 211, Mean Platelet Volume 7.2, Neutrophils (%) (Auto) , Lymphocytes (%) (Auto) , Monocytes (%) (Auto) , Eosinophils (%) (Auto) , Basophils (%) (Auto) , Differential Total Cells Counted 100, Neutrophils % ( Manual) 84H, Lymphocytes % (Manual) 7L, Monocytes % (Manual) 8, Eosinophils % ( Manual) 1, Basophils % (Manual) 0, Band Neutrophils 0, Platelet Estimate Adequate, Platelet Morphology Normal, Anisocytosis 1+, Sodium Level 136, Potassium Level 3.6, Chloride Level 106, Carbon Dioxide Level 21, Anion Gap 9, Blood Urea Nitrogen 13, Creatinine 1.6H, Estimat Glomerular Filtration Rate 52.2 , Glucose Level 153H, Uric Acid 5.2, Calcium Level 7.7L, Phosphorus Level 2.5, Magnesium Level 1.5L, Total Bilirubin 0.4, Aspartate Amino Transf (AST/SGOT) 227H, Alanine Aminotransferase (ALT/SGPT) 121H, Alkaline Phosphatase 170H, Total Protein 6.5, Albumin 1.5L, Globulin 5.0, Albumin/Globulin Ratio 0.3L 07/28/17 12:30: White Blood Count 23.0*H, Red Blood Count 2.65L, Hemoglobin 8.1L, Hematocrit 24.3L, Mean Corpuscular Volume 92, Mean Corpuscular Hemoglobin 30.4, Mean Corpuscular Hemoglobin Concent 33.2, Red Cell Distribution Width 18.0H, Platelet Count 341#, Mean Platelet Volume 6.6, Neutrophils (%) (Auto) , Lymphocytes (%) (Auto) , Monocytes (%) (Auto) , Eosinophils (%) (Auto) , Basophils (%) (Auto) , Differential Total Cells Counted 100, Neutrophils % ( Manual) 89H, Lymphocytes % (Manual) 3L, Monocytes % (Manual) 7, Eosinophils % ( Manual) 1, Basophils % (Manual) 0, Band Neutrophils 0, Platelet Estimate Adequate, Platelet Morphology Normal, Anisocytosis 1+, Polychromasia 1+, Hypochromasia 1+ Height (Feet): 6 Height (Inches): 4.00 Weight (Pounds): 294 General Appearance: no apparent distress Objective no change GRIFFIN ASTORGA Jul 28, 2017 13:56
--- NOTE | 2017-07-28 13:59 | Immediate Post-Op Evaluation ---
Immediate Post-Op Evalulation Immediate Post-Op Evalulation Procedure: Right foot I&D Date of Evaluation: Jul 28, 2017 Time of Evaluation: 15:55 IV Fluids: 550 Blood Pressure Systolic: 144 Blood Pressure Diastolic: 89 Pulse Rate: 99 Respiratory Rate: 28 O2 Sat by Pulse Oximetry: 99 Temperature (Fahrenheit): 98.0 Pain Score (1-10): 0 Nausea: No Vomiting: No Complications No complication Patient Status: awake, patent, extubated, none Hydration Status: adequate BRENDAN EASON M.D. Jul 28, 2017 13:59
[2017-07-28] MEDS ORDERED: Meperidine 50mg/ml Inj(FOR RIGORS ONLY) IVP ONE (14:00)
[2017-07-28] MEDS ORDERED: Meperidine 50mg/ml Inj(FOR RIGORS ONLY) ONE (14:00)
[2017-07-28] MEDS ORDERED: Neostigmine 1mg/ml 10ml Inj ONE (14:00)
[2017-07-28] MEDS ORDERED: fentaNYL 100 mcg/2 mL IV ONE (14:00)
[2017-07-28] MEDS ORDERED: Glycopyrrolate 0.2mg/ml 1ml Vial ONE (14:00)
[2017-07-28] MEDS ORDERED: Propofol 200mg/20ml IV ONE (14:00)
[2017-07-28] MEDS ORDERED: NS Irrig 1000ml ONE (14:00)
[2017-07-28] MEDS ORDERED: Midazolam 2mg/2ml Inj ONE (14:00)
[2017-07-28] MEDS ORDERED: LR 1000ml ONE (14:00)
--- NOTE | 2017-07-28 14:06 | Pre-Procedure Note/Attestation ---
Pre-Procedure Note/Attestation Complete Prior to Procedure Planned Procedure: right Procedure Narrative: incision and drainage with debridement and delayed primary closure right foot Indications for Procedure Pre-Operative Diagnosis: 1) Cellulitis right LE with possible abscess 2) Osteomyelitis seen on CT 3) Sepsis 4) DM foot ulcer Attestation I attest that I discussed the nature of the procedure; its benefits; risks and complications; and alternatives (and the risks and benefits of such alternatives ), prior to the procedure, with the patient (or the patient's legal telecommunications sales representative). I attest that, if there was a reasonable possibility of needing a blood transfusion, the patient (or the patient's legal telecommunications sales representative) was given the [place] Department [employer] Services standardized written summary, pursuant to the Trevon Jinny Blood Safety Act ([place] Health and Safety Code # 1645, as amended). I attest that I re-evaluated the patient just prior to the surgery and that there has been no change in the patient's H&P, except as documented below: Wiliam Bernard DPM Jul 28, 2017 14:06
[2017-07-28] MEDS ORDERED: Bacitracin 50000 Units Vial IRRIG ONE (15:00)
--- NOTE | 2017-07-28 15:47 | Brief Operative Note ---
Immediate Post Operative Note Operative Note Chief Complaint: Dict# [id number] Pre-op Diagnosis: 1) Cellulitis right LE with possible abscess 2) Osteomyelitis seen on CT 3) Sepsis 4) DM foot ulcer Procedure: 1) Incision and drainage deep to fascia 2) Excisional debridement of necrotic tissue to level of bone 3) Delayed primary closure with drain placement Post-op Diagnosis: same as pre-op Surgeon: Wiliam Bernard DPM Laborer Chemical Processing: None Additional Surgeons: None Anesthesiologist: Dr Calzada Anesthesia: general Specimen: yes - bone to path, cultures Complications: none Condition: stable Fluids: per anesthesia Estimated Blood Loss: minimal - 10 Drains: AIDA Tourniquet time: 37 - min Implant(s) used?: No Wiliam Bernard DPM Jul 28, 2017 15:47
[2017-07-28] MEDS ORDERED: Albuterol/Ipratropium 3ml neb HHN PRN (16:00)
--- NOTE | 2017-07-28 16:19 | General Progress Note ---
Assessment/Plan Problem List: (1) Severe sepsis ICD Codes: A41.9 - Sepsis, unspecified organism; R65.20 - Severe sepsis without septic shock SNOMED: 47016053 (2) Cellulitis of right lower extremity ICD Codes: L03.115 - Cellulitis of right lower limb SNOMED: 275942819 (3) Concern for abscess of R foot (4) Likely 1st toe ostemyelitis (5) Acute blood loss anemia ICD Codes: D62 - Acute posthemorrhagic anemia SNOMED: 001803030 (6) Lactic acidosis ICD Codes: E87.2 - Acidosis SNOMED: 71374889 (7) Diabetic foot ulcer ICD Codes: E11.621 - Type 2 diabetes mellitus with foot ulcer; L97.509 - Non- pressure chronic ulcer of other part of unspecified foot with unspecified severity SNOMED: 08744952, 760971323 (8) DM2 (diabetes mellitus, type 2) Assessment & Plan: A1C 9.6 ICD Codes: E11.9 - Type 2 diabetes mellitus without complications SNOMED: 17865890 Qualifiers: (9) Renal failure (ARF), acute on chronic ICD Codes: N17.9 - Acute kidney failure, unspecified; N18.9 - Chronic kidney disease, unspecified SNOMED: 411871645 (10) Acute on chronic anemia (11) Leukopenia ICD Codes: D72.819 - Decreased white blood cell count, unspecified SNOMED: 50422828, 811721320 (12) Hypertension ICD Codes: I10 - Hypertension SNOMED: 80861128 (13) Hyperlipidemia ICD Codes: E78.5 - Hyperlipidemia SNOMED: 02382255 (14) Postoperative fever ICD Codes: R50.82 - Postprocedural fever SNOMED: 566816782 (15) postop fever Status: stable Assessment/Plan Podiatry, ID, hematology, and nephrology consulted s/p 1U pRBC on 07/20/17 s/p 1U pRBC on 07/22/17 s/p 1U pRBC on 07/23/17 s/p 1U pRBC on 07/25/17 Epogen + IV iron per renal F/u stool OB--positive GI consulted s/p EGD and colo on 07/24/17 which showed gastritis, distal esophageal ulcerations w/ esophagitis, hemorrhoids, 1 colonic polyp s/p removal, no active bleeding Hold ACEi and lasix in the setting of CHIQUITA Continue IV vancomycin (07/19-) Cont meropenem (07/24-) Diflucan started per ID s/p zosyn (06/19-07/24) F/u wound culture--shows multiple org, Klebsiella, Enterobacter, Citrobacter, Stephanie CT of right foot noted with possible osteomyelitis and concern for abscess. Unable to get MRI given pt size s/p R partial first ray amputation, and excisional debridement of necrotic tissue to level of bone on 07/22/17 F/u OR culture--shows Acinetobacter baumanii complex F/u path--shows osteomyelitis and gangrene s/p incision and drainage deep to fascia, excisional debridement of necrotic tissue to level of bone, and delayed primary closure with drain placement on 07/28 F/u OR culture PICC placed 07/24/17 F/u venous ultrasound of RLE to r/o DVT--neg F/u arterial duplex-wnl SSI Hold PO hypoglycemic agents Continue home bp meds CM consult for SNF placement DC pending hgb stabilized, and improvement in fevers and WBC DVT Prophylaxis: SCD, HSQ Code Status: Full Hospital Classification Declaration: Based on this initial evaluation, and depending on the patient's clinical course, I anticipate that this patient will require hospitalization for 1-2 days for surgical mgmt and close respiratory/ hemodynamic monitoring. Disposition: Once the patient is stable to leave the hospital, I anticipate the patient will likely be discharged to the following environment: SNF Discussed with patient/family, nursing staff, SW/CM, podiatry, ID, renal regarding clinical status, treatment course, and disposition planning. D/w GI re scope results. D/w ID re abx. D/w podiatry re wound infection Time of note may not reflect time of encounter. Subjective Date patient seen: Jul 28, 2017 ROS Limited/Unobtainable: No Constitutional: Reports: no symptoms HEENT: Reports: no symptoms Cardiovascular: Reports: no symptoms Respiratory: Reports: no symptoms Gastrointestinal/Abdominal: Reports: no symptoms Genitourinary: Reports: no symptoms Neurologic/Psychiatric: Reports: no symptoms Endocrine: Reports: no symptoms Hematologic/Lymphatic: Reports: no symptoms Allergies: Coded Allergies: No Known Allergies (Verified , 11/14/10) Subjective No acute o/n events Afebrile s/p EGD and colo which showed gastritis, distal esophageal ulcerations w/ esophagitis, hemorrhoids, 1 colonic polyp s/p removal, no active bleeding s/p R partial first ray amputation, and excisional debridement of necrotic tissue to level of bone POD#6 s/p incision and drainage deep to fascia, excisional debridement of necrotic tissue to level of bone, and delayed primary closure with drain placement POD#0 C/o R foot pain. Sarah f/c, n/v, d/c, chest pain, SOB, abd pain Objective Last 24 Hour Vital Signs Date Time Temp Pulse Resp B/P (MAP) Pulse Ox O2 Delivery O2 Flow Rate FiO2 07/28/17 15:55 91 26 161/79 99 Simple Mask 6.0 07/28/17 15:50 91 23 145/79 99 Simple Mask 6.0 07/28/17 15:47 208.4 99 28 99 07/28/17 15:45 98.0 98 32 162/75 97 Simple Mask 6.0 98.0 07/28/17 13:06 98.4 84 17 155/81 98 Room Air 98.4 07/28/17 08:01 97.7 79 17 150/76 98 97.7 07/28/17 07:58 83 07/28/17 04:07 99.1 79 17 150/77 98 99.1 07/28/17 03:37 78 07/27/17 23:55 82 07/27/17 23:50 99.1 78 18 155/84 96 99.1 07/27/17 20:37 99.7 84 17 160/80 96 99.7 07/27/17 20:07 79 Intake and Output 07/27/17 07/28/17 19:00 07:00 Intake Total 967.000 ml 1307.416 ml Output Total 700 ml Balance 267.000 ml 1307.416 ml Intake Oral 472 ml 720 ml IV Total 495.000 ml 587.416 ml Output Urine Total 700 ml # Voids 4 3 Laboratory Tests 07/28/17 06:00: White Blood Count 23.0*H, Red Blood Count 2.59L, Hemoglobin 7.9L, Hematocrit 23.4L, Mean Corpuscular Volume 91, Mean Corpuscular Hemoglobin 30.4, Mean Corpuscular Hemoglobin Concent 33.5, Red Cell Distribution Width 17.7H, Platelet Count 211, Mean Platelet Volume 7.2, Neutrophils (%) (Auto) , Lymphocytes (%) (Auto) , Monocytes (%) (Auto) , Eosinophils (%) (Auto) , Basophils (%) (Auto) , Differential Total Cells Counted 100, Neutrophils % ( Manual) 84H, Lymphocytes % (Manual) 7L, Monocytes % (Manual) 8, Eosinophils % ( Manual) 1, Basophils % (Manual) 0, Band Neutrophils 0, Platelet Estimate Adequate, Platelet Morphology Normal, Anisocytosis 1+, Sodium Level 136, Potassium Level 3.6, Chloride Level 106, Carbon Dioxide Level 21, Anion Gap 9, Blood Urea Nitrogen 13, Creatinine 1.6H, Estimat Glomerular Filtration Rate 52.2 , Glucose Level 153H, Uric Acid 5.2, Calcium Level 7.7L, Phosphorus Level 2.5, Magnesium Level 1.5L, Total Bilirubin 0.4, Aspartate Amino Transf (AST/SGOT) 227H, Alanine Aminotransferase (ALT/SGPT) 121H, Alkaline Phosphatase 170H, Total Protein 6.5, Albumin 1.5L, Globulin 5.0, Albumin/Globulin Ratio 0.3L 07/28/17 12:30: White Blood Count 23.0*H, Red Blood Count 2.65L, Hemoglobin 8.1L, Hematocrit 24.3L, Mean Corpuscular Volume 92, Mean Corpuscular Hemoglobin 30.4, Mean Corpuscular Hemoglobin Concent 33.2, Red Cell Distribution Width 18.0H, Platelet Count 341#, Mean Platelet Volume 6.6, Neutrophils (%) (Auto) , Lymphocytes (%) (Auto) , Monocytes (%) (Auto) , Eosinophils (%) (Auto) , Basophils (%) (Auto) , Differential Total Cells Counted 100, Neutrophils % ( Manual) 89H, Lymphocytes % (Manual) 3L, Monocytes % (Manual) 7, Eosinophils % ( Manual) 1, Basophils % (Manual) 0, Band Neutrophils 0, Platelet Estimate Adequate, Platelet Morphology Normal, Anisocytosis 1+, Polychromasia 1+, Hypochromasia 1+ Height (Feet): 6 Height (Inches): 4.00 Weight (Pounds): 294 Objective General Appearance: no apparent distress, alert HEENT: normocephalic, atraumatic Neck: non-tender, normal alignment, supple Respiratory/Chest: chest wall non-tender, lungs clear, normal breath sounds Cardiovascular/Chest: normal peripheral pulses, normal rate, regular rhythm Abdomen: normal bowel sounds, non tender, soft Skin Exam: other - right lower extremity erythema, edema, and TTP. right foot dressing c/d/i Neurologic: gas tester II-XII grossly normal, no motor/sensory deficits, alert, oriented x 3 Js Garcia M.D. Jul 28, 2017 16:18
[2017-07-28] MEDS: Dyna-Hex 2% Top Sol 2oz TOPIC SCH (20:01)
[2017-07-28] MEDS: Epogen (for non ESRD use) SUBQ SCH (21:15)
--- NOTE | 2017-07-28 21:15 | Operative Note - Dictated ---
DATE OF OPERATION: 07/28/2017 SURGEON: Wiliam Bernard D.P.M. STEAK TENDERIZER MACHINE SURGEON: None. ANESTHESIOLOGIST: Trevon Calzada M.D. TYPE OF ANESTHESIA: General. PREOPERATIVE DIAGNOSES: 1. Cellulitis, right lower extremity, possible abscess. 2. Osteomyelitis. 3. Sepsis. 4. Diabetic foot ulcer. POSTOPERATIVE DIAGNOSES: 1. Cellulitis right lower extremity, possible abscess. 2. Osteomyelitis. 3. Sepsis. 4. Diabetic foot ulcer. PROCEDURE PERFORMED: 1. Incision and drainage deep to the fascia. 2. Excisional debridement of necrotic tissue to the level of bone. 3. Delayed primary closure with drain placement. SPECIMENS: Bone sent to pathology. Cultures were taken, aerobic and anaerobic with sensitivities. ANTIBIOTICS: He is getting antibiotics from the floor per ID. COMPLICATIONS: None. CONDITION: PACU, stable. ESTIMATED BLOOD LOSS: 10 mL. DRAINS: A AIDA 7 round was placed. TOURNIQUET TIME: 37 minutes. IMPLANTS: No implants were used. OPERATIVE PROCEDURE: The patient was transported to the operating room and placed on the operating table in supine position. Anesthesiologist then began general anesthesia. Right lower extremity was scrubbed, prepped, and draped in the usual aseptic manner. Right foot was elevated. Tourniquet was inflated to 75. After anesthesia check, remaining sutures and augie were removed. Surgicel was noted with some drainage around it. This was all evacuated. Area was debrided down to healthy bleeding tissue. Remaining bone stump was resected to muscle level utilizing a sagittal saw. This remaining bone was submitted to pathology. Deep cultures were taken. Wound was flushed. Gloves were changed. AIDA drain tube was placed and stitched and deep structures were coapted utilizing 2-0 Vicryl. Skin was coapted utilizing augie. Dressings were applied. The patient tolerated the procedure and anesthesia well and was transported to the recovery room in stable condition. We will send the patient back up to the floor to resume preoperative medications and diet. Continue non-weight bearing. We will monitor AIDA output and monitor incision. Wiliam Bernard D.P.M. DR: ZAC JOB#: [id number] CC:
[2017-07-28] MEDS: Levemir Flexpen SUBQ SCH (22:12)
--- NOTE | 2017-07-28 22:21 | General Progress Note ---
Assessment/Plan Status: stable Assessment/Plan 1. Depression. 2. Anxiety. PLAN: We will continue current medications. Provide the patient with supportive therapy and reality orientation. We will continue to follow and readjust the medications. Subjective Date patient seen: Jul 28, 2017 Neurologic/Psychiatric: Reports: anxiety, depressed, emotional problems Allergies: Coded Allergies: No Known Allergies (Verified , 11/14/10) Objective Last 24 Hour Vital Signs Date Time Temp Pulse Resp B/P (MAP) Pulse Ox O2 Delivery O2 Flow Rate FiO2 07/28/17 19:00 98 Nasal Cannula 2.0 28 07/28/17 19:00 Nasal Cannula 2.0 28 07/28/17 17:42 98.6 83 18 125/69 100 Nasal Cannula 3.0 98.6 07/28/17 17:16 83 07/28/17 17:08 98.6 07/28/17 16:55 98.6 87 18 143/66 100 Nasal Cannula 3.0 98.6 07/28/17 16:40 85 21 146/63 99 Nasal Cannula 3.0 07/28/17 16:38 98.0 07/28/17 16:25 81 24 150/70 99 Simple Mask 6.0 07/28/17 16:15 83 27 150/70 99 Simple Mask 6.0 07/28/17 16:05 83 27 154/72 99 Simple Mask 6.0 07/28/17 15:55 91 26 161/79 99 Simple Mask 6.0 07/28/17 15:50 91 23 145/79 99 Simple Mask 6.0 07/28/17 15:47 208.4 99 28 99 07/28/17 15:45 98.0 98 32 162/75 97 Simple Mask 6.0 98.0 07/28/17 13:06 98.4 84 17 155/81 98 Room Air 98.4 07/28/17 08:01 97.7 79 17 150/76 98 97.7 07/28/17 07:58 83 07/28/17 04:07 99.1 79 17 150/77 98 99.1 07/28/17 03:37 78 07/27/17 23:55 82 07/27/17 23:50 99.1 78 18 155/84 96 99.1 Intake and Output 07/27/17 07/28/17 19:00 07:00 Intake Total 967.000 ml 1307.416 ml Output Total 700 ml Balance 267.000 ml 1307.416 ml Intake Oral 472 ml 720 ml IV Total 495.000 ml 587.416 ml Output Urine Total 700 ml # Voids 4 3 Laboratory Tests 07/28/17 06:00: White Blood Count 23.0*H, Red Blood Count 2.59L, Hemoglobin 7.9L, Hematocrit 23.4L, Mean Corpuscular Volume 91, Mean Corpuscular Hemoglobin 30.4, Mean Corpuscular Hemoglobin Concent 33.5, Red Cell Distribution Width 17.7H, Platelet Count 211, Mean Platelet Volume 7.2, Neutrophils (%) (Auto) , Lymphocytes (%) (Auto) , Monocytes (%) (Auto) , Eosinophils (%) (Auto) , Basophils (%) (Auto) , Differential Total Cells Counted 100, Neutrophils % ( Manual) 84H, Lymphocytes % (Manual) 7L, Monocytes % (Manual) 8, Eosinophils % ( Manual) 1, Basophils % (Manual) 0, Band Neutrophils 0, Platelet Estimate Adequate, Platelet Morphology Normal, Anisocytosis 1+, Sodium Level 136, Potassium Level 3.6, Chloride Level 106, Carbon Dioxide Level 21, Anion Gap 9, Blood Urea Nitrogen 13, Creatinine 1.6H, Estimat Glomerular Filtration Rate 52.2 , Glucose Level 153H, Uric Acid 5.2, Calcium Level 7.7L, Phosphorus Level 2.5, Magnesium Level 1.5L, Total Bilirubin 0.4, Aspartate Amino Transf (AST/SGOT) 227H, Alanine Aminotransferase (ALT/SGPT) 121H, Alkaline Phosphatase 170H, Total Protein 6.5, Albumin 1.5L, Globulin 5.0, Albumin/Globulin Ratio 0.3L 07/28/17 12:30: White Blood Count 23.0*H, Red Blood Count 2.65L, Hemoglobin 8.1L, Hematocrit 24.3L, Mean Corpuscular Volume 92, Mean Corpuscular Hemoglobin 30.4, Mean Corpuscular Hemoglobin Concent 33.2, Red Cell Distribution Width 18.0H, Platelet Count 341#, Mean Platelet Volume 6.6, Neutrophils (%) (Auto) , Lymphocytes (%) (Auto) , Monocytes (%) (Auto) , Eosinophils (%) (Auto) , Basophils (%) (Auto) , Differential Total Cells Counted 100, Neutrophils % ( Manual) 89H, Lymphocytes % (Manual) 3L, Monocytes % (Manual) 7, Eosinophils % ( Manual) 1, Basophils % (Manual) 0, Band Neutrophils 0, Platelet Estimate Adequate, Platelet Morphology Normal, Anisocytosis 1+, Polychromasia 1+, Hypochromasia 1+ Height (Feet): 6 Height (Inches): 4.00 Weight (Pounds): 294 General Appearance: no apparent distress, alert Neurologic: alert, oriented x 3, responsive, depressed affect Kory Bales M.D. Jul 28, 2017 22:21
--- NOTE | 2017-07-28 22:22 | Psych Consult Progress Note ---
Psych Consult Progress Note Consult 07/27/17 Vital Signs Last 24 Hour Vital Signs Date Time Temp Pulse Resp B/P (MAP) Pulse Ox O2 Delivery O2 Flow Rate FiO2 07/28/17 19:00 98 Nasal Cannula 2.0 28 07/28/17 19:00 Nasal Cannula 2.0 28 07/28/17 17:42 98.6 83 18 125/69 100 Nasal Cannula 3.0 98.6 07/28/17 17:16 83 07/28/17 17:08 98.6 07/28/17 16:55 98.6 87 18 143/66 100 Nasal Cannula 3.0 98.6 07/28/17 16:40 85 21 146/63 99 Nasal Cannula 3.0 07/28/17 16:38 98.0 07/28/17 16:25 81 24 150/70 99 Simple Mask 6.0 07/28/17 16:15 83 27 150/70 99 Simple Mask 6.0 07/28/17 16:05 83 27 154/72 99 Simple Mask 6.0 07/28/17 15:55 91 26 161/79 99 Simple Mask 6.0 07/28/17 15:50 91 23 145/79 99 Simple Mask 6.0 07/28/17 15:47 208.4 99 28 99 07/28/17 15:45 98.0 98 32 162/75 97 Simple Mask 6.0 98.0 07/28/17 13:06 98.4 84 17 155/81 98 Room Air 98.4 07/28/17 08:01 97.7 79 17 150/76 98 97.7 07/28/17 07:58 83 07/28/17 04:07 99.1 79 17 150/77 98 99.1 07/28/17 03:37 78 07/27/17 23:55 82 07/27/17 23:50 99.1 78 18 155/84 96 99.1 Labs Laboratory Tests Test 07/28/17 06:00 07/28/17 12:30 White Blood Count 23.0 K/UL (4.8-10.8) *H 23.0 K/UL (4.8-10.8) *H Red Blood Count 2.59 M/UL (4.70-6.10) L 2.65 M/UL (4.70-6.10) L Hemoglobin 7.9 G/DL (14.2-18.0) L 8.1 G/DL (14.2-18.0) L Hematocrit 23.4 % (42.0-52.0) L 24.3 % (42.0-52.0) L Mean Corpuscular Volume 91 FL (80-99) 92 FL (80-99) Mean Corpuscular Hemoglobin 30.4 PG (27.0-31.0) 30.4 PG (27.0-31.0) Mean Corpuscular Hemoglobin Concent 33.5 G/DL (32.0-36.0) 33.2 G/DL (32.0-36.0) Red Cell Distribution Width 17.7 % (11.6-14.8) H 18.0 % (11.6-14.8) H Platelet Count 211 K/UL (150-450) 341 K/UL (150-450) # Mean Platelet Volume 7.2 FL (6.5-10.1) 6.6 FL (6.5-10.1) Neutrophils (%) (Auto) % (45.0-75.0) % (45.0-75.0) Lymphocytes (%) (Auto) % (20.0-45.0) % (20.0-45.0) Monocytes (%) (Auto) % (1.0-10.0) % (1.0-10.0) Eosinophils (%) (Auto) % (0.0-3.0) % (0.0-3.0) Basophils (%) (Auto) % (0.0-2.0) % (0.0-2.0) Differential Total Cells Counted 100 100 Neutrophils % (Manual) 84 % (45-75) H 89 % (45-75) H Lymphocytes % (Manual) 7 % (20-45) L 3 % (20-45) L Monocytes % (Manual) 8 % (1-10) 7 % (1-10) Eosinophils % (Manual) 1 % (0-3) 1 % (0-3) Basophils % (Manual) 0 % (0-2) 0 % (0-2) Band Neutrophils 0 % (0-8) 0 % (0-8) Platelet Estimate Adequate Adequate Platelet Morphology Normal Normal Anisocytosis 1+ 1+ Sodium Level 136 MMOL/L (136-145) Potassium Level 3.6 MMOL/L (3.5-5.1) Chloride Level 106 MMOL/L (98-107) Carbon Dioxide Level 21 MMOL/L (21-32) Anion Gap 9 mmol/L (5-15) Blood Urea Nitrogen 13 mg/dL (7-18) Creatinine 1.6 MG/DL (0.55-1.30) H Estimat Glomerular Filtration Rate 52.2 mL/min (>60) Glucose Level 153 MG/DL (74-106) H Uric Acid 5.2 MG/DL (2.6-7.2) Calcium Level 7.7 MG/DL (8.5-10.1) L Phosphorus Level 2.5 MG/DL (2.5-4.9) Magnesium Level 1.5 MG/DL (1.8-2.4) L Total Bilirubin 0.4 MG/DL (0.2-1.0) Aspartate Amino Transf (AST/SGOT) 227 U/L (15-37) H Alanine Aminotransferase (ALT/SGPT) 121 U/L (12-78) H Alkaline Phosphatase 170 U/L (46-116) H Total Protein 6.5 G/DL (6.4-8.2) Albumin 1.5 G/DL (3.4-5.0) L Globulin 5.0 g/dL Albumin/Globulin Ratio 0.3 (1.0-2.7) L Polychromasia 1+ Hypochromasia 1+ Medications Current Medications Medications (Trade) Dose Ordered Sig/Xiao Route PRN Reason Start Time Stop Time Status Last Admin Dose Admin Acetaminophen (Tylenol) 650 mg Q4H PRN ORAL Mild Pain/Temp > 100.5 07/20/17 08:15 08/19/17 08:14 07/26/17 20:43 Cetylpyridinium Chloride (Cepacol) 1 lozg EVERY 2 HOURS PRN ABDULKADIR To Patient Comfort 07/28/17 20:45 08/27/17 20:44 07/28/17 22:10 Chlorhexidine Gluconate (Joyce-Hex 2%) 1 applic DAILY@2000 TOPIC 07/25/17 20:00 08/24/17 19:59 07/28/17 20:01 Dextrose (Dextrose 50%) STAT PRN IV Hypoglycemia 07/20/17 05:15 08/19/17 05:14 07/24/17 11:41 Docusate Sodium (Colace) 100 mg THREE TIMES A DAY ORAL 07/22/17 13:00 08/21/17 12:59 07/28/17 18:02 Epoetin Norberto (Procrit (for non ESRD use)) 10,000 units FRI-FRI-FRI SUBQ 07/23/17 21:00 08/22/17 20:59 07/28/17 21:15 Ergocalciferol (Drisdol) 50,000 intlu QWEEK ORAL 07/22/17 12:30 08/21/17 12:29 07/22/17 13:00 Heparin Sodium (Porcine) (Heparin 5000 units/ml) 5,000 units EVERY 12 HOURS SUBQ 07/23/17 09:00 08/22/17 08:59 07/28/17 21:18 Hydralazine HCl (Apresoline) 25 mg Q4H PRN ORAL for sbp>160 07/25/17 18:00 08/24/17 17:59 Insulin Aspart (NovoLOG) BEFORE MEALS AND HS SUBQ 07/20/17 06:30 08/19/17 06:29 07/28/17 21:18 Insulin Detemir (Levemir) 35 units BEDTIME SUBQ 07/24/17 21:00 08/23/17 20:59 07/28/17 22:12 Meropenem 1 gm/ Sodium Chloride 110 ml @ 220 mls/hr Q8H IVPB 07/28/17 02:00 08/02/17 01:59 07/28/17 18:02 Pantoprazole (Protonix) 40 mg EVERY 12 HOURS ORAL 07/21/17 15:30 08/20/17 15:29 07/28/17 21:15 Vancomycin HCl (Vanco rx to dose) 1 ea DAILY PRN MISC Per rx protocol 07/20/17 06:00 08/19/17 05:59 Vancomycin HCl 1 gm/Dextrose 275 ml @ 183.708 mls/hr Q12H IVPB 07/27/17 08:00 08/01/17 07:59 07/28/17 20:01 Problems: (1) Hyperkalemia Status: Acute (2) Lung nodule Status: Acute (3) Pancreatitis Status: Acute (4) Osteomyelitis Status: Acute (5) Severe sepsis Status: Acute (6) Anemia Status: Acute (7) bliateral lower extremities (8) Diabetes Status: Acute (9) Hyperlipidemia Status: Acute (10) Hypertension Status: Acute (11) Cellulitis and abscess of foot Status: Acute (12) Renal failure (ARF), acute on chronic Status: Acute (13) Lactic acidosis (14) Leukopenia (15) DM2 (diabetes mellitus, type 2) (16) Acute on chronic anemia (17) Likely 1st toe ostemyelitis (18) Cellulitis of right lower extremity (19) Concern for abscess of R foot (20) Diabetic foot ulcer (21) Acute blood loss anemia (22) Abdominal pain (23) Postoperative fever (24) postop fever Assessment/Plan Problem List: (1) Hyperkalemia (2) Lung nodule (3) Pancreatitis (4) Osteomyelitis (5) Severe sepsis (6) Anemia (7) bliateral lower extremities (8) Diabetes (9) Hyperlipidemia (10) Hypertension (11) Cellulitis and abscess of foot (12) Renal failure (ARF), acute on chronic (13) Lactic acidosis (14) Leukopenia (15) DM2 (diabetes mellitus, type 2) (16) Acute on chronic anemia (17) Likely 1st toe ostemyelitis (18) Cellulitis of right lower extremity (19) Concern for abscess of R foot (20) Diabetic foot ulcer (21) Acute blood loss anemia (22) Abdominal pain (23) Postoperative fever (24) postop fever Status: stable, progressing Assessment/Plan 1. Depression. 2. Anxiety. PLAN: We will continue current medications. Provide the patient with supportive therapy and reality orientation. We will continue to follow and readjust the medications. Kory Bales M.D. Jul 28, 2017 22:22
--- NOTE | 2017-07-28 22:29 | Infectious Diseases Prog Note ---
Assessment/Plan Assessment/Plan ASSESSMENT AND PLAN: 1. right leg/foot cellulitis, ? abscess, right foot great toe/1st toes infected wound and osteomyelitis on CT scan, s/p debridement by podiatry x 2, sepsis, fevers, leukocytosis, ? fungemia, thrush, c.diff. 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 Weinstein - urine culture likely colonizer, ua benign 2. Sepsis, fevers and leukocytosis - continue abx, check cultures, chest x-ray with chf/edema 3. Elevated creatinine, chronic renal failure. 4. Anemia. 5. Diabetes. 6. Hypertension. 7. Hyperlipidemia. 8. Blood sugar, blood pressure, and lipid treatment per primary. 9. History of ulcers. 10. Wound care protocol. 11. No known allergies. 12. Social history negative. 13. Family history noncontributory. 14. MAR was noted. 15. Continue treatment per primary consultants. 16. Podiatry followup. 17. Notes and records were noted. 18. Orders were entered. 19. Case discussed with RN. Subjective Constitutional: Reports: fatigue, Denies: fever HEENT: Denies: congestion Respiratory: Denies: shortness of breath Cardiovascular: Denies: chest pain Gastrointestinal/Abdominal: Denies: nausea, vomiting, diarrhea Genitourinary: Reports: other - no meyer, Denies: dysuria Neurologic: Denies: headache Psychiatric: Denies: depression Skin: Denies: rash Endocrine: Denies: feels warm Hematologic: Denies: bleeding Musculoskeletal: Denies: pain Allergies: Coded Allergies: No Known Allergies (Verified , 11/14/10) Objective Vital Signs Last 24 Hour Vital Signs Date Time Temp Pulse Resp B/P (MAP) Pulse Ox O2 Delivery O2 Flow Rate FiO2 07/28/17 19:00 98 Nasal Cannula 2.0 28 07/28/17 19:00 Nasal Cannula 2.0 28 07/28/17 17:42 98.6 83 18 125/69 100 Nasal Cannula 3.0 98.6 3/5/18 17:16 83 07/28/17 17:08 98.6 07/28/17 16:55 98.6 87 18 143/66 100 Nasal Cannula 3.0 98.6 07/28/17 16:40 85 21 146/63 99 Nasal Cannula 3.0 07/28/17 16:38 98.0 07/28/17 16:25 81 24 150/70 99 Simple Mask 6.0 07/28/17 16:15 83 27 150/70 99 Simple Mask 6.0 07/28/17 16:05 83 27 154/72 99 Simple Mask 6.0 07/28/17 15:55 91 26 161/79 99 Simple Mask 6.0 07/28/17 15:50 91 23 145/79 99 Simple Mask 6.0 07/28/17 15:47 208.4 99 28 99 07/28/17 15:45 98.0 98 32 162/75 97 Simple Mask 6.0 98.0 07/28/17 13:06 98.4 84 17 155/81 98 Room Air 98.4 07/28/17 08:01 97.7 79 17 150/76 98 97.7 07/28/17 07:58 83 07/28/17 04:07 99.1 79 17 150/77 98 99.1 07/28/17 03:37 78 07/27/17 23:55 82 07/27/17 23:50 99.1 78 18 155/84 96 99.1 Height (Feet): 6 Height (Inches): 4.00 Weight (Pounds): 294 General Appearance: no acute distress HEENT: normocephalic, atraumatic, anicteric, mucous membranes moist, thrush Respiratory/Chest: lungs clear, normal breath sounds, no respiratory distress, no accessory muscle use Cardiovascular: normal rate, regular rhythm, no gallop/murmur, no JVD Abdomen: normal bowel sounds, soft, non tender, no organomegaly Genitourinary: other - no meyer Extremities: other - right foot coverd, + right leg swelling Skin: no rash 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 Erosive changes of the first distal phalanx and possibly first metatarsal head. This is consistent with osteomyelitis. Postoperative changes in the base of the first proximal phalanx. Chronic changes in the fifth metatarsal phalangeal joint. This may be surgical as well. The above report is concordant with preliminary reading by [facility] . 07/25 - Chest - x-ray with chf and edema Microbiology Date/Time Source Procedure Growth Status 07/24/17 18:15 Blood Blood Culture - Preliminary NO GROWTH AFTER 72 HOURS Resulted 07/20/17 01:55 Nasal Nares MRSA Culture - Final NO METHICILLIN RESISTANT STAPH AUREUS... Complete 07/26/17 01:04 Stool Clostridium difficile Toxin Assay - Final Complete 07/25/17 04:50 Urine,Clean Catch Urine Culture - Final Jerri Parapsilosis Complete 07/22/17 09:00 Toe Right Big Gram Stain - Final Complete 07/22/17 09:00 Aerobic Culture - Final Acinetobacter Baumannii Complx Complete 07/22/17 09:00 Toe Right Big Anaerobic Culture - Final NO ANAEROBES ISOLATED Complete Microbiology Date/Time Source Procedure Growth Status 07/26/17 01:04 Stool Clostridium difficile Toxin Assay - Final Complete Laboratory Tests Test 07/28/17 06:00 07/28/17 12:30 White Blood Count 23.0 K/UL (4.8-10.8) *H 23.0 K/UL (4.8-10.8) *H Red Blood Count 2.59 M/UL (4.70-6.10) L 2.65 M/UL (4.70-6.10) L Hemoglobin 7.9 G/DL (14.2-18.0) L 8.1 G/DL (14.2-18.0) L Hematocrit 23.4 % (42.0-52.0) L 24.3 % (42.0-52.0) L Mean Corpuscular Volume 91 FL (80-99) 92 FL (80-99) Mean Corpuscular Hemoglobin 30.4 PG (27.0-31.0) 30.4 PG (27.0-31.0) Mean Corpuscular Hemoglobin Concent 33.5 G/DL (32.0-36.0) 33.2 G/DL (32.0-36.0) Red Cell Distribution Width 17.7 % (11.6-14.8) H 18.0 % (11.6-14.8) H Platelet Count 211 K/UL (150-450) 341 K/UL (150-450) # Mean Platelet Volume 7.2 FL (6.5-10.1) 6.6 FL (6.5-10.1) Neutrophils (%) (Auto) % (45.0-75.0) % (45.0-75.0) Lymphocytes (%) (Auto) % (20.0-45.0) % (20.0-45.0) Monocytes (%) (Auto) % (1.0-10.0) % (1.0-10.0) Eosinophils (%) (Auto) % (0.0-3.0) % (0.0-3.0) Basophils (%) (Auto) % (0.0-2.0) % (0.0-2.0) Differential Total Cells Counted 100 100 Neutrophils % (Manual) 84 % (45-75) H 89 % (45-75) H Lymphocytes % (Manual) 7 % (20-45) L 3 % (20-45) L Monocytes % (Manual) 8 % (1-10) 7 % (1-10) Eosinophils % (Manual) 1 % (0-3) 1 % (0-3) Basophils % (Manual) 0 % (0-2) 0 % (0-2) Band Neutrophils 0 % (0-8) 0 % (0-8) Platelet Estimate Adequate Adequate Platelet Morphology Normal Normal Anisocytosis 1+ 1+ Sodium Level 136 MMOL/L (136-145) Potassium Level 3.6 MMOL/L (3.5-5.1) Chloride Level 106 MMOL/L (98-107) Carbon Dioxide Level 21 MMOL/L (21-32) Anion Gap 9 mmol/L (5-15) Blood Urea Nitrogen 13 mg/dL (7-18) Creatinine 1.6 MG/DL (0.55-1.30) H Estimat Glomerular Filtration Rate 52.2 mL/min (>60) Glucose Level 153 MG/DL (74-106) H Uric Acid 5.2 MG/DL (2.6-7.2) Calcium Level 7.7 MG/DL (8.5-10.1) L Phosphorus Level 2.5 MG/DL (2.5-4.9) Magnesium Level 1.5 MG/DL (1.8-2.4) L Total Bilirubin 0.4 MG/DL (0.2-1.0) Aspartate Amino Transf (AST/SGOT) 227 U/L (15-37) H Alanine Aminotransferase (ALT/SGPT) 121 U/L (12-78) H Alkaline Phosphatase 170 U/L (46-116) H Total Protein 6.5 G/DL (6.4-8.2) Albumin 1.5 G/DL (3.4-5.0) L Globulin 5.0 g/dL Albumin/Globulin Ratio 0.3 (1.0-2.7) L Polychromasia 1+ Hypochromasia 1+ Current Medications Medications (Trade) Dose Ordered Sig/Xiao Route PRN Reason Start Time Stop Time Status Last Admin Dose Admin Acetaminophen (Tylenol) 650 mg Q4H PRN ORAL Mild Pain/Temp > 100.5 07/20/17 08:15 08/19/17 08:14 07/26/17 20:43 Cetylpyridinium Chloride (Cepacol) 1 lozg EVERY 2 HOURS PRN ABDULKADIR To Patient Comfort 07/28/17 20:45 08/27/17 20:44 07/28/17 22:10 Chlorhexidine Gluconate (Joyce-Hex 2%) 1 applic DAILY@1999 TOPIC 07/25/17 20:00 08/24/17 19:59 07/28/17 20:01 Dextrose (Dextrose 50%) STAT PRN IV Hypoglycemia 07/20/17 05:15 08/19/17 05:14 07/24/17 11:41 Docusate Sodium (Colace) 100 mg THREE TIMES A DAY ORAL 07/22/17 13:00 08/21/17 12:59 07/28/17 18:02 Epoetin Norberto (Procrit (for non ESRD use)) 10,000 units FRI-FRI-FRI SUBQ 07/23/17 21:00 08/22/17 20:59 07/28/17 21:15 Ergocalciferol (Drisdol) 50,000 intlu QWEEK ORAL 07/22/17 12:30 08/21/17 12:29 07/22/17 13:00 Heparin Sodium (Porcine) (Heparin 5000 units/ml) 5,000 units EVERY 12 HOURS SUBQ 07/23/17 09:00 08/22/17 08:59 07/28/17 21:18 Hydralazine HCl (Apresoline) 25 mg Q4H PRN ORAL for sbp>160 07/25/17 18:00 08/24/17 17:59 Insulin Aspart (NovoLOG) BEFORE MEALS AND HS SUBQ 07/20/17 06:30 08/19/17 06:29 07/28/17 21:18 Insulin Detemir (Levemir) 35 units BEDTIME SUBQ 07/24/17 21:00 08/23/17 20:59 07/28/17 22:12 Meropenem 1 gm/ Sodium Chloride 110 ml @ 220 mls/hr Q8H IVPB 07/28/17 02:00 08/02/17 01:59 07/28/17 18:02 Pantoprazole (Protonix) 40 mg EVERY 12 HOURS ORAL 07/21/17 15:30 08/20/17 15:29 07/28/17 21:15 Vancomycin HCl (Vanco rx to dose) 1 ea DAILY PRN MISC Per rx protocol 07/20/17 06:00 08/19/17 05:59 Vancomycin HCl 1 gm/Dextrose 275 ml @ 183.708 mls/hr Q12H IVPB 07/27/17 08:00 08/01/17 07:59 07/28/17 20:01 ESE HARO 5, 2018 22:29
--- NOTE | 2017-07-28 23:31 | General Progress Note ---
Assessment/Plan Status: unchanged Assessment/Plan #. Myelodysplasia based on most recent flow cytometry completed on 07/28/17 --> Anemia workup reviewed. --> Iron 16, TIBC 198, % sat 8, Folate 13.4, B12 637, Ferritin 308 --> Iron levels are low. --> Received blood transfusion yesterday, hgb levels remain low but improving after prbc. --> Occult blood has been found. Consider GI services and recs. --> S/P EGD and colonoscopy revealing gastritis, distal esophageal ulcerations w / esophagitis, and hemorrhoids --> Spoke to Dr. Walters and Dr. España, do not recommend a bone marrow biopsy at this time, would yield minimal further info #. Leukocytosis, likely secondary to underlying infection from osteomyelitis --> HIV/Hep panel are both negative. --> Has worsened past few days. Continue to monitor closely. --> On abx. ID following. #. Lactic acidosis secondary to sepsis from underlying infection. --> Continue to monitor. #. Diabetes mellitus, on insulin sliding scale. Blood sugar control as needed. #. Right big toe osteomyelitis, to be seen by the [employer] as well as surgical team. #. Sepsis. Subjective Date patient seen: Jul 28, 2017 Constitutional: Denies: no symptoms, chills, diaphoresis, fever, malaise, weakness, other HEENT: Denies: no symptoms, eye pain, blurred vision, tearing, double vision, ear pain, ear discharge, nose pain, nose congestion, throat pain, throat swelling, mouth pain, mouth swelling, other Cardiovascular: Denies: no symptoms, chest pain, edema, irregular heart rate, lightheadedness, palpitations, syncope, other Respiratory: Denies: no symptoms, cough, orthopnea, shortness of breath, SOB with excertion, SOB at rest, sputum, stridor, wheezing, other Gastrointestinal/Abdominal: Denies: no symptoms, abdomen distended, abdominal pain, black stools, tarry stools, blood in stool, constipated, diarrhea, difficulty swallowing, nausea, poor appetite, poor fluid intake, rectal bleeding , vomiting, other Genitourinary: Denies: no symptoms, burning, discharge, frequency, flank pain, hematuria, incontinence, pain, urgency, other Hematologic/Lymphatic: Reports: anemia Allergies: Coded Allergies: No Known Allergies (Verified , 11/14/10) Subjective Leukocytosis has worsened from yesterday. Cont meds and treatment. Objective Last 24 Hour Vital Signs Date Time Temp Pulse Resp B/P (MAP) Pulse Ox O2 Delivery O2 Flow Rate FiO2 07/28/17 20:00 99.7 84 22 154/76 98 Nasal Cannula 3.0 99.7 07/28/17 20:00 84 07/28/17 19:00 98 Nasal Cannula 2.0 28 07/28/17 19:00 Nasal Cannula 2.0 28 07/28/17 17:42 98.6 83 18 125/69 100 Nasal Cannula 3.0 98.6 07/28/17 17:16 83 07/28/17 17:08 98.6 07/28/17 16:55 98.6 87 18 143/66 100 Nasal Cannula 3.0 98.6 07/28/17 16:40 85 21 146/63 99 Nasal Cannula 3.0 07/28/17 16:38 98.0 07/28/17 16:25 81 24 150/70 99 Simple Mask 6.0 07/28/17 16:15 83 27 150/70 99 Simple Mask 6.0 07/28/17 16:05 83 27 154/72 99 Simple Mask 6.0 07/28/17 15:55 91 26 161/79 99 Simple Mask 6.0 07/28/17 15:50 91 23 145/79 99 Simple Mask 6.0 07/28/17 15:47 208.4 99 28 99 07/28/17 15:45 98.0 98 32 162/75 97 Simple Mask 6.0 98.0 07/28/17 13:06 98.4 84 17 155/81 98 Room Air 98.4 07/28/17 08:01 97.7 79 17 150/76 98 97.7 07/28/17 07:58 83 07/28/17 04:07 99.1 79 17 150/77 98 99.1 07/28/17 03:37 78 07/27/17 23:55 82 07/27/17 23:50 99.1 78 18 155/84 96 99.1 Intake and Output 07/27/17 07/28/17 19:00 07:00 Intake Total 967.000 ml 1307.416 ml Output Total 700 ml Balance 267.000 ml 1307.416 ml Intake Oral 472 ml 720 ml IV Total 495.000 ml 587.416 ml Output Urine Total 700 ml # Voids 4 3 Laboratory Tests 07/28/17 06:00: White Blood Count 23.0*H, Red Blood Count 2.59L, Hemoglobin 7.9L, Hematocrit 23.4L, Mean Corpuscular Volume 91, Mean Corpuscular Hemoglobin 30.4, Mean Corpuscular Hemoglobin Concent 33.5, Red Cell Distribution Width 17.7H, Platelet Count 211, Mean Platelet Volume 7.2, Neutrophils (%) (Auto) , Lymphocytes (%) (Auto) , Monocytes (%) (Auto) , Eosinophils (%) (Auto) , Basophils (%) (Auto) , Differential Total Cells Counted 100, Neutrophils % ( Manual) 84H, Lymphocytes % (Manual) 7L, Monocytes % (Manual) 8, Eosinophils % ( Manual) 1, Basophils % (Manual) 0, Band Neutrophils 0, Platelet Estimate Adequate, Platelet Morphology Normal, Anisocytosis 1+, Sodium Level 136, Potassium Level 3.6, Chloride Level 106, Carbon Dioxide Level 21, Anion Gap 9, Blood Urea Nitrogen 13, Creatinine 1.6H, Estimat Glomerular Filtration Rate 52.2 , Glucose Level 153H, Uric Acid 5.2, Calcium Level 7.7L, Phosphorus Level 2.5, Magnesium Level 1.5L, Total Bilirubin 0.4, Aspartate Amino Transf (AST/SGOT) 227H, Alanine Aminotransferase (ALT/SGPT) 121H, Alkaline Phosphatase 170H, Total Protein 6.5, Albumin 1.5L, Globulin 5.0, Albumin/Globulin Ratio 0.3L 07/28/17 12:30: White Blood Count 23.0*H, Red Blood Count 2.65L, Hemoglobin 8.1L, Hematocrit 24.3L, Mean Corpuscular Volume 92, Mean Corpuscular Hemoglobin 30.4, Mean Corpuscular Hemoglobin Concent 33.2, Red Cell Distribution Width 18.0H, Platelet Count 341#, Mean Platelet Volume 6.6, Neutrophils (%) (Auto) , Lymphocytes (%) (Auto) , Monocytes (%) (Auto) , Eosinophils (%) (Auto) , Basophils (%) (Auto) , Differential Total Cells Counted 100, Neutrophils % ( Manual) 89H, Lymphocytes % (Manual) 3L, Monocytes % (Manual) 7, Eosinophils % ( Manual) 1, Basophils % (Manual) 0, Band Neutrophils 0, Platelet Estimate Adequate, Platelet Morphology Normal, Anisocytosis 1+, Polychromasia 1+, Hypochromasia 1+ Height (Feet): 6 Height (Inches): 4.00 Weight (Pounds): 294 General Appearance: confused Respiratory/Chest: decreased breath sounds Abdomen: non tender, soft Guido Lopez Jul 28, 2017 23:31
[2017-07-29] VITALS: BP 140/93
[2017-07-29] MEDS: Meropenem 1 GM in NS 110 ML IVPB SCH ×3 (01:57→17:56)
[2017-07-29 04:00] VITALS: BP 150/76
[2017-07-29] MEDS: NovoLOG Insulin Flexpen SUBQ SCH ×4 (06:38→21:00)
[2017-07-29 07:06] LABS: HEMATOCRIT 24.2 % (42.0-52.0); HEMOGLOBIN 8.2 G/DL (14.2-18.0); MEAN CORPUSCULAR VOLUME 90 FL (80-99); PLATELET COUNT 393 K/UL (150-450); RED BLOOD COUNT 2.68 M/UL (4.70-6.10); RED CELL DISTRIBUTION WIDTH 17.2 % (11.6-14.8)
[2017-07-29 07:11] LABS: ANION GAP 9 mmol/L (5-15); BLOOD UREA NITROGEN 14 mg/dL (7-18); CALCIUM 8.1 MG/DL (8.5-10.1); CARBON DIOXIDE 22 MMOL/L (21-32); CHLORIDE 106 MMOL/L (98-107); CREATININE 1.5 MG/DL (0.55-1.30); POTASSIUM 3.8 MMOL/L (3.5-5.1); SODIUM 137 MMOL/L (136-145)
[2017-07-29 07:14] LABS: WHITE BLOOD COUNT 22.9 K/UL (4.8-10.8)
[2017-07-29 08:00] VITALS: BP 159/83
--- NOTE | 2017-07-29 08:35 | 48 Hour Post Anesthesia Eval ---
Post Anesthesia Evaluation Procedure: Right foot I&D Date of Evaluation: Jul 29, 2017 Time of Evaluation: 08:40 Blood Pressure Systolic: 150 0: 76 Pulse Rate: 79 Respiratory Rate: 20 Temperature (Fahrenheit): 99.9 O2 Sat by Pulse Oximetry: 95 Airway: patent Nausea: No Vomiting: No Pain Intensity: 1 Hydration Status: adequate Cardiopulmonary Status: Stable Mental Status/LOC: patient returned to baseline Follow-up Care/Observations: As per surgery Post-Anesthesia Complications: No anesthetic complication Follow-up care needed: N/A BRENDAN EASON M.D. Jul 29, 2017 08:35
[2017-07-29] MEDS: Docusate 100mg cap ORAL SCH ×3 (09:20→17:53)
[2017-07-29] MEDS: Vancomycin 1gm/D5W 275ml IVPB SCH ×4 (09:21→22:01)
[2017-07-29] MEDS: Heparin 5000 units/ml inj SUBQ SCH ×2 (09:32→21:00)
[2017-07-29 12:00] VITALS: BP 154/80
--- NOTE | 2017-07-29 13:17 | Nephrology Progress Note ---
Assessment/Plan Problem List: (1) Renal failure (ARF), acute on chronic Assessment: ATN on admission (2) DM2 (diabetes mellitus, type 2) (3) Acute on chronic anemia (4) Diabetic foot ulcer Assessment Renal failure, Mainly Chronic due to DM Cr lower 1.5 Proteinuria, Diabetic Nephropathy, HypoAlbuminemia On going lower exteremity cellulitis / Osteo and high Lactic level- FEVER PERSISTS PVD High Cholestrol Anemia worsenning Plan Plan: Po K transfusion 2D echo- 55% EjFx Kidney SOFYA Negative ultrasound of the kidneys. slow hydrate urine studies per orders Subjective ROS Limited/Unobtainable: No Constitutional: Reports: malaise Objective Objective Last 24 Hour Vital Signs Date Time Temp Pulse Resp B/P (MAP) Pulse Ox O2 Delivery O2 Flow Rate FiO2 07/29/17 11:52 99.9 07/29/17 08:35 211.8 79 20 95 07/29/17 06:45 Nasal Cannula 2.0 07/29/17 06:45 94 Nasal Cannula 2.0 07/29/17 04:00 99.9 79 20 150/76 95 Nasal Cannula 2.0 99.9 07/29/17 04:00 77 07/29/17 00:00 99.7 77 22 140/93 97 Nasal Cannula 3.0 99.7 07/29/17 00:00 79 07/28/17 20:00 99.7 84 22 154/76 98 Nasal Cannula 3.0 99.7 07/28/17 20:00 84 07/28/17 19:00 98 Nasal Cannula 2.0 28 07/28/17 19:00 Nasal Cannula 2.0 28 07/28/17 17:42 98.6 83 18 125/69 100 Nasal Cannula 3.0 98.6 07/28/17 17:16 83 07/28/17 17:08 98.6 07/28/17 16:55 98.6 87 18 143/66 100 Nasal Cannula 3.0 98.6 07/28/17 16:40 85 21 146/63 99 Nasal Cannula 3.0 07/28/17 16:38 98.0 07/28/17 16:25 81 24 150/70 99 Simple Mask 6.0 07/28/17 16:15 83 27 150/70 99 Simple Mask 6.0 07/28/17 16:05 83 27 154/72 99 Simple Mask 6.0 07/28/17 15:55 91 26 161/79 99 Simple Mask 6.0 07/28/17 15:50 91 23 145/79 99 Simple Mask 6.0 07/28/17 15:47 208.4 99 28 99 07/28/17 15:45 98.0 98 32 162/75 97 Simple Mask 6.0 98.0 Intake and Output 07/28/17 07/29/17 19:00 07:00 Intake Total 1597.416 ml 385.000 ml Output Total 370 ml Balance 1227.416 ml 385.000 ml Intake Oral 360 ml IV Total 1237.416 ml 385.000 ml Output Urine Total 350 ml Estimated Blood Loss 20 ml Laboratory Tests 07/29/17 06:30: White Blood Count 22.9*H, Red Blood Count 2.68L, Hemoglobin 8.2L, Hematocrit 24.2L, Mean Corpuscular Volume 90, Mean Corpuscular Hemoglobin 30.8, Mean Corpuscular Hemoglobin Concent 34.0, Red Cell Distribution Width 17.2H, Platelet Count 393, Mean Platelet Volume 6.3L, Neutrophils (%) (Auto) , Lymphocytes (%) (Auto) , Monocytes (%) (Auto) , Eosinophils (%) (Auto) , Basophils (%) (Auto) , Differential Total Cells Counted 100, Neutrophils % ( Manual) 86H, Lymphocytes % (Manual) 5L, Monocytes % (Manual) 8, Eosinophils % ( Manual) 1, Basophils % (Manual) 0, Band Neutrophils 0, Platelet Estimate Adequate, Platelet Morphology Normal, Hypochromasia 2+, Anisocytosis 1+, Spherocytes 1+, Sodium Level 137, Potassium Level 3.8, Chloride Level 106, Carbon Dioxide Level 22, Anion Gap 9, Blood Urea Nitrogen 14, Creatinine 1.5H, Estimat Glomerular Filtration Rate 56.2, Glucose Level 154H, Calcium Level 8.1L 07/29/17 07:50: Vancomycin Level Trough 18.0H Height (Feet): 6 Height (Inches): 4.00 Weight (Pounds): 294 General Appearance: no apparent distress, other - febrile Cardiovascular: normal rate Respiratory/Chest: decreased breath sounds Abdomen: soft Objective no change GRIFFIN ASTORGA Jul 29, 2017 13:17
[2017-07-29] MEDS ORDERED: HYDROcodone/Acetamin 10/325 tab ORAL PRN (13:45)
[2017-07-29] MEDS ORDERED: Norco 5mg/325mg tab ORAL PRN (13:45)
[2017-07-29] MEDS: Vitamin D 50,000 units cap ORAL SCH (14:01)
--- NOTE | 2017-07-29 14:23 | General Progress Note ---
Assessment/Plan Problem List: (1) Severe sepsis ICD Codes: A41.9 - Sepsis, unspecified organism; R65.20 - Severe sepsis without septic shock SNOMED: 48637418 (2) Cellulitis of right lower extremity ICD Codes: L03.115 - Cellulitis of right lower limb SNOMED: 134493997 (3) Concern for abscess of R foot (4) Likely 1st toe ostemyelitis (5) Acute blood loss anemia ICD Codes: D62 - Acute posthemorrhagic anemia SNOMED: 406557781 (6) Lactic acidosis ICD Codes: E87.2 - Acidosis SNOMED: 30722015 (7) Diabetic foot ulcer ICD Codes: E11.621 - Type 2 diabetes mellitus with foot ulcer; L97.509 - Non- pressure chronic ulcer of other part of unspecified foot with unspecified severity SNOMED: 33559143, 800735274 (8) DM2 (diabetes mellitus, type 2) Assessment & Plan: A1C 9.6 ICD Codes: E11.9 - Type 2 diabetes mellitus without complications SNOMED: 45035456 Qualifiers: (9) Renal failure (ARF), acute on chronic ICD Codes: N17.9 - Acute kidney failure, unspecified; N18.9 - Chronic kidney disease, unspecified SNOMED: 139825637 (10) Acute on chronic anemia (11) Leukopenia ICD Codes: D72.819 - Decreased white blood cell count, unspecified SNOMED: 80357272, 837359825 (12) Hypertension ICD Codes: I10 - Hypertension SNOMED: 69157597 (13) Hyperlipidemia ICD Codes: E78.5 - Hyperlipidemia SNOMED: 91378328 (14) Postoperative fever ICD Codes: R50.82 - Postprocedural fever SNOMED: 969232019 (15) postop fever Status: stable Assessment/Plan Podiatry, ID, hematology, and nephrology consulted s/p 1U pRBC on 07/20/17 s/p 1U pRBC on 07/22/17 s/p 1U pRBC on 07/23/17 s/p 1U pRBC on 07/25/17 Epogen + IV iron per renal F/u stool OB--positive GI consulted s/p EGD and colo on 07/24/17 which showed gastritis, distal esophageal ulcerations w/ esophagitis, hemorrhoids, 1 colonic polyp s/p removal, no active bleeding Hold ACEi and lasix in the setting of CHIQUITA Continue IV vancomycin (07/19-) Cont meropenem (07/24-) Diflucan started 07/29 per ID s/p zosyn (06/19-07/24) F/u wound culture--shows multiple org, Klebsiella, Enterobacter, Citrobacter, Stephanie CT of right foot noted with possible osteomyelitis and concern for abscess. Unable to get MRI given pt size s/p R partial first ray amputation, and excisional debridement of necrotic tissue to level of bone on 07/22/17 F/u OR culture--shows Acinetobacter baumanii complex F/u path--shows osteomyelitis and gangrene s/p incision and drainage deep to fascia, excisional debridement of necrotic tissue to level of bone, and delayed primary closure with drain placement on 07/28 F/u OR culture PICC placed 07/24/17 F/u venous ultrasound of RLE to r/o DVT--neg F/u arterial duplex-wnl SSI Hold PO hypoglycemic agents Continue home bp meds CM consult for SNF placement Possible d/c to SNF tomorrow if remains stable DVT Prophylaxis: SCD, HSQ Code Status: Full Hospital Classification Declaration: Based on this initial evaluation, and depending on the patient's clinical course, I anticipate that this patient will require hospitalization for 1-2 days for surgical mgmt and close respiratory/ hemodynamic monitoring. Disposition: Once the patient is stable to leave the hospital, I anticipate the patient will likely be discharged to the following environment: SNF Discussed with patient/family, nursing staff, SW/CM, podiatry, ID, renal regarding clinical status, treatment course, and disposition planning. D/w podiatry re surgery. D/w ID re abx Time of note may not reflect time of encounter. Subjective Date patient seen: Jul 29, 2017 Time patient seen: 14:23 ROS Limited/Unobtainable: No Constitutional: Reports: no symptoms HEENT: Reports: no symptoms Cardiovascular: Reports: no symptoms Respiratory: Reports: no symptoms Gastrointestinal/Abdominal: Reports: no symptoms Genitourinary: Reports: no symptoms Neurologic/Psychiatric: Reports: no symptoms Endocrine: Reports: no symptoms Hematologic/Lymphatic: Reports: no symptoms Allergies: Coded Allergies: No Known Allergies (Verified , 11/14/10) Subjective No acute o/n events Afebrile s/p EGD and colo which showed gastritis, distal esophageal ulcerations w/ esophagitis, hemorrhoids, 1 colonic polyp s/p removal, no active bleeding s/p R partial first ray amputation, and excisional debridement of necrotic tissue to level of bone POD#7 s/p incision and drainage deep to fascia, excisional debridement of necrotic tissue to level of bone, and delayed primary closure with drain placement POD#1 Hgb stable WBC slightly down to 22K C/o R foot pain. Sarah f/c, n/v, d/c, chest pain, SOB, abd pain Objective Last 24 Hour Vital Signs Date Time Temp Pulse Resp B/P (MAP) Pulse Ox O2 Delivery O2 Flow Rate FiO2 07/29/17 14:02 98.2 07/29/17 12:51 98.2 07/29/17 12:00 98.2 78 20 154/80 99 Nasal Cannula 2.0 98.2 07/29/17 11:52 99.9 07/29/17 11:36 79 07/29/17 08:35 211.8 79 20 95 07/29/17 08:00 97.9 83 22 159/83 98 Nasal Cannula 2.0 97.9 07/29/17 07:44 82 07/29/17 06:45 Nasal Cannula 2.0 07/29/17 06:45 94 Nasal Cannula 2.0 07/29/17 04:00 99.9 79 20 150/76 95 Nasal Cannula 2.0 99.9 07/29/17 04:00 77 07/29/17 00:00 99.7 77 22 140/93 97 Nasal Cannula 3.0 99.7 07/29/17 00:00 79 07/28/17 20:00 99.7 84 22 154/76 98 Nasal Cannula 3.0 99.7 07/28/17 20:00 84 07/28/17 19:00 98 Nasal Cannula 2.0 28 07/28/17 19:00 Nasal Cannula 2.0 28 07/28/17 17:42 98.6 83 18 125/69 100 Nasal Cannula 3.0 98.6 07/28/17 17:16 83 07/28/17 17:08 98.6 07/28/17 16:55 98.6 87 18 143/66 100 Nasal Cannula 3.0 98.6 07/28/17 16:40 85 21 146/63 99 Nasal Cannula 3.0 07/28/17 16:38 98.0 07/28/17 16:25 81 24 150/70 99 Simple Mask 6.0 07/28/17 16:15 83 27 150/70 99 Simple Mask 6.0 07/28/17 16:05 83 27 154/72 99 Simple Mask 6.0 07/28/17 15:55 91 26 161/79 99 Simple Mask 6.0 07/28/17 15:50 91 23 145/79 99 Simple Mask 6.0 07/28/17 15:47 208.4 99 28 99 07/28/17 15:45 98.0 98 32 162/75 97 Simple Mask 6.0 98.0 Intake and Output 07/28/17 07/29/17 19:00 07:00 Intake Total 1597.416 ml 385.000 ml Output Total 370 ml Balance 1227.416 ml 385.000 ml Intake Oral 360 ml IV Total 1237.416 ml 385.000 ml Output Urine Total 350 ml Estimated Blood Loss 20 ml Laboratory Tests 07/29/17 06:30: White Blood Count 22.9*H, Red Blood Count 2.68L, Hemoglobin 8.2L, Hematocrit 24.2L, Mean Corpuscular Volume 90, Mean Corpuscular Hemoglobin 30.8, Mean Corpuscular Hemoglobin Concent 34.0, Red Cell Distribution Width 17.2H, Platelet Count 393, Mean Platelet Volume 6.3L, Neutrophils (%) (Auto) , Lymphocytes (%) (Auto) , Monocytes (%) (Auto) , Eosinophils (%) (Auto) , Basophils (%) (Auto) , Differential Total Cells Counted 100, Neutrophils % ( Manual) 86H, Lymphocytes % (Manual) 5L, Monocytes % (Manual) 8, Eosinophils % ( Manual) 1, Basophils % (Manual) 0, Band Neutrophils 0, Platelet Estimate Adequate, Platelet Morphology Normal, Hypochromasia 2+, Anisocytosis 1+, Spherocytes 1+, Sodium Level 137, Potassium Level 3.8, Chloride Level 106, Carbon Dioxide Level 22, Anion Gap 9, Blood Urea Nitrogen 14, Creatinine 1.5H, Estimat Glomerular Filtration Rate 56.2, Glucose Level 154H, Calcium Level 8.1L 07/29/17 07:50: Vancomycin Level Trough 18.0H Height (Feet): 6 Height (Inches): 4.00 Weight (Pounds): 294 Objective General Appearance: no apparent distress, alert HEENT: normocephalic, atraumatic Neck: non-tender, normal alignment, supple Respiratory/Chest: chest wall non-tender, lungs clear, normal breath sounds Cardiovascular/Chest: normal peripheral pulses, normal rate, regular rhythm Abdomen: normal bowel sounds, non tender, soft Skin Exam: other - right lower extremity erythema, edema, and TTP. right foot dressing c/d/i Neurologic: fiscal agent II-XII grossly normal, no motor/sensory deficits, alert, oriented x 3 Js Garcia M.D. Jul 29, 2017 14:23
[2017-07-29] MEDS ORDERED: VANCOMYCIN1 GM/2502 IVPB (15:30)
[2017-07-29] MEDS ORDERED: DIFLUCAN200 MG ORAL (15:30)
[2017-07-29] MEDS ORDERED: MERREM1 GM IV (15:30)
--- NOTE | 2017-07-29 15:40 | GI Progress Note ---
Assessment/Plan Problems: (1) Abdominal pain ICD Codes: R10.9 - Unspecified abdominal pain SNOMED: 41587905 (2) Acute blood loss anemia ICD Codes: D62 - Acute posthemorrhagic anemia SNOMED: 227006163 (3) Acute on chronic anemia (4) Anemia ICD Codes: D64.9 - Anemia, unspecified SNOMED: 825967012 Status: stable Status Narrative Discussed with Dr. Yoder. Assessment/Plan EGD/colonoscopy SUMMARY OF FINDINGS: 1. A 4-cm hiatal hernia. 2. Distal esophageal ulcerations plus esophagitis. 3. Gastritis, status post biopsy. 4. Poor colonic prep and incomplete colonoscopy examination. 5. One colonic polyp removed, see above for details. 6. One diverticulum seen in the left colon. 7. Hemorrhoids. RECOMMENDATIONS: Follow up biopsy results and treat accordingly. >> negative for H. Pylori monitor H&H, prn transfusions bowel regime ppi fu labs The patient was seen and examined at bedside and all new and available data was reviewed in the patients chart. I agree with the above findings, impression and plan. (Patient seen earlier today. Signature stamp does not reflect patient encounter time.). - Janneth Yoder MD Subjective Gastrointestinal/Abdominal: Reports: abdominal pain Objective Last 24 Hour Vital Signs Date Time Temp Pulse Resp B/P (MAP) Pulse Ox O2 Delivery O2 Flow Rate FiO2 07/29/17 15:01 98.2 07/29/17 14:02 98.2 07/29/17 12:51 98.2 07/29/17 12:00 98.2 78 20 154/80 99 Nasal Cannula 2.0 98.2 07/29/17 11:52 99.9 07/29/17 11:36 79 07/29/17 08:35 211.8 79 20 95 07/29/17 08:00 97.9 83 22 159/83 98 Nasal Cannula 2.0 97.9 07/29/17 07:44 82 07/29/17 06:45 Nasal Cannula 2.0 07/29/17 06:45 94 Nasal Cannula 2.0 07/29/17 04:00 99.9 79 20 150/76 95 Nasal Cannula 2.0 99.9 07/29/17 04:00 77 07/29/17 00:00 99.7 77 22 140/93 97 Nasal Cannula 3.0 99.7 07/29/17 00:00 79 07/28/17 20:00 99.7 84 22 154/76 98 Nasal Cannula 3.0 99.7 07/28/17 20:00 84 07/28/17 19:00 98 Nasal Cannula 2.0 28 07/28/17 19:00 Nasal Cannula 2.0 28 07/28/17 17:42 98.6 83 18 125/69 100 Nasal Cannula 3.0 98.6 07/28/17 17:16 83 07/28/17 17:08 98.6 07/28/17 16:55 98.6 87 18 143/66 100 Nasal Cannula 3.0 98.6 07/28/17 16:40 85 21 146/63 99 Nasal Cannula 3.0 07/28/17 16:38 98.0 07/28/17 16:25 81 24 150/70 99 Simple Mask 6.0 07/28/17 16:15 83 27 150/70 99 Simple Mask 6.0 07/28/17 16:05 83 27 154/72 99 Simple Mask 6.0 07/28/17 15:55 91 26 161/79 99 Simple Mask 6.0 07/28/17 15:50 91 23 145/79 99 Simple Mask 6.0 07/28/17 15:47 208.4 99 28 99 07/28/17 15:45 98.0 98 32 162/75 97 Simple Mask 6.0 98.0 Intake and Output 07/28/17 07/29/17 19:00 07:00 Intake Total 1597.416 ml 385.000 ml Output Total 370 ml Balance 1227.416 ml 385.000 ml Intake Oral 360 ml IV Total 1237.416 ml 385.000 ml Output Urine Total 350 ml Estimated Blood Loss 20 ml Laboratory Tests Test 07/29/17 06:30 07/29/17 07:50 White Blood Count 22.9 K/UL (4.8-10.8) *H Red Blood Count 2.68 M/UL (4.70-6.10) L Hemoglobin 8.2 G/DL (14.2-18.0) L Hematocrit 24.2 % (42.0-52.0) L Mean Corpuscular Volume 90 FL (80-99) Mean Corpuscular Hemoglobin 30.8 PG (27.0-31.0) Mean Corpuscular Hemoglobin Concent 34.0 G/DL (32.0-36.0) Red Cell Distribution Width 17.2 % (11.6-14.8) H Platelet Count 393 K/UL (150-450) Mean Platelet Volume 6.3 FL (6.5-10.1) L Neutrophils (%) (Auto) % (45.0-75.0) Lymphocytes (%) (Auto) % (20.0-45.0) Monocytes (%) (Auto) % (1.0-10.0) Eosinophils (%) (Auto) % (0.0-3.0) Basophils (%) (Auto) % (0.0-2.0) Differential Total Cells Counted 100 Neutrophils % (Manual) 86 % (45-75) H Lymphocytes % (Manual) 5 % (20-45) L Monocytes % (Manual) 8 % (1-10) Eosinophils % (Manual) 1 % (0-3) Basophils % (Manual) 0 % (0-2) Band Neutrophils 0 % (0-8) Platelet Estimate Adequate Platelet Morphology Normal Hypochromasia 2+ Anisocytosis 1+ Spherocytes 1+ Sodium Level 137 MMOL/L (136-145) Potassium Level 3.8 MMOL/L (3.5-5.1) Chloride Level 106 MMOL/L (98-107) Carbon Dioxide Level 22 MMOL/L (21-32) Anion Gap 9 mmol/L (5-15) Blood Urea Nitrogen 14 mg/dL (7-18) Creatinine 1.5 MG/DL (0.55-1.30) H Estimat Glomerular Filtration Rate 56.2 mL/min (>60) Glucose Level 154 MG/DL (74-106) H Calcium Level 8.1 MG/DL (8.5-10.1) L Vancomycin Level Trough 18.0 ug/mL (5.0-12.0) H Height (Feet): 6 Height (Inches): 4.00 Weight (Pounds): 294 General Appearance: WD/WN, no apparent distress, alert Cardiovascular: normal rate Respiratory/Chest: normal breath sounds, no respiratory distress Abdominal Exam: normal bowel sounds, non tender, soft Extremities: normal range of motion, non-tender Adele Avila N.P. Jul 29, 2017 15:40 ELDER YODER Aug 05, 2017 13:31
[2017-07-29 16:00] VITALS: BP 134/70
--- NOTE | 2017-07-29 16:23 | Infectious Diseases Prog Note ---
Assessment/Plan Assessment/Plan ASSESSMENT AND PLAN: 1. right leg/foot cellulitis, ? abscess, right foot great toe/1st toes infected wound and osteomyelitis on CT scan, s/p debridement by podiatry x 2, sepsis, fevers, leukocytosis, ? fungemia, thrush, c.diff. negative - s/p right partial first ray amputation and debridement - 07/21 great toe wound culture with enterobacter, citrobacter and klebsiella , jerri likely colonizer - surgery cultures with acinetobacter - operative note reviewed - meropenem and vancomycin - day # 5 combination, plan on 6 week tx course - continue diflucan for possible fungemia (jerri grew at two different sites) and thrush - d/w Dr. Weinstein - urine culture likely colonizer, ua benign - d/w Dr. Bernard podiatry - elevated lft's but no sig abdominal pain - check us to r/o cholecystitis 2. Sepsis, fevers and leukocytosis - continue abx, check cultures, chest x-ray with chf/edema 3. Elevated creatinine, chronic renal failure. 4. Anemia. 5. Diabetes. 6. Hypertension. 7. Hyperlipidemia. 8. Blood sugar, blood pressure, and lipid treatment per primary. 9. History of ulcers. 10. Wound care protocol. 11. No known allergies. 12. Social history negative. 13. Family history noncontributory. 14. MAR was noted. 15. Continue treatment per primary consultants. 16. Podiatry followup. 17. Notes and records were noted. 18. Orders were entered. 19. Case discussed with RN. Subjective Constitutional: Reports: fever - lgt HEENT: Denies: congestion Respiratory: Denies: shortness of breath Cardiovascular: Denies: chest pain Gastrointestinal/Abdominal: Denies: nausea Genitourinary: Denies: dysuria, hematuria Neurologic: Denies: headache Psychiatric: Denies: depression Skin: Denies: rash Hematologic: Denies: bleeding Musculoskeletal: Reports: pain - controlled Allergies: Coded Allergies: No Known Allergies (Verified , 11/14/10) Objective Vital Signs Last 24 Hour Vital Signs Date Time Temp Pulse Resp B/P (MAP) Pulse Ox O2 Delivery O2 Flow Rate FiO2 07/29/17 16:00 98.6 67 18 134/70 99 Nasal Cannula 2.0 98.6 07/29/17 15:01 98.2 07/29/17 14:02 98.2 07/29/17 12:51 98.2 07/29/17 12:00 98.2 78 20 154/80 99 Nasal Cannula 2.0 98.2 07/29/17 11:52 99.9 07/29/17 11:36 79 07/29/17 08:35 211.8 79 20 95 07/29/17 08:00 97.9 83 22 159/83 98 Nasal Cannula 2.0 97.9 07/29/17 07:44 82 07/29/17 06:45 Nasal Cannula 2.0 07/29/17 06:45 94 Nasal Cannula 2.0 07/29/17 04:00 99.9 79 20 150/76 95 Nasal Cannula 2.0 99.9 07/29/17 04:00 77 07/29/17 00:00 99.7 77 22 140/93 97 Nasal Cannula 3.0 99.7 07/29/17 00:00 79 07/28/17 20:00 99.7 84 22 154/76 98 Nasal Cannula 3.0 99.7 07/28/17 20:00 84 07/28/17 19:00 98 Nasal Cannula 2.0 28 07/28/17 19:00 Nasal Cannula 2.0 28 07/28/17 17:42 98.6 83 18 125/69 100 Nasal Cannula 3.0 98.6 07/28/17 17:16 83 07/28/17 17:08 98.6 07/28/17 16:55 98.6 87 18 143/66 100 Nasal Cannula 3.0 98.6 07/28/17 16:40 85 21 146/63 99 Nasal Cannula 3.0 07/28/17 16:38 98.0 07/28/17 16:25 81 24 150/70 99 Simple Mask 6.0 Height (Feet): 6 Height (Inches): 4.00 Weight (Pounds): 294 General Appearance: no acute distress HEENT: normocephalic, atraumatic, anicteric Respiratory/Chest: lungs clear, normal breath sounds, no respiratory distress Cardiovascular: normal rate, regular rhythm, no gallop/murmur, no JVD Abdomen: normal bowel sounds, soft, non tender, no organomegaly, non distended Genitourinary: other - no meyer Extremities: other Skin: no rash Neurologic/Psychiatric: music box mechanic II-XII grossly normal, alert, oriented x 3, responsive Lymphatic: no neck adenopathy Musculoskeletal: other - no septic arthritis Objective Right leg/foot CT scan - Impression: Diffuse cellulitis in the lower leg. Erosive changes of the first distal phalanx and possibly first metatarsal head. This is consistent with osteomyelitis. Postoperative changes in the base of the first proximal phalanx. Chronic changes in the fifth metatarsal phalangeal joint. This may be surgical as well. The above report is concordant with preliminary reading by [facility] . 07/25 - Chest - x-ray with chf and edema Microbiology Date/Time Source Procedure Growth Status 07/28/17 15:00 Foot Right Gram Stain - Final Resulted 07/28/17 15:00 Foot Right Aerobic Culture - Preliminary NO GROWTH Resulted 07/28/17 15:00 Foot Right Anaerobic Culture Pending Resulted Laboratory Tests Test 07/29/17 06:30 07/29/17 07:50 White Blood Count 22.9 K/UL (4.8-10.8) *H Red Blood Count 2.68 M/UL (4.70-6.10) L Hemoglobin 8.2 G/DL (14.2-18.0) L Hematocrit 24.2 % (42.0-52.0) L Mean Corpuscular Volume 90 FL (80-99) Mean Corpuscular Hemoglobin 30.8 PG (27.0-31.0) Mean Corpuscular Hemoglobin Concent 34.0 G/DL (32.0-36.0) Red Cell Distribution Width 17.2 % (11.6-14.8) H Platelet Count 393 K/UL (150-450) Mean Platelet Volume 6.3 FL (6.5-10.1) L Neutrophils (%) (Auto) % (45.0-75.0) Lymphocytes (%) (Auto) % (20.0-45.0) Monocytes (%) (Auto) % (1.0-10.0) Eosinophils (%) (Auto) % (0.0-3.0) Basophils (%) (Auto) % (0.0-2.0) Differential Total Cells Counted 100 Neutrophils % (Manual) 86 % (45-75) H Lymphocytes % (Manual) 5 % (20-45) L Monocytes % (Manual) 8 % (1-10) Eosinophils % (Manual) 1 % (0-3) Basophils % (Manual) 0 % (0-2) Band Neutrophils 0 % (0-8) Platelet Estimate Adequate Platelet Morphology Normal Hypochromasia 2+ Anisocytosis 1+ Spherocytes 1+ Sodium Level 137 MMOL/L (136-145) Potassium Level 3.8 MMOL/L (3.5-5.1) Chloride Level 106 MMOL/L (98-107) Carbon Dioxide Level 22 MMOL/L (21-32) Anion Gap 9 mmol/L (5-15) Blood Urea Nitrogen 14 mg/dL (7-18) Creatinine 1.5 MG/DL (0.55-1.30) H Estimat Glomerular Filtration Rate 56.2 mL/min (>60) Glucose Level 154 MG/DL (74-106) H Calcium Level 8.1 MG/DL (8.5-10.1) L Vancomycin Level Trough 18.0 ug/mL (5.0-12.0) H Current Medications Medications (Trade) Dose Ordered Sig/Xiao Route PRN Reason Start Time Stop Time Status Last Admin Dose Admin Acetaminophen (Tylenol) 650 mg Q4H PRN ORAL Mild Pain/Temp > 100.5 07/20/17 08:15 08/19/17 08:14 07/29/17 11:52 Acetaminophen/ Hydrocodone Bitart ([place] 10/325) 1 tab Q4H PRN ORAL SEVERE PAIN (SCALE 7-10) 07/29/17 13:45 08/05/17 13:44 07/29/17 14:02 Acetaminophen/ Hydrocodone Bitart ([place] 5/325) 1 tab Q4H PRN ORAL Moderate Pain (Pain Scale 4-6) 07/29/17 13:45 08/05/17 13:44 Cetylpyridinium Chloride (Cepacol) 1 lozg EVERY 2 HOURS PRN ABDULKADIR To Patient Comfort 07/28/17 20:45 08/27/17 20:44 07/29/17 03:51 Chlorhexidine Gluconate (Joyce-Hex 2%) 1 applic DAILY@1999 TOPIC 07/25/17 20:00 08/24/17 19:59 07/28/17 20:01 Dextrose (Dextrose 50%) STAT PRN IV Hypoglycemia 07/20/17 05:15 08/19/17 05:14 07/24/17 11:41 Docusate Sodium (Colace) 100 mg THREE TIMES A DAY ORAL 07/22/17 13:00 08/21/17 12:59 07/29/17 14:02 Epoetin Norberto (Procrit (for non ESRD use)) 10,000 units FRI-FRI-FRI SUBQ 07/23/17 21:00 08/22/17 20:59 07/28/17 21:15 Ergocalciferol (Drisdol) 50,000 intlu QWEEK ORAL 07/22/17 12:30 08/21/17 12:29 07/29/17 14:01 Fluconazole/ Sodium Chloride 100 ml @ 100 mls/hr Q24H IV 07/29/17 08:00 08/05/17 07:59 07/29/17 09:21 Heparin Sodium (Porcine) (Heparin 5000 units/ml) 5,000 units EVERY 12 HOURS SUBQ 07/23/17 09:00 08/22/17 08:59 07/29/17 09:32 Hydralazine HCl (Apresoline) 25 mg Q4H PRN ORAL for sbp>160 07/25/17 18:00 08/24/17 17:59 Insulin Aspart (NovoLOG) BEFORE MEALS AND HS SUBQ 07/20/17 06:30 08/19/17 06:29 07/29/17 12:21 Insulin Detemir (Levemir) 35 units BEDTIME SUBQ 07/24/17 21:00 08/23/17 20:59 07/28/17 22:12 Meropenem 1 gm/ Sodium Chloride 110 ml @ 220 mls/hr Q8H IVPB 07/28/17 02:00 08/02/17 01:59 07/29/17 11:04 Pantoprazole (Protonix) 40 mg EVERY 12 HOURS ORAL 07/21/17 15:30 08/20/17 15:29 07/29/17 09:20 Vancomycin HCl (Vanco rx to dose) 1 ea DAILY PRN MISC Per rx protocol 07/20/17 06:00 08/19/17 05:59 Vancomycin HCl 1 gm/Dextrose 275 ml @ 183.708 mls/hr Q12H IVPB 07/27/17 08:00 08/01/17 07:59 07/29/17 09:21 ESE HARO Jul 29, 2017 16:23
--- NOTE | 2017-07-29 18:35 | General Progress Note ---
Assessment/Plan Problem List: (1) Hyperkalemia ICD Codes: E87.5 - Hyperkalemia SNOMED: 47095092 (2) Lung nodule ICD Codes: R91.1 - Solitary pulmonary nodule SNOMED: 872037129 (3) Pancreatitis ICD Codes: K85.9 - Acute pancreatitis, unspecified SNOMED: 89529055 (4) Osteomyelitis ICD Codes: M86.9 - Osteomyelitis, unspecified SNOMED: 87719654 (5) Severe sepsis ICD Codes: A41.9 - Sepsis, unspecified organism; R65.20 - Severe sepsis without septic shock SNOMED: 00918498 (6) Anemia ICD Codes: D64.9 - Anemia, unspecified SNOMED: 528071625 (7) bliateral lower extremities (8) Diabetes ICD Codes: E11.9 - Diabetes SNOMED: 50638858 (9) Hyperlipidemia ICD Codes: E78.5 - Hyperlipidemia SNOMED: 39905947 (10) Hypertension ICD Codes: I10 - Hypertension SNOMED: 98644860 (11) Cellulitis and abscess of foot ICD Codes: L03.119 - Cellulitis and abscess of foot; L02.619 - Cutaneous abscess of unspecified foot SNOMED: 391447799 (12) Renal failure (ARF), acute on chronic ICD Codes: N17.9 - Acute kidney failure, unspecified; N18.9 - Chronic kidney disease, unspecified SNOMED: 430365886 (13) Lactic acidosis ICD Codes: E87.2 - Acidosis SNOMED: 43041657 (14) Leukopenia ICD Codes: D72.819 - Decreased white blood cell count, unspecified SNOMED: 34874450, 815196466 (15) DM2 (diabetes mellitus, type 2) ICD Codes: E11.9 - Type 2 diabetes mellitus without complications SNOMED: 34030175 Qualifiers: (16) Acute on chronic anemia (17) Likely 1st toe ostemyelitis (18) Cellulitis of right lower extremity ICD Codes: L03.115 - Cellulitis of right lower limb SNOMED: 350395470 (19) Concern for abscess of R foot (20) Diabetic foot ulcer ICD Codes: E11.621 - Type 2 diabetes mellitus with foot ulcer; L97.509 - Non- pressure chronic ulcer of other part of unspecified foot with unspecified severity SNOMED: 73752961, 022331126 (21) Acute blood loss anemia ICD Codes: D62 - Acute posthemorrhagic anemia SNOMED: 575507175 (22) Abdominal pain ICD Codes: R10.9 - Unspecified abdominal pain SNOMED: 53091053 (23) Postoperative fever ICD Codes: R50.82 - Postprocedural fever SNOMED: 405402369 (24) postop fever Status: stable Assessment/Plan 1. Depression. 2. Anxiety. PLAN: We will continue current medications. Provide the patient with supportive therapy and reality orientation. We will continue to follow and readjust the medications. Subjective Date patient seen: Jul 29, 2017 Neurologic/Psychiatric: Reports: anxiety, depressed, emotional problems Allergies: Coded Allergies: No Known Allergies (Verified , 11/14/10) Objective Last 24 Hour Vital Signs Date Time Temp Pulse Resp B/P (MAP) Pulse Ox O2 Delivery O2 Flow Rate FiO2 07/29/17 16:00 98.6 67 18 134/70 99 Nasal Cannula 2.0 98.6 07/29/17 15:51 80 07/29/17 15:01 98.2 07/29/17 14:02 98.2 07/29/17 12:51 98.2 07/29/17 12:00 98.2 78 20 154/80 99 Nasal Cannula 2.0 98.2 07/29/17 11:52 99.9 07/29/17 11:36 79 07/29/17 08:35 211.8 79 20 95 07/29/17 08:00 97.9 83 22 159/83 98 Nasal Cannula 2.0 97.9 07/29/17 07:44 82 07/29/17 06:45 Nasal Cannula 2.0 07/29/17 06:45 94 Nasal Cannula 2.0 07/29/17 04:00 99.9 79 20 150/76 95 Nasal Cannula 2.0 99.9 07/29/17 04:00 77 07/29/17 00:00 99.7 77 22 140/93 97 Nasal Cannula 3.0 99.7 07/29/17 00:00 79 07/28/17 20:00 99.7 84 22 154/76 98 Nasal Cannula 3.0 99.7 07/28/17 20:00 84 07/28/17 19:00 98 Nasal Cannula 2.0 28 07/28/17 19:00 Nasal Cannula 2.0 28 Intake and Output 07/28/17 07/29/17 19:00 07:00 Intake Total 1597.416 ml 385.000 ml Output Total 370 ml Balance 1227.416 ml 385.000 ml Intake Oral 360 ml IV Total 1237.416 ml 385.000 ml Output Urine Total 350 ml Estimated Blood Loss 20 ml Laboratory Tests 07/29/17 06:30: White Blood Count 22.9*H, Red Blood Count 2.68L, Hemoglobin 8.2L, Hematocrit 24.2L, Mean Corpuscular Volume 90, Mean Corpuscular Hemoglobin 30.8, Mean Corpuscular Hemoglobin Concent 34.0, Red Cell Distribution Width 17.2H, Platelet Count 393, Mean Platelet Volume 6.3L, Neutrophils (%) (Auto) , Lymphocytes (%) (Auto) , Monocytes (%) (Auto) , Eosinophils (%) (Auto) , Basophils (%) (Auto) , Differential Total Cells Counted 100, Neutrophils % ( Manual) 86H, Lymphocytes % (Manual) 5L, Monocytes % (Manual) 8, Eosinophils % ( Manual) 1, Basophils % (Manual) 0, Band Neutrophils 0, Platelet Estimate Adequate, Platelet Morphology Normal, Hypochromasia 2+, Anisocytosis 1+, Spherocytes 1+, Sodium Level 137, Potassium Level 3.8, Chloride Level 106, Carbon Dioxide Level 22, Anion Gap 9, Blood Urea Nitrogen 14, Creatinine 1.5H, Estimat Glomerular Filtration Rate 56.2, Glucose Level 154H, Calcium Level 8.1L 07/29/17 07:50: Vancomycin Level Trough 18.0H Height (Feet): 6 Height (Inches): 4.00 Weight (Pounds): 294 General Appearance: no apparent distress, alert Neurologic: depressed affect Kory Bales M.D. Jul 29, 2017 18:35
[2017-07-29 20:00] VITALS: BP 162/90
[2017-07-29] MEDS: Levemir Flexpen SUBQ SCH (21:00)
[2017-07-29] MEDS: Dyna-Hex 2% Top Sol 2oz TOPIC SCH (22:00)
[2017-07-30] VITALS: BP 143/84
[2017-07-30] MEDS: Meropenem 1 GM in NS 110 ML IVPB SCH ×2 (02:00→10:44)
[2017-07-30 04:00] VITALS: BP 168/86
[2017-07-30] MEDS: NovoLOG Insulin Flexpen SUBQ SCH ×2 (05:47→12:00)
[2017-07-30 08:00] VITALS: BP 159/83
[2017-07-30] MEDS: Vancomycin 1gm/D5W 275ml IVPB SCH ×2 (08:14)
[2017-07-30] MEDS: Docusate 100mg cap ORAL SCH ×2 (08:14→12:37)
[2017-07-30] MEDS: Heparin 5000 units/ml inj SUBQ SCH (08:15)
--- NOTE | 2017-07-30 10:13 | General Progress Note ---
Assessment/Plan Assessment/Plan #. Myelodysplasia based on most recent flow cytometry completed on 07/28/17 --> Anemia workup reviewed. --> Iron 16, TIBC 198, % sat 8, Folate 13.4, B12 637, Ferritin 308 --> Iron levels are low. --> Received blood transfusion yesterday, hgb levels remain low but improving after prbc. --> Occult blood has been found. Consider GI services and recs. --> S/P EGD and colonoscopy revealing gastritis, distal esophageal ulcerations w / esophagitis, and hemorrhoids --> Spoke to Dr. Walters and Dr. España, do not recommend a bone marrow biopsy at this time, would yield minimal further info #. Leukocytosis, likely secondary to underlying infection from osteomyelitis --> HIV/Hep panel are both negative. --> Has improved slightly. Continue to monitor and trend cbc daily for improvement. --> On abx. ID following. #. Lactic acidosis secondary to sepsis from underlying infection. --> Continue to monitor. #. Diabetes mellitus, on insulin sliding scale. Blood sugar control as needed. #. Right big toe osteomyelitis, to be seen by the [facility] as well as surgical team. #. Sepsis. Subjective Date patient seen: Jul 29, 2017 Constitutional: Denies: no symptoms, chills, diaphoresis, fever, malaise, weakness, other HEENT: Denies: no symptoms, eye pain, blurred vision, tearing, double vision, ear pain, ear discharge, nose pain, nose congestion, throat pain, throat swelling, mouth pain, mouth swelling, other Cardiovascular: Denies: no symptoms, chest pain, edema, irregular heart rate, lightheadedness, palpitations, syncope, other Respiratory: Denies: no symptoms, cough, orthopnea, shortness of breath, SOB with excertion, SOB at rest, sputum, stridor, wheezing, other Gastrointestinal/Abdominal: Denies: no symptoms, abdomen distended, abdominal pain, black stools, tarry stools, blood in stool, constipated, diarrhea, difficulty swallowing, nausea, poor appetite, poor fluid intake, rectal bleeding , vomiting, other Genitourinary: Denies: no symptoms, burning, discharge, frequency, flank pain, hematuria, incontinence, pain, urgency, other Neurologic/Psychiatric: Denies: no symptoms, anxiety, depressed, emotional problems, headache, numbness, paresthesia, pre-existing deficit, seizure, tingling, tremors, weakness, other Hematologic/Lymphatic: Reports: anemia Allergies: Coded Allergies: No Known Allergies (Verified , 11/14/10) Subjective Wbc remains elevated. No major events. Objective Last 24 Hour Vital Signs Date Time Temp Pulse Resp B/P (MAP) Pulse Ox O2 Delivery O2 Flow Rate FiO2 07/30/17 05:44 168/86 07/30/17 04:00 78 07/30/17 04:00 98.8 79 24 168/86 100 Nasal Cannula 2.0 98.8 07/30/17 00:00 99.0 80 22 143/84 96 Nasal Cannula 2.0 99.0 07/30/17 00:00 87 07/29/17 20:00 78 07/29/17 20:00 99.0 79 20 162/90 99 Nasal Cannula 2.0 99.0 07/29/17 19:30 Nasal Cannula 2.0 28 07/29/17 19:30 98 Nasal Cannula 2.0 28 07/29/17 16:00 98.6 67 18 134/70 99 Nasal Cannula 2.0 98.6 07/29/17 15:51 80 07/29/17 15:01 98.2 07/29/17 14:02 98.2 07/29/17 12:51 98.2 07/29/17 12:00 98.2 78 20 154/80 99 Nasal Cannula 2.0 98.2 07/29/17 11:52 99.9 07/29/17 11:36 79 Intake and Output 07/29/17 07/30/17 19:00 07:00 Intake Total 360 ml 400 ml Output Total 2425 ml 1000 ml Balance -2065 ml -600 ml Intake Oral 360 ml 400 ml Output Urine Total 2425 ml 1000 ml # Voids 4 2 # Bowel Movements 3 1 Labs Test 07/27/17 12:55 07/28/17 06:00 07/28/17 12:30 07/29/17 06:30 C-Reactive Protein, Quantitative < 70.0 mg/dL (0.00-0.90) White Blood Count 23.0 K/UL (4.8-10.8) 23.0 K/UL (4.8-10.8) 22.9 K/UL (4.8-10.8) Red Blood Count 2.59 M/UL (4.70-6.10) 2.65 M/UL (4.70-6.10) 2.68 M/UL (4.70-6.10) Hemoglobin 7.9 G/DL (14.2-18.0) 8.1 G/DL (14.2-18.0) 8.2 G/DL (14.2-18.0) Hematocrit 23.4 % (42.0-52.0) 24.3 % (42.0-52.0) 24.2 % (42.0-52.0) Mean Corpuscular Volume 91 FL (80-99) 92 FL (80-99) 90 FL (80-99) Mean Corpuscular Hemoglobin 30.4 PG (27.0-31.0) 30.4 PG (27.0-31.0) 30.8 PG (27.0-31.0) Mean Corpuscular Hemoglobin Concent 33.5 G/DL (32.0-36.0) 33.2 G/DL (32.0-36.0) 34.0 G/DL (32.0-36.0) Red Cell Distribution Width 17.7 % (11.6-14.8) 18.0 % (11.6-14.8) 17.2 % (11.6-14.8) Platelet Count 211 K/UL (150-450) 341 K/UL (150-450) 393 K/UL (150-450) Mean Platelet Volume 7.2 FL (6.5-10.1) 6.6 FL (6.5-10.1) 6.3 FL (6.5-10.1) Neutrophils (%) (Auto) % (45.0-75.0) % (45.0-75.0) % (45.0-75.0) Lymphocytes (%) (Auto) % (20.0-45.0) % (20.0-45.0) % (20.0-45.0) Monocytes (%) (Auto) % (1.0-10.0) % (1.0-10.0) % (1.0-10.0) Eosinophils (%) (Auto) % (0.0-3.0) % (0.0-3.0) % (0.0-3.0) Basophils (%) (Auto) % (0.0-2.0) % (0.0-2.0) % (0.0-2.0) Differential Total Cells Counted 100 100 100 Neutrophils % (Manual) 84 % (45-75) 89 % (45-75) 86 % (45-75) Lymphocytes % (Manual) 7 % (20-45) 3 % (20-45) 5 % (20-45) Monocytes % (Manual) 8 % (1-10) 7 % (1-10) 8 % (1-10) Eosinophils % (Manual) 1 % (0-3) 1 % (0-3) 1 % (0-3) Basophils % (Manual) 0 % (0-2) 0 % (0-2) 0 % (0-2) Band Neutrophils 0 % (0-8) 0 % (0-8) 0 % (0-8) Platelet Estimate Adequate Adequate Adequate Platelet Morphology Normal Normal Normal Anisocytosis 1+ 1+ 1+ Sodium Level 136 MMOL/L (136-145) 137 MMOL/L (136-145) Potassium Level 3.6 MMOL/L (3.5-5.1) 3.8 MMOL/L (3.5-5.1) Chloride Level 106 MMOL/L (98-107) 106 MMOL/L (98-107) Carbon Dioxide Level 21 MMOL/L (21-32) 22 MMOL/L (21-32) Anion Gap 9 mmol/L (5-15) 9 mmol/L (5-15) Blood Urea Nitrogen 13 mg/dL (7-18) 14 mg/dL (7-18) Creatinine 1.6 MG/DL (0.55-1.30) 1.5 MG/DL (0.55-1.30) Estimat Glomerular Filtration Rate 52.2 mL/min (>60) 56.2 mL/min (>60) Glucose Level 153 MG/DL (74-106) 154 MG/DL (74-106) Uric Acid 5.2 MG/DL (2.6-7.2) Calcium Level 7.7 MG/DL (8.5-10.1) 8.1 MG/DL (8.5-10.1) Phosphorus Level 2.5 MG/DL (2.5-4.9) Magnesium Level 1.5 MG/DL (1.8-2.4) Total Bilirubin 0.4 MG/DL (0.2-1.0) Aspartate Amino Transf (AST/SGOT) 227 U/L (15-37) Alanine Aminotransferase (ALT/SGPT) 121 U/L (12-78) Alkaline Phosphatase 170 U/L (46-116) Total Protein 6.5 G/DL (6.4-8.2) Albumin 1.5 G/DL (3.4-5.0) Globulin 5.0 g/dL Albumin/Globulin Ratio 0.3 (1.0-2.7) Polychromasia 1+ Hypochromasia 1+ 2+ Spherocytes 1+ Test 07/29/17 07:50 Vancomycin Level Trough 18.0 ug/mL (5.0-12.0) Height (Feet): 6 Height (Inches): 4.00 Weight (Pounds): 294 General Appearance: no apparent distress Respiratory/Chest: decreased breath sounds Guido Lopez Jul 30, 2017 10:13
[2017-07-30 10:37] LABS: HEMATOCRIT 25.8 % (42.0-52.0); HEMOGLOBIN 8.4 G/DL (14.2-18.0); MEAN CORPUSCULAR VOLUME 92 FL (80-99); PLATELET COUNT 390 K/UL (150-450); RED CELL DISTRIBUTION WIDTH 18.2 % (11.6-14.8); WHITE BLOOD COUNT 21.6 K/UL (4.8-10.8)
--- NOTE | 2017-07-30 10:49 | Discharge Instructions ---
Discharge Instructions Discharge Instructions Follow up with: Podiatry Dr. Bernard in 1 week. Call MD/Return to Hospital if: fevers, SOB, worsening wounds Special Instructions Non-weight bearing to RLE Cont IV vanco and meropenem x 4 weeks Wound care per podiatry Dr Bernard: daily dressing changes Cleanse w/ NS, flush with NS, pack w/ iodoform strips, cover w/ dry dressing, cover w/ yusra wrap bandage. change daily and PRN For Congestive Heart Failure Reminder Report to your physician any weight gain of 5 pounds or more in one week. Js Garcia M.D. Jul 30, 2017 10:49
[2017-07-30 10:54] LABS: ALANINE AMINOTRANSFERASE 106 U/L (12-78); ALBUMIN 1.6 G/DL (3.4-5.0); ALBUMIN/GLOBULIN RATIO 0.3 (1.0-2.7); ALKALINE PHOSPHATASE 153 U/L (46-116); ANION GAP 4 mmol/L (5-15); ASPARTATE AMINO TRANSFERASE 163 U/L (15-37); BILIRUBIN,DIRECT 0.2 MG/DL (0.0-0.3); BILIRUBIN,TOTAL 0.4 MG/DL (0.2-1.0); BLOOD UREA NITROGEN 13 mg/dL (7-18); CARBON DIOXIDE 24 MMOL/L (21-32); CHLORIDE 104 MMOL/L (98-107); CREATININE 1.5 MG/DL (0.55-1.30); POTASSIUM 3.5 MMOL/L (3.5-5.1); SODIUM 132 MMOL/L (136-145)
--- NOTE | 2017-07-30 11:04 | Diagnostic Imaging Report ---
Indication: Dyspnea Comparison: July 25, 2017 A single view chest radiograph was obtained. Findings: PICC line is stable. Heart is enlarged. There is evidence of mild vascular congestion and interstitial edema although the degree of CHF has improved since the last study. IMPRESSION: Mild CHF
[2017-07-30 12:00] VITALS: BP 158/75
--- NOTE | 2017-07-30 12:02 | GI Progress Note ---
Assessment/Plan Problems: (1) Abdominal pain ICD Codes: R10.9 - Unspecified abdominal pain SNOMED: 84390628 (2) Acute blood loss anemia ICD Codes: D62 - Acute posthemorrhagic anemia SNOMED: 755471234 (3) Acute on chronic anemia (4) Anemia ICD Codes: D64.9 - Anemia, unspecified SNOMED: 986535903 Status: stable Status Narrative Discussed with Dr. Yoder. Assessment/Plan EGD/colonoscopy SUMMARY OF FINDINGS: 1. A 4-cm hiatal hernia. 2. Distal esophageal ulcerations plus esophagitis. 3. Gastritis, status post biopsy. 4. Poor colonic prep and incomplete colonoscopy examination. 5. One colonic polyp removed, see above for details. 6. One diverticulum seen in the left colon. 7. Hemorrhoids. RECOMMENDATIONS: Follow up biopsy results and treat accordingly. >> negative for H. Pylori monitor H&H, prn transfusions bowel regime ppi trend LFTs fu labs The patient was seen and examined at bedside and all new and available data was reviewed in the patients chart. I agree with the above findings, impression and plan. (Patient seen earlier today. Signature stamp does not reflect patient encounter time.). - Janneth Yoder MD Subjective Subjective abdominal pain Objective Last 24 Hour Vital Signs Date Time Temp Pulse Resp B/P (MAP) Pulse Ox O2 Delivery O2 Flow Rate FiO2 07/30/17 08:00 99.3 79 20 159/83 96 Nasal Cannula 2.0 99.3 07/30/17 05:44 168/86 07/30/17 04:00 78 07/30/17 04:00 98.8 79 24 168/86 100 Nasal Cannula 2.0 98.8 07/30/17 00:00 99.0 80 22 143/84 96 Nasal Cannula 2.0 99.0 07/30/17 00:00 87 07/29/17 20:00 78 07/29/17 20:00 99.0 79 20 162/90 99 Nasal Cannula 2.0 99.0 07/29/17 19:30 Nasal Cannula 2.0 28 07/29/17 19:30 98 Nasal Cannula 2.0 28 07/29/17 16:00 98.6 67 18 134/70 99 Nasal Cannula 2.0 98.6 07/29/17 15:51 80 07/29/17 15:01 98.2 07/29/17 14:02 98.2 07/29/17 12:51 98.2 Intake and Output 07/29/17 07/30/17 19:00 07:00 Intake Total 360 ml 400 ml Output Total 2425 ml 1000 ml Balance -2065 ml -600 ml Intake Oral 360 ml 400 ml Output Urine Total 2425 ml 1000 ml # Voids 4 2 # Bowel Movements 3 1 Laboratory Tests Test 07/30/17 10:20 White Blood Count 21.6 K/UL (4.8-10.8) H Red Blood Count 2.80 M/UL (4.70-6.10) L Hemoglobin 8.4 G/DL (14.2-18.0) L Hematocrit 25.8 % (42.0-52.0) L Mean Corpuscular Volume 92 FL (80-99) Mean Corpuscular Hemoglobin 29.9 PG (27.0-31.0) Mean Corpuscular Hemoglobin Concent 32.5 G/DL (32.0-36.0) Red Cell Distribution Width 18.2 % (11.6-14.8) H Platelet Count 390 K/UL (150-450) Mean Platelet Volume 5.9 FL (6.5-10.1) L Neutrophils (%) (Auto) % (45.0-75.0) Lymphocytes (%) (Auto) % (20.0-45.0) Monocytes (%) (Auto) % (1.0-10.0) Eosinophils (%) (Auto) % (0.0-3.0) Basophils (%) (Auto) % (0.0-2.0) Differential Total Cells Counted 100 Neutrophils % (Manual) 84 % (45-75) H Lymphocytes % (Manual) 8 % (20-45) L Monocytes % (Manual) 6 % (1-10) Eosinophils % (Manual) 1 % (0-3) Basophils % (Manual) 1 % (0-2) Band Neutrophils 0 % (0-8) Platelet Estimate Adequate Platelet Morphology Normal Hypochromasia 2+ Anisocytosis 2+ Spherocytes 1+ Sodium Level 132 MMOL/L (136-145) L Potassium Level 3.5 MMOL/L (3.5-5.1) Chloride Level 104 MMOL/L (98-107) Carbon Dioxide Level 24 MMOL/L (21-32) Anion Gap 4 mmol/L (5-15) L Blood Urea Nitrogen 13 mg/dL (7-18) Creatinine 1.5 MG/DL (0.55-1.30) H Estimat Glomerular Filtration Rate 56.2 mL/min (>60) Glucose Level 169 MG/DL (74-106) H Calcium Level 8.0 MG/DL (8.5-10.1) L Total Bilirubin 0.4 MG/DL (0.2-1.0) Direct Bilirubin 0.2 MG/DL (0.0-0.3) Aspartate Amino Transf (AST/SGOT) 163 U/L (15-37) H Alanine Aminotransferase (ALT/SGPT) 106 U/L (12-78) H Alkaline Phosphatase 153 U/L (46-116) H Total Protein 7.0 G/DL (6.4-8.2) Albumin 1.6 G/DL (3.4-5.0) L Globulin 5.4 g/dL Albumin/Globulin Ratio 0.3 (1.0-2.7) L Height (Feet): 6 Height (Inches): 4.00 Weight (Pounds): 294 General Appearance: WD/WN, no apparent distress, alert Cardiovascular: normal rate Respiratory/Chest: normal breath sounds, no respiratory distress Abdominal Exam: normal bowel sounds, non tender, soft Extremities: normal range of motion, non-tender Adele Avila N.Kerry Jul 30, 2017 12:02 ELDER YODER Aug 05, 2017 13:35
--- NOTE | 2017-07-30 12:15 | Infectious Diseases Prog Note ---
Assessment/Plan Assessment/Plan ASSESSMENT AND PLAN: 1. right leg/foot cellulitis, ? abscess, right foot great toe/1st toes infected wound and osteomyelitis on CT scan, s/p debridement by podiatry x 2, sepsis, fevers, leukocytosis, ? fungemia, thrush, c.diff. negative - s/p right partial first ray amputation and debridement - 07/21 great toe wound culture with enterobacter, citrobacter and klebsiella , jerri likely colonizer - surgery cultures with acinetobacter - operative note reviewed - meropenem and vancomycin - day # 6 combination, plan on 6 week tx course - continue diflucan for possible fungemia (jerri grew at two different sites) and thrush - day # 3 - urine culture likely colonizer, ua benign - elevated lft's but no sig abdominal pain - f/u on ultrasound to r/o cholecystitis 2. chest x-ray with chf 3. Elevated creatinine, chronic renal failure 4. Anemia. 5. Diabetes. 6. Hypertension. 7. Hyperlipidemia. 8. Blood sugar, blood pressure, and lipid treatment per primary. 9. History of ulcers. 10. Wound care protocol. 11. No known allergies. 12. Social history negative. 13. Family history noncontributory. 14. MAR was noted. 15. Continue treatment per primary consultants. 16. Podiatry followup. 17. Notes and records were noted. 18. Orders were entered. 19. Case discussed with RN. Subjective Constitutional: Denies: fever HEENT: Denies: congestion Respiratory: Denies: shortness of breath Cardiovascular: Denies: chest pain Gastrointestinal/Abdominal: Denies: nausea, vomiting, diarrhea Genitourinary: Reports: other - no meyer, Denies: dysuria, hematuria Neurologic: Denies: headache Psychiatric: Denies: depression Hematologic: Denies: bleeding Musculoskeletal: Reports: pain - controlled Allergies: Coded Allergies: No Known Allergies (Verified , 11/14/10) Objective Vital Signs Last 24 Hour Vital Signs Date Time Temp Pulse Resp B/P (MAP) Pulse Ox O2 Delivery O2 Flow Rate FiO2 07/30/17 08:00 99.3 79 20 159/83 96 Nasal Cannula 2.0 99.3 07/30/17 05:44 168/86 07/30/17 04:00 78 07/30/17 04:00 98.8 79 24 168/86 100 Nasal Cannula 2.0 98.8 3/7/18 00:00 99.0 80 22 143/84 96 Nasal Cannula 2.0 99.0 07/30/17 00:00 87 07/29/17 20:00 78 07/29/17 20:00 99.0 79 20 162/90 99 Nasal Cannula 2.0 99.0 07/29/17 19:30 Nasal Cannula 2.0 28 07/29/17 19:30 98 Nasal Cannula 2.0 28 07/29/17 16:00 98.6 67 18 134/70 99 Nasal Cannula 2.0 98.6 07/29/17 15:51 80 07/29/17 15:01 98.2 07/29/17 14:02 98.2 07/29/17 12:51 98.2 Height (Feet): 6 Height (Inches): 4.00 Weight (Pounds): 294 General Appearance: no acute distress HEENT: normocephalic, atraumatic, anicteric, mucous membranes moist Respiratory/Chest: lungs clear, normal breath sounds, no respiratory distress, no accessory muscle use Cardiovascular: normal rate, regular rhythm, no gallop/murmur, no JVD Abdomen: normal bowel sounds, soft, non tender, no organomegaly, non distended Genitourinary: other - no meyer, no cva pain Extremities: other - right leg swelling/edema, right foot covered Skin: no rash 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 Erosive changes of the first distal phalanx and possibly first metatarsal head. This is consistent with osteomyelitis. Postoperative changes in the base of the first proximal phalanx. Chronic changes in the fifth metatarsal phalangeal joint. This may be surgical as well. The above report is concordant with preliminary reading by [facility] . 07/25 - Chest - x-ray with chf and edema 07/30 - chest x-ray - chf Microbiology Date/Time Source Procedure Growth Status 07/24/17 18:15 Blood Blood Culture - Final NO GROWTH AFTER 5 DAYS Complete 07/20/17 01:55 Nasal Nares MRSA Culture - Final NO METHICILLIN RESISTANT STAPH AUREUS... Complete 07/26/17 01:04 Stool Clostridium difficile Toxin Assay - Final Complete 07/25/17 04:50 Urine,Clean Catch Urine Culture - Final Jerri Parapsilosis Complete 07/28/17 15:00 Foot Right Gram Stain - Final Resulted 07/28/17 15:00 Foot Right Aerobic Culture - Preliminary Resulted 07/28/17 15:00 Foot Right Anaerobic Culture - Preliminary Resulted Microbiology Date/Time Source Procedure Growth Status 07/28/17 15:00 Foot Right Gram Stain - Final Resulted 07/28/17 15:00 Foot Right Aerobic Culture - Preliminary Resulted 07/28/17 15:00 Foot Right Anaerobic Culture - Preliminary Resulted Laboratory Tests Test 07/30/17 10:20 White Blood Count 21.6 K/UL (4.8-10.8) H Red Blood Count 2.80 M/UL (4.70-6.10) L Hemoglobin 8.4 G/DL (14.2-18.0) L Hematocrit 25.8 % (42.0-52.0) L Mean Corpuscular Volume 92 FL (80-99) Mean Corpuscular Hemoglobin 29.9 PG (27.0-31.0) Mean Corpuscular Hemoglobin Concent 32.5 G/DL (32.0-36.0) Red Cell Distribution Width 18.2 % (11.6-14.8) H Platelet Count 390 K/UL (150-450) Mean Platelet Volume 5.9 FL (6.5-10.1) L Neutrophils (%) (Auto) % (45.0-75.0) Lymphocytes (%) (Auto) % (20.0-45.0) Monocytes (%) (Auto) % (1.0-10.0) Eosinophils (%) (Auto) % (0.0-3.0) Basophils (%) (Auto) % (0.0-2.0) Differential Total Cells Counted 100 Neutrophils % (Manual) 84 % (45-75) H Lymphocytes % (Manual) 8 % (20-45) L Monocytes % (Manual) 6 % (1-10) Eosinophils % (Manual) 1 % (0-3) Basophils % (Manual) 1 % (0-2) Band Neutrophils 0 % (0-8) Platelet Estimate Adequate Platelet Morphology Normal Hypochromasia 2+ Anisocytosis 2+ Spherocytes 1+ Sodium Level 132 MMOL/L (136-145) L Potassium Level 3.5 MMOL/L (3.5-5.1) Chloride Level 104 MMOL/L (98-107) Carbon Dioxide Level 24 MMOL/L (21-32) Anion Gap 4 mmol/L (5-15) L Blood Urea Nitrogen 13 mg/dL (7-18) Creatinine 1.5 MG/DL (0.55-1.30) H Estimat Glomerular Filtration Rate 56.2 mL/min (>60) Glucose Level 169 MG/DL (74-106) H Calcium Level 8.0 MG/DL (8.5-10.1) L Total Bilirubin 0.4 MG/DL (0.2-1.0) Direct Bilirubin 0.2 MG/DL (0.0-0.3) Aspartate Amino Transf (AST/SGOT) 163 U/L (15-37) H Alanine Aminotransferase (ALT/SGPT) 106 U/L (12-78) H Alkaline Phosphatase 153 U/L (46-116) H Total Protein 7.0 G/DL (6.4-8.2) Albumin 1.6 G/DL (3.4-5.0) L Globulin 5.4 g/dL Albumin/Globulin Ratio 0.3 (1.0-2.7) L Current Medications Medications (Trade) Dose Ordered Sig/Xiao Route PRN Reason Start Time Stop Time Status Last Admin Dose Admin Acetaminophen (Tylenol) 650 mg Q4H PRN ORAL Mild Pain/Temp > 100.5 07/20/17 08:15 08/19/17 08:14 07/29/17 11:52 Acetaminophen/ Hydrocodone Bitart ([place] 10/325) 1 tab Q4H PRN ORAL SEVERE PAIN (SCALE 7-10) 07/29/17 13:45 08/05/17 13:44 07/29/17 14:02 Acetaminophen/ Hydrocodone Bitart ([place] 5/325) 1 tab Q4H PRN ORAL Moderate Pain (Pain Scale 4-6) 07/29/17 13:45 08/05/17 13:44 Cetylpyridinium Chloride (Cepacol) 1 lozg EVERY 2 HOURS PRN ABDULKADIR To Patient Comfort 07/28/17 20:45 08/27/17 20:44 07/29/17 03:51 Chlorhexidine Gluconate (Joyce-Hex 2%) 1 applic DAILY@2000 TOPIC 07/25/17 20:00 08/24/17 19:59 07/29/17 22:00 Dextrose (Dextrose 50%) STAT PRN IV Hypoglycemia 07/20/17 05:15 08/19/17 05:14 07/24/17 11:41 Docusate Sodium (Colace) 100 mg THREE TIMES A DAY ORAL 07/22/17 13:00 08/21/17 12:59 07/30/17 08:14 Epoetin Norberto (Procrit (for non ESRD use)) 10,000 units FRI-FRI-FRI SUBQ 07/23/17 21:00 08/22/17 20:59 07/28/17 21:15 Ergocalciferol (Drisdol) 50,000 intlu QWEEK ORAL 07/22/17 12:30 08/21/17 12:29 07/29/17 14:01 Fluconazole/ Sodium Chloride 100 ml @ 100 mls/hr Q24H IV 07/29/17 08:00 08/05/17 07:59 07/30/17 08:14 Heparin Sodium (Porcine) (Heparin 5000 units/ml) 5,000 units EVERY 12 HOURS SUBQ 07/23/17 09:00 08/22/17 08:59 07/30/17 08:15 Hydralazine HCl (Apresoline) 25 mg Q4H PRN ORAL for sbp>160 07/25/17 18:00 08/24/17 17:59 07/30/17 05:44 Insulin Aspart (NovoLOG) BEFORE MEALS AND HS SUBQ 07/20/17 06:30 08/19/17 06:29 07/30/17 12:00 Insulin Detemir (Levemir) 35 units BEDTIME SUBQ 07/24/17 21:00 08/23/17 20:59 07/29/17 21:00 Meropenem 1 gm/ Sodium Chloride 110 ml @ 220 mls/hr Q8H IVPB 07/28/17 02:00 08/02/17 01:59 07/30/17 10:44 Pantoprazole (Protonix) 40 mg EVERY 12 HOURS ORAL 07/21/17 15:30 08/20/17 15:29 07/30/17 08:14 Vancomycin HCl (Vanco rx to dose) 1 ea DAILY PRN MISC Per rx protocol 07/20/17 06:00 08/19/17 05:59 Vancomycin HCl 1 gm/Dextrose 275 ml @ 183.708 mls/hr Q12H IVPB 07/27/17 08:00 08/01/17 07:59 07/30/17 08:14 ESE HARO Jul 30, 2017 12:15
--- NOTE | 2017-07-30 12:58 | Nephrology Progress Note ---
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 slow hydrate urine studies per orders Subjective ROS Limited/Unobtainable: No Constitutional: Reports: malaise, weakness Objective Objective Last 24 Hour Vital Signs Date Time Temp Pulse Resp B/P (MAP) Pulse Ox O2 Delivery O2 Flow Rate FiO2 07/30/17 08:00 99.3 79 20 159/83 96 Nasal Cannula 2.0 99.3 07/30/17 05:44 168/86 07/30/17 04:00 78 07/30/17 04:00 98.8 79 24 168/86 100 Nasal Cannula 2.0 98.8 07/30/17 00:00 99.0 80 22 143/84 96 Nasal Cannula 2.0 99.0 07/30/17 00:00 87 07/29/17 20:00 78 07/29/17 20:00 99.0 79 20 162/90 99 Nasal Cannula 2.0 99.0 07/29/17 19:30 Nasal Cannula 2.0 28 07/29/17 19:30 98 Nasal Cannula 2.0 28 07/29/17 16:00 98.6 67 18 134/70 99 Nasal Cannula 2.0 98.6 07/29/17 15:51 80 07/29/17 15:01 98.2 07/29/17 14:02 98.2 Intake and Output 07/29/17 07/30/17 19:00 07:00 Intake Total 360 ml 400 ml Output Total 2425 ml 1000 ml Balance -2065 ml -600 ml Intake Oral 360 ml 400 ml Output Urine Total 2425 ml 1000 ml # Voids 4 2 # Bowel Movements 3 1 Laboratory Tests 07/30/17 10:20: White Blood Count 21.6H, Red Blood Count 2.80L, Hemoglobin 8.4L, Hematocrit 25.8L, Mean Corpuscular Volume 92, Mean Corpuscular Hemoglobin 29.9, Mean Corpuscular Hemoglobin Concent 32.5, Red Cell Distribution Width 18.2H, Platelet Count 390, Mean Platelet Volume 5.9L, Neutrophils (%) (Auto) , Lymphocytes (%) (Auto) , Monocytes (%) (Auto) , Eosinophils (%) (Auto) , Basophils (%) (Auto) , Differential Total Cells Counted 100, Neutrophils % ( Manual) 84H, Lymphocytes % (Manual) 8L, Monocytes % (Manual) 6, Eosinophils % ( Manual) 1, Basophils % (Manual) 1, Band Neutrophils 0, Platelet Estimate Adequate, Platelet Morphology Normal, Hypochromasia 2+, Anisocytosis 2+, Spherocytes 1+, Sodium Level 132L, Potassium Level 3.5, Chloride Level 104, Carbon Dioxide Level 24, Anion Gap 4L, Blood Urea Nitrogen 13, Creatinine 1.5H, Estimat Glomerular Filtration Rate 56.2, Glucose Level 169H, Calcium Level 8.0L , Total Bilirubin 0.4, Direct Bilirubin 0.2, Aspartate Amino Transf (AST/SGOT) 163H, Alanine Aminotransferase (ALT/SGPT) 106H, Alkaline Phosphatase 153H, Total Protein 7.0, Albumin 1.6L, Globulin 5.4, Albumin/Globulin Ratio 0.3L Height (Feet): 6 Height (Inches): 4.00 Weight (Pounds): 294 General Appearance: no apparent distress Objective no change GRIFIFN ASTORGA Jul 30, 2017 12:57
--- NOTE | 2017-07-30 13:43 | Podiatric Progress Note ---
Assessment/Plan Patient Best Dhillon is a 67 year old male who was admitted on Jul 19, 2017 at 21:57 with Problems: Assessment/Plan A/ 1) Cellulitis right LE 2) Osteomyelitis seen on CT 3) Sepsis 4) DM foot ulcer P/ 1) Dressings changed today. AIDA was pulled without complication. 2) Cont abx per ID 3) Will follow at SNF. Orders placed for facility. Ok to d/c today 4) Nonweight bearing right foot Subjective Allergies: Coded Allergies: No Known Allergies (Verified , 11/14/10) Subjective Patient states pain has resolved and he feels much better. Objective Exam Last 24 Hour Vital Signs Date Time Temp Pulse Resp B/P (MAP) Pulse Ox O2 Delivery O2 Flow Rate FiO2 07/30/17 08:00 99.3 79 20 159/83 96 Nasal Cannula 2.0 99.3 07/30/17 05:44 168/86 07/30/17 04:00 78 07/30/17 04:00 98.8 79 24 168/86 100 Nasal Cannula 2.0 98.8 07/30/17 00:00 99.0 80 22 143/84 96 Nasal Cannula 2.0 99.0 07/30/17 00:00 87 07/29/17 20:00 78 07/29/17 20:00 99.0 79 20 162/90 99 Nasal Cannula 2.0 99.0 07/29/17 19:30 Nasal Cannula 2.0 28 07/29/17 19:30 98 Nasal Cannula 2.0 28 07/29/17 16:00 98.6 67 18 134/70 99 Nasal Cannula 2.0 98.6 07/29/17 15:51 80 07/29/17 15:01 98.2 07/29/17 14:02 98.2 Laboratory Tests Test 07/30/17 10:20 White Blood Count 21.6 K/UL (4.8-10.8) H Red Blood Count 2.80 M/UL (4.70-6.10) L Hemoglobin 8.4 G/DL (14.2-18.0) L Hematocrit 25.8 % (42.0-52.0) L Mean Corpuscular Volume 92 FL (80-99) Mean Corpuscular Hemoglobin 29.9 PG (27.0-31.0) Mean Corpuscular Hemoglobin Concent 32.5 G/DL (32.0-36.0) Red Cell Distribution Width 18.2 % (11.6-14.8) H Platelet Count 390 K/UL (150-450) Mean Platelet Volume 5.9 FL (6.5-10.1) L Neutrophils (%) (Auto) % (45.0-75.0) Lymphocytes (%) (Auto) % (20.0-45.0) Monocytes (%) (Auto) % (1.0-10.0) Eosinophils (%) (Auto) % (0.0-3.0) Basophils (%) (Auto) % (0.0-2.0) Differential Total Cells Counted 100 Neutrophils % (Manual) 84 % (45-75) H Lymphocytes % (Manual) 8 % (20-45) L Monocytes % (Manual) 6 % (1-10) Eosinophils % (Manual) 1 % (0-3) Basophils % (Manual) 1 % (0-2) Band Neutrophils 0 % (0-8) Platelet Estimate Adequate Platelet Morphology Normal Hypochromasia 2+ Anisocytosis 2+ Spherocytes 1+ Sodium Level 132 MMOL/L (136-145) L Potassium Level 3.5 MMOL/L (3.5-5.1) Chloride Level 104 MMOL/L (98-107) Carbon Dioxide Level 24 MMOL/L (21-32) Anion Gap 4 mmol/L (5-15) L Blood Urea Nitrogen 13 mg/dL (7-18) Creatinine 1.5 MG/DL (0.55-1.30) H Estimat Glomerular Filtration Rate 56.2 mL/min (>60) Glucose Level 169 MG/DL (74-106) H Calcium Level 8.0 MG/DL (8.5-10.1) L Total Bilirubin 0.4 MG/DL (0.2-1.0) Direct Bilirubin 0.2 MG/DL (0.0-0.3) Aspartate Amino Transf (AST/SGOT) 163 U/L (15-37) H Alanine Aminotransferase (ALT/SGPT) 106 U/L (12-78) H Alkaline Phosphatase 153 U/L (46-116) H C-Reactive Protein, Quantitative Pending Total Protein 7.0 G/DL (6.4-8.2) Albumin 1.6 G/DL (3.4-5.0) L Globulin 5.4 g/dL Albumin/Globulin Ratio 0.3 (1.0-2.7) L Microbiology Date/Time Source Procedure Growth Status 07/24/17 18:15 Blood Blood Culture - Final NO GROWTH AFTER 5 DAYS Complete 07/20/17 01:55 Nasal Nares MRSA Culture - Final NO METHICILLIN RESISTANT STAPH AUREUS... Complete 07/26/17 01:04 Stool Clostridium difficile Toxin Assay - Final Complete 07/25/17 04:50 Urine,Clean Catch Urine Culture - Final Stephanie Parapsilosis Complete 07/28/17 15:00 Foot Right Gram Stain - Final Resulted 07/28/17 15:00 Foot Right Aerobic Culture - Preliminary Resulted 07/28/17 15:00 Foot Right Anaerobic Culture - Preliminary Resulted Dermatological Dermatological Narrative Incision well coapted. Lew are intact. AIDA output 5cc Edema improving. Wiliam Bernard DPM Jul 30, 2017 13:43
[2017-07-30] MEDS ORDERED: NaCl 3% 500ml 250 ML IV ONE (14:30)
--- NOTE | 2017-07-30 15:56 | Diagnostic Imaging Report ---
Indication: Elevated liver function tests. Renal function tests. Technique: Grayscale and duplex Doppler imaging of the abdomen performed. Comparison: None Findings: There are multiple cysts in the liver noted. The liver is enlarged measuring 20 cm. Portal vein is patent by Doppler. Some limitation on this study due to body habitus. Pancreas not seen. Aorta not well seen. CBD is 8 mm. Gallbladder is grossly unremarkable. Spleen is normal size. Kidneys are unremarkable. There are trace bilateral pleural effusions. IMPRESSION: No acute findings Incidental findings as above
--- NOTE | 2017-07-30 16:17 | Discharge Summary ---
Discharge Summary Hospital Course Date of Admission Jul 19, 2017 at 21:57 Date of Discharge Jul 30, 2017 at 16:01 Admitting Diagnosis Severe sepsis, RLE cellulitis w/ concern for abscess and osteomyelitis Reason for Hospitalization: Severe sepsis, RLE cellulitis w/ concern for abscess and osteomyelitis HPI 67 y/o male with a PMH of diabetes mellitus, HLD, and chronic diabetic ulcers presents from home for right foot swelling x 1 day. Patient states he noticed his right lower extremity became extremely red, swollen, and tender for 1 day and has been difficult to ambulate with it. He states that he regularly has a home health wound care nurse for his dressing changes to his diabetic ulcer to right great toe. He states he was just at another hospital a few weeks ago for his right foot gangrene and at that time he was discharged with PO antibiotics and wound care instructions. Patient states the right great toe has also been worsening and becoming more gangrenous. Denies chest pain, sob, n/v, abdominal pain, fevers, chills, myalgias. Consultations Podiatry, Infectious disease, Heme/onc, Gastroenterology Procedures R partial first ray amputation, and excisional debridement of necrotic tissue to level of bone on 07/22/17 Incision and drainage deep to fascia, excisional debridement of necrotic tissue to level of bone, and delayed primary closure with drain placement on 07/28/17 Hospital Course Pt was admitted and seen by podiatry and ID. He was placed on broad-spectrum antibiotics with vanco and zosyn for severe sepsis. CT of right foot showed possible osteomyelitis and concern for abscess. Pt underwent R partial first ray amputation, and excisional debridement of necrotic tissue to level of bone on 07/22/17. OR culture showed acinetobacter. Pathology of margins showed osteomyelitis and gangrene. Pt with persistent fevers and leukocytosis. Antibiotics were further broadened from zosyn to meropenem. Pt noted to have purulent drainage from wound, so he underwent incision and drainage deep to fascia, excisional debridement of necrotic tissue to level of bone, and delayed primary closure with drain placement on 07/28/17. Drain was removed prior to d/c. Pt is to remain on vanco, meropenem for 4 more weeks, and diflucan for 7 more days per ID. Pt is to remain NWB of RLE per podiatry. Pt also noted to have persistent drop in hgb drop despite pRBC transfusion. GI was consulted and pt underwent EGD and colo on 07/24/17 which showed gastritis, distal esophageal ulcerations w/ esophagitis, hemorrhoids, 1 colonic polyp s/p removal, no active bleeding. Heme/onc workup was unrevealing. Pt was given IV venofer and epogen for anemia. Pt was also noted to have CHIQUITA w/ SCr 2.3. He was seen by renal. Pt with likely pre-renal CHIQUITA and so he was given IVFs with improvement in SCr to 1.5. Discharge physical exam: General Appearance: no apparent distress, alert HEENT: normocephalic, atraumatic Neck: non-tender, normal alignment, supple Respiratory/Chest: chest wall non-tender, lungs clear, normal breath sounds Cardiovascular/Chest: normal peripheral pulses, normal rate, regular rhythm Abdomen: normal bowel sounds, non tender, soft Skin Exam: other - right lower extremity erythema, edema, and TTP. 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 Glipizide* (Glipizide*) 5 Mg Tablet 5 MG ORAL BIDAC, TAB Insulin Aspart* (Novolog*) 100 Unit/1 Ml Insuln.pen 15 UNITS SUBQ BID, UNITS Inject subcutaneously per sliding scale order Insulin Detemir (Levemir Flexpen) 100 Unit/1 Ml Insuln.pen 50 SUBQ, #1 UNITS 15 Refills Discontinued Medications: Atorvastatin Calcium* (Atorvastatin Calcium*) 40 Mg Tablet 40 MG ORAL DAILY, TAB Doxycycline Hyclate* (Vibramycin*) 100 Mg Capsule 100 MG ORAL BID for 5 Days, CAP 0 Refills Levofloxacin* (Levaquin*) 500 Mg Tablet 500 MG ORAL DAILY for 5 Days, TAB Lisinopril (Lisinopril*) 5 Mg Tablet 5 MG ORAL DAILY, TAB Discharge Condition Upon Discharge: stable Discharge Disposition Patient was discharged to SNF/Subacute Facility(03) Discharge Diagnoses: Discharge Instructions Discharge Instructions Follow up with: Podiatry Dr. Bernard in 1 week. Call MD/Return to Hospital if: fevers, SOB, worsening wounds Js Garcia M.D. Jul 30, 2017 16:17
--- NOTE | 2017-07-30 19:29 | General Progress Note ---
Assessment/Plan Problem List: (1) Hyperkalemia ICD Codes: E87.5 - Hyperkalemia SNOMED: 44003896 (2) Lung nodule ICD Codes: R91.1 - Solitary pulmonary nodule SNOMED: 289225299 (3) Pancreatitis ICD Codes: K85.9 - Acute pancreatitis, unspecified SNOMED: 39787352 (4) Osteomyelitis ICD Codes: M86.9 - Osteomyelitis, unspecified SNOMED: 51854765 (5) Severe sepsis ICD Codes: A41.9 - Sepsis, unspecified organism; R65.20 - Severe sepsis without septic shock SNOMED: 59147947 (6) Anemia ICD Codes: D64.9 - Anemia, unspecified SNOMED: 831147805 (7) bliateral lower extremities (8) Diabetes ICD Codes: E11.9 - Diabetes SNOMED: 67095364 (9) Hyperlipidemia ICD Codes: E78.5 - Hyperlipidemia SNOMED: 11846496 (10) Hypertension ICD Codes: I10 - Hypertension SNOMED: 24756330 (11) Cellulitis and abscess of foot ICD Codes: L03.119 - Cellulitis and abscess of foot; L02.619 - Cutaneous abscess of unspecified foot SNOMED: 853773925 (12) Renal failure (ARF), acute on chronic ICD Codes: N17.9 - Acute kidney failure, unspecified; N18.9 - Chronic kidney disease, unspecified SNOMED: 154886872 (13) Lactic acidosis ICD Codes: E87.2 - Acidosis SNOMED: 15910139 (14) Leukopenia ICD Codes: D72.819 - Decreased white blood cell count, unspecified SNOMED: 87304712, 788699028 (15) DM2 (diabetes mellitus, type 2) ICD Codes: E11.9 - Type 2 diabetes mellitus without complications SNOMED: 85004494 Qualifiers: (16) Acute on chronic anemia (17) Likely 1st toe ostemyelitis (18) Cellulitis of right lower extremity ICD Codes: L03.115 - Cellulitis of right lower limb SNOMED: 699841386 (19) Concern for abscess of R foot (20) Diabetic foot ulcer ICD Codes: E11.621 - Type 2 diabetes mellitus with foot ulcer; L97.509 - Non- pressure chronic ulcer of other part of unspecified foot with unspecified severity SNOMED: 39569468, 590355286 (21) Acute blood loss anemia ICD Codes: D62 - Acute posthemorrhagic anemia SNOMED: 009267219 (22) Abdominal pain ICD Codes: R10.9 - Unspecified abdominal pain SNOMED: 35075762 (23) Postoperative fever ICD Codes: R50.82 - Postprocedural fever SNOMED: 759929227 (24) postop fever Status: stable, progressing Assessment/Plan 1. Depression. 2. Anxiety. PLAN: We will continue current medications. Provide the patient with supportive therapy and reality orientation. We will continue to follow and readjust the medications. Subjective Date patient seen: Jul 30, 2017 Neurologic/Psychiatric: Reports: anxiety, depressed, emotional problems Allergies: Coded Allergies: No Known Allergies (Verified , 11/14/10) Objective Last 24 Hour Vital Signs Date Time Temp Pulse Resp B/P (MAP) Pulse Ox O2 Delivery O2 Flow Rate FiO2 07/30/17 12:00 76 07/30/17 12:00 99.5 72 20 158/75 98 Nasal Cannula 2.0 99.5 07/30/17 08:00 79 07/30/17 08:00 99.3 79 20 159/83 96 Nasal Cannula 2.0 99.3 07/30/17 05:44 168/86 07/30/17 04:00 78 07/30/17 04:00 98.8 79 24 168/86 100 Nasal Cannula 2.0 98.8 07/30/17 00:00 99.0 80 22 143/84 96 Nasal Cannula 2.0 99.0 07/30/17 00:00 87 07/29/17 20:00 78 07/29/17 20:00 99.0 79 20 162/90 99 Nasal Cannula 2.0 99.0 07/29/17 19:30 Nasal Cannula 2.0 28 07/29/17 19:30 98 Nasal Cannula 2.0 28 Intake and Output 07/29/17 07/30/17 19:00 07:00 Intake Total 360 ml 400 ml Output Total 2425 ml 1000 ml Balance -2065 ml -600 ml Intake Oral 360 ml 400 ml Output Urine Total 2425 ml 1000 ml # Voids 4 2 # Bowel Movements 3 1 Laboratory Tests 07/30/17 10:20: White Blood Count 21.6H, Red Blood Count 2.80L, Hemoglobin 8.4L, Hematocrit 25.8L, Mean Corpuscular Volume 92, Mean Corpuscular Hemoglobin 29.9, Mean Corpuscular Hemoglobin Concent 32.5, Red Cell Distribution Width 18.2H, Platelet Count 390, Mean Platelet Volume 5.9L, Neutrophils (%) (Auto) , Lymphocytes (%) (Auto) , Monocytes (%) (Auto) , Eosinophils (%) (Auto) , Basophils (%) (Auto) , Differential Total Cells Counted 100, Neutrophils % ( Manual) 84H, Lymphocytes % (Manual) 8L, Monocytes % (Manual) 6, Eosinophils % ( Manual) 1, Basophils % (Manual) 1, Band Neutrophils 0, Platelet Estimate Adequate, Platelet Morphology Normal, Hypochromasia 2+, Anisocytosis 2+, Spherocytes 1+, Sodium Level 132L, Potassium Level 3.5, Chloride Level 104, Carbon Dioxide Level 24, Anion Gap 4L, Blood Urea Nitrogen 13, Creatinine 1.5H, Estimat Glomerular Filtration Rate 56.2, Glucose Level 169H, Calcium Level 8.0L , Total Bilirubin 0.4, Direct Bilirubin 0.2, Aspartate Amino Transf (AST/SGOT) 163H, Alanine Aminotransferase (ALT/SGPT) 106H, Alkaline Phosphatase 153H, C- Reactive Protein, Quantitative < 0.4, Total Protein 7.0, Albumin 1.6L, Globulin 5.4, Albumin/Globulin Ratio 0.3L Height (Feet): 6 Height (Inches): 4.00 Weight (Pounds): 294 General Appearance: WD/WN, no apparent distress, alert Neurologic: alert, oriented x 3, responsive, depressed affect Kory Bales M.D. Jul 30, 2017 19:29
[2017-07-30] MEDS ORDERED: Vancomycin 1 GM in D5W 275 ML IVPB SCH (20:00)
--- NOTE | 2017-07-31 02:17 | General Progress Note ---
Assessment/Plan Assessment/Plan #. Myelodysplasia based on most recent flow cytometry completed on 07/28/17 --> Anemia workup reviewed. --> Iron 16, TIBC 198, % sat 8, Folate 13.4, B12 637, Ferritin 308 --> Iron levels are low. --> Received blood transfusion yesterday, hgb levels remain low but improving after prbc. --> Occult blood has been found. Consider GI services and recs. --> S/P EGD and colonoscopy revealing gastritis, distal esophageal ulcerations w / esophagitis, and hemorrhoids --> Spoke to Dr. Walters and Dr. España, do not recommend a bone marrow biopsy at this time, would yield minimal further info #. Leukocytosis, likely secondary to underlying infection from osteomyelitis --> HIV/Hep panel are both negative. --> Has improved slightly. Continue to monitor and trend cbc daily for improvement. --> On abx. ID following. #. Lactic acidosis secondary to sepsis from underlying infection. --> Continue to monitor. #. Diabetes mellitus, on insulin sliding scale. Blood sugar control as needed. #. Right big toe osteomyelitis, to be seen by the Disaster Director as well as surgical team. #. Sepsis. Subjective Date patient seen: Jul 30, 2017 Constitutional: Denies: no symptoms, chills, diaphoresis, fever, malaise, weakness, other HEENT: Denies: no symptoms, eye pain, blurred vision, tearing, double vision, ear pain, ear discharge, nose pain, nose congestion, throat pain, throat swelling, mouth pain, mouth swelling, other Cardiovascular: Denies: no symptoms, chest pain, edema, irregular heart rate, lightheadedness, palpitations, syncope, other Respiratory: Denies: no symptoms, cough, orthopnea, shortness of breath, SOB with excertion, SOB at rest, sputum, stridor, wheezing, other Gastrointestinal/Abdominal: Denies: no symptoms, abdomen distended, abdominal pain, black stools, tarry stools, blood in stool, constipated, diarrhea, difficulty swallowing, nausea, poor appetite, poor fluid intake, rectal bleeding , vomiting, other Genitourinary: Denies: no symptoms, burning, discharge, frequency, flank pain, hematuria, incontinence, pain, urgency, other Neurologic/Psychiatric: Denies: no symptoms, anxiety, depressed, emotional problems, headache, numbness, paresthesia, pre-existing deficit, seizure, tingling, tremors, weakness, other Hematologic/Lymphatic: Reports: anemia Allergies: Coded Allergies: No Known Allergies (Verified , 11/14/10) Subjective NAD. No fever or chills. Pending DC. Objective Last 24 Hour Vital Signs Date Time Temp Pulse Resp B/P (MAP) Pulse Ox O2 Delivery O2 Flow Rate FiO2 07/30/17 12:00 76 07/30/17 12:00 99.5 72 20 158/75 98 Nasal Cannula 2.0 99.5 07/30/17 08:00 79 07/30/17 08:00 99.3 79 20 159/83 96 Nasal Cannula 2.0 99.3 07/30/17 05:44 168/86 07/30/17 04:00 78 07/30/17 04:00 98.8 79 24 168/86 100 Nasal Cannula 2.0 98.8 Intake and Output 07/30/17 07/31/17 19:00 07:00 Intake Total 240 ml Output Total 2000 ml Balance -1760 ml Intake Oral 240 ml Output Urine Total 2000 ml Laboratory Tests 07/30/17 10:20: White Blood Count 21.6H, Red Blood Count 2.80L, Hemoglobin 8.4L, Hematocrit 25.8L, Mean Corpuscular Volume 92, Mean Corpuscular Hemoglobin 29.9, Mean Corpuscular Hemoglobin Concent 32.5, Red Cell Distribution Width 18.2H, Platelet Count 390, Mean Platelet Volume 5.9L, Neutrophils (%) (Auto) , Lymphocytes (%) (Auto) , Monocytes (%) (Auto) , Eosinophils (%) (Auto) , Basophils (%) (Auto) , Differential Total Cells Counted 100, Neutrophils % ( Manual) 84H, Lymphocytes % (Manual) 8L, Monocytes % (Manual) 6, Eosinophils % ( Manual) 1, Basophils % (Manual) 1, Band Neutrophils 0, Platelet Estimate Adequate, Platelet Morphology Normal, Hypochromasia 2+, Anisocytosis 2+, Spherocytes 1+, Sodium Level 132L, Potassium Level 3.5, Chloride Level 104, Carbon Dioxide Level 24, Anion Gap 4L, Blood Urea Nitrogen 13, Creatinine 1.5H, Estimat Glomerular Filtration Rate 56.2, Glucose Level 169H, Calcium Level 8.0L , Total Bilirubin 0.4, Direct Bilirubin 0.2, Aspartate Amino Transf (AST/SGOT) 163H, Alanine Aminotransferase (ALT/SGPT) 106H, Alkaline Phosphatase 153H, C- Reactive Protein, Quantitative < 0.4, Total Protein 7.0, Albumin 1.6L, Globulin 5.4, Albumin/Globulin Ratio 0.3L Height (Feet): 6 Height (Inches): 4.00 Weight (Pounds): 294 General Appearance: no apparent distress Respiratory/Chest: decreased breath sounds Guido Lopez Jul 31, 2017 02:17
== END 2017-07-30 16:01 | DRG 853 ==
LOC: EDBD 21:08 → EMR 21:55 → 2E 21:57 → EDBEDREQSVC 23:15 → EDBEDREQ 23:15 → 2E 07-20 03:07
PROC: 30233N1 Transfusion of Nonautologous Red Blood Cells into Peripheral Vein, Percutaneous Approach (ICD-10-PCS; principal; 2017-07-20)
PROC: 0Y6M0Z9 Detachment at Right Foot, Partial 1st Ray, Open Approach (ICD-10-PCS; 2017-07-22)
PROC: 0DBL8ZX Excision of Transverse Colon, Via Natural or Artificial Opening Endoscopic, Diagnostic (ICD-10-PCS; 2017-07-24)
PROC: 0DB78ZX Excision of Stomach, Pylorus, Via Natural or Artificial Opening Endoscopic, Diagnostic (ICD-10-PCS; 2017-07-24)
PROC: B518ZZA Fluoroscopy of Superior Vena Cava, Guidance (ICD-10-PCS; 2017-07-24)
PROC: 02HV33Z Insertion of Infusion Device into Superior Vena Cava, Percutaneous Approach (ICD-10-PCS; 2017-07-24)
PROC: 0QBN0ZZ Excision of Right Metatarsal, Open Approach (ICD-10-PCS; 2017-07-28)
DX: A41.9 Sepsis, unspecified organism (principal); K22.11 Ulcer of esophagus with bleeding; N17.9 Acute kidney failure, unspecified; E11.21 Type 2 diabetes mellitus with diabetic nephropathy; B37.0 Candidal stomatitis; E11.22 Type 2 diabetes mellitus with diabetic chronic kidney disease; I13.0 Hypertensive heart and chronic kidney disease with heart failure and stage 1 through stage 4 chronic kidney disease, or unspecified chronic kidney disease; I50.9 Heart failure, unspecified; K85.90 Acute pancreatitis without necrosis or infection, unspecified; D62 Acute posthemorrhagic anemia; L03.115 Cellulitis of right lower limb; M86.8X7 Other osteomyelitis, ankle and foot; E11.621 Type 2 diabetes mellitus with foot ulcer; I73.9 Peripheral vascular disease, unspecified; N18.9 Chronic kidney disease, unspecified; E78.5 Hyperlipidemia, unspecified; R65.20 Severe sepsis without septic shock; E11.69 Type 2 diabetes mellitus with other specified complication; L97.509 Non-pressure chronic ulcer of other part of unspecified foot with unspecified severity; F32.9 Major depressive disorder, single episode, unspecified; F41.9 Anxiety disorder, unspecified; K22.8 Other specified diseases of esophagus; K44.9 Diaphragmatic hernia without obstruction or gangrene; K29.70 Gastritis, unspecified, without bleeding; K63.5 Polyp of colon; K57.30 Diverticulosis of large intestine without perforation or abscess without bleeding; K64.9 Unspecified hemorrhoids; D50.9 Iron deficiency anemia, unspecified; E88.09 Other disorders of plasma-protein metabolism, not elsewhere classified; D46.9 Myelodysplastic syndrome, unspecified; E87.5 Hyperkalemia; R50.82 Postprocedural fever
CPT/HCPCS: 36415; 36569; 71045; 76700; 76770; 76937; 80048; 80053; 80061; 80076; 80202; 81003; 82248; 82270; 82306; 82550; 82607; 82728; 82746; 82962; 82977; 83010; 83036; 83090; 83540; 83550; 83605; 83615; 83735; 83880; 83921; 84100; 84238; 84300; 84443; 84484; 84550; 85007; 85025; 85044; 85060; 85610; 85730; 86140; 86703; 86705; 86709; 86803; 86850; 86900; 86901; 86920; 87040; 87070; 87075; 87081; 87086; 87181; 87205; 87324; 87340; 92610; 93005; 93306; 93925; 93971; 94003; 94150; 94760; 99291; C9399; J1815; J2250; J2710; J8499; S5561

== ENCOUNTER 2017-10-01 10:20 | Inpatient (IN) | payer MEDICARE, MEDICAID ==
[~2017-10-01] VITALS: Ht 190.5 cm; Wt 117.9 kg
[~2017-10-01 10:20] MED LIST changes: +ACETAMINOPHEN325 M1 ORAL; +DIFLUCAN200 MG ORAL; +MERREM1 GM IV; +VANCOMYCIN1 GM/2502 IVPB
[2017-10-01 10:44] VITALS: BP 106/55
[2017-10-01] MEDS ORDERED: Ampicillin/Sulbactam Sod 3 GM in NS 110 ML IVPB ONE (10:45)
[2017-10-01 11:33] LABS: ANION GAP 10 mmol/L (5-15); BLOOD UREA NITROGEN 27 mg/dL (7-18); CALCIUM 8.8 MG/DL (8.5-10.1); CARBON DIOXIDE 23 MMOL/L (21-32); CHLORIDE 101 MMOL/L (98-107); CREATININE 1.9 MG/DL (0.55-1.30); POTASSIUM 4.3 MMOL/L (3.5-5.1); SODIUM 134 MMOL/L (136-145)
[2017-10-01 11:39] LABS: ALANINE AMINOTRANSFERASE 39 U/L (12-78); ALBUMIN 2.5 G/DL (3.4-5.0); ALBUMIN/GLOBULIN RATIO 0.4 (1.0-2.7); ALKALINE PHOSPHATASE 115 U/L (46-116); ASPARTATE AMINO TRANSFERASE 42 U/L (15-37); BILIRUBIN,TOTAL 0.3 MG/DL (0.2-1.0)
[2017-10-01 11:41] LABS: BASOPHILS % (AUTO) 1.4 % (0.0-2.0); EOSINOPHILS % (AUTO) 2.3 % (0.0-3.0); HEMATOCRIT 27.1 % (42.0-52.0); HEMOGLOBIN 9.1 G/DL (14.2-18.0); MEAN CORPUSCULAR VOLUME 89 FL (80-99); MONOCYTES % (AUTO) 11.5 % (1.0-10.0); NEUTROPHILS % (AUTO) 65.8 % (45.0-75.0); PLATELET COUNT 227 K/UL (150-450); RED BLOOD COUNT 3.03 M/UL (4.70-6.10); RED CELL DISTRIBUTION WIDTH 13.5 % (11.6-14.8)
--- NOTE | 2017-10-01 12:14 | Diagnostic Imaging Report ---
Indication: Pain Technique: XRAY Leg Lower Tib Fib 2v R Comparison: CT of the lower extremity 07/19/2013 Findings: There is no evidence of acute fracture or dislocation. Mortise intact on these nonstress views. Knee joint is preserved. There is periosteal reaction along the distal fibula which is similar to the prior exams and may be related to chronic venous stasis, especially abnormal appearance of the skin around the ankle with thick plaquing. There is a soft tissue defect in the mid calf anteriorly with some foci of subcutaneous gas. No definite plain film evidence to suggest acute osteomyelitis an underlying tibia. There are multiple soft tissue calcifications. IMPRESSION: No evidence of acute fracture or dislocation. Soft tissue defect in the mid calf anteriorly with foci of subcutaneous gas. Findings are concerning ulcer with superimposed infection. Correlate with physical exam. No definite plain film evidence to suggest associated acute osteomyelitis. Consider more sensitive evaluation with MRI as clinically indicated. Chronic periosteal reaction of the distal fibula possibly related to venous stasis, especially given skin findings of the ankle.
[2017-10-01 12:33] VITALS: BP 127/55
[2017-10-01 13:34] VITALS: BP 136/57
--- NOTE | 2017-10-01 13:39 | Emergency Room Report ---
History of Present Illness General Chief Complaint: Skin Rash/Abscess Source: Medical Record Present Illness HPI Patient is a 67-year-old male sent in by nursing facility after increased right lower extremity drainage from wound. Patient had prior history of the recent had a great toe amputation. He had been noted to have increased drainage from a wound to his mid calf. The patient chronic venostasis changes noted. He had the been noted be diabetic. Patient denies any fever. Per to have increased pain to the area. Allergies: Coded Allergies: No Known Allergies (Verified , 11/14/10) Patient History Past Medical History: see triage record Reviewed Nursing Documentation: PMH: Agreed; PSxH: Agreed Nursing Documentation-PMH Past Medical History: No History, Except For Hx Hypertension: Yes Hx Diabetes: Yes Hx Cancer: No Hx Gastrointestinal Problems: Yes - gastritis, ulcer of esophagus without bleeding Review of Systems All Other Systems: negative except mentioned in HPI Physical Exam Vital Signs Date Time Temp Pulse Resp B/P (MAP) Pulse Ox O2 Delivery O2 Flow Rate FiO2 10/01/17 10:20 97.9 70 16 114/60 98 Room Air 97.9 General Appearance: alert, GCS 15, Chronically Ill Eyes: bilateral eye PERRL ENT: moist mucus membranes Neck: limited range of motion Respiratory: lungs clear, normal breath sounds, no rhonchi Cardiovascular #1: normal peripheral pulses, regular rate, rhythm, edema Gastrointestinal: normal inspection, soft Musculoskeletal: tender - drainage from right anterior leg wound Neurologic: alert, oriented x3 Psychiatric: normal inspection, judgement/insight normal Skin: other - draining wound to right leg, foot without erythema, scaling to legs Medical Decision Making Diagnostic Impression: Primary Impression: Cellulitis and abscess of right leg ER Course Patient presented for right lower extremity pain. The differential diagnosis included was not limited to necrotizing fasciitis, deep venous thrombosis, abscess, osteomyelitis among others.Because of complexity of patient's case laboratory testing and imaging studies were ordered. The laboratory testing was notable for anemia. Patient was noted to have evidence of some bloody purulent drainage from his right leg wound. The patient was discussed with Dr. Sargent was contacted for for inpatient management Labs Test 10/01/17 10:57 White Blood Count 10.0 K/UL (4.8-10.8) Red Blood Count 3.03 M/UL (4.70-6.10) Hemoglobin 9.1 G/DL (14.2-18.0) Hematocrit 27.1 % (42.0-52.0) Mean Corpuscular Volume 89 FL (80-99) Mean Corpuscular Hemoglobin 30.1 PG (27.0-31.0) Mean Corpuscular Hemoglobin Concent 33.6 G/DL (32.0-36.0) Red Cell Distribution Width 13.5 % (11.6-14.8) Platelet Count 227 K/UL (150-450) Mean Platelet Volume 6.4 FL (6.5-10.1) Neutrophils (%) (Auto) 65.8 % (45.0-75.0) Lymphocytes (%) (Auto) 19.0 % (20.0-45.0) Monocytes (%) (Auto) 11.5 % (1.0-10.0) Eosinophils (%) (Auto) 2.3 % (0.0-3.0) Basophils (%) (Auto) 1.4 % (0.0-2.0) Prothrombin Time 10.7 SEC (9.30-11.50) Prothromb Time International Ratio 1.0 (0.9-1.1) Activated Partial Thromboplast Time 34 SEC (23-33) Sodium Level 134 MMOL/L (136-145) Potassium Level 4.3 MMOL/L (3.5-5.1) Chloride Level 101 MMOL/L (98-107) Carbon Dioxide Level 23 MMOL/L (21-32) Anion Gap 10 mmol/L (5-15) Blood Urea Nitrogen 27 mg/dL (7-18) Creatinine 1.9 MG/DL (0.55-1.30) Estimat Glomerular Filtration Rate 42.8 mL/min (>60) Glucose Level 292 MG/DL (74-106) Calcium Level 8.8 MG/DL (8.5-10.1) Total Bilirubin 0.3 MG/DL (0.2-1.0) Aspartate Amino Transf (AST/SGOT) 42 U/L (15-37) Alanine Aminotransferase (ALT/SGPT) 39 U/L (12-78) Alkaline Phosphatase 115 U/L (46-116) Total Protein 8.6 G/DL (6.4-8.2) Albumin 2.5 G/DL (3.4-5.0) Globulin 6.1 g/dL Albumin/Globulin Ratio 0.4 (1.0-2.7) Last Vital Signs Date Time Temp Pulse Resp B/P (MAP) Pulse Ox O2 Delivery O2 Flow Rate FiO2 10/01/17 12:33 97.9 73 22 127/55 98 Room Air 97.9 Status: unchanged Disposition: ADMITTED INPATIENT Condition: Serious Referrals: ANDRES APARICIO (PCP) Markos Villegas October 01, 2017 13:39
[2017-10-01] MEDS ORDERED: DEXTROSE 50%-WA50 M1 IV (13:41)
[2017-10-01] MEDS ORDERED: HYDROCODON-ACE1 EA13 ORAL (13:41)
[2017-10-01] MEDS ORDERED: COLACE100 MG ORAL (13:41)
[2017-10-01] MEDS ORDERED: CEPACOL SORETH1 EAC1 PO (13:41)
[2017-10-01] MEDS ORDERED: Miralax 17gm pkt ORAL PRN (15:15)
[2017-10-01] MEDS ORDERED: LORazepam 1mg tab ORAL PRN (15:15)
--- NOTE | 2017-10-01 16:26 | Consultation ---
Consult Note Assessment/Plan A/ 1) Abscess right ankle/leg 2) Cellulitis right lower extremity 3) Diabetic Neuropathy 4) h/o bilateral toe amputations P/ 1) X-rays reviewed - possible gas. MRI of right tib-fib pending 2) Will need I&D. Scheduled for tomorrow. Consent and NPO orders placed. D/W PMD 3) Cont iv abx 4) Will follow Thank you Wiliam Bernard DPM October 01, 2017 16:26
[2017-10-01] MEDS ORDERED: Vancomycin 1.5 GM/D5W 250ML IVPB ONE (16:30)
--- NOTE | 2017-10-01 17:49 | History and Physical ---
History of Present Illness General Date patient seen: October 01, 2017 Time patient seen: 17:48 Reason for Hospitalization: RLE abscess Present Illness HPI 67 y/o male with pmh of uncontrolled DM2 (lA1C 9.6), HLD, chronic diabetic ulcers, 1st toe osteomyelitis s/p R partial first ray amputation and excisional debridement of necrotic tissue to level of bone on 07/22/17, s/p incision and drainage deep to fascia, excisional debridement of necrotic tissue to level of bone, and delayed primary closure with drain placement on 07/28/17, CKD, diabetic nephropathy, AOCD who presents with worsening RLE wound with drainage. Pt has been residing in SNF since last hospital discharge. He has been able to stand with help of PT. He was noted to have worsening wound to RLE mid calf area with increased purulent bloody drainage as well as increased swelling, redness and pain. Denies f/c, n/v, d/c, chest pain, SOB, abd pain. Allergies: Coded Allergies: No Known Allergies (Verified , 11/14/10) Medication History Scheduled Docusate Sodium* (Colace*), 100 MG ORAL DAILY, (Reported) Fluconazole* (Diflucan*), 200 MG ORAL DAILY Furosemide* (Lasix*), 40 MG PO DAILY, (Reported) Glipizide* (Glipizide*), 5 MG ORAL BIDAC, (Reported) Hydrocodone Bit/Acetaminophen 10-325* (Hydrocodon-Acetaminophn 10-325*), 1 TAB ORAL Q4H, (Reported) Insulin Aspart* (Novolog*), 15 UNITS SUBQ BID, (Reported) Meropenem (Merrem), 1 GM IV Q8HR Vancomycin Hcl/D5w (Vancomycin-D5w 1 G/250 Ml), 1 GM IVPB Q12H Scheduled PRN Acetaminophen* (Acetaminophen 325MG Tablet*), 650 MG ORAL Q4H PRN for Prn Headache/Temp > 101, (Reported) Miscellaneous Medications Dextromethorphan HBr/B-Chay (Cepacol Sorethroat-Cough Stefanie), 1 EACH PO, ( Reported) Dextrose 50 % In Water (Dextrose 50%-Water Vial), 50 ML IV, (Reported) Insulin Detemir (Levemir Flexpen), 50 SUBQ, (Reported) [asa ], (Reported) Patient History History Provided By: Patient, Medical Record, PMD Healthcare decision maker Resuscitation status Advanced Directive on File Past Medical/Surgical History Past Medical/Surgical History: (1) Poorly controlled type 2 diabetes mellitus (2) CKD stage 3 (3) Diabetic nephropathy (4) Diabetic foot ulcer (5) Anemia of chronic disease (6) Hyperlipidemia (7) Hypertension (8) s/p R partial first ray amputation and excisional debridement of necrotic tissue to level of bone on 07/22/17 (9) s/p incision and drainage deep to fascia, excisional debridement of necrotic tissue to level of bone, and delayed primary closure with drain placement on 07/28/17 Family History Family History: Patient reports no known family medical history. Social History Social History: (1) resides in [facility] Review of Systems Constitutional: Reports: weakness Eye: Reports: no symptoms ENT: Reports: no symptoms Respiratory: Reports: no symptoms Cardiovascular: Reports: no symptoms Gastrointestinal: Reports: no symptoms Genitourinary: Reports: no symptoms Musculoskeletal: Reports: muscle pain Skin: Reports: lesions Psychiatric: Reports: no symptoms Neurological: Reports: no symptoms Endocrine: Reports: no symptoms Hematologic/Lymphatic: Reports: no symptoms Physical Exam Physical Exam Narrative General: alert, cooperative, no distress, appears stated age Head: normocephalic, without obvious abnormality, atraumatic Eyes: conjunctivae/corneas clear. PERRL, EOM's intact Throat: lips, mucosa, and tongue normal. MMM Neck: supple, symmetrical, trachea midline, and no JVD Lungs: clear to auscultation bilaterally Heart: regular rate and rhythm, S1, S2 normal, no murmur, click, rub or gallop Abdomen: soft, non-tender, non-distended, bowel sounds normal Extremities: R 1st toe amputation Pulses: 2+ and symmetric Skin: small sinus tract noted on the mid leg region draining purulent drainage. RLE mid leg area of erythema/edema/TTP, wound w/ area of fluctaunce, purulent drainage Neurologic: grossly normal, no focal deficits Last 24 Hour Vital Signs Date Time Temp Pulse Resp B/P (MAP) Pulse Ox O2 Delivery O2 Flow Rate FiO2 10/01/17 14:08 97.9 71 15 136/57 97 Room Air 97.9 10/01/17 13:34 71 15 136/57 97 Room Air 10/01/17 12:33 97.9 73 22 127/55 98 Room Air 97.9 10/01/17 10:44 97.9 73 14 106/55 99 Room Air 97.9 10/01/17 10:20 97.9 70 16 114/60 98 Room Air 97.9 Laboratory Tests Test 10/01/17 10:57 White Blood Count 10.0 K/UL (4.8-10.8) Red Blood Count 3.03 M/UL (4.70-6.10) L Hemoglobin 9.1 G/DL (14.2-18.0) L Hematocrit 27.1 % (42.0-52.0) L Mean Corpuscular Volume 89 FL (80-99) Mean Corpuscular Hemoglobin 30.1 PG (27.0-31.0) Mean Corpuscular Hemoglobin Concent 33.6 G/DL (32.0-36.0) Red Cell Distribution Width 13.5 % (11.6-14.8) Platelet Count 227 K/UL (150-450) Mean Platelet Volume 6.4 FL (6.5-10.1) L Neutrophils (%) (Auto) 65.8 % (45.0-75.0) Lymphocytes (%) (Auto) 19.0 % (20.0-45.0) L Monocytes (%) (Auto) 11.5 % (1.0-10.0) H Eosinophils (%) (Auto) 2.3 % (0.0-3.0) Basophils (%) (Auto) 1.4 % (0.0-2.0) Prothrombin Time 10.7 SEC (9.30-11.50) Prothromb Time International Ratio 1.0 (0.9-1.1) Activated Partial Thromboplast Time 34 SEC (23-33) H Sodium Level 134 MMOL/L (136-145) L Potassium Level 4.3 MMOL/L (3.5-5.1) Chloride Level 101 MMOL/L (98-107) Carbon Dioxide Level 23 MMOL/L (21-32) Anion Gap 10 mmol/L (5-15) Blood Urea Nitrogen 27 mg/dL (7-18) H Creatinine 1.9 MG/DL (0.55-1.30) H Estimat Glomerular Filtration Rate 42.8 mL/min (>60) Glucose Level 292 MG/DL (74-106) H Calcium Level 8.8 MG/DL (8.5-10.1) Total Bilirubin 0.3 MG/DL (0.2-1.0) Aspartate Amino Transf (AST/SGOT) 42 U/L (15-37) H Alanine Aminotransferase (ALT/SGPT) 39 U/L (12-78) Alkaline Phosphatase 115 U/L (46-116) Total Protein 8.6 G/DL (6.4-8.2) H Albumin 2.5 G/DL (3.4-5.0) L Globulin 6.1 g/dL Albumin/Globulin Ratio 0.4 (1.0-2.7) L Height (Feet): 6 Height (Inches): 3.00 Weight (Pounds): 260 Medications Current Medications Medications (Trade) Dose Ordered Sig/Xiao Route PRN Reason Start Time Stop Time Status Last Admin Dose Admin Acetaminophen (Tylenol) 650 mg Q4H PRN ORAL Mild Pain (Pain Scale 1-3) 10/01/17 15:15 10/31/17 15:14 Acetaminophen (Tylenol) 650 mg Q4H PRN ORAL fever 10/01/17 15:15 10/31/17 15:14 Bisacodyl (Dulcolax) 10 mg HSPRN PRN RECTAL Constipation 10/01/17 15:15 10/31/17 15:14 Dextrose (Dextrose 50%) 25 ml STAT PRN IV Hypoglycemia 10/01/17 15:15 10/31/17 15:14 Dextrose (Dextrose 50%) 50 ml STAT PRN IV Hypoglycemia 10/01/17 15:15 10/31/17 15:14 Docusate Sodium (Colace) 100 mg EVERY 12 HOURS ORAL 10/01/17 21:00 10/31/17 20:59 Heparin Sodium (Porcine) (Heparin 5000 units/ml) 5,000 units EVERY 12 HOURS SUBQ 10/01/17 21:00 10/31/17 20:59 Insulin Aspart (NovoLOG) BEFORE MEALS AND HS SUBQ 10/01/17 16:30 10/31/17 16:29 Lorazepam (Ativan) 1 mg Q4H PRN ORAL For Anxiety 10/01/17 15:15 10/08/17 15:14 Ondansetron HCl (Zofran) 4 mg Q6H PRN IVP Nausea & Vomiting 10/01/17 15:15 10/31/17 15:14 Piperacillin Sod/ Tazobactam Sod 3.375 gm/Dextrose 110 ml @ 27.5 mls/hr EVERY 8 HOURS IVPB 10/01/17 22:00 10/06/17 21:59 Polyethylene Glycol (Miralax) 17 gm HSPRN PRN ORAL Constipation 10/01/17 15:15 10/31/17 15:14 Sodium Chloride 1,000 ml @ 75 mls/hr [id number] IVLG 10/01/17 16:05 10/31/17 16:04 Vancomycin HCl (Vanco rx to dose) 1 ea DAILY PRN MISC Per rx protocol 10/01/17 15:15 10/31/17 15:14 Vancomycin HCl/ Dextrose 250 ml @ 125 mls/hr ONCE ONCE IVPB 10/01/17 16:30 10/01/17 18:29 Vancomycin HCl/ Dextrose 250 ml @ 166.667 mls/hr Q24H IVPB 10/02/17 06:00 10/07/17 05:59 Assessment/Plan Problem List: (1) Cellulitis and abscess of right leg ICD Codes: L03.115 - Cellulitis of right lower limb; L02.415 - Cutaneous abscess of right lower limb SNOMED: 585763537 (2) Poorly controlled type 2 diabetes mellitus ICD Codes: E11.65 - Type 2 diabetes mellitus with hyperglycemia SNOMED: 26548883, 497782484 (3) CHIQUITA (acute kidney injury) ICD Codes: N17.9 - Acute kidney failure, unspecified SNOMED: 33747379 (4) CKD stage 3 (5) Diabetic nephropathy ICD Codes: E11.21 - Type 2 diabetes mellitus with diabetic nephropathy SNOMED: 76734601, 953214522 (6) Hyperlipidemia ICD Codes: E78.5 - Hyperlipidemia SNOMED: 24980122 (7) Hypertension ICD Codes: I10 - Hypertension SNOMED: 96064506 (8) Anemia of chronic disease ICD Codes: D63.8 - Anemia in other chronic diseases classified elsewhere SNOMED: 054013281 Status: stable Assessment/Plan Admit inpt Podiatry and ID consulted Empiric vanco and zosyn X-ray R tib/fib images reviewed and showed concern for subcutaneous gas. Will check MRI R tib/fib F/u cultures Possible plan for OR tomorrow per podiatry Nephrology consulted Urine studies sent mIVFs CHEMA Pain control, bowel regimen Supportive care DVT Prophylaxis: SCD, HSQ Code Status: Full Hospital Classification Declaration: Based on this initial evaluation, and depending on the patient's clinical course, I anticipate that this patient will require hospitalization for 2-3 days for RLE cellulitis and abscess and close respiratory/hemodynamic monitoring. Disposition: Once the patient is stable to leave the hospital, I anticipate the patient will likely be discharged to the following environment: back to SNF I spent 71 minutes on this patient's case, and >50% was dedicated to counseling and/or care coordination. Discussed with patient/family, nursing staff, SW/CM, Podiatry, ID regarding clinical status, treatment course, and disposition planning. D/w ID re abx. D/w podiatry re MRI, possible OR Time of note may not reflect time of encounter. Js Garcia M.D. October 01, 2017 17:49
[2017-10-01] MEDS: NovoLOG Insulin Flexpen SUBQ SCH ×2 (18:27→20:38)
--- NOTE | 2017-10-01 18:36 | Infectious Diseases Prog Note ---
Assessment/Plan Assessment/Plan Full consult dictated: A) 1) right leg cellulitis, r/u draining abscess vs, infected wound, r/o underlying osteomyelitis 2) allergies - nkda 3) pmh noted P) 1) vancomycin and zosyn 2) check wound culture, check labs 3) MRI right leg ordered 4) thank you Subjective Allergies: Coded Allergies: No Known Allergies (Verified , 11/14/10) Objective Vital Signs Last 24 Hour Vital Signs Date Time Temp Pulse Resp B/P (MAP) Pulse Ox O2 Delivery O2 Flow Rate FiO2 10/01/17 14:08 97.9 71 15 136/57 97 Room Air 97.9 10/01/17 13:34 71 15 136/57 97 Room Air 10/01/17 12:33 97.9 73 22 127/55 98 Room Air 97.9 10/01/17 10:44 97.9 73 14 106/55 99 Room Air 97.9 10/01/17 10:20 97.9 70 16 114/60 98 Room Air 97.9 Height (Feet): 6 Height (Inches): 3.00 Weight (Pounds): 260 Laboratory Tests Test 10/01/17 10:57 White Blood Count 10.0 K/UL (4.8-10.8) Red Blood Count 3.03 M/UL (4.70-6.10) L Hemoglobin 9.1 G/DL (14.2-18.0) L Hematocrit 27.1 % (42.0-52.0) L Mean Corpuscular Volume 89 FL (80-99) Mean Corpuscular Hemoglobin 30.1 PG (27.0-31.0) Mean Corpuscular Hemoglobin Concent 33.6 G/DL (32.0-36.0) Red Cell Distribution Width 13.5 % (11.6-14.8) Platelet Count 227 K/UL (150-450) Mean Platelet Volume 6.4 FL (6.5-10.1) L Neutrophils (%) (Auto) 65.8 % (45.0-75.0) Lymphocytes (%) (Auto) 19.0 % (20.0-45.0) L Monocytes (%) (Auto) 11.5 % (1.0-10.0) H Eosinophils (%) (Auto) 2.3 % (0.0-3.0) Basophils (%) (Auto) 1.4 % (0.0-2.0) Prothrombin Time 10.7 SEC (9.30-11.50) Prothromb Time International Ratio 1.0 (0.9-1.1) Activated Partial Thromboplast Time 34 SEC (23-33) H Sodium Level 134 MMOL/L (136-145) L Potassium Level 4.3 MMOL/L (3.5-5.1) Chloride Level 101 MMOL/L (98-107) Carbon Dioxide Level 23 MMOL/L (21-32) Anion Gap 10 mmol/L (5-15) Blood Urea Nitrogen 27 mg/dL (7-18) H Creatinine 1.9 MG/DL (0.55-1.30) H Estimat Glomerular Filtration Rate 42.8 mL/min (>60) Glucose Level 292 MG/DL (74-106) H Calcium Level 8.8 MG/DL (8.5-10.1) Total Bilirubin 0.3 MG/DL (0.2-1.0) Aspartate Amino Transf (AST/SGOT) 42 U/L (15-37) H Alanine Aminotransferase (ALT/SGPT) 39 U/L (12-78) Alkaline Phosphatase 115 U/L (46-116) Total Protein 8.6 G/DL (6.4-8.2) H Albumin 2.5 G/DL (3.4-5.0) L Globulin 6.1 g/dL Albumin/Globulin Ratio 0.4 (1.0-2.7) L Current Medications Medications (Trade) Dose Ordered Sig/Xiao Route PRN Reason Start Time Stop Time Status Last Admin Dose Admin Acetaminophen (Tylenol) 650 mg Q4H PRN ORAL Mild Pain (Pain Scale 1-3) 10/01/17 15:15 10/31/17 15:14 Acetaminophen (Tylenol) 650 mg Q4H PRN ORAL fever 10/01/17 15:15 10/31/17 15:14 Bisacodyl (Dulcolax) 10 mg HSPRN PRN RECTAL Constipation 10/01/17 15:15 10/31/17 15:14 Dextrose (Dextrose 50%) 25 ml STAT PRN IV Hypoglycemia 10/01/17 15:15 10/31/17 15:14 Dextrose (Dextrose 50%) 50 ml STAT PRN IV Hypoglycemia 10/01/17 15:15 10/31/17 15:14 Docusate Sodium (Colace) 100 mg EVERY 12 HOURS ORAL 10/01/17 21:00 10/31/17 20:59 Heparin Sodium (Porcine) (Heparin 5000 units/ml) 5,000 units EVERY 12 HOURS SUBQ 10/01/17 21:00 10/31/17 20:59 Insulin Aspart (NovoLOG) BEFORE MEALS AND HS SUBQ 10/01/17 16:30 10/31/17 16:29 10/01/17 18:27 Lorazepam (Ativan) 1 mg Q4H PRN ORAL For Anxiety 10/01/17 15:15 10/08/17 15:14 Ondansetron HCl (Zofran) 4 mg Q6H PRN IVP Nausea & Vomiting 10/01/17 15:15 10/31/17 15:14 Piperacillin Sod/ Tazobactam Sod 3.375 gm/Dextrose 110 ml @ 27.5 mls/hr EVERY 8 HOURS IVPB 10/01/17 22:00 10/06/17 21:59 Polyethylene Glycol (Miralax) 17 gm HSPRN PRN ORAL Constipation 10/01/17 15:15 10/31/17 15:14 Sodium Chloride 1,000 ml @ 75 mls/hr [id number] IVLG 10/01/17 16:05 10/31/17 16:04 10/01/17 18:17 Vancomycin HCl (Vanco rx to dose) 1 ea DAILY PRN MISC Per rx protocol 10/01/17 15:15 10/31/17 15:14 Vancomycin HCl/ Dextrose 250 ml @ 166.667 mls/hr Q24H IVPB 10/02/17 06:00 10/07/17 05:59 ESE HARO October 01, 2017 18:36
[2017-10-01] MEDS: Docusate 100mg cap ORAL SCH (20:23)
[2017-10-01 20:39] VITALS: BP 131/85
[2017-10-01] MEDS: Heparin 5000 units/ml inj SUBQ SCH (20:47)
--- NOTE | 2017-10-01 22:15 | Anethesia Preoperative Eval ---
Anesthesia Pre-op PMH/ROS General Date of Evaluation: October 01, 2017 Time of Evaluation: 18:40 Anesthesiologist: Reshma ASA Score: ASA 3 Mallampati Score Class I : Soft palate, uvula, fauces, pillars visible Class II: Soft palate, uvula, fauces visible Class III: Soft palate, base of uvula visible Class IV: Only hard plate visible Mallampati Classification: Class III Surgeon: [place] Diagnosis: R ankle abscess Surgical Procedure: I&D of ankle absces Anesthesia History: none Social History: smoking - h/o, drug use - weed Family History: no anesthesia problems Allergies: Coded Allergies: No Known Allergies (Verified , 11/14/10) Past Medical History Cardiovascular: Reports: HTN, CAD, other - HF; Denies: OK, valve dz, arrhythmia Pulmonary: Reports: NEFTALI; Denies: asthma, COPD, other Gastrointestinal/Genitourinary: Reports: GERD, CRI; Denies: ESRD, other Neurologic/Psychiatric: Reports: depression/anxiety; Denies: dementia, CVA, TIA, other Endocrine: Reports: DM - Poorly controled; Denies: hypothyroidism, steroids, other HEENT: Denies: cataract (L), cataract (R), glaucoma, TULALIP (L), TULALIP (R), other Hematology/Immune: Reports: anemia; Denies: DVT, bleeding disorder, other Musculoskeletal/Integumentary: Reports: DJD, edema - bilaeral LE; Denies: OA, RA, DDD, other Other: obesity PMH Narrative: as above PSxH Narrative: Bilateral toes amputation Anesthesia Pre-op Phys. Exam Physician Exam Last Vital Signs Date Time Temp Pulse Resp B/P (MAP) Pulse Ox O2 Delivery O2 Flow Rate FiO2 10/01/17 20:39 97.0 73 17 131/85 99 97.0 10/01/17 14:08 Room Air Constitutional: NAD Neurologic: CN 2-12 intact Cardiovascular: RRR, no M/R/G Respiratory: other - Diminished breath sounds Gastrointestinal: other - mrbid obesity Airway Exam Mallampati Score: Class III MO: limited Neck: short ROM: limited Teeth: missing Dentures: no upper, no lower Anesthesia Pre-op A/P Labs Hematology Test 10/01/17 10:57 White Blood Count 10.0 K/UL (4.8-10.8) Red Blood Count 3.03 M/UL (4.70-6.10) L Hemoglobin 9.1 G/DL (14.2-18.0) L Hematocrit 27.1 % (42.0-52.0) L Mean Corpuscular Volume 89 FL (80-99) Mean Corpuscular Hemoglobin 30.1 PG (27.0-31.0) Mean Corpuscular Hemoglobin Concent 33.6 G/DL (32.0-36.0) Red Cell Distribution Width 13.5 % (11.6-14.8) Platelet Count 227 K/UL (150-450) Mean Platelet Volume 6.4 FL (6.5-10.1) L Neutrophils (%) (Auto) 65.8 % (45.0-75.0) Lymphocytes (%) (Auto) 19.0 % (20.0-45.0) L Monocytes (%) (Auto) 11.5 % (1.0-10.0) H Eosinophils (%) (Auto) 2.3 % (0.0-3.0) Basophils (%) (Auto) 1.4 % (0.0-2.0) Coagulation Test 10/01/17 10:57 Prothrombin Time 10.7 SEC (9.30-11.50) Prothromb Time International Ratio 1.0 (0.9-1.1) Activated Partial Thromboplast Time 34 SEC (23-33) H Chemistry Test 10/01/17 10:57 Sodium Level 134 MMOL/L (136-145) L Potassium Level 4.3 MMOL/L (3.5-5.1) Chloride Level 101 MMOL/L (98-107) Carbon Dioxide Level 23 MMOL/L (21-32) Anion Gap 10 mmol/L (5-15) Blood Urea Nitrogen 27 mg/dL (7-18) H Creatinine 1.9 MG/DL (0.55-1.30) H Estimat Glomerular Filtration Rate 42.8 mL/min (>60) Glucose Level 292 MG/DL (74-106) H Calcium Level 8.8 MG/DL (8.5-10.1) Total Bilirubin 0.3 MG/DL (0.2-1.0) Aspartate Amino Transf (AST/SGOT) 42 U/L (15-37) H Alanine Aminotransferase (ALT/SGPT) 39 U/L (12-78) Alkaline Phosphatase 115 U/L (46-116) C-Reactive Protein, Quantitative > 70.0 mg/dL (0.00-0.90) H Total Protein 8.6 G/DL (6.4-8.2) H Albumin 2.5 G/DL (3.4-5.0) L Globulin 6.1 g/dL Albumin/Globulin Ratio 0.4 (1.0-2.7) L Risk Assessment & Plan Assessment: ASA 3 Plan: GA with LMA Status Change Before Surgery: No Pre-Antibiotics Drug: as scheduled FADIA MARTINEZ M.D. October 01, 2017 22:15
[2017-10-01] MEDS: Piperacillin/Tazobactam 3.375 GM in D5W 110 ML IVPB SCH (23:28)
--- NOTE | 2017-10-01 23:30 | Consultation ---
DATE OF CONSULTATION: 10/01/2017 INFECTIOUS DISEASE CONSULTATION CONSULTING PHYSICIAN: Jerome Norris M.D. ATTENDING PHYSICIAN: Main Florez M.D. REFERRING PHYSICIAN: Dr. Weinstein. REASON FOR CONSULTATION: Right leg cellulitis, possible underlying abscess and infected wound and osteomyelitis. The patient's chief complaint coming in the hospital is right leg cellulitis, possible abscess and infected wound. HISTORY OF PRESENT ILLNESS: This is a very pleasant, 67-year-old male who comes in to [facility] [address] with right leg pain. The patient also has a drainage from the right mid leg around the calf area. Clinically, the patient has cellulitis with warmth and redness and pain. The patient also has a draining wound that could be underlying abscess versus infected wound. The patient has a history of right foot great toe amputation. Infectious Disease consultation is requested for antibiotic management in the patient with right leg cellulitis, possible abscess and infected wound. The patient is currently on vancomycin and Zosyn, which will be continued pending wound culture. MRI also has been ordered to rule out underlying osteomyelitis. MAR was noted. Orders were noted. Notes were reviewed. Case discussed with the patient and the RN. PAST MEDICAL HISTORY: The patient has a past medical history of CHF in the past, elevated creatinine, chronic renal failure, history of anemia, diabetes, hypertension, hyperlipidemia, history of right foot great toe osteo, status post first ray amputation, I believe he is status post full course of antibiotics. He was on meropenem and vancomycin previously. He has anemia, elevated creatinine, , history of ulcers, history of wounds, again diabetes, hypertension, hyperlipidemia, and chronic renal failure with elevated creatinine. MEDICATIONS: Upon reviewing the MAR, he is on the following medications. The patient is on vancomycin, Zosyn, heparin, docusate, insulin, sodium chloride, acetaminophen, he is on bisacodyl, polyethylene, Zofran, he is on lorazepam, he is on vancomycin and Zosyn. Outside medications noted and reconciliated. ALLERGIES: No known drug allergies. No antibiotic allergies. SOCIAL HISTORY: Negative for smoking, alcohol or drug abuse. FAMILY HISTORY: Noncontributory. Negative for exposure for exposure to tuberculosis or cancer. REVIEW OF SYSTEMS: CONSTITUTIONAL: He has generalized fatigue. No focal weakness. No fever, chills, night sweats, or weight loss. HEAD AND NECK: No head pain or neck pain. No thrush or dysphagia. No sinus tenderness. No change in vision. No neck stiffness. CARDIAC: No chest pain or palpitations. GASTROINTESTINAL: No nausea, vomiting, or diarrhea. GENITOURINARY: No dysuria or frequency. No Saavedra. PULMONARY: No congestion. No hemoptysis or secretions. SKIN: No rash or itching. EXTREMITY: He has right leg pain and draining wound. NEUROLOGIC: No seizures. PHYSICAL EXAMINATION: GENERAL: Alert and responsive, in no distress. VITAL SIGNS: Temperature is 97.9 degrees, pulse rate 71, respiratory 15, blood pressure 136/57 and saturation 97%. HEAD AND NECK: Oral exam, no thrush. Eye exam, no icterus. No JVD. Normocephalic. No facial droop. No neck stiffness. Neck is supple. HEART: Regular. No obvious gallop or murmur. ABDOMEN: Soft. Positive bowel sounds. Nontender. LUNGS: Clear bilaterally. No rhonchi or rales. SKIN: No rash. MUSCULOSKELETAL: No effusion. Legs, he has right leg swelling, redness and warmth and draining right leg wound. Tender to the touch. No septic arthritis. PERIPHERAL VASCULAR: Exam right great toe amputee site looks clean and dry. No other gangrene noted. GENITOURINARY: No Saavedra. No CVA tenderness. LINES: Line sites without phlebitis. NEUROLOGIC: Intact. Nonfocal. Right leg with redness, warmth and draining wound with tenderness at the wound site. LABORATORY AND DIAGNOSTIC DATA: White count 10.0 and hemoglobin 9.1. The patient's creatinine is 1.9. LFTs are noted. Wound culture has been ordered. X-ray of the right leg wound culture was ordered. Tibia-fibula x-ray shows soft tissue defect in the midcalf with subcutaneous gas. Report was noted. MRI of the right leg has been ordered. ASSESSMENT AND PLAN: 1. The patient has right leg cellulitis and possible underlying draining abscess versus infected wound, rule out osteomyelitis. The patient will be continued on vancomycin and Zosyn for MRSA and gram-negative anaerobic coverage. Check MRI of the right leg to rule out osteo versus some other process and abscess. Continue vancomycin and Zosyn. Check MRI. Check wound culture. Wound care protocol. Watch the patient clinically. Continue treatment with vancomycin and Zosyn for right leg cellulitis and infected wound at this time versus abscess. 2. Anemia. 3. Hypertension. 4. Diabetes. 5. Blood sugar and blood pressure treatment from diabetes and hypertension per primary. 6. Hyperlipidemia. 7. Chronic renal failure. 8. Elevated creatinine. 9. Watch closely creatinine on vancomycin. 10. Hyponatremia. 11. Right foot great toe amputation and osteo. 12. history of ulcerative gastritis. 13. Podiatry to follow up. 14. Continue treatment with Dr. Weinstein and consultants. 15. No known allergies. 16. Family history noncontributory. 17. Social history is negative. 18. MAR was noted. 19. Case discussed with RN. 20. Case discussed with the patient. 21. Case communicated with Dr. Weinstein. 22. Continue treatment per primary consultants. 23. Notes and records noted. 24. Orders were noted and entered. Jerome Norris M.D. DR: STACY JOB#: [id number] CC:
[2017-10-02] VITALS (11 sets, daily range): BP systolic 118–171; BP diastolic 59–87
--- NOTE | 2017-10-02 02:30 | Consultation ---
DATE OF CONSULTATION: 10/01/2017 CONSULTING PHYSICIAN: Wiliam Bernard D.P.M. REFERRING PHYSICIAN: Wiliam Bernard D.P.M. REASON FOR CONSULTATION: Abscess cellulitis right leg/ankle in the presence of diabetes mellitus. HISTORY OF PRESENT ILLNESS: The patient is a 67-year-old male, who is known to my service from previous admission for osteomyelitis of the right hallux, which we amputated and has healed. The patient was sent to residential facility for continued care and a wound care until the right foot wound surgical site healed. The patient stated all was well until the past couple of days, he has noted increased swelling in his right leg and subsequently, he noticed drainage. He has very little pain in the leg ranging from either 0 to 3 and denies any fevers, chills, nausea, or vomiting. Dr. Orr was doing weekly rounds at the facility and was asked to look at the leg and was noted to have purulent drainage from the mid leg region. Subsequently, we transferred him for admission and workup. PAST MEDICAL HISTORY: Significant for diabetes mellitus, hyperlipidemia, and diabetic foot ulcers. MEDICATIONS: Per MAR and include vancomycin, Zosyn, and heparin for DVT prophylaxis. ALLERGIES: He has no known drug allergies. SOCIAL HISTORY: The patient currently resides in a residential facility. FAMILY HISTORY: Noncontributory. REVIEW OF SYSTEMS: HEENT: The patient denies any headaches, blurred vision, or ringing in the ears. CARDIORESPIRATORY: The patient denies any chest pain or shortness of breath. GENITOURINARY: The patient denies any urgency, frequency, burning upon urination, or hematuria. GASTROINTESTINAL: The patient denies any constipation, diarrhea, or blood in the stool. PHYSICAL EXAMINATION: VITAL SIGNS: Temperature is 97.9, pulse of 71, respiration rate is 16, blood pressure is 136/57, and he is saturating 97% on room air. EXTREMITIES: Lower extremity physical exam, weakly palpable pedal pulses noted bilaterally. There is nonpitting edema noted bilaterally at the ankle level and at the leg level. There is no edema noted on the left. There is pitting edema noted on the right. DERMATOLOGICAL: There is a small sinus tract noted on the mid leg region draining purulent drainage. There is actual fluctuance in the area. It extends laterally and distally. There is no communication at the previous surgical site. No malodor is noted at the site. There is discoloration of the skin noted. MUSCULOSKELETAL: He has 4/5 muscle strength noted in the anterior lateral and posterior muscle groups of bilateral lower extremities. Bilateral hallux toe amputations are noted. NEUROLOGICAL: Protective threshold is diminished. Achilles deep tendon reflexes 2+ bilateral. No spasticity noted. LABORATORY DATA: White blood cell count 10.0, hemoglobin and hematocrit are 9.1 and , and platelet count is 227,000. Potassium is 4.3, sodium is 134, BUN is 27, creatinine is 1.9, and glucose is 292. Albumin is 2.5. INR is 1.0. PT is 10.7 and PTT is 34. IMAGING: Lower extremity imaging of the right lower extremity, x-rays were taken and noted to have a soft tissue defect in the mid calf area with possible foci of subcutaneous gas. No fracture or dislocation noted. MRI is recommended. No other laboratory data or imaging is available at this time. ASSESSMENT: 1. Abscess right ankle/leg. 2. Cellulitis, right lower extremity. 3. Diabetic neuropathy. 4. History of bilateral toe amputations. PLAN: 1. X-rays were reviewed, possible gas noted. MRI of the tib-fib is pending. This has been ordered stat. The patient will need an incision and drainage of the right leg/ankle. This is scheduled for tomorrow. Consent and NPO orders have been placed and this has been discussed with Dr. Weinstein. 2. Continue IV antibiotics as ordered. 3. We will follow. Thank you for the courtesy of this consultation. Wiliam Bernard D.P.M. DR: ADRIANA JOB#: [id number] CC: BARBER
[2017-10-02] MEDS: Vancomycin 1250mg/D5W 250ml IVPB SCH (05:36)
[2017-10-02] MEDS: NovoLOG Insulin Flexpen SUBQ SCH ×4 (05:36→20:47)
[2017-10-02] MEDS: Piperacillin/Tazobactam 3.375 GM in D5W 110 ML IVPB SCH ×3 (05:36→21:26)
[2017-10-02 08:52] LABS: EOSINOPHILS % (AUTO) 1.3 % (0.0-3.0); HEMATOCRIT 28.3 % (42.0-52.0); HEMOGLOBIN 9.1 G/DL (14.2-18.0); LYMPHOCYTES % (AUTO) 11.2 % (20.0-45.0); MEAN CORPUSCULAR VOLUME 91 FL (80-99); MONOCYTES % (AUTO) 8.9 % (1.0-10.0); NEUTROPHILS % (AUTO) 77.6 % (45.0-75.0); PLATELET COUNT 234 K/UL (150-450); RED BLOOD COUNT 3.12 M/UL (4.70-6.10); RED CELL DISTRIBUTION WIDTH 13.4 % (11.6-14.8); WHITE BLOOD COUNT 7.5 K/UL (4.8-10.8)
[2017-10-02] MEDS: Docusate 100mg cap ORAL SCH ×2 (09:00→17:25)
[2017-10-02] MEDS: Heparin 5000 units/ml inj SUBQ SCH ×2 (09:00→20:51)
[2017-10-02 09:54] LABS: ALANINE AMINOTRANSFERASE 44 U/L (12-78); ALBUMIN 2.3 G/DL (3.4-5.0); ALBUMIN/GLOBULIN RATIO 0.4 (1.0-2.7); ALKALINE PHOSPHATASE 106 U/L (46-116); ANION GAP 10 mmol/L (5-15); ASPARTATE AMINO TRANSFERASE 47 U/L (15-37); BILIRUBIN,TOTAL 0.3 MG/DL (0.2-1.0); BLOOD UREA NITROGEN 22 mg/dL (7-18); CALCIUM 8.6 MG/DL (8.5-10.1); CARBON DIOXIDE 23 MMOL/L (21-32); CHLORIDE 105 MMOL/L (98-107); CHOLESTEROL 133 MG/DL (< 200); CREATININE 1.7 MG/DL (0.55-1.30); FERRITIN 535 NG/ML (8-388); HDL CHOLESTEROL 26 MG/DL (40-60); POTASSIUM 4.4 MMOL/L (3.5-5.1); SODIUM 138 MMOL/L (136-145); TRIGLYCERIDES 120 MG/DL (30-150)
[2017-10-02 10:27] LABS: % IRON SATURATION 43 % (15-50); IRON 48 ug/dL (50-175); TOTAL IRON BINDING CAPACITY 111 ug/dL (250-450)
[2017-10-02 10:37] LABS: GAMMA GLUTAMYL TRANSPEPTIDASE 79 U/L (5-85); PHOSPHORUS 3.9 MG/DL (2.5-4.9)
[2017-10-02] MEDS ORDERED: Bupivacaine 0.25% Inj 30ml INJ ONE (10:47)
[2017-10-02] MEDS ORDERED: Betadine 10% Oint 30gm TOPIC ONE (10:47)
[2017-10-02] MEDS ORDERED: Bupivacaine 0.5% Inj 30 ml vial INJ ONE (10:47)
[2017-10-02] MEDS ORDERED: Bacitracin 50000 Units Vial ONE (10:55)
[2017-10-02] MEDS ORDERED: NeoSporin Gu Irrig 1ml Amp IRRIG ONE (10:55)
[2017-10-02 11:17] LABS: APPEARANCE,URINE CLEAR; BILIRUBIN, URINE NEGATIVE (NEGATIVE); COLOR,URINE PALE YELLOW; GLUCOSE, URINE (UA) 1+ (NEGATIVE); KETONES,URINE NEGATIVE (NEGATIVE); LEUKOCYTE ESTERASE ,URINE NEGATIVE (NEGATIVE); NITRITE,URINE NEGATIVE (NEGATIVE); PH,URINE 6 (4.5-8.0); PROTEIN,URINE 2+ (NEGATIVE); UROBILINOGEN,URINE NORMAL MG/DL (0.0-1.0)
--- NOTE | 2017-10-02 11:35 | Anethesia Preoperative Eval ---
Anesthesia Pre-op PMH/ROS General Date of Evaluation: October 02, 2017 Time of Evaluation: 11:10 Anesthesiologist: ASA Score: ASA 3 Mallampati Score Class I : Soft palate, uvula, fauces, pillars visible Class II: Soft palate, uvula, fauces visible Class III: Soft palate, base of uvula visible Class IV: Only hard plate visible Mallampati Classification: Class III Anesthesia History: none Social History: smoking - pt smokes marijuana Allergies: Coded Allergies: No Known Allergies (Verified , 11/14/10) Medications: see eMAR Past Medical History Cardiovascular: Reports: HTN Pulmonary: Denies: asthma, COPD, NEFTALI, other Gastrointestinal/Genitourinary: Reports: GERD, other - acute renal failure Neurologic/Psychiatric: Denies: dementia, CVA, depression/anxiety, TIA, other Endocrine: Reports: DM; Denies: hypothyroidism, steroids, other HEENT: Denies: cataract (L), cataract (R), glaucoma, [place] (L), [place] (R), other Hematology/Immune: Reports: anemia; Denies: DVT, bleeding disorder, other Musculoskeletal/Integumentary: Reports: edema, other - bilateral lower extr celulitis, h/o toes amputation Other: obesity PSxH Narrative: toe amputation Anesthesia Pre-op Phys. Exam Physician Exam Last Vital Signs Date Time Temp Pulse Resp B/P (MAP) Pulse Ox O2 Delivery O2 Flow Rate FiO2 10/02/17 08:00 57 10/02/17 00:14 97.2 18 134/87 99 97.2 10/01/17 14:08 Room Air Constitutional: NAD Cardiovascular: RRR Respiratory: CTA Gastrointestinal: S/NT/ND Airway Exam Mallampati Score: Class II ROM: full Teeth: missing, other - edentulous Dentures: no upper, no lower Anesthesia Pre-op A/P Labs Hematology Test 10/02/17 06:50 White Blood Count 7.5 K/UL (4.8-10.8) Red Blood Count 3.12 M/UL (4.70-6.10) L Hemoglobin 9.1 G/DL (14.2-18.0) L Hematocrit 28.3 % (42.0-52.0) L Mean Corpuscular Volume 91 FL (80-99) Mean Corpuscular Hemoglobin 29.3 PG (27.0-31.0) Mean Corpuscular Hemoglobin Concent 32.3 G/DL (32.0-36.0) Red Cell Distribution Width 13.4 % (11.6-14.8) Platelet Count 234 K/UL (150-450) Mean Platelet Volume 6.8 FL (6.5-10.1) Neutrophils (%) (Auto) 77.6 % (45.0-75.0) H Lymphocytes (%) (Auto) 11.2 % (20.0-45.0) L Monocytes (%) (Auto) 8.9 % (1.0-10.0) Eosinophils (%) (Auto) 1.3 % (0.0-3.0) Basophils (%) (Auto) 1.0 % (0.0-2.0) Chemistry Test 10/02/17 06:50 Sodium Level 138 MMOL/L (136-145) Potassium Level 4.4 MMOL/L (3.5-5.1) Chloride Level 105 MMOL/L (98-107) Carbon Dioxide Level 23 MMOL/L (21-32) Anion Gap 10 mmol/L (5-15) Blood Urea Nitrogen 22 mg/dL (7-18) H Creatinine 1.7 MG/DL (0.55-1.30) H Estimat Glomerular Filtration Rate 48.7 mL/min (>60) Glucose Level 222 MG/DL (74-106) H Hemoglobin A1c 10.4 % (4.3-6.0) H Uric Acid 7.9 MG/DL (2.6-7.2) H Calcium Level 8.6 MG/DL (8.5-10.1) Phosphorus Level 3.9 MG/DL (2.5-4.9) Magnesium Level 1.4 MG/DL (1.8-2.4) L Iron Level 48 ug/dL (50-175) L Total Iron Binding Capacity 111 ug/dL (250-450) L Percent Iron Saturation 43 % (15-50) Unsaturated Iron Binding 63 ug/dL (112-346) L Ferritin 535 NG/ML (8-388) H Total Bilirubin 0.3 MG/DL (0.2-1.0) Gamma Glutamyl Transpeptidase 79 U/L (5-85) Aspartate Amino Transf (AST/SGOT) 47 U/L (15-37) H Alanine Aminotransferase (ALT/SGPT) 44 U/L (12-78) Alkaline Phosphatase 106 U/L (46-116) Troponin I 0.004 ng/mL (0.000-0.056) Pro-B-Type Natriuretic Peptide 1194 pg/mL (0-125) H Total Protein 8.1 G/DL (6.4-8.2) Albumin 2.3 G/DL (3.4-5.0) L Globulin 5.8 g/dL Albumin/Globulin Ratio 0.4 (1.0-2.7) L Triglycerides Level 120 MG/DL (30-150) Cholesterol Level 133 MG/DL (< 200) LDL Cholesterol 88 mg/dL (<100) HDL Cholesterol 26 MG/DL (40-60) L Cholesterol/HDL Ratio 5.1 (3.3-4.4) H Vitamin B12 Level 1060 PG/ML (193-986) H Folate 13.7 NG/ML (8.6-58.9) Thyroid Stimulating Hormone (TSH) 2.181 uiU/mL (0.358-3.740) Studies Pre-op Studies: EKG Risk Assessment & Plan Assessment: ASA3, farazay to proceed Plan: Jojo Ames M.D. October 02, 2017 11:35
--- NOTE | 2017-10-02 11:48 | Diagnostic Imaging Report ---
Indication: Dyspnea Comparison: 07/30/2017 A single view chest radiograph was obtained. Findings: No definite infiltrate or pulmonary vascular congestion identified. The heart is enlarged. The aorta is mildly enlarged consistent with atherosclerotic vascular disease. The bones are osteopenic. Impression: No acute disease
[2017-10-02] MEDS ORDERED: Sterile Water Irrig 1000ml IRRIG ONE (12:00)
[2017-10-02] MEDS ORDERED: NS Irrig 1000ml ONE (12:00)
--- NOTE | 2017-10-02 12:05 | Pre-Procedure Note/Attestation ---
Pre-Procedure Note/Attestation Complete Prior to Procedure Planned Procedure: right Procedure Narrative: Incision and drainage with debridement right leg/ankle Indications for Procedure Pre-Operative Diagnosis: Abscess Cellulitis Nonpressure ulcer right leg DM Attestation I attest that I discussed the nature of the procedure; its benefits; risks and complications; and alternatives (and the risks and benefits of such alternatives ), prior to the procedure, with the patient (or the patient's legal dealer compliance representative). I attest that, if there was a reasonable possibility of needing a blood transfusion, the patient (or the patient's legal dealer compliance representative) was given the [facility] standardized written summary, pursuant to the Trevon [place] Blood Safety Act ([place] Health and Safety Code # 1645, as amended). I attest that I re-evaluated the patient just prior to the surgery and that there has been no change in the patient's H&P, except as documented below: Wiliam Bernard DPM October 02, 2017 12:05
--- NOTE | 2017-10-02 13:04 | Brief Operative Note ---
Immediate Post Operative Note Operative Note Pre-op Diagnosis: Abscess Cellulitis Nonpressure ulcer right leg DM Procedure: 1) Incision and drainage deep to fascia right leg 2) Excisional debridement of right leg wound to level of muscle 3) Complex closure of wound Post-op Diagnosis: same as pre-op Surgeon: Wiliam Bernard DPM Yarn Sizer: none Additional Surgeons: none Anesthesiologist: Dr Campos Anesthesia: general Specimen: none Complications: none Condition: stable Fluids: per anesthesia Estimated Blood Loss: volume - 30 Drains: AIDA Implant(s) used?: No Wiliam Bernard DPM October 02, 2017 13:04
[2017-10-02] MEDS ORDERED: Lidocaine 1% MPF 10mg/ml 5ml ONE (13:05)
[2017-10-02] MEDS ORDERED: Propofol 200mg/20ml IV ONE (13:05)
[2017-10-02] MEDS ORDERED: NS Irrig 1000ml IRRIG ONE (13:23)
--- NOTE | 2017-10-02 13:23 | Immediate Post-Op Evaluation ---
Immediate Post-Op Evalulation Immediate Post-Op Evalulation Procedure: right ankle /leg incision and drainage and debridment Date of Evaluation: October 02, 2017 Time of Evaluation: 13:08 IV Fluids: NS 75ml Blood Products: 0 Estimated Blood Loss: 10ml Urinary Output: 0 Blood Pressure Systolic: 175 Blood Pressure Diastolic: 76 Pulse Rate: 66 Respiratory Rate: 17 O2 Sat by Pulse Oximetry: 100 Temperature (Fahrenheit): 97.0 Pain Score (1-10): 5 Nausea: No Vomiting: No Complications none Patient Status: awake, patent, extubated, none Hydration Status: adequate Given Within 1 Hr of Incision: No - next dose not yet due Jojo Campos M.D. October 02, 2017 13:23
[2017-10-02] MEDS ORDERED: fentaNYL 100 mcg/2 mL IV ONE (13:30)
[2017-10-02] MEDS ORDERED: DiphenhydrAMINE 50mg/ml Inj IVP PRN (13:35)
[2017-10-02] MEDS: fentaNYL 100 mcg/2 mL IV PRN ×2 (13:38→13:47)
--- NOTE | 2017-10-02 14:01 | Diagnostic Imaging Report ---
Indication: Swelling, inflammation and pain right leg Technique: MRI of the right leg was imaged in a 1.5 Valery magnet. Pulse sequences obtained include coronal T1 fast spin-echo, STIR, sagittal coronal and axial proton fast spin-echo with fat saturation, sagittal proton fast spin-echo. Comparison: None Findings: Bone marrow signal within the tibia and fibula appear normal. There is no evidence of osteomyelitis. There is extensive subcutaneous edema present with some areas of confluence suggestive of phlegmon. Abscess is not excluded. There is also patchy mild T2 hyperintense edema within portions of the anterior and posterior compartment musculature indicative of an adjacent associated myositis. This study was done without gadolinium. There is no obvious fluid that tracks within the intermuscular fascia. IMPRESSION: Subcutaneous edema consistent with cellulitis. No obvious abscess but evaluation for this is limited on noncontrast imaging. Some associated patchy myositis in anterior and posterior compartments noted.
--- NOTE | 2017-10-02 14:50 | Consultation ---
Consult Note Consult Note asked to eval for renal failure- Patient is a 67-year-old male sent in by nursing facility after increased right lower extremity drainage from wound. Patient had prior history of the recent had a great toe amputation. He had been noted to have increased drainage from a wound to his mid calf. The patient chronic venostasis changes noted. He had the been noted be diabetic. Patient denies any fever. Per to have increased pain to the area. Past Medical History: No History, Except For Hx Hypertension: Yes Hx Diabetes: Yes Hx Gastrointestinal Problems: Yes - gastritis, ulcer of esophagus without bleeding examined- data reviewed admitted with Cellulitis and abscess of right leg . Assessment/Plan (1) Renal failure (ARF), acute on chronic (2) DM2 (diabetes mellitus, type 2), Nephropathy , HypoAlbuminemia (3) Acute on chronic anemia (4) Diabetic foot ulcer (5) High Cholestrol Plan: Mag IV Per consultants monitor renal parameters avoid Nephrotoxics per orders GRIFFIN ASTORGA October 02, 2017 14:50
[2017-10-02] MEDS ORDERED: Labetalol 5mg/ml 20ml vial IV PRN (15:03)
[2017-10-02] MEDS ORDERED: HydrALAZINE 25mg tab ORAL PRN (15:06)
--- NOTE | 2017-10-02 15:45 | General Progress Note ---
Assessment/Plan Problem List: (1) Cellulitis and abscess of right leg ICD Codes: L03.115 - Cellulitis of right lower limb; L02.415 - Cutaneous abscess of right lower limb SNOMED: 426911434 (2) Non-pressure ulcer of the right leg to the level of muscle (3) Poorly controlled type 2 diabetes mellitus ICD Codes: E11.65 - Type 2 diabetes mellitus with hyperglycemia SNOMED: 30476031, 031574087 (4) CHIQUITA (acute kidney injury) ICD Codes: N17.9 - Acute kidney failure, unspecified SNOMED: 81540616 (5) CKD stage 3 (6) Diabetic nephropathy ICD Codes: E11.21 - Type 2 diabetes mellitus with diabetic nephropathy SNOMED: 66762803, 646313647 (7) Hyperlipidemia ICD Codes: E78.5 - Hyperlipidemia SNOMED: 68172500 (8) Hypertension ICD Codes: I10 - Hypertension SNOMED: 02236387 (9) Anemia of chronic disease ICD Codes: D63.8 - Anemia in other chronic diseases classified elsewhere SNOMED: 280816753 Status: stable Assessment/Plan Podiatry and ID consulted, appreciate rec's s/p s/p incision and drainage deep to the fascia, excisional debridement of wound to the level of muscle, and advancement flap closure on 10/02/17 Empiric vanco and zosyn per ID X-ray R tib/fib images reviewed and showed concern for subcutaneous gas. MRI R tib/fib images reviewed and showed subcutaneous edema consistent with cellulitis but no obvious abscess though evaluation limited given no contrast F/u wound cultures, blood cultures, and OR cultures--pending Nephrology consulted given CHIQUITA mIVFs CHEMA Pain control, bowel regimen Supportive care DVT Prophylaxis: SCD, HSQ Code Status: Full Hospital Classification Declaration: Based on this initial evaluation, and depending on the patient's clinical course, I anticipate that this patient will require hospitalization for 2-3 days for RLE cellulitis and abscess and close respiratory/hemodynamic monitoring. Disposition: Once the patient is stable to leave the hospital, I anticipate the patient will likely be discharged to the following environment: back to SNF I spent 41 minutes on this patient's case, and >50% was dedicated to counseling and/or care coordination. Discussed with patient/family, nursing staff, SW/CM, Podiatry, ID regarding clinical status, treatment course, and disposition planning. D/w ID re abx. D/w podiatry re postop mgmt Time of note may not reflect time of encounter. Subjective Date patient seen: October 02, 2017 Time patient seen: 15:45 ROS Limited/Unobtainable: No Constitutional: Reports: weakness HEENT: Reports: no symptoms Cardiovascular: Reports: no symptoms Respiratory: Reports: no symptoms Gastrointestinal/Abdominal: Reports: no symptoms Genitourinary: Reports: no symptoms Neurologic/Psychiatric: Reports: no symptoms Endocrine: Reports: no symptoms Hematologic/Lymphatic: Reports: no symptoms Allergies: Coded Allergies: No Known Allergies (Verified , 11/14/10) Subjective No acute o/n events s/p incision and drainage deep to the fascia, excisional debridement of wound to the level of muscle, and advancement flap closure earlier today Pain controlled. Denies f/c, n/v, d/c, chest pain, SOB, abd pain Objective Last 24 Hour Vital Signs Date Time Temp Pulse Resp B/P (MAP) Pulse Ox O2 Delivery O2 Flow Rate FiO2 10/02/17 14:19 97.6 59 18 155/75 100 Nasal Cannula 3.0 97.6 10/02/17 14:15 97.6 10/02/17 14:10 58 16 158/65 100 Nasal Cannula 3.0 10/02/17 13:55 59 19 158/65 100 Nasal Cannula 3.0 10/02/17 13:47 97.5 10/02/17 13:40 59 20 153/67 100 Simple Mask 6.0 10/02/17 13:38 97.6 10/02/17 13:30 58 16 151/67 100 Simple Mask 6.0 10/02/17 13:23 206.6 66 17 100 10/02/17 13:20 65 17 158/69 100 Simple Mask 6.0 10/02/17 13:15 69 15 156/66 100 Simple Mask 6.0 10/02/17 13:07 97.1 66 17 171/76 100 Simple Mask 6.0 97.1 10/02/17 08:00 57 10/02/17 04:00 70 10/02/17 00:14 97.2 68 18 134/87 99 97.2 10/02/17 00:00 67 10/01/17 20:39 97.0 73 17 131/85 99 97.0 10/01/17 20:00 68 Intake and Output 10/01/17 10/02/17 19:00 07:00 Intake Total 478.75 ml 873.75 ml Output Total 600 ml Balance -121.25 ml 873.75 ml Intake Oral 350 ml IV Total 128.75 ml 873.75 ml Output Urine Total 600 ml # Voids 4 Laboratory Tests 10/02/17 06:50: White Blood Count 7.5, Red Blood Count 3.12L, Hemoglobin 9.1L, Hematocrit 28.3L , Mean Corpuscular Volume 91, Mean Corpuscular Hemoglobin 29.3, Mean Corpuscular Hemoglobin Concent 32.3, Red Cell Distribution Width 13.4, Platelet Count 234, Mean Platelet Volume 6.8, Neutrophils (%) (Auto) 77.6H, Lymphocytes ( %) (Auto) 11.2L, Monocytes (%) (Auto) 8.9, Eosinophils (%) (Auto) 1.3, Basophils (%) (Auto) 1.0, Sodium Level 138, Potassium Level 4.4, Chloride Level 105, Carbon Dioxide Level 23, Anion Gap 10, Blood Urea Nitrogen 22H, Creatinine 1.7H, Estimat Glomerular Filtration Rate 48.7, Glucose Level 222H, Hemoglobin A1c 10.4H, Uric Acid 7.9H, Calcium Level 8.6, Phosphorus Level 3.9, Magnesium Level 1.4L, Iron Level 48L, Total Iron Binding Capacity 111L, Percent Iron Saturation 43, Unsaturated Iron Binding 63L, Ferritin 535H, Total Bilirubin 0.3 , Gamma Glutamyl Transpeptidase 79, Aspartate Amino Transf (AST/SGOT) 47H, Alanine Aminotransferase (ALT/SGPT) 44, Alkaline Phosphatase 106, Troponin I 0.004, Pro-B-Type Natriuretic Peptide 1194H, Total Protein 8.1, Albumin 2.3L, Globulin 5.8, Albumin/Globulin Ratio 0.4L, Triglycerides Level 120, Cholesterol Level 133, LDL Cholesterol 88, HDL Cholesterol 26L, Cholesterol/HDL Ratio 5.1H, Vitamin B12 Level 1060H, Folate 13.7, Thyroid Stimulating Hormone (TSH) 2.181 10/02/17 10:30: Urine Color Pale yellow, Urine Appearance Clear, Urine pH 6, Urine Specific [place] 1.010, Urine Protein 2+H, Urine Glucose (UA) 1+H, Urine Ketones Negative , Urine Occult Blood 1+H, Urine Nitrite Negative, Urine Bilirubin Negative, Urine Urobilinogen Normal, Urine Leukocyte Esterase Negative, Urine RBC 0-2H, Urine WBC 0, Urine Squamous Epithelial Cells Occasional, Urine Bacteria Occasional, Urine Random Sodium 120H Height (Feet): 6 Height (Inches): 3.00 Weight (Pounds): 260 Objective General: alert, cooperative, no distress, appears stated age Head: normocephalic, without obvious abnormality, atraumatic Eyes: conjunctivae/corneas clear. PERRL, EOM's intact Throat: lips, mucosa, and tongue normal. MMM Neck: supple, symmetrical, trachea midline, and no JVD Lungs: clear to auscultation bilaterally Heart: regular rate and rhythm, S1, S2 normal, no murmur, click, rub or gallop Abdomen: soft, non-tender, non-distended, bowel sounds normal; no masses or organomegaly Extremities: +b/l hallux amputations, dressing c/d/i Pulses: 2+ and symmetric Neurologic: grossly normal, no focal deficits Js Garcia M.D. October 02, 2017 15:45
--- NOTE | 2017-10-02 18:15 | Cardiology Report ---
APPROVED REPORT EKG Measurement Heart [id number] 144P54 [id number] Sinus rhythm with occasional premature ventricular complexes Moderate voltage criteria for LVH, may be normal variant Borderline ECG
[2017-10-02] MEDS: HydrALAZINE 50mg tab ORAL SCH (21:25)
--- NOTE | 2017-10-02 23:30 | Operative Note - Dictated ---
DATE OF OPERATION: 10/02/2017 SURGEON: Wiliam Bernard D.P.M. [employer]ELOPER SURGEON: None. ANESTHESIOLOGIST: Dr. Damon. TYPE OF ANESTHESIA: General. PREOPERATIVE DIAGNOSES: 1. Abscess, right leg. 2. Cellulitis, right leg. 3. Non-pressure ulcer of the right leg to the level of muscle. 4. Uncontrolled diabetes mellitus. POSTOPERATIVE DIAGNOSES: 1. Abscess, right leg. 2. Cellulitis, right leg. 3. Non-pressure ulcer of the right leg to the level of muscle. 4. Uncontrolled diabetes mellitus. PROCEDURE PERFORMED: 1. Incision and drainage deep to the fascia. 2. Excisional debridement of wound to the level of muscle. 3. Advancement flap closure. OPERATIVE PROCEDURE: The patient was transported to the operating room and placed on the operating table in supine position. Anesthesiologist then started anesthesia. Right lower extremity was scrubbed, prepped, and draped in usual aseptic manner. After anesthesia check, the wound was inspected and noted to have tunneling both proximally and distally as well as posteriorly into the calf area. Incision was made to expose these areas. Immediate purulence was noted. Blood clots were also noted. No pulsatile bleeding was encountered. Wound was thoroughly explored and all necrotic tissue was debrided away and evacuated. Wound was flushed with diluted Betadine solution, then began with triple antibiotic solution. Gloves were changed. New drapes were placed. A drain was placed and sutured in place. Deep structures were coapted utilizing 2-0 Vicryl. Skin with augie. Compression dressing was applied. The patient tolerated the procedure and anesthesia well and was transferred to recovery room in stable condition. No complications were noted. Approximately 30 mL of blood loss. We will send the patient back to Medical/Surgical. Nonweightbearing on the right lower extremity. Elevate the right leg. Monitor drain q.8 h. Dressing changes only if soilage noted with reinforcement p.r.n. Antibiotics per Infectious Disease. We will continue to follow the patient. We will resume preop medications and diet. Wiliam Bernard D.P.M. DR: ZAC JOB#: [id number] CC: BARBER
[2017-10-03] VITALS: BP 122/61
--- NOTE | 2017-10-03 00:15 | Consultation ---
DATE OF CONSULTATION: 10/01/2017 NOTE: POOR AUDIO HEMATOLOGY/ONCOLOGY CONSULTATION CONSULTING PHYSICIAN: Guido Lopez M.D. REQUESTING PHYSICIANS: Main Florez M.D. and Js Garcia M.D. REASON FOR CONSULTATION: Anemia and coagulopathy. IDENTIFYING DATA: Dear Dr. Florez and Dr. Js Garcia, The patient is a pleasant 67-year-old male with past medical history, which is significant for diabetes mellitus, hyperlipidemia, chronic diabetic foot ulcerations, first toe osteomyelitis, status post right partial first ray amputation, incision and debridement of the necrotic tissue to the level of bone in , at this time presents for primary closure, drain placement on 07/29/2017, CKD, diabetic nephropathy, and anemia of chronic disease, right lower extremity wound, status post drainage, resides in a custodial facility, previous discharge, recently noted to have a hemoglobin of 9.1. I have ordered for the labs at this time. Hematology Service was consulted for further evaluation and treatment. MRI ordered to rule out underlying osteomyelitis. PAST MEDICAL HISTORY: CHF; elevated creatinine; CKD; history of anemia; diabetes mellitus; hypertension; hyperlipidemia; right foot great toe osteo, status post first ray amputation, status post course of full antibiotics. MEDICATIONS: Reviewed. Zosyn, heparin, Colace, insulin, sodium chloride, Tylenol, , polyethylene glycol, Zofran, Reglan, and vancomycin. ALLERGIES: No known drug allergies. SOCIAL HISTORY: No alcohol, tobacco, or illicit drug use. FAMILY HISTORY: Noncontributory. REVIEW OF SYSTEMS: CONSTITUTIONAL: No fever, chills, or night sweats. SKIN: No rashes, bumps, or itching. HEENT: No headache, hearing or vision changes. BREASTS: No lumps, pain, or discharge. PULMONARY: No cough, sputum, or shortness of breath. GASTROINTESTINAL: No nausea, vomiting, or diarrhea. GENITOURINARY: No dysuria, frequency, or urgency. MUSCULOSKELETAL: No joint swelling, muscle pain, or trauma. PHYSICAL EXAMINATION: VITAL SIGNS: Reviewed. GENERAL: No distress. PULMONARY: Decreased breath sounds. Crackles at the bases. CARDIOVASCULAR: Regular rate. No S3 or S4. ABDOMEN: Soft, nontender, and nondistended. EXTREMITIES: Reviewed and the patient noted to have 1+ edema, 4/5 muscle strength, bilateral hallux toe amputations noted. LABORATORY AND DIAGNOSTIC DATA: Current laboratories, WBC of 7.5, hemoglobin 9.1, hematocrit 28, and platelets 334,000. Chemistry reviewed. A1c of 10.4. Uric acid 10.9. Iron level 48, TIBC of 111, percent saturation 43, and ferritin 535. Imaging, tib-fib x-ray shows no evidence of acute fracture or dislocation. ASSESSMENT AND RECOMMENDATIONS: 1. Anemia due to underlying chronic disease. Continue to closely monitor. Anemia workup has been reviewed. Hemoglobin goal is above 7. 2. Anemia due to kidney disease. Creatinine currently 1.7, unknown if this is acute kidney injury versus chronic kidney disease. I reviewed patient's baseline and the patient's baseline is approximately creatinine of 2.2, so most likely acute kidney injury and chronic kidney disease. Currently does not require Epogen or iron supplementation. 3. Abscess in the right extremity, status post administration of antibiotics as well as cellulitis. 4. Diabetic neuropathy. Closely monitor. Continue Neurontin. 5. History of bilateral toe amputation. MRI is pending at this time. 6. Chronic kidney disease, stage 3. I appreciate the consultation. Thank you again for consultation. Guido Lopez M.D. DR: ERENDIRA JOB#: [id number] CC:
[2017-10-03 04:00] VITALS: BP_SYST 114; BP_SYST 134; BP_DIAS 62; BP_DIAS 69
[2017-10-03] MEDS: HydrALAZINE 50mg tab ORAL SCH ×2 (05:02→14:27)
[2017-10-03] MEDS: Piperacillin/Tazobactam 3.375 GM in D5W 110 ML IVPB SCH ×3 (06:25→21:40)
[2017-10-03] MEDS: NovoLOG Insulin Flexpen SUBQ SCH ×4 (06:26→21:44)
[2017-10-03] MEDS: Vancomycin 1250mg/D5W 250ml IVPB SCH (07:01)
[2017-10-03 08:00] VITALS: BP 138/60
[2017-10-03] MEDS: Docusate 100mg cap ORAL SCH ×3 (09:38→18:00)
[2017-10-03] MEDS: Heparin 5000 units/ml inj SUBQ SCH (09:42)
--- NOTE | 2017-10-03 10:15 | 48 Hour Post Anesthesia Eval ---
Post Anesthesia Evaluation Procedure: right ankle /leg incision and drainage and debridment Date of Evaluation: October 03, 2017 Time of Evaluation: 06:20 Blood Pressure Systolic: 114 0: 69 Pulse Rate: 69 Respiratory Rate: 18 Temperature (Fahrenheit): 98.2 O2 Sat by Pulse Oximetry: 98 Airway: patent Nausea: No Vomiting: No Pain Intensity: 0 Hydration Status: adequate Cardiopulmonary Status: at baseline Mental Status/LOC: patient returned to baseline Post-Anesthesia Complications: 0 Follow-up care needed: N/A - further care as per primary team CINDY OKEEFE M.D. October 03, 2017 10:15
--- NOTE | 2017-10-03 10:37 | Nephrology Progress Note ---
Assessment/Plan Problem List: (1) Diabetic foot ulcer (2) Renal failure (ARF), acute on chronic (3) Anemia of chronic disease (4) Diabetes Assessment: with nephropathy Assessment 1) Renal failure (ARF), acute on chronic (2) DM2 (diabetes mellitus, type 2), Nephropathy , HypoAlbuminemia (3) Acute on chronic anemia (4) Diabetic foot ulcer (5) High Cholestrol Plan Plan: no labs today Mag IV as needed Per consultants monitor renal parameters avoid Nephrotoxics per orders Subjective ROS Limited/Unobtainable: No Constitutional: Reports: malaise Objective Objective Last 24 Hour Vital Signs Date Time Temp Pulse Resp B/P (MAP) Pulse Ox O2 Delivery O2 Flow Rate FiO2 10/03/17 10:15 208.8 69 18 98 10/03/17 08:00 97.2 70 18 138/60 97 Room Air 97.2 10/03/17 05:02 114/69 10/03/17 04:00 97.4 68 22 114/69 98 Room Air 97.4 10/03/17 04:00 98.2 79 18 134/62 94 Room Air 98.2 10/03/17 04:00 69 10/03/17 00:00 66 10/03/17 00:00 96.6 64 16 122/61 96 Room Air 96.6 10/02/17 21:25 118/63 10/02/17 20:00 80 10/02/17 20:00 98.8 77 19 118/59 97 Room Air 98.8 10/02/17 16:00 66 10/02/17 16:00 99.0 69 20 158/80 96 Room Air 99.0 10/02/17 14:19 97.6 59 18 155/75 100 Nasal Cannula 3.0 97.6 10/02/17 14:15 97.6 10/02/17 14:10 58 16 158/65 100 Nasal Cannula 3.0 10/02/17 13:55 59 19 158/65 100 Nasal Cannula 3.0 10/02/17 13:47 97.5 10/02/17 13:40 59 20 153/67 100 Simple Mask 6.0 10/02/17 13:38 97.6 10/02/17 13:30 58 16 151/67 100 Simple Mask 6.0 10/02/17 13:23 206.6 66 17 100 10/02/17 13:20 65 17 158/69 100 Simple Mask 6.0 10/02/17 13:15 69 15 156/66 100 Simple Mask 6.0 10/02/17 13:07 97.1 66 17 171/76 100 Simple Mask 6.0 97.1 Intake and Output 10/02/17 10/03/17 19:00 07:00 Intake Total 1100 ml Output Total 1410 ml Balance -310 ml IV Total 1100 ml Output Urine Total 1400 ml Estimated Blood Loss 10 ml # Voids 1 3 Height (Feet): 6 Height (Inches): 3.00 Weight (Pounds): 260 General Appearance: no apparent distress Cardiovascular: normal rate Respiratory/Chest: decreased breath sounds Abdomen: soft Extremities: other - foot , per clean room assembler GRIFFIN ASTORGA October 03, 2017 10:37
[2017-10-03 12:00] VITALS: BP 153/79
--- NOTE | 2017-10-03 12:32 | Consultation ---
History of Present Illness General Date patient seen: October 02, 2017 Chief Complaint: Skin Rash/Abscess Present Illness HPI the pt is a 67 yo male with mmp who is here for medical stabilization. The pt is pw anxiety and fatigue. the pt has hx of depression. NO si/hi. No psychosis Allergies: Coded Allergies: No Known Allergies (Verified , 11/14/10) Medication History Scheduled Docusate Sodium* (Colace*), 100 MG ORAL DAILY, (Reported) Fluconazole* (Diflucan*), 200 MG ORAL DAILY Furosemide* (Lasix*), 40 MG PO DAILY, (Reported) Glipizide* (Glipizide*), 5 MG ORAL BIDAC, (Reported) Hydrocodone Bit/Acetaminophen 10-325* (Hydrocodon-Acetaminophn 10-325*), 1 TAB ORAL Q4H, (Reported) Insulin Aspart* (Novolog*), 15 UNITS SUBQ BID, (Reported) Meropenem (Merrem), 1 GM IV Q8HR Vancomycin Hcl/D5w (Vancomycin-D5w 1 G/250 Ml), 1 GM IVPB Q12H Scheduled PRN Acetaminophen* (Acetaminophen 325MG Tablet*), 650 MG ORAL Q4H PRN for Prn Headache/Temp > 101, (Reported) Miscellaneous Medications Dextromethorphan HBr/B-Chay (Cepacol Sorethroat-Cough Stefanie), 1 EACH PO, ( Reported) Dextrose 50 % In Water (Dextrose 50%-Water Vial), 50 ML IV, (Reported) Insulin Detemir (Levemir Flexpen), 50 SUBQ, (Reported) [asa ], (Reported) Patient History Limited by: medical condition History Provided By: Patient, Medical Record, PMD Healthcare decision maker Resuscitation status Full Code Advanced Directive on File No Past Medical/Surgical History Past Medical/Surgical History: (1) Cellulitis and abscess of foot (2) Lactic acidosis (3) Leukopenia (4) DM2 (diabetes mellitus, type 2) (5) Acute on chronic anemia (6) Concern for abscess of R foot (7) Acute blood loss anemia (8) Abdominal pain (9) Postoperative fever (10) postop fever (11) Hyperkalemia (12) Pancreatitis (13) Lung nodule (14) bliateral lower extremities (15) infected leg ulcer (16) Diabetic foot ulcer (17) Cellulitis of right lower extremity (18) Cellulitis and abscess of right leg (19) Likely 1st toe ostemyelitis (20) Anemia of chronic disease (21) Diabetic nephropathy (22) Hyperlipidemia (23) Hypertension (24) resides in SNF (25) CKD stage 3 (26) s/p R partial first ray amputation and excisional debridement of necrotic tissue to level of bone on 07/22/17 (27) s/p incision and drainage deep to fascia, excisional debridement of necrotic tissue to level of bone, and delayed primary closure with drain placement on 07/28/17 (28) CHIQUITA (acute kidney injury) (29) Poorly controlled type 2 diabetes mellitus (30) Renal failure (ARF), acute on chronic (31) Diabetes (32) Non-pressure ulcer of the right leg to the level of muscle Review of Systems Psychiatric: Reports: prior hx, anxiety, depressed feelings, emotional problems Physical Exam General Appearance: WD/WN, no apparent distress, alert Neurologic: oriented x 3, responsive, depressed affect Last 24 Hour Vital Signs Date Time Temp Pulse Resp B/P (MAP) Pulse Ox O2 Delivery O2 Flow Rate FiO2 10/03/17 10:15 208.8 69 18 98 10/03/17 08:00 97.2 70 18 138/60 97 Room Air 97.2 10/03/17 05:02 114/69 10/03/17 04:00 97.4 68 22 114/69 98 Room Air 97.4 10/03/17 04:00 98.2 79 18 134/62 94 Room Air 98.2 10/03/17 04:00 69 10/03/17 00:00 66 10/03/17 00:00 96.6 64 16 122/61 96 Room Air 96.6 10/02/17 21:25 118/63 10/02/17 20:00 80 10/02/17 20:00 98.8 77 19 118/59 97 Room Air 98.8 10/02/17 16:00 66 10/02/17 16:00 99.0 69 20 158/80 96 Room Air 99.0 10/02/17 14:19 97.6 59 18 155/75 100 Nasal Cannula 3.0 97.6 10/02/17 14:15 97.6 10/02/17 14:10 58 16 158/65 100 Nasal Cannula 3.0 10/02/17 13:55 59 19 158/65 100 Nasal Cannula 3.0 10/02/17 13:47 97.5 10/02/17 13:40 59 20 153/67 100 Simple Mask 6.0 10/02/17 13:38 97.6 10/02/17 13:30 58 16 151/67 100 Simple Mask 6.0 10/02/17 13:23 206.6 66 17 100 10/02/17 13:20 65 17 158/69 100 Simple Mask 6.0 10/02/17 13:15 69 15 156/66 100 Simple Mask 6.0 10/02/17 13:07 97.1 66 17 171/76 100 Simple Mask 6.0 97.1 Intake and Output 10/02/17 10/03/17 19:00 07:00 Intake Total 1100 ml Output Total 1410 ml Balance -310 ml IV Total 1100 ml Output Urine Total 1400 ml Estimated Blood Loss 10 ml # Voids 1 3 Height (Feet): 6 Height (Inches): 3.00 Weight (Pounds): 260 Medications Current Medications Medications (Trade) Dose Ordered Sig/Xiao Route PRN Reason Start Time Stop Time Status Last Admin Dose Admin Acetaminophen (Tylenol) 650 mg Q4H PRN ORAL Mild Pain (Pain Scale 1-3) 10/01/17 15:15 10/31/17 15:14 10/02/17 01:10 Acetaminophen (Tylenol) 650 mg Q4H PRN ORAL fever 10/01/17 15:15 10/31/17 15:14 Bisacodyl (Dulcolax) 10 mg HSPRN PRN RECTAL Constipation 10/01/17 15:15 10/31/17 15:14 Dextrose (Dextrose 50%) 25 ml STAT PRN IV Hypoglycemia 10/01/17 15:15 10/31/17 15:14 Dextrose (Dextrose 50%) 50 ml STAT PRN IV Hypoglycemia 10/01/17 15:15 10/31/17 15:14 Docusate Sodium (Colace) 100 mg TID ORAL 10/02/17 18:00 10/31/17 20:59 10/03/17 09:38 Heparin Sodium (Porcine) (Heparin 5000 units/ml) 5,000 units EVERY 12 HOURS SUBQ 10/01/17 21:00 10/31/17 20:59 10/03/17 09:42 Hydralazine HCl (Apresoline) 25 mg Q6HR PRN ORAL bp over 160 syst 10/02/17 15:06 11/01/17 15:05 Hydralazine HCl (Apresoline) 25 mg Q8HR ORAL 10/02/17 22:00 11/01/17 21:59 Insulin Aspart (NovoLOG) BEFORE MEALS AND HS SUBQ 10/01/17 16:30 10/31/17 16:29 10/03/17 11:52 Lansoprazole (Prevacid) 30 mg DAILY ORAL 10/03/17 09:00 11/02/17 08:59 10/03/17 09:39 Lorazepam (Ativan) 1 mg Q4H PRN ORAL For Anxiety 10/01/17 15:15 10/08/17 15:14 Magnesium Sulfate 100 ml @ 100 mls/hr Q1H IVPB 10/03/17 09:30 10/03/17 13:29 10/03/17 11:04 Ondansetron HCl (Zofran) 4 mg Q6H PRN IVP Nausea & Vomiting 10/01/17 15:15 10/31/17 15:14 Piperacillin Sod/ Tazobactam Sod 3.375 gm/Dextrose 110 ml @ 27.5 mls/hr EVERY 8 HOURS IVPB 10/01/17 22:00 10/06/17 21:59 10/03/17 06:25 Polyethylene Glycol (Miralax) 17 gm HSPRN PRN ORAL Constipation 10/01/17 15:15 10/31/17 15:14 Sodium Chloride 1,000 ml @ 75 mls/hr [id number] IVLG 10/01/17 16:05 10/31/17 16:04 10/03/17 09:15 Vancomycin HCl (Vanco rx to dose) 1 ea DAILY PRN MISC Per rx protocol 10/01/17 15:15 10/31/17 15:14 Vancomycin HCl/ Dextrose 250 ml @ 166.667 mls/hr Q24H IVPB 10/02/17 06:00 10/07/17 05:59 10/03/17 07:01 Assessment/Plan Status: stable Assessment/Plan Anxiety cognitive impairment -ativan prn -provided madhu/Kory Ortiz M.D. October 03, 2017 12:32
--- NOTE | 2017-10-03 13:01 | General Progress Note ---
Assessment/Plan Problem List: (1) Cellulitis of right lower extremity ICD Codes: L03.115 - Cellulitis of right lower limb SNOMED: 144551274 (2) Anemia of chronic disease ICD Codes: D63.8 - Anemia in other chronic diseases classified elsewhere SNOMED: 410933199 (3) Diabetic nephropathy ICD Codes: E11.21 - Type 2 diabetes mellitus with diabetic nephropathy SNOMED: 38936551, 517814824 (4) Hypertension ICD Codes: I10 - Hypertension SNOMED: 99874659 (5) resides in SNF (6) s/p R partial first ray amputation and excisional debridement of necrotic tissue to level of bone on 07/22/17 (7) s/p incision and drainage deep to fascia, excisional debridement of necrotic tissue to level of bone, and delayed primary closure with drain placement on 07/28/17 (8) CHIQUITA (acute kidney injury) ICD Codes: N17.9 - Acute kidney failure, unspecified SNOMED: 54760274 (9) Poorly controlled type 2 diabetes mellitus ICD Codes: E11.65 - Type 2 diabetes mellitus with hyperglycemia SNOMED: 95011568, 812383459 (10) Cellulitis and abscess of right leg ICD Codes: L03.115 - Cellulitis of right lower limb; L02.415 - Cutaneous abscess of right lower limb SNOMED: 594475200 (11) Non-pressure ulcer of the right leg to the level of muscle (12) Hyperlipidemia ICD Codes: E78.5 - Hyperlipidemia SNOMED: 85934624 Status: stable Assessment/Plan Podiatry and ID consulted, appreciate rec's Endocrinology consulted for elevated blood sugars A1c 10.4. Restarted patient's home levemir 50 units qhs and novolog 10 units TID ac meals + SSi. Ctm blood sugars. s/p s/p incision and drainage deep to the fascia, excisional debridement of wound to the level of muscle, and advancement flap closure on 10/02/17 Empiric vanco and zosyn per ID X-ray R tib/fib images reviewed and showed concern for subcutaneous gas. MRI R tib/fib images reviewed and showed subcutaneous edema consistent with cellulitis but no obvious abscess though evaluation limited given no contrast F/u wound cultures, blood cultures, and OR cultures--pending Nephrology consulted given CHIQUITA. Trend Cr 1.9 --> 1.7 mIVFs Pain control, bowel regimen Supportive care DVT Prophylaxis: SCD, HSQ Code Status: Full Hospital Classification Declaration: Based on this initial evaluation, and depending on the patient's clinical course, I anticipate that this patient will require hospitalization for 2-3 days for RLE cellulitis and abscess and close respiratory/hemodynamic monitoring. Disposition: Once the patient is stable to leave the hospital, I anticipate the patient will likely be discharged to the following environment: back to [facility], Litzy Crowley I spent 31 minutes on this patient's case, and >50% was dedicated to counseling and/or care coordination. Discussed with patient/family, nursing staff, SW/CM, Podiatry, ID regarding clinical status, treatment course, and disposition planning. D/w ID re abx. D/w podiatry re postop mgmt Time of note may not reflect time of encounter. Subjective Date patient seen: October 03, 2017 Time patient seen: 12:54 Allergies: Coded Allergies: No Known Allergies (Verified , 11/14/10) Subjective - doing well. reports right lower extremity pain resolved - blood sugars elevated to 350s - AM labs pending - AF, HDS Objective Last 24 Hour Vital Signs Date Time Temp Pulse Resp B/P (MAP) Pulse Ox O2 Delivery O2 Flow Rate FiO2 10/03/17 10:15 208.8 69 18 98 10/03/17 08:00 97.2 70 18 138/60 97 Room Air 97.2 10/03/17 05:02 114/69 10/03/17 04:00 97.4 68 22 114/69 98 Room Air 97.4 10/03/17 04:00 98.2 79 18 134/62 94 Room Air 98.2 10/03/17 04:00 69 10/03/17 00:00 66 10/03/17 00:00 96.6 64 16 122/61 96 Room Air 96.6 10/02/17 21:25 118/63 10/02/17 20:00 80 10/02/17 20:00 98.8 77 19 118/59 97 Room Air 98.8 10/02/17 16:00 66 10/02/17 16:00 99.0 69 20 158/80 96 Room Air 99.0 10/02/17 14:19 97.6 59 18 155/75 100 Nasal Cannula 3.0 97.6 10/02/17 14:15 97.6 10/02/17 14:10 58 16 158/65 100 Nasal Cannula 3.0 10/02/17 13:55 59 19 158/65 100 Nasal Cannula 3.0 10/02/17 13:47 97.5 10/02/17 13:40 59 20 153/67 100 Simple Mask 6.0 10/02/17 13:38 97.6 10/02/17 13:30 58 16 151/67 100 Simple Mask 6.0 10/02/17 13:23 206.6 66 17 100 10/02/17 13:20 65 17 158/69 100 Simple Mask 6.0 10/02/17 13:15 69 15 156/66 100 Simple Mask 6.0 10/02/17 13:07 97.1 66 17 171/76 100 Simple Mask 6.0 97.1 Intake and Output 10/02/17 10/03/17 19:00 07:00 Intake Total 1100 ml Output Total 1410 ml Balance -310 ml IV Total 1100 ml Output Urine Total 1400 ml Estimated Blood Loss 10 ml # Voids 1 3 Height (Feet): 6 Height (Inches): 3.00 Weight (Pounds): 260 General Appearance: no apparent distress, alert, obese EENT: PERRL/EOMI Neck: non-tender, normal alignment Cardiovascular: normal rate, regular rhythm, other - difficult to assess DP/PT pulses due to edema Respiratory/Chest: chest wall non-tender, lungs clear, normal breath sounds Abdomen: normal bowel sounds, non tender, soft Edema: other - bilateral lower extremity edema 2+, right lower extremity wrapped, s/p right 5th toe amputation 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
[2017-10-03 16:00] VITALS: BP 148/76
[2017-10-03] MEDS ORDERED: NovoLOG Insulin Flexpen SUBQ SCH ×3 (16:50)
--- NOTE | 2017-10-03 16:56 | Infectious Diseases Prog Note ---
Assessment/Plan Assessment/Plan ASSESSMENT AND PLAN: 1. right leg cellulitis/infected wound/abscess, no mri mentioned on MRI right leg - continue zosyn and vancomycin - s/p debridement of right leg - operative report noted - check wound culture from surgery, f/u labs - d/w Dr. Weinstein 2. Anemia. 3. Hypertension. 4. Diabetes. 5. Blood sugar and blood pressure treatment from diabetes and hypertension per primary. 6. Hyperlipidemia. 7. Chronic renal failure. 8. Elevated creatinine. 9. Watch closely creatinine on vancomycin. 10. Hyponatremia. 11. Right foot great toe amputation and osteo. 12. history of ulcerative gastritis. 13. Podiatry to follow up. 14. Continue treatment with Dr. Weinstein and consultants. 15. No known allergies. 16. Family history noncontributory. 17. Social history is negative. 18. MAR was noted. 19. Case discussed with RN. 20. Case discussed with the patient. 21. Case communicated with Dr. Weinstein. 22. Continue treatment per primary consultants. 23. Notes and records noted. 24. Orders were noted and entered. Subjective Constitutional: Denies: fever HEENT: Denies: congestion Respiratory: Denies: shortness of breath Cardiovascular: Denies: chest pain Gastrointestinal/Abdominal: Denies: nausea, vomiting, diarrhea, constipation Genitourinary: Reports: other - no meyer; Denies: dysuria, hematuria, frequency Neurologic: Denies: headache Skin: Denies: rash Hematologic: Denies: bleeding Musculoskeletal: Denies: pain Allergies: Coded Allergies: No Known Allergies (Verified , 11/14/10) Objective Vital Signs Last 24 Hour Vital Signs Date Time Temp Pulse Resp B/P (MAP) Pulse Ox O2 Delivery O2 Flow Rate FiO2 10/03/17 14:27 153/79 10/03/17 12:00 97.0 63 18 153/79 97 Room Air 97.0 10/03/17 12:00 54 10/03/17 10:15 208.8 69 18 98 10/03/17 08:00 74 10/03/17 08:00 97.2 70 18 138/60 97 Room Air 97.2 10/03/17 05:02 114/69 10/03/17 04:00 97.4 68 22 114/69 98 Room Air 97.4 10/03/17 04:00 98.2 79 18 134/62 94 Room Air 98.2 10/03/17 04:00 69 10/03/17 00:00 66 10/03/17 00:00 96.6 64 16 122/61 96 Room Air 96.6 10/02/17 21:25 118/63 10/02/17 20:00 80 10/02/17 20:00 98.8 77 19 118/59 97 Room Air 98.8 Height (Feet): 6 Height (Inches): 3.00 Weight (Pounds): 260 General Appearance: no acute distress HEENT: normocephalic, atraumatic, anicteric, mucous membranes moist Respiratory/Chest: lungs clear, normal breath sounds, no respiratory distress, no accessory muscle use Cardiovascular: normal rate, regular rhythm, no gallop/murmur, no JVD Abdomen: normal bowel sounds, soft, non tender, no organomegaly, non distended Genitourinary: other - no meyer Extremities: no cyanosis Skin: no rash 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 There is no evidence of osteomyelitis. There is extensive subcutaneous edema present with some areas of confluence suggestive of phlegmon. Abscess is not excluded. There is also patchy mild T2 hyperintense edema within portions of the anterior and posterior compartment musculature indicative of an adjacent associated myositis. This study was done without gadolinium. There is no obvious fluid that tracks within the intermuscular fascia. IMPRESSION: Subcutaneous edema consistent with cellulitis. No obvious abscess but evaluation for this is limited on noncontrast imaging. Some associated patchy myositis in anterior and posterior compartments noted. Chest x-ray - negative (report noted) Microbiology Date/Time Source Procedure Growth Status 10/01/17 11:15 Blood Blood Culture - Preliminary NO GROWTH AFTER 24 HOURS Resulted 10/01/17 10:57 Blood Blood Culture - Preliminary NO GROWTH AFTER 24 HOURS Resulted 10/01/17 20:00 Wound Gram Stain - Final Resulted 10/01/17 20:00 Wound Wound Culture - Preliminary Resulted 10/01/17 12:52 Nasal Nares MRSA Culture - Final NO METHICILLIN RESISTANT STAPH AUREUS... Complete 10/01/17 12:52 Rectum VRE Culture - Final NO VANCOMYCIN RESISTANT ENTEROCOCCUS ... Complete Labs Test 10/01/17 10:57 10/02/17 06:50 10/02/17 10:30 White Blood Count 10.0 K/UL (4.8-10.8) 7.5 K/UL (4.8-10.8) Red Blood Count 3.03 M/UL (4.70-6.10) 3.12 M/UL (4.70-6.10) Hemoglobin 9.1 G/DL (14.2-18.0) 9.1 G/DL (14.2-18.0) Hematocrit 27.1 % (42.0-52.0) 28.3 % (42.0-52.0) Mean Corpuscular Volume 89 FL (80-99) 91 FL (80-99) Mean Corpuscular Hemoglobin 30.1 PG (27.0-31.0) 29.3 PG (27.0-31.0) Mean Corpuscular Hemoglobin Concent 33.6 G/DL (32.0-36.0) 32.3 G/DL (32.0-36.0) Red Cell Distribution Width 13.5 % (11.6-14.8) 13.4 % (11.6-14.8) Platelet Count 227 K/UL (150-450) 234 K/UL (150-450) Mean Platelet Volume 6.4 FL (6.5-10.1) 6.8 FL (6.5-10.1) Neutrophils (%) (Auto) 65.8 % (45.0-75.0) 77.6 % (45.0-75.0) Lymphocytes (%) (Auto) 19.0 % (20.0-45.0) 11.2 % (20.0-45.0) Monocytes (%) (Auto) 11.5 % (1.0-10.0) 8.9 % (1.0-10.0) Eosinophils (%) (Auto) 2.3 % (0.0-3.0) 1.3 % (0.0-3.0) Basophils (%) (Auto) 1.4 % (0.0-2.0) 1.0 % (0.0-2.0) Prothrombin Time 10.7 SEC (9.30-11.50) Prothromb Time International Ratio 1.0 (0.9-1.1) Activated Partial Thromboplast Time 34 SEC (23-33) Sodium Level 134 MMOL/L (136-145) 138 MMOL/L (136-145) Potassium Level 4.3 MMOL/L (3.5-5.1) 4.4 MMOL/L (3.5-5.1) Chloride Level 101 MMOL/L (98-107) 105 MMOL/L (98-107) Carbon Dioxide Level 23 MMOL/L (21-32) 23 MMOL/L (21-32) Anion Gap 10 mmol/L (5-15) 10 mmol/L (5-15) Blood Urea Nitrogen 27 mg/dL (7-18) 22 mg/dL (7-18) Creatinine 1.9 MG/DL (0.55-1.30) 1.7 MG/DL (0.55-1.30) Estimat Glomerular Filtration Rate 42.8 mL/min (>60) 48.7 mL/min (>60) Glucose Level 292 MG/DL (74-106) 222 MG/DL (74-106) Calcium Level 8.8 MG/DL (8.5-10.1) 8.6 MG/DL (8.5-10.1) Total Bilirubin 0.3 MG/DL (0.2-1.0) 0.3 MG/DL (0.2-1.0) Aspartate Amino Transf (AST/SGOT) 42 U/L (15-37) 47 U/L (15-37) Alanine Aminotransferase (ALT/SGPT) 39 U/L (12-78) 44 U/L (12-78) Alkaline Phosphatase 115 U/L (46-116) 106 U/L (46-116) C-Reactive Protein, Quantitative > 70.0 mg/dL (0.00-0.90) Total Protein 8.6 G/DL (6.4-8.2) 8.1 G/DL (6.4-8.2) Albumin 2.5 G/DL (3.4-5.0) 2.3 G/DL (3.4-5.0) Globulin 6.1 g/dL 5.8 g/dL Albumin/Globulin Ratio 0.4 (1.0-2.7) 0.4 (1.0-2.7) Hemoglobin A1c 10.4 % (4.3-6.0) Uric Acid 7.9 MG/DL (2.6-7.2) Phosphorus Level 3.9 MG/DL (2.5-4.9) Magnesium Level 1.4 MG/DL (1.8-2.4) Iron Level 48 ug/dL (50-175) Total Iron Binding Capacity 111 ug/dL (250-450) Percent Iron Saturation 43 % (15-50) Unsaturated Iron Binding 63 ug/dL (112-346) Ferritin 535 NG/ML (8-388) Gamma Glutamyl Transpeptidase 79 U/L (5-85) Troponin I 0.004 ng/mL (0.000-0.056) Pro-B-Type Natriuretic Peptide 1194 pg/mL (0-125) Triglycerides Level 120 MG/DL (30-150) Cholesterol Level 133 MG/DL (< 200) LDL Cholesterol 88 mg/dL (<100) HDL Cholesterol 26 MG/DL (40-60) Cholesterol/HDL Ratio 5.1 (3.3-4.4) Vitamin B12 Level 1060 PG/ML (193-986) Folate 13.7 NG/ML (8.6-58.9) Thyroid Stimulating Hormone (TSH) 2.181 uiU/mL (0.358-3.740) Urine Color Pale yellow Urine Appearance Clear Urine pH 6 (4.5-8.0) Urine Specific [place] 1.010 (1.005-1.035) Urine Protein 2+ (NEGATIVE) Urine Glucose (UA) 1+ (NEGATIVE) Urine Ketones Negative (NEGATIVE) Urine Occult Blood 1+ (NEGATIVE) Urine Nitrite Negative (NEGATIVE) Urine Bilirubin Negative (NEGATIVE) Urine Urobilinogen Normal MG/DL (0.0-1.0) Urine Leukocyte Esterase Negative (NEGATIVE) Urine RBC 0-2 /HPF (0 - 0) Urine WBC 0 /HPF (0 - 0) Urine Squamous Epithelial Cells Occasional /LPF Urine Bacteria Occasional /HPF (NONE) Urine Random Sodium 120 mmol/L (20-110) Current Medications Medications (Trade) Dose Ordered Sig/Xiao Route PRN Reason Start Time Stop Time Status Last Admin Dose Admin Acetaminophen (Tylenol) 650 mg Q4H PRN ORAL Mild Pain (Pain Scale 1-3) 10/01/17 15:15 10/31/17 15:14 10/02/17 01:10 Acetaminophen (Tylenol) 650 mg Q4H PRN ORAL fever 10/01/17 15:15 10/31/17 15:14 Bisacodyl (Dulcolax) 10 mg HSPRN PRN RECTAL Constipation 10/01/17 15:15 10/31/17 15:14 Dextrose (Dextrose 50%) 25 ml STAT PRN IV Hypoglycemia 10/01/17 15:15 10/31/17 15:14 Dextrose (Dextrose 50%) 50 ml STAT PRN IV Hypoglycemia 10/01/17 15:15 10/31/17 15:14 Docusate Sodium (Colace) 100 mg TID ORAL 10/02/17 18:00 10/31/17 20:59 10/03/17 12:45 Heparin Sodium (Porcine) (Heparin 5000 units/ml) 5,000 units EVERY 12 HOURS SUBQ 10/01/17 21:00 10/31/17 20:59 10/03/17 09:42 Hydralazine HCl (Apresoline) 25 mg Q6HR PRN ORAL bp over 160 syst 10/02/17 15:06 11/01/17 15:05 Hydralazine HCl (Apresoline) 25 mg Q8HR ORAL 10/02/17 22:00 11/01/17 21:59 10/03/17 14:27 Insulin Aspart (NovoLOG) BEFORE MEALS AND HS SUBQ 10/01/17 16:30 10/31/17 16:29 10/03/17 11:52 Insulin Aspart (NovoLOG) 15 units NOVOTIAC SUBQ 10/03/17 16:50 11/02/17 16:49 Insulin Detemir (Levemir) 50 units BEDTIME SUBQ 10/03/17 21:00 11/02/17 20:59 Lansoprazole (Prevacid) 30 mg DAILY ORAL 10/03/17 09:00 11/02/17 08:59 10/03/17 09:39 Lorazepam (Ativan) 1 mg Q4H PRN ORAL For Anxiety 10/01/17 15:15 10/08/17 15:14 Ondansetron HCl (Zofran) 4 mg Q6H PRN IVP Nausea & Vomiting 10/01/17 15:15 10/31/17 15:14 Piperacillin Sod/ Tazobactam Sod 3.375 gm/Dextrose 110 ml @ 27.5 mls/hr EVERY 8 HOURS IVPB 10/01/17 22:00 10/06/17 21:59 10/03/17 14:27 Polyethylene Glycol (Miralax) 17 gm HSPRN PRN ORAL Constipation 10/01/17 15:15 10/31/17 15:14 Sodium Chloride 1,000 ml @ 75 mls/hr [id number] IVLG 10/01/17 16:05 10/31/17 16:04 10/03/17 09:15 Vancomycin HCl (Vanco rx to dose) 1 ea DAILY PRN MISC Per rx protocol 10/01/17 15:15 10/31/17 15:14 Vancomycin HCl/ Dextrose 250 ml @ 166.667 mls/hr Q24H IVPB 10/02/17 06:00 10/07/17 05:59 10/03/17 07:01 ESE HARO October 03, 2017 16:56
[2017-10-03] MEDS ORDERED: LORazepam 1mg tab ORAL PRN (19:15)
[2017-10-03] MEDS ORDERED: HydrALAZINE 25mg tab ORAL PRN (20:00)
[2017-10-03] MEDS ORDERED: Miralax 17gm pkt ORAL PRN (20:00)
[2017-10-03 20:55] VITALS: BP 156/75
[2017-10-03] MEDS ORDERED: Heparin 5000 units/ml inj SUBQ SCH (21:00)
[2017-10-03] MEDS ORDERED: Levemir Flexpen SUBQ SCH (21:00)
[2017-10-03] MEDS: HydrALAZINE 25mg tab ORAL SCH (21:41)
[2017-10-03] MEDS: Levemir Flexpen SUBQ SCH (21:42)
--- NOTE | 2017-10-03 23:58 | General Progress Note ---
Assessment/Plan Assessment/Plan 1. Anemia due to underlying chronic disease. --> Continue to closely monitor. Anemia workup has been reviewed. --> Iron 48, TIBC 111, Ferritin 535, B12 1060, Folate 13.7, TSH 2.2 --> Hemoglobin goal is above 7. --> Hemoglobin levels stable currently. 2. Anemia due to kidney disease. --> Creatinine currently 1.7, unknown if this is acute kidney injury versus chronic kidney disease. --> I reviewed patient's baseline and the patient's baseline is approximately creatinine of 2.2, so most likely acute kidney injury and chronic kidney disease. --> Currently does not require Epogen or iron supplementation. 3. Abscess in the right extremity, status post administration of antibiotics as well as cellulitis. 4. Diabetic neuropathy. Closely monitor. Continue Neurontin. 5. History of bilateral toe amputation. MRI is pending at this time. 6. Chronic kidney disease, stage 3. 7. Cellulitis and abscess of right lower extremity. 8. Hyperlipidemia. 9. Hypertension. Subjective Date patient seen: October 03, 2017 Constitutional: Denies: no symptoms, chills, diaphoresis, fever, malaise, weakness, other HEENT: Denies: no symptoms, eye pain, blurred vision, tearing, double vision, ear pain, ear discharge, nose pain, nose congestion, throat pain, throat swelling, mouth pain, mouth swelling, other Cardiovascular: Denies: no symptoms, chest pain, edema, irregular heart rate, lightheadedness, palpitations, syncope, other Respiratory: Denies: no symptoms, cough, orthopnea, shortness of breath, SOB with excertion, SOB at rest, sputum, stridor, wheezing, other Gastrointestinal/Abdominal: Denies: no symptoms, abdomen distended, abdominal pain, black stools, tarry stools, blood in stool, constipated, diarrhea, difficulty swallowing, nausea, poor appetite, poor fluid intake, rectal bleeding , vomiting, other Genitourinary: Denies: no symptoms, burning, discharge, frequency, flank pain, hematuria, incontinence, pain, urgency, other Neurologic/Psychiatric: Denies: no symptoms, anxiety, depressed, emotional problems, headache, numbness, paresthesia, pre-existing deficit, seizure, tingling, tremors, weakness, other Endocrine: Denies: no symptoms, excessive sweating, flushing, intolerance to cold, intolerance to heat, increased hunger, increased thirst, increased urine, unexplained weight gain, unexplained weight loss, other Allergies: Coded Allergies: No Known Allergies (Verified , 11/14/10) Subjective H/H stable. Some pain in right lower extremity. No fever. Objective Last 24 Hour Vital Signs Date Time Temp Pulse Resp B/P (MAP) Pulse Ox O2 Delivery O2 Flow Rate FiO2 10/03/17 21:41 156/75 10/03/17 20:55 98.1 64 20 156/75 98 Room Air 98.1 20 10/03/17 16:00 97.2 58 19 148/76 97 Room Air 97.2 10/03/17 16:00 54 10/03/17 14:27 153/79 10/03/17 12:00 97.0 63 18 153/79 97 Room Air 97.0 10/03/17 12:00 54 10/03/17 10:15 208.8 69 18 98 10/03/17 08:00 74 10/03/17 08:00 97.2 70 18 138/60 97 Room Air 97.2 10/03/17 05:02 114/69 10/03/17 04:00 97.4 68 22 114/69 98 Room Air 97.4 10/03/17 04:00 98.2 79 18 134/62 94 Room Air 98.2 10/03/17 04:00 69 10/03/17 00:00 66 10/03/17 00:00 96.6 64 16 122/61 96 Room Air 96.6 Intake and Output 10/02/17 10/03/17 19:00 07:00 Intake Total 1100 ml Output Total 1410 ml Balance -310 ml IV Total 1100 ml Output Urine Total 1400 ml Estimated Blood Loss 10 ml # Voids 1 3 Height (Feet): 6 Height (Inches): 3.00 Weight (Pounds): 260 General Appearance: no apparent distress Cardiovascular: normal rate, regular rhythm Respiratory/Chest: lungs clear Abdomen: normal bowel sounds, non tender Guido Lopez MD October 03, 2017 23:58
[2017-10-04] VITALS (7 sets, daily range): BP systolic 109–156; BP diastolic 64–83
--- NOTE | 2017-10-04 00:01 | Consultation ---
DATE OF CONSULTATION: 10/03/2017 ENDOCRINOLOGY CONSULTATION CONSULTING PHYSICIAN: Humza Menon M.D. REFERRING PHYSICIAN: Main Florez M.D. REASON FOR CONSULTATION: Diabetes management. HISTORY OF PRESENT ILLNESS: The patient is a 67-year-old male with past medical history of uncontrolled diabetes, peripheral vascular disease, hyperlipidemia, chronic diabetic foot ulcers, history of right partial first ray amputation, and excisional debridement of necrotic tissue to the level of the bone, who resides in a nursing home facility. The patient has been having worsening of the right lower extremity pain in the mid calf area with a purulent bloody discharge, admitted to the hospital for evaluation. Incision and drainage was done. Glucose is extremely elevated in the 300 range. PAST MEDICAL HISTORY: 1. Type 2 diabetes. 2. Hyperlipidemia. 3. Peripheral arterial disease. 4. Chronic diabetic foot ulcer. 5. Previous amputation. 6. Osteomyelitis. 7. Chronic kidney disease. MEDICATIONS: Reviewed and reconciled. ALLERGIES TO MEDICATIONS: None. SOCIAL HISTORY: He is a resident of a nursing home facility. No active smoking, alcohol, or drug use. FAMILY HISTORY: Diabetes. REVIEW OF SYSTEMS: A 12-point review of systems was performed. The pertinent positives and negatives are mentioned in the present illness. PHYSICAL EXAMINATION: GENERAL: The patient is awake. VITAL SIGNS: Blood pressure is 153/79, pulse 54, temperature of 97 degrees, and respiratory rate of 18. HEENT: Pupils are equal and reactive to light and accommodation. Sclerae anicteric. NECK: No JVD. HEART: Regular rate and rhythm. ABDOMEN: Positive bowel sounds. EXTREMITIES: Foot amputation and ulcer noted. LABORATORY DATA: WBC 7.5, hemoglobin 9.1, hematocrit 28.3, and platelets of 234,000. Sodium is 138, potassium 4.4, chloride 105, bicarbonate 23, BUN 22, creatinine 1.7, glucose of 222. A1c of 10.4. Uric acid of 7.9. BNP of 1194. TSH of 2.1. DIAGNOSES: 1. Foot ulcer, status post incision and drainage. 2. Diabetes out of control. 3. Chronic kidney disease. 4. Hypertension. PLAN: 1. Continue with Levemir 50 units at bedtime. 2. Increase NovoLog to 15 units before each meal. Blood glucose monitoring and NovoLog insulin coverage before meals and at bedtime. 3. We are not going to use any oral diabetic agents. 4. Further adjustment according to blood glucose values. Thank you, Dr. Florez, for the courtesy of this consultation. Humza Menon M.D. DR: Macy JOB#: [id number] CC:
[2017-10-04 05:30] LABS: BASOPHILS % (AUTO) 0.5 % (0.0-2.0); EOSINOPHILS % (AUTO) 4.8 % (0.0-3.0); HEMATOCRIT 28.4 % (42.0-52.0); HEMOGLOBIN 9.4 G/DL (14.2-18.0); LYMPHOCYTES % (AUTO) 30.1 % (20.0-45.0); MEAN CORPUSCULAR VOLUME 89 FL (80-99); MONOCYTES % (AUTO) 16.2 % (1.0-10.0); NEUTROPHILS % (AUTO) 48.5 % (45.0-75.0); PLATELET COUNT 265 K/UL (150-450); RED BLOOD COUNT 3.19 M/UL (4.70-6.10); RED CELL DISTRIBUTION WIDTH 13.3 % (11.6-14.8); WHITE BLOOD COUNT 6.6 K/UL (4.8-10.8)
[2017-10-04] MEDS: Piperacillin/Tazobactam 3.375 GM in D5W 110 ML IVPB SCH ×3 (05:34→21:12)
[2017-10-04] MEDS: Vancomycin 1250mg/D5W 250ml 250 ML IVPB SCH (05:34)
[2017-10-04 05:42] LABS: ALANINE AMINOTRANSFERASE 33 U/L (12-78); ALBUMIN 2.3 G/DL (3.4-5.0); ALBUMIN/GLOBULIN RATIO 0.4 (1.0-2.7); ALKALINE PHOSPHATASE 95 U/L (46-116); ANION GAP 9 mmol/L (5-15); ASPARTATE AMINO TRANSFERASE 33 U/L (15-37); BILIRUBIN,TOTAL 0.2 MG/DL (0.2-1.0); BLOOD UREA NITROGEN 17 mg/dL (7-18); CALCIUM 8.6 MG/DL (8.5-10.1); CARBON DIOXIDE 24 MMOL/L (21-32); CHLORIDE 107 MMOL/L (98-107); CREATININE 1.6 MG/DL (0.55-1.30); SODIUM 140 MMOL/L (136-145)
[2017-10-04 05:54] LABS: PHOSPHORUS 4.1 MG/DL (2.5-4.9)
[2017-10-04] MEDS: HydrALAZINE 25mg tab ORAL SCH ×3 (06:26→21:12)
[2017-10-04] MEDS: NovoLOG Insulin Flexpen SUBQ SCH ×7 (06:28→21:15)
--- NOTE | 2017-10-04 07:57 | General Progress Note ---
Assessment/Plan Problem List: (1) Diabetic foot ulcer ICD Codes: E11.621 - Type 2 diabetes mellitus with foot ulcer; L97.509 - Non- pressure chronic ulcer of other part of unspecified foot with unspecified severity SNOMED: 32896047, 773083798 (2) Cellulitis of right lower extremity ICD Codes: L03.115 - Cellulitis of right lower limb SNOMED: 320495197 (3) Cellulitis and abscess of right leg ICD Codes: L03.115 - Cellulitis of right lower limb; L02.415 - Cutaneous abscess of right lower limb SNOMED: 504541243 (4) Diabetic nephropathy ICD Codes: E11.21 - Type 2 diabetes mellitus with diabetic nephropathy SNOMED: 90501667, 488480989 (5) Poorly controlled type 2 diabetes mellitus ICD Codes: E11.65 - Type 2 diabetes mellitus with hyperglycemia SNOMED: 78602644, 328762459 Assessment/Plan fasting glucose improved continue Levemir 50 units qhs continue Novolog 15 units ac tid + NISS Subjective Allergies: Coded Allergies: No Known Allergies (Verified , 11/14/10) All Systems: reviewed and negative except above Subjective events noted - interval notes reviewed Objective Last 24 Hour Vital Signs Date Time Temp Pulse Resp B/P (MAP) Pulse Ox O2 Delivery O2 Flow Rate FiO2 10/04/17 06:26 156/83 10/04/17 05:51 156/83 10/04/17 04:09 97.5 52 20 150/78 98 Room Air 97.5 10/04/17 00:05 97.9 67 20 109/64 93 Room Air 97.9 10/03/17 21:41 156/75 10/03/17 20:55 98.1 64 20 156/75 98 Room Air 98.1 20 10/03/17 16:00 97.2 58 19 148/76 97 Room Air 97.2 10/03/17 16:00 54 10/03/17 14:27 153/79 10/03/17 12:00 97.0 63 18 153/79 97 Room Air 97.0 10/03/17 12:00 54 10/03/17 10:15 208.8 69 18 98 10/03/17 08:00 74 10/03/17 08:00 97.2 70 18 138/60 97 Room Air 97.2 Intake and Output 10/03/17 10/04/17 19:00 07:00 Intake Total 1450 ml 525 ml Output Total 1510 ml 1020 ml Balance -60 ml -495 ml Intake Oral 1450 ml IV Total 525 ml Output Urine Total 1500 ml 1000 ml Drainage Total 10 ml 20 ml # Voids 5 Laboratory Tests 10/04/17 05:10: White Blood Count 6.6, Red Blood Count 3.19L, Hemoglobin 9.4L, Hematocrit 28.4L , Mean Corpuscular Volume 89, Mean Corpuscular Hemoglobin 29.4, Mean Corpuscular Hemoglobin Concent 33.0, Red Cell Distribution Width 13.3, Platelet Count 265, Mean Platelet Volume 6.4L, Neutrophils (%) (Auto) 48.5, Lymphocytes ( %) (Auto) 30.1, Monocytes (%) (Auto) 16.2H, Eosinophils (%) (Auto) 4.8H, Basophils (%) (Auto) 0.5, Sodium Level 140, Potassium Level 4.0, Chloride Level 107, Carbon Dioxide Level 24, Anion Gap 9, Blood Urea Nitrogen 17, Creatinine 1.6H, Estimat Glomerular Filtration Rate 52.2, Glucose Level 161H, Uric Acid 5.0 , Calcium Level 8.6, Phosphorus Level 4.1, Magnesium Level 1.8, Total Bilirubin 0.2, Aspartate Amino Transf (AST/SGOT) 33, Alanine Aminotransferase (ALT/SGPT) 33, Alkaline Phosphatase 95, Pro-B-Type Natriuretic Peptide 1474H, Total Protein 8.2, Albumin 2.3L, Globulin 5.9, Albumin/Globulin Ratio 0.4L, Vancomycin Level Trough 15.0H Height (Feet): 6 Height (Inches): 3.00 Weight (Pounds): 260 General Appearance: no apparent distress Neck: normal alignment Cardiovascular: normal rate Respiratory/Chest: decreased breath sounds Abdomen: normal bowel sounds Extremities: other - foot ulcer Objective Current Medications Medications (Trade) Dose Ordered Sig/Xiao Route PRN Reason Start Time Stop Time Status Last Admin Dose Admin Acetaminophen (Tylenol) 650 mg Q4H PRN ORAL Mild Pain (Pain Scale 1-3) 10/03/17 19:15 10/31/17 15:14 Acetaminophen (Tylenol) 650 mg Q4H PRN ORAL fever 10/03/17 19:15 10/31/17 15:14 Bisacodyl (Dulcolax) 10 mg HSPRN PRN RECTAL Constipation 10/03/17 20:00 11/02/17 19:59 Dextrose (Dextrose 50%) 25 ml STAT PRN IV Hypoglycemia 10/03/17 20:00 11/02/17 19:59 Dextrose (Dextrose 50%) 50 ml STAT PRN IV Hypoglycemia 10/03/17 20:00 11/02/17 19:59 Docusate Sodium (Colace) 100 mg TID ORAL 10/04/17 09:00 10/31/17 20:59 Heparin Sodium (Porcine) (Heparin 5000 units/ml) 5,000 units EVERY 12 HOURS SUBQ 10/03/17 21:00 10/31/17 20:59 10/03/17 21:42 Hydralazine HCl (Apresoline) 25 mg Q6H PRN ORAL bp over 160 syst 10/03/17 20:00 11/02/17 19:59 Hydralazine HCl (Apresoline) 25 mg Q8HR ORAL 10/03/17 22:00 11/01/17 21:59 10/04/17 06:26 Insulin Aspart (NovoLOG) BEFORE MEALS AND HS SUBQ 10/03/17 21:00 10/31/17 16:29 10/04/17 06:29 Insulin Aspart (NovoLOG) 15 units NOVOTIAC SUBQ 10/04/17 06:30 11/02/17 16:49 10/04/17 06:28 Insulin Detemir (Levemir) 50 units BEDTIME SUBQ 10/03/17 21:00 11/02/17 20:59 10/03/17 21:42 Lansoprazole (Prevacid) 30 mg DAILY ORAL 10/04/17 09:00 11/02/17 08:59 Lorazepam (Ativan) 1 mg Q4H PRN ORAL For Anxiety 10/03/17 19:15 10/08/17 15:14 Ondansetron HCl (Zofran) 4 mg Q6H PRN IVP Nausea & Vomiting 10/03/17 20:00 10/31/17 19:59 Piperacillin Sod/ Tazobactam Sod 3.375 gm/Dextrose 110 ml @ 27.5 mls/hr EVERY 8 HOURS IVPB 10/03/17 22:00 10/08/17 21:59 10/04/17 05:34 Polyethylene Glycol (Miralax) 17 gm HSPRN PRN ORAL Constipation 10/03/17 20:00 11/02/17 19:59 Sodium Chloride 1,000 ml @ 75 mls/hr [id number] IVLG 10/03/17 20:00 10/31/17 19:59 10/03/17 19:35 Vancomycin HCl (Vanco rx to dose) 1 ea DAILY PRN MISC Per rx protocol 10/04/17 09:00 10/31/17 15:14 Vancomycin HCl/ Dextrose 250 ml @ 166.667 mls/hr Q24H IVPB 10/04/17 06:00 10/07/17 05:59 10/04/17 05:34 Item Value Date Time Bedside Blood Glucose 163 mg/dl H 10/04/17 0629 Bedside Blood Glucose 405 mg/dl H 10/03/17 2144 Bedside Blood Glucose 388 mg/dl H 10/03/17 1723 Bedside Blood Glucose 350 mg/dl H 10/03/17 1152 DILAN GORDILLO October 04, 2017 07:57
--- NOTE | 2017-10-04 08:39 | Podiatric Progress Note ---
Assessment/Plan Patient Best Dhillon is a 67 year old male who was admitted on October 01, 2017 at 11:45 with Assessment/Plan A/ 1) Abscess right ankle/leg 2) Cellulitis right lower extremity 3) Diabetic Neuropathy 4) h/o bilateral toe amputations P/ 1) MRI reviewed - done pre-op. No abscess noted 2) S/p I&D - doing well. Cont with AIDA for now. Will likely pull on Friday. 3) Cont iv abx per ID 4) Will follow Subjective Allergies: Coded Allergies: No Known Allergies (Verified , 11/14/10) Subjective Patient doing well. No complaints of pain. Denies f/c/n/v Objective Exam Last 24 Hour Vital Signs Date Time Temp Pulse Resp B/P (MAP) Pulse Ox O2 Delivery O2 Flow Rate FiO2 10/04/17 06:26 156/83 10/04/17 05:51 156/83 10/04/17 04:09 97.5 52 20 150/78 98 Room Air 97.5 10/04/17 00:05 97.9 67 20 109/64 93 Room Air 97.9 10/03/17 21:41 156/75 10/03/17 20:55 98.1 64 20 156/75 98 Room Air 98.1 20 10/03/17 16:00 97.2 58 19 148/76 97 Room Air 97.2 10/03/17 16:00 54 10/03/17 14:27 153/79 10/03/17 12:00 97.0 63 18 153/79 97 Room Air 97.0 10/03/17 12:00 54 10/03/17 10:15 208.8 69 18 98 Laboratory Tests Test 10/04/17 05:10 White Blood Count 6.6 K/UL (4.8-10.8) Red Blood Count 3.19 M/UL (4.70-6.10) L Hemoglobin 9.4 G/DL (14.2-18.0) L Hematocrit 28.4 % (42.0-52.0) L Mean Corpuscular Volume 89 FL (80-99) Mean Corpuscular Hemoglobin 29.4 PG (27.0-31.0) Mean Corpuscular Hemoglobin Concent 33.0 G/DL (32.0-36.0) Red Cell Distribution Width 13.3 % (11.6-14.8) Platelet Count 265 K/UL (150-450) Mean Platelet Volume 6.4 FL (6.5-10.1) L Neutrophils (%) (Auto) 48.5 % (45.0-75.0) Lymphocytes (%) (Auto) 30.1 % (20.0-45.0) Monocytes (%) (Auto) 16.2 % (1.0-10.0) H Eosinophils (%) (Auto) 4.8 % (0.0-3.0) H Basophils (%) (Auto) 0.5 % (0.0-2.0) Sodium Level 140 MMOL/L (136-145) Potassium Level 4.0 MMOL/L (3.5-5.1) Chloride Level 107 MMOL/L (98-107) Carbon Dioxide Level 24 MMOL/L (21-32) Anion Gap 9 mmol/L (5-15) Blood Urea Nitrogen 17 mg/dL (7-18) Creatinine 1.6 MG/DL (0.55-1.30) H Estimat Glomerular Filtration Rate 52.2 mL/min (>60) Glucose Level 161 MG/DL (74-106) H Uric Acid 5.0 MG/DL (2.6-7.2) Calcium Level 8.6 MG/DL (8.5-10.1) Phosphorus Level 4.1 MG/DL (2.5-4.9) Magnesium Level 1.8 MG/DL (1.8-2.4) Total Bilirubin 0.2 MG/DL (0.2-1.0) Aspartate Amino Transf (AST/SGOT) 33 U/L (15-37) Alanine Aminotransferase (ALT/SGPT) 33 U/L (12-78) Alkaline Phosphatase 95 U/L (46-116) Pro-B-Type Natriuretic Peptide 1474 pg/mL (0-125) H Total Protein 8.2 G/DL (6.4-8.2) Albumin 2.3 G/DL (3.4-5.0) L Globulin 5.9 g/dL Albumin/Globulin Ratio 0.4 (1.0-2.7) L Vancomycin Level Trough 15.0 ug/mL (5.0-12.0) H Microbiology Date/Time Source Procedure Growth Status 10/01/17 11:15 Blood Blood Culture - Preliminary NO GROWTH AFTER 48 HOURS Resulted 10/01/17 20:00 Wound Gram Stain - Final Resulted 10/01/17 20:00 Wound Culture - Preliminary Gram Negative Bacillus 1 Gram Negative Bacillus 2 Resulted 10/01/17 12:52 Nasal Nares MRSA Culture - Final NO METHICILLIN RESISTANT STAPH AUREUS... Complete 10/01/17 12:52 Rectum VRE Culture - Final NO VANCOMYCIN RESISTANT ENTEROCOCCUS ... Complete Dermatological Wound Assessment : Exudate Amount: Mild Dermatological Narrative right leg incision is well coapted. no drainage noted from incision site. Edema reduced. AIDA output <40cc Wiliam Bernard DPM October 04, 2017 08:39
[2017-10-04] MEDS ORDERED: Docusate 100mg cap ORAL SCH (09:00)
--- NOTE | 2017-10-04 11:10 | Nephrology Progress Note ---
Assessment/Plan Problem List: (1) Diabetic foot ulcer (2) Renal failure (ARF), acute on chronic (3) Anemia of chronic disease (4) Diabetes Assessment: with nephropathy Assessment 1) Renal failure (ARF), acute on chronic Cr down 1.6 (2) DM2 (diabetes mellitus, type 2), Nephropathy , HypoAlbuminemia (3) Acute on chronic anemia (4) Diabetic foot ulcer (5) High Cholestrol Plan Plan: Mag IV as needed Per consultants monitor renal parameters avoid Nephrotoxics per orders Subjective ROS Limited/Unobtainable: No Constitutional: Reports: malaise Objective Objective Last 24 Hour Vital Signs Date Time Temp Pulse Resp B/P (MAP) Pulse Ox O2 Delivery O2 Flow Rate FiO2 10/04/17 08:00 97.3 64 20 142/74 97 97.3 10/04/17 06:26 156/83 10/04/17 05:51 156/83 10/04/17 04:09 97.5 52 20 150/78 98 Room Air 97.5 10/04/17 00:05 97.9 67 20 109/64 93 Room Air 97.9 10/03/17 21:41 156/75 10/03/17 20:55 98.1 64 20 156/75 98 Room Air 98.1 20 10/03/17 16:00 97.2 58 19 148/76 97 Room Air 97.2 10/03/17 16:00 54 10/03/17 14:27 153/79 10/03/17 12:00 97.0 63 18 153/79 97 Room Air 97.0 10/03/17 12:00 54 Intake and Output 10/03/17 10/04/17 19:00 07:00 Intake Total 1450 ml 600 ml Output Total 1510 ml 1020 ml Balance -60 ml -420 ml Intake Oral 1450 ml IV Total 600 ml Output Urine Total 1500 ml 1000 ml Drainage Total 10 ml 20 ml # Voids 5 Laboratory Tests 10/04/17 05:10: White Blood Count 6.6, Red Blood Count 3.19L, Hemoglobin 9.4L, Hematocrit 28.4L , Mean Corpuscular Volume 89, Mean Corpuscular Hemoglobin 29.4, Mean Corpuscular Hemoglobin Concent 33.0, Red Cell Distribution Width 13.3, Platelet Count 265, Mean Platelet Volume 6.4L, Neutrophils (%) (Auto) 48.5, Lymphocytes ( %) (Auto) 30.1, Monocytes (%) (Auto) 16.2H, Eosinophils (%) (Auto) 4.8H, Basophils (%) (Auto) 0.5, Sodium Level 140, Potassium Level 4.0, Chloride Level 107, Carbon Dioxide Level 24, Anion Gap 9, Blood Urea Nitrogen 17, Creatinine 1.6H, Estimat Glomerular Filtration Rate 52.2, Glucose Level 161H, Uric Acid 5.0 , Calcium Level 8.6, Phosphorus Level 4.1, Magnesium Level 1.8, Total Bilirubin 0.2, Aspartate Amino Transf (AST/SGOT) 33, Alanine Aminotransferase (ALT/SGPT) 33, Alkaline Phosphatase 95, Pro-B-Type Natriuretic Peptide 1474H, Total Protein 8.2, Albumin 2.3L, Globulin 5.9, Albumin/Globulin Ratio 0.4L, Vancomycin Level Trough 15.0H Height (Feet): 6 Height (Inches): 3.00 Weight (Pounds): 260 General Appearance: no apparent distress Objective no change GRIFFIN ASTORGA October 04, 2017 11:10
--- NOTE | 2017-10-04 11:38 | General Progress Note ---
Assessment/Plan Problem List: (1) Cellulitis and abscess of right leg ICD Codes: L03.115 - Cellulitis of right lower limb; L02.415 - Cutaneous abscess of right lower limb SNOMED: 924383349 (2) Non-pressure ulcer of the right leg to the level of muscle (3) Poorly controlled type 2 diabetes mellitus ICD Codes: E11.65 - Type 2 diabetes mellitus with hyperglycemia SNOMED: 13670641, 471753280 (4) CHIQUITA (acute kidney injury) ICD Codes: N17.9 - Acute kidney failure, unspecified SNOMED: 30502054 (5) CKD stage 3 (6) Diabetic nephropathy ICD Codes: E11.21 - Type 2 diabetes mellitus with diabetic nephropathy SNOMED: 66871526, 003264624 (7) Hyperlipidemia ICD Codes: E78.5 - Hyperlipidemia SNOMED: 75099113 (8) Hypertension ICD Codes: I10 - Hypertension SNOMED: 07868640 (9) Anemia of chronic disease ICD Codes: D63.8 - Anemia in other chronic diseases classified elsewhere SNOMED: 250725089 Status: stable Assessment/Plan Podiatry and ID consulted, appreciate rec's Endocrinology consulted for elevated blood sugars A1c 10.4. Restarted patient's home levemir 50 units qhs and novolog 15 units TID ac meals + SSi. Ctm blood sugars. s/p s/p incision and drainage deep to the fascia, excisional debridement of wound to the level of muscle, and advancement flap closure on 10/02/17 Empiric vanco and zosyn per ID X-ray R tib/fib images reviewed and showed concern for subcutaneous gas. MRI R tib/fib images reviewed and showed subcutaneous edema consistent with cellulitis but no obvious abscess though evaluation limited given no contrast F/u wound cultures, blood cultures, and OR cultures--pending Nephrology consulted given CHIQUITA. Trend Cr 1.9 --> 1.7 mIVFs Pain control, bowel regimen Supportive care DVT Prophylaxis: SCD, HSQ Code Status: Full Hospital Classification Declaration: Based on this initial evaluation, and depending on the patient's clinical course, I anticipate that this patient will require hospitalization for 1-2 days for RLE cellulitis and abscess and close respiratory/hemodynamic monitoring. Disposition: Once the patient is stable to leave the hospital, I anticipate the patient will likely be discharged to the following environment: back to SNF, CV [facility] [place] I spent 35 minutes on this patient's case, and >50% was dedicated to counseling and/or care coordination. Discussed with patient/family, nursing staff, SW/CM, Podiatry, ID regarding clinical status, treatment course, and disposition planning. D/w ID re abx. D/w podiatry re postop mgmt Time of note may not reflect time of encounter. Subjective Date patient seen: October 04, 2017 Time patient seen: 11:38 ROS Limited/Unobtainable: No Constitutional: Reports: no symptoms HEENT: Reports: no symptoms Cardiovascular: Reports: no symptoms Respiratory: Reports: no symptoms Gastrointestinal/Abdominal: Reports: no symptoms Genitourinary: Reports: no symptoms Neurologic/Psychiatric: Reports: no symptoms Endocrine: Reports: no symptoms Hematologic/Lymphatic: Reports: no symptoms Allergies: Coded Allergies: No Known Allergies (Verified , 11/14/10) Subjective No acute o/n events s/p incision and drainage deep to the fascia, excisional debridement of wound to the level of muscle, and advancement flap closure POD#2 Pain controlled. Denies f/c, n/v, d/c, chest pain, SOB, abd pain Objective Last 24 Hour Vital Signs Date Time Temp Pulse Resp B/P (MAP) Pulse Ox O2 Delivery O2 Flow Rate FiO2 10/04/17 08:00 97.3 64 20 142/74 97 97.3 10/04/17 06:26 156/83 10/04/17 05:51 156/83 10/04/17 04:09 97.5 52 20 150/78 98 Room Air 97.5 10/04/17 00:05 97.9 67 20 109/64 93 Room Air 97.9 10/03/17 21:41 156/75 10/03/17 20:55 98.1 64 20 156/75 98 Room Air 98.1 20 10/03/17 16:00 97.2 58 19 148/76 97 Room Air 97.2 10/03/17 16:00 54 10/03/17 14:27 153/79 10/03/17 12:00 97.0 63 18 153/79 97 Room Air 97.0 10/03/17 12:00 54 Intake and Output 10/03/17 10/04/17 19:00 07:00 Intake Total 1450 ml 600 ml Output Total 1510 ml 1020 ml Balance -60 ml -420 ml Intake Oral 1450 ml IV Total 600 ml Output Urine Total 1500 ml 1000 ml Drainage Total 10 ml 20 ml # Voids 5 Laboratory Tests 10/04/17 05:10: White Blood Count 6.6, Red Blood Count 3.19L, Hemoglobin 9.4L, Hematocrit 28.4L , Mean Corpuscular Volume 89, Mean Corpuscular Hemoglobin 29.4, Mean Corpuscular Hemoglobin Concent 33.0, Red Cell Distribution Width 13.3, Platelet Count 265, Mean Platelet Volume 6.4L, Neutrophils (%) (Auto) 48.5, Lymphocytes ( %) (Auto) 30.1, Monocytes (%) (Auto) 16.2H, Eosinophils (%) (Auto) 4.8H, Basophils (%) (Auto) 0.5, Sodium Level 140, Potassium Level 4.0, Chloride Level 107, Carbon Dioxide Level 24, Anion Gap 9, Blood Urea Nitrogen 17, Creatinine 1.6H, Estimat Glomerular Filtration Rate 52.2, Glucose Level 161H, Uric Acid 5.0 , Calcium Level 8.6, Phosphorus Level 4.1, Magnesium Level 1.8, Total Bilirubin 0.2, Aspartate Amino Transf (AST/SGOT) 33, Alanine Aminotransferase (ALT/SGPT) 33, Alkaline Phosphatase 95, Pro-B-Type Natriuretic Peptide 1474H, Total Protein 8.2, Albumin 2.3L, Globulin 5.9, Albumin/Globulin Ratio 0.4L, Vancomycin Level Trough 15.0H Height (Feet): 6 Height (Inches): 3.00 Weight (Pounds): 260 Objective General: alert, cooperative, no distress, appears stated age Head: normocephalic, without obvious abnormality, atraumatic Eyes: conjunctivae/corneas clear. PERRL, EOM's intact Throat: lips, mucosa, and tongue normal. MMM Neck: supple, symmetrical, trachea midline, and no JVD Lungs: clear to auscultation bilaterally Heart: regular rate and rhythm, S1, S2 normal, no murmur, click, rub or gallop Abdomen: soft, non-tender, non-distended, bowel sounds normal; no masses or organomegaly Extremities: +b/l hallux amputations, dressing c/d/i Pulses: 2+ and symmetric Neurologic: grossly normal, no focal deficits Js Garcia M.D. October 04, 2017 11:38
[2017-10-04] MEDS ORDERED: LORazepam 1mg tab ORAL PRN (11:45)
[2017-10-04] MEDS ORDERED: Heparin 5000 units/ml inj SUBQ SCH (11:45)
[2017-10-04] MEDS ORDERED: HydrALAZINE 25mg tab ORAL PRN (11:45)
[2017-10-04] MEDS: Docusate 100mg cap ORAL SCH ×2 (12:57→17:09)
[2017-10-04] MEDS ORDERED: Miralax 17gm pkt ORAL PRN (21:00)
[2017-10-04] MEDS: Levemir Flexpen SUBQ SCH (21:15)
[2017-10-04] MEDS: Heparin 5000 units/ml inj SUBQ SCH (21:15)
[2017-10-05] VITALS: BP 150/79
[2017-10-05 04:00] VITALS: BP 154/78
[2017-10-05] MEDS: Piperacillin/Tazobactam 3.375 GM in D5W 110 ML IVPB SCH ×2 (05:31→13:04)
[2017-10-05] MEDS: HydrALAZINE 25mg tab ORAL SCH ×3 (05:31→21:43)
--- NOTE | 2017-10-05 05:47 | General Progress Note ---
Assessment/Plan Assessment/Plan #. Anemia due to underlying chronic disease. --> Continue to closely monitor. Anemia workup has been reviewed. --> Iron 48, TIBC 111, Ferritin 535, B12 1060, Folate 13.7, TSH 2.2 --> Hemoglobin goal is above 7. --> Hemoglobin levels stable currently. #. Anemia due to kidney disease. --> Creatinine currently 1.7, unknown if this is acute kidney injury versus chronic kidney disease. --> renata improving --> Currently does not require Epogen or iron supplementation. #. Coagulopathy likely medication related versus decreased po intake #. Abscess in the right extremity, status post administration of antibiotics as well as cellulitis. #. Diabetic neuropathy. Closely monitor. Continue Neurontin. #. History of bilateral toe amputation. MRI reviewed #. Chronic kidney disease, stage 3. #. Cellulitis and abscess of right lower extremity. Subjective Date patient seen: October 04, 2017 HEENT: Denies: no symptoms, eye pain, blurred vision, tearing, double vision, ear pain, ear discharge, nose pain, nose congestion, throat pain, throat swelling, mouth pain, mouth swelling, other Cardiovascular: Denies: no symptoms, chest pain, edema, irregular heart rate, lightheadedness, palpitations, syncope, other Respiratory: Denies: no symptoms, cough, orthopnea, shortness of breath, SOB with excertion, SOB at rest, sputum, stridor, wheezing, other Gastrointestinal/Abdominal: Denies: no symptoms, abdomen distended, abdominal pain, black stools, tarry stools, blood in stool, constipated, diarrhea, difficulty swallowing, nausea, poor appetite, poor fluid intake, rectal bleeding , vomiting, other Genitourinary: Denies: no symptoms, burning, discharge, frequency, flank pain, hematuria, incontinence, pain, urgency, other Neurologic/Psychiatric: Denies: no symptoms, anxiety, depressed, emotional problems, headache, numbness, paresthesia, pre-existing deficit, seizure, tingling, tremors, weakness, other Endocrine: Denies: no symptoms, excessive sweating, flushing, intolerance to cold, intolerance to heat, increased hunger, increased thirst, increased urine, unexplained weight gain, unexplained weight loss, other Hematologic/Lymphatic: Denies: no symptoms, anemia, easy bleeding, easy bruising, other Allergies: Coded Allergies: No Known Allergies (Verified , 11/14/10) Subjective H/H stable. Some pain in right lower extremity. No fever. No significant abd pain Objective Last 24 Hour Vital Signs Date Time Temp Pulse Resp B/P (MAP) Pulse Ox O2 Delivery O2 Flow Rate FiO2 10/05/17 05:31 154/78 10/05/17 04:00 97.3 60 18 154/78 96 Room Air 97.3 10/05/17 04:00 Room Air 10/05/17 00:00 97.9 60 20 150/79 99 Nasal Cannula 97.9 10/05/17 00:00 Room Air 10/04/17 21:12 151/73 10/04/17 20:00 97.7 60 21 151/73 99 Room Air 97.7 10/04/17 20:00 Room Air 10/04/17 16:00 97.5 57 20 137/73 99 97.5 10/04/17 13:00 142/82 10/04/17 12:00 97.5 60 20 142/82 98 97.5 10/04/17 08:00 97.3 64 20 142/74 97 97.3 10/04/17 06:26 156/83 10/04/17 05:51 156/83 Intake and Output 10/04/17 10/05/17 19:00 07:00 Intake Total 1254.5 ml 110.0 ml Output Total 870 ml 600 ml Balance 384.5 ml -490.0 ml Intake Oral 620 ml IV Total 634.5 ml 110.0 ml Output Urine Total 850 ml 600 ml Estimated Blood Loss 20 ml Height (Feet): 6 Height (Inches): 3.00 Weight (Pounds): 260 General Appearance: no apparent distress EENT: TMs normal Neck: supple Cardiovascular: normal rate Respiratory/Chest: chest wall non-tender Abdomen: normal bowel sounds Extremities: non-tender Edema: 1+ Leg (L), 1+ Leg (R) Edema: mild edema Neurologic: alert Skin: warm/dry Guido Lopez MD October 05, 2017 05:47
[2017-10-05] MEDS: Vancomycin 1250mg/D5W 250ml 250 ML IVPB SCH (06:10)
[2017-10-05] MEDS: NovoLOG Insulin Flexpen SUBQ SCH ×7 (06:40→21:00)
--- NOTE | 2017-10-05 07:00 | General Progress Note ---
Assessment/Plan Problem List: (1) Diabetic foot ulcer ICD Codes: E11.621 - Type 2 diabetes mellitus with foot ulcer; L97.509 - Non- pressure chronic ulcer of other part of unspecified foot with unspecified severity SNOMED: 27838372, 052994588 (2) Cellulitis of right lower extremity ICD Codes: L03.115 - Cellulitis of right lower limb SNOMED: 538313729 (3) Cellulitis and abscess of right leg ICD Codes: L03.115 - Cellulitis of right lower limb; L02.415 - Cutaneous abscess of right lower limb SNOMED: 678315531 (4) Diabetic nephropathy ICD Codes: E11.21 - Type 2 diabetes mellitus with diabetic nephropathy SNOMED: 61408525, 476200818 (5) Poorly controlled type 2 diabetes mellitus ICD Codes: E11.65 - Type 2 diabetes mellitus with hyperglycemia SNOMED: 62520397, 968335599 Assessment/Plan continue Levemir 50 units qhs continue Novolog 15 units ac tid + NISS Subjective Allergies: Coded Allergies: No Known Allergies (Verified , 11/14/10) All Systems: reviewed and negative except above Subjective events noted - interval notes reviewed Objective Last 24 Hour Vital Signs Date Time Temp Pulse Resp B/P (MAP) Pulse Ox O2 Delivery O2 Flow Rate FiO2 10/05/17 05:31 154/78 10/05/17 04:00 97.3 60 18 154/78 96 Room Air 97.3 10/05/17 04:00 Room Air 10/05/17 00:00 97.9 60 20 150/79 99 Nasal Cannula 97.9 10/05/17 00:00 Room Air 10/04/17 21:12 151/73 10/04/17 20:00 97.7 60 21 151/73 99 Room Air 97.7 10/04/17 20:00 Room Air 10/04/17 16:00 97.5 57 20 137/73 99 97.5 10/04/17 13:00 142/82 10/04/17 12:00 97.5 60 20 142/82 98 97.5 10/04/17 08:00 97.3 64 20 142/74 97 97.3 Intake and Output 10/04/17 10/05/17 19:00 07:00 Intake Total 1254.5 ml 137.5 ml Output Total 870 ml 935 ml Balance 384.5 ml -797.5 ml Intake Oral 620 ml IV Total 634.5 ml 137.5 ml Output Urine Total 850 ml 925 ml Drainage Total 10 ml Estimated Blood Loss 20 ml Height (Feet): 6 Height (Inches): 3.00 Weight (Pounds): 260 General Appearance: no apparent distress Neck: normal alignment Cardiovascular: normal rate Respiratory/Chest: lungs clear Abdomen: normal bowel sounds Objective Current Medications Medications (Trade) Dose Ordered Sig/Xiao Route PRN Reason Start Time Stop Time Status Last Admin Dose Admin Acetaminophen (Tylenol) 650 mg Q4H PRN ORAL Mild Pain (Pain Scale 1-3) 10/04/17 11:45 11/03/17 11:44 Acetaminophen (Tylenol) 650 mg Q4H PRN ORAL fever 10/04/17 11:45 11/03/17 11:44 Bisacodyl (Dulcolax) 10 mg HSPRN PRN RECTAL Constipation 10/04/17 21:00 11/03/17 20:59 Dextrose (Dextrose 50%) 25 ml STAT PRN IV Hypoglycemia 10/04/17 11:45 11/03/17 11:44 Dextrose (Dextrose 50%) 50 ml STAT PRN IV Hypoglycemia 10/04/17 11:45 11/03/17 11:44 Docusate Sodium (Colace) 100 mg TID ORAL 10/04/17 13:00 11/03/17 12:59 10/04/17 17:09 Heparin Sodium (Porcine) (Heparin 5000 units/ml) 5,000 units EVERY 12 HOURS SUBQ 10/04/17 21:00 11/03/17 20:59 10/04/17 21:15 Hydralazine HCl (Apresoline) 25 mg Q6H PRN ORAL bp over 160 syst 10/04/17 11:45 11/03/17 11:44 Hydralazine HCl (Apresoline) 25 mg Q8HR ORAL 10/04/17 14:00 11/03/17 13:59 10/05/17 05:31 Insulin Aspart (NovoLOG) BEFORE MEALS AND HS SUBQ 10/03/17 21:00 10/31/17 16:29 10/05/17 06:40 Insulin Aspart (NovoLOG) 15 units NOVOTIAC SUBQ 10/04/17 06:30 11/02/17 16:49 10/05/17 06:41 Insulin Detemir (Levemir) 50 units BEDTIME SUBQ 10/03/17 21:00 11/02/17 20:59 10/04/17 21:15 Lansoprazole (Prevacid) 30 mg DAILY ORAL 10/05/17 09:00 11/04/17 08:59 Lorazepam (Ativan) 1 mg Q4H PRN ORAL For Anxiety 10/04/17 11:45 10/11/17 11:44 Ondansetron HCl (Zofran) 4 mg Q6H PRN IVP Nausea & Vomiting 10/04/17 11:45 11/03/17 11:44 Piperacillin Sod/ Tazobactam Sod 3.375 gm/Dextrose 110 ml @ 27.5 mls/hr EVERY 8 HOURS IVPB 10/03/17 22:00 10/08/17 21:59 10/05/17 05:31 Polyethylene Glycol (Miralax) 17 gm HSPRN PRN ORAL Constipation 10/04/17 21:00 11/03/17 20:59 Vancomycin HCl (Vanco rx to dose) 1 ea DAILY PRN MISC Per rx protocol 10/04/17 09:00 10/31/17 15:14 Vancomycin HCl/ Dextrose 250 ml @ 166.667 mls/hr Q24H IVPB 10/04/17 06:00 10/07/17 05:59 10/05/17 06:10 Item Value Date Time Bedside Blood Glucose 194 mg/dl H 10/05/17 0641 Bedside Blood Glucose 190 mg/dl H 10/04/17 2115 Bedside Blood Glucose 216 mg/dl H 10/04/17 1711 Bedside Blood Glucose 170 mg/dl H 10/04/17 1213 Bedside Blood Glucose 163 mg/dl H 10/04/17 0629 DILAN GORDILLO October 05, 2017 07:00
[2017-10-05 08:00] VITALS: BP 137/71
[2017-10-05 08:01] LABS: BASOPHILS % (AUTO) 0.5 % (0.0-2.0); EOSINOPHILS % (AUTO) 3.6 % (0.0-3.0); HEMATOCRIT 28.7 % (42.0-52.0); HEMOGLOBIN 9.3 G/DL (14.2-18.0); LYMPHOCYTES % (AUTO) 30.5 % (20.0-45.0); MEAN CORPUSCULAR VOLUME 90 FL (80-99); MONOCYTES % (AUTO) 12.8 % (1.0-10.0); NEUTROPHILS % (AUTO) 52.6 % (45.0-75.0); PLATELET COUNT 298 K/UL (150-450); RED BLOOD COUNT 3.18 M/UL (4.70-6.10); RED CELL DISTRIBUTION WIDTH 13.6 % (11.6-14.8); WHITE BLOOD COUNT 7.8 K/UL (4.8-10.8)
[2017-10-05 08:27] LABS: ANION GAP 9 mmol/L (5-15); BLOOD UREA NITROGEN 16 mg/dL (7-18); CARBON DIOXIDE 25 MMOL/L (21-32); CHLORIDE 107 MMOL/L (98-107); CREATININE 1.7 MG/DL (0.55-1.30); POTASSIUM 4.1 MMOL/L (3.5-5.1); SODIUM 141 MMOL/L (136-145)
[2017-10-05] MEDS: Docusate 100mg cap ORAL SCH ×3 (08:48→17:05)
[2017-10-05] MEDS: Heparin 5000 units/ml inj SUBQ SCH ×2 (08:49→20:59)
[2017-10-05] MEDS ORDERED: NS 500ML ONE ×2 (10:45→10:51)
[2017-10-05] MEDS ORDERED: Tubing IV Secondary IV ONE ×2 (10:45→10:51)
[2017-10-05 12:00] VITALS: BP 138/65
--- NOTE | 2017-10-05 13:56 | Nephrology Progress Note ---
Assessment/Plan Problem List: (1) Diabetic foot ulcer (2) Renal failure (ARF), acute on chronic (3) Anemia of chronic disease (4) Diabetes Assessment: with nephropathy Assessment 1) Renal failure (ARF), acute on chronic Cr down 1.6 (2) DM2 (diabetes mellitus, type 2), Nephropathy , HypoAlbuminemia (3) Acute on chronic anemia (4) Diabetic foot ulcer (5) High Cholestrol Plan Plan: Mag IV as needed Per consultants monitor renal parameters avoid Nephrotoxics per orders Subjective ROS Limited/Unobtainable: No Constitutional: Reports: malaise Objective Objective Last 24 Hour Vital Signs Date Time Temp Pulse Resp B/P (MAP) Pulse Ox O2 Delivery O2 Flow Rate FiO2 10/05/17 12:00 97.5 65 20 138/65 97 97.5 10/05/17 08:00 97.3 73 20 137/71 97 97.3 10/05/17 05:31 154/78 10/05/17 04:00 97.3 60 18 154/78 96 Room Air 97.3 10/05/17 04:00 Room Air 10/05/17 00:00 97.9 60 20 150/79 99 Nasal Cannula 97.9 10/05/17 00:00 Room Air 10/04/17 21:12 151/73 10/04/17 20:00 97.7 60 21 151/73 99 Room Air 97.7 10/04/17 20:00 Room Air 10/04/17 16:00 97.5 57 20 137/73 99 97.5 Intake and Output 10/04/17 10/05/17 19:00 07:00 Intake Total 1254.5 ml 137.5 ml Output Total 870 ml 935 ml Balance 384.5 ml -797.5 ml Intake Oral 620 ml IV Total 634.5 ml 137.5 ml Output Urine Total 850 ml 925 ml Drainage Total 10 ml Estimated Blood Loss 20 ml Laboratory Tests 10/05/17 05:20: White Blood Count 7.8, Red Blood Count 3.18L, Hemoglobin 9.3L, Hematocrit 28.7L , Mean Corpuscular Volume 90, Mean Corpuscular Hemoglobin 29.4, Mean Corpuscular Hemoglobin Concent 32.5, Red Cell Distribution Width 13.6, Platelet Count 298, Mean Platelet Volume 6.5, Neutrophils (%) (Auto) 52.6, Lymphocytes (% ) (Auto) 30.5, Monocytes (%) (Auto) 12.8H, Eosinophils (%) (Auto) 3.6H, Basophils (%) (Auto) 0.5, Sodium Level 141, Potassium Level 4.1, Chloride Level 107, Carbon Dioxide Level 25, Anion Gap 9, Blood Urea Nitrogen 16, Creatinine 1.7H, Estimat Glomerular Filtration Rate 48.7, Glucose Level 168H, Calcium Level 9.0 Height (Feet): 6 Height (Inches): 3.00 Weight (Pounds): 260 General Appearance: no apparent distress Objective no change GRIFFIN ATSORGA October 05, 2017 13:56
--- NOTE | 2017-10-05 13:59 | General Progress Note ---
Assessment/Plan Assessment/Plan #. Anemia due to underlying chronic disease. --> Continue to closely monitor. Anemia workup has been reviewed. --> Iron 48, TIBC 111, Ferritin 535, B12 1060, Folate 13.7, TSH 2.2 --> Hemoglobin goal is above 7. #. Anemia due to kidney disease. --> Creatinine currently 1.7, unknown if this is acute kidney injury versus chronic kidney disease. --> renata improving --> Currently does not require Epogen or iron supplementation. #. Coagulopathy likely medication related versus decreased po intake --> Monitor inr and ptt #. Abscess in the right extremity, status post administration of antibiotics as well as cellulitis. #. Diabetic neuropathy. Closely monitor. Continue Neurontin. #. History of bilateral toe amputation. MRI reviewed #. Chronic kidney disease, stage 3. #. Cellulitis and abscess of right lower extremity. Subjective Constitutional: Reports: no symptoms HEENT: Reports: no symptoms Cardiovascular: Reports: no symptoms Respiratory: Reports: no symptoms Gastrointestinal/Abdominal: Reports: no symptoms Genitourinary: Reports: no symptoms Neurologic/Psychiatric: Reports: no symptoms Endocrine: Reports: unexplained weight gain Hematologic/Lymphatic: Reports: no symptoms Allergies: Coded Allergies: No Known Allergies (Verified , 11/14/10) Subjective H/H stable. No fever. No significant abd pain Objective Last 24 Hour Vital Signs Date Time Temp Pulse Resp B/P (MAP) Pulse Ox O2 Delivery O2 Flow Rate FiO2 10/05/17 12:00 97.5 65 20 138/65 97 97.5 10/05/17 08:00 97.3 73 20 137/71 97 97.3 10/05/17 05:31 154/78 10/05/17 04:00 97.3 60 18 154/78 96 Room Air 97.3 10/05/17 04:00 Room Air 10/05/17 00:00 97.9 60 20 150/79 99 Nasal Cannula 97.9 10/05/17 00:00 Room Air 10/04/17 21:12 151/73 10/04/17 20:00 97.7 60 21 151/73 99 Room Air 97.7 10/04/17 20:00 Room Air 10/04/17 16:00 97.5 57 20 137/73 99 97.5 Intake and Output 10/04/17 10/05/17 19:00 07:00 Intake Total 1254.5 ml 137.5 ml Output Total 870 ml 935 ml Balance 384.5 ml -797.5 ml Intake Oral 620 ml IV Total 634.5 ml 137.5 ml Output Urine Total 850 ml 925 ml Drainage Total 10 ml Estimated Blood Loss 20 ml Laboratory Tests 10/05/17 05:20: White Blood Count 7.8, Red Blood Count 3.18L, Hemoglobin 9.3L, Hematocrit 28.7L , Mean Corpuscular Volume 90, Mean Corpuscular Hemoglobin 29.4, Mean Corpuscular Hemoglobin Concent 32.5, Red Cell Distribution Width 13.6, Platelet Count 298, Mean Platelet Volume 6.5, Neutrophils (%) (Auto) 52.6, Lymphocytes (% ) (Auto) 30.5, Monocytes (%) (Auto) 12.8H, Eosinophils (%) (Auto) 3.6H, Basophils (%) (Auto) 0.5, Sodium Level 141, Potassium Level 4.1, Chloride Level 107, Carbon Dioxide Level 25, Anion Gap 9, Blood Urea Nitrogen 16, Creatinine 1.7H, Estimat Glomerular Filtration Rate 48.7, Glucose Level 168H, Calcium Level 9.0 Height (Feet): 6 Height (Inches): 3.00 Weight (Pounds): 260 General Appearance: no apparent distress EENT: normal ENT inspection Neck: normal alignment Cardiovascular: normal peripheral pulses Respiratory/Chest: lungs clear Abdomen: non tender Extremities: non-tender Edema: 1+ Leg (L), 1+ Leg (R) Neurologic: alert Skin: warm/dry Guido Lopez MD October 05, 2017 13:59
--- NOTE | 2017-10-05 15:43 | Infectious Diseases Prog Note ---
Assessment/Plan Assessment/Plan ASSESSMENT AND PLAN: 1. right leg cellulitis/infected wound/abscess, no mri mentioned on MRI right leg - initial wound culture with e.coli, surgical culture pending - change abx to ancef and doxycycline, avoid nephrotoxic abx - s/p debridement of right leg - operative report noted - check wound culture from surgery, f/u labs - d/w Dr. Weinstein - clinically patient stable 2. Anemia. 3. Hypertension. 4. Diabetes. 5. Blood sugar and blood pressure treatment from diabetes and hypertension per primary. 6. Hyperlipidemia. 7. Chronic renal failure. 8. Elevated creatinine. 9. Watch closely creatinine on vancomycin. 10. Hyponatremia. 11. Right foot great toe amputation and osteo. 12. history of ulcerative gastritis. 13. Podiatry to follow up. 14. Continue treatment with Dr. Weinstein and consultants. 15. No known allergies. 16. Family history noncontributory. 17. Social history is negative. 18. MAR was noted. 19. Case discussed with RN. 20. Case discussed with the patient. 21. Case communicated with Dr. Weinstein. 22. Continue treatment per primary consultants. 23. Notes and records noted. 24. Orders were noted and entered. Subjective Constitutional: Reports: fatigue; Denies: fever, chills HEENT: Denies: congestion Respiratory: Denies: shortness of breath Cardiovascular: Denies: chest pain Gastrointestinal/Abdominal: Denies: nausea, vomiting, diarrhea Genitourinary: Reports: other - no meyer; Denies: dysuria, hematuria, frequency Neurologic: Denies: headache Psychiatric: Denies: depression Skin: Denies: rash Hematologic: Denies: bleeding Musculoskeletal: Reports: pain - less right leg pain Allergies: Coded Allergies: No Known Allergies (Verified , 11/14/10) Objective Vital Signs Last 24 Hour Vital Signs Date Time Temp Pulse Resp B/P (MAP) Pulse Ox O2 Delivery O2 Flow Rate FiO2 10/05/17 14:32 138/65 10/05/17 12:00 97.5 65 20 138/65 97 97.5 10/05/17 08:00 97.3 73 20 137/71 97 97.3 10/05/17 05:31 154/78 10/05/17 04:00 97.3 60 18 154/78 96 Room Air 97.3 10/05/17 04:00 Room Air 10/05/17 00:00 97.9 60 20 150/79 99 Nasal Cannula 97.9 10/05/17 00:00 Room Air 10/04/17 21:12 151/73 10/04/17 20:00 97.7 60 21 151/73 99 Room Air 97.7 10/04/17 20:00 Room Air 10/04/17 16:00 97.5 57 20 137/73 99 97.5 Height (Feet): 6 Height (Inches): 3.00 Weight (Pounds): 260 General Appearance: no acute distress HEENT: normocephalic, atraumatic, anicteric Respiratory/Chest: lungs clear, normal breath sounds, no respiratory distress, no accessory muscle use Cardiovascular: normal rate, regular rhythm, no gallop/murmur, no JVD Abdomen: normal bowel sounds, soft, non tender, no organomegaly, non distended Genitourinary: other - no meyer Extremities: no cyanosis, other - rigth leg swelling and pain better, + drain Skin: no rash Neurologic/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 There is no evidence of osteomyelitis. There is extensive subcutaneous edema present with some areas of confluence suggestive of phlegmon. Abscess is not excluded. There is also patchy mild T2 hyperintense edema within portions of the anterior and posterior compartment musculature indicative of an adjacent associated myositis. This study was done without gadolinium. There is no obvious fluid that tracks within the intermuscular fascia. IMPRESSION: Subcutaneous edema consistent with cellulitis. No obvious abscess but evaluation for this is limited on noncontrast imaging. Some associated patchy myositis in anterior and posterior compartments noted. Chest x-ray - negative (report noted) Microbiology Date/Time Source Procedure Growth Status 10/01/17 11:15 Blood Blood Culture - Preliminary NO GROWTH AFTER 72 HOURS Resulted 10/01/17 20:00 Wound Gram Stain - Final Complete 10/01/17 20:00 Wound Culture - Final Escherichia Coli Complete 10/01/17 12:52 Nasal Nares MRSA Culture - Final NO METHICILLIN RESISTANT STAPH AUREUS... Complete 10/01/17 12:52 Rectum VRE Culture - Final NO VANCOMYCIN RESISTANT ENTEROCOCCUS ... Complete Laboratory Tests Test 10/05/17 05:20 White Blood Count 7.8 K/UL (4.8-10.8) Red Blood Count 3.18 M/UL (4.70-6.10) L Hemoglobin 9.3 G/DL (14.2-18.0) L Hematocrit 28.7 % (42.0-52.0) L Mean Corpuscular Volume 90 FL (80-99) Mean Corpuscular Hemoglobin 29.4 PG (27.0-31.0) Mean Corpuscular Hemoglobin Concent 32.5 G/DL (32.0-36.0) Red Cell Distribution Width 13.6 % (11.6-14.8) Platelet Count 298 K/UL (150-450) Mean Platelet Volume 6.5 FL (6.5-10.1) Neutrophils (%) (Auto) 52.6 % (45.0-75.0) Lymphocytes (%) (Auto) 30.5 % (20.0-45.0) Monocytes (%) (Auto) 12.8 % (1.0-10.0) H Eosinophils (%) (Auto) 3.6 % (0.0-3.0) H Basophils (%) (Auto) 0.5 % (0.0-2.0) Sodium Level 141 MMOL/L (136-145) Potassium Level 4.1 MMOL/L (3.5-5.1) Chloride Level 107 MMOL/L (98-107) Carbon Dioxide Level 25 MMOL/L (21-32) Anion Gap 9 mmol/L (5-15) Blood Urea Nitrogen 16 mg/dL (7-18) Creatinine 1.7 MG/DL (0.55-1.30) H Estimat Glomerular Filtration Rate 48.7 mL/min (>60) Glucose Level 168 MG/DL (74-106) H Calcium Level 9.0 MG/DL (8.5-10.1) Current Medications Medications (Trade) Dose Ordered Sig/Xiao Route PRN Reason Start Time Stop Time Status Last Admin Dose Admin Acetaminophen (Tylenol) 650 mg Q4H PRN ORAL Mild Pain (Pain Scale 1-3) 10/04/17 11:45 11/03/17 11:44 Acetaminophen (Tylenol) 650 mg Q4H PRN ORAL fever 10/04/17 11:45 11/03/17 11:44 Bisacodyl (Dulcolax) 10 mg HSPRN PRN RECTAL Constipation 10/04/17 21:00 11/03/17 20:59 Cefazolin Sodium 1 gm/Dextrose 55 ml @ 110 mls/hr Q8HR IVPB 10/05/17 22:00 10/12/17 21:59 Dextrose (Dextrose 50%) 25 ml STAT PRN IV Hypoglycemia 10/04/17 11:45 11/03/17 11:44 Dextrose (Dextrose 50%) 50 ml STAT PRN IV Hypoglycemia 10/04/17 11:45 11/03/17 11:44 Docusate Sodium (Colace) 100 mg TID ORAL 10/04/17 13:00 11/03/17 12:59 10/05/17 13:04 Doxycycline Hyclate 100 mg/ Dextrose 100 ml @ 100 mls/hr Q12HR IV 10/05/17 21:00 10/12/17 20:59 Heparin Sodium (Porcine) (Heparin 5000 units/ml) 5,000 units EVERY 12 HOURS SUBQ 10/04/17 21:00 11/03/17 20:59 10/05/17 08:49 Hydralazine HCl (Apresoline) 25 mg Q6H PRN ORAL bp over 160 syst 10/04/17 11:45 11/03/17 11:44 Hydralazine HCl (Apresoline) 25 mg Q8HR ORAL 10/04/17 14:00 11/03/17 13:59 10/05/17 14:32 Insulin Aspart (NovoLOG) BEFORE MEALS AND HS SUBQ 10/03/17 21:00 10/31/17 16:29 10/05/17 12:06 Insulin Aspart (NovoLOG) 15 units NOVOTIAC SUBQ 10/04/17 06:30 11/02/17 16:49 10/05/17 12:05 Insulin Detemir (Levemir) 50 units BEDTIME SUBQ 10/03/17 21:00 11/02/17 20:59 10/04/17 21:15 Lansoprazole (Prevacid) 30 mg DAILY ORAL 10/05/17 09:00 11/04/17 08:59 10/05/17 08:48 Lorazepam (Ativan) 1 mg Q4H PRN ORAL For Anxiety 10/04/17 11:45 10/11/17 11:44 Ondansetron HCl (Zofran) 4 mg Q6H PRN IVP Nausea & Vomiting 10/04/17 11:45 11/03/17 11:44 Polyethylene Glycol (Miralax) 17 gm HSPRN PRN ORAL Constipation 10/04/17 21:00 11/03/17 20:59 ESE HARO October 05, 2017 15:43
[2017-10-05 15:52] VITALS: BP 146/79
[2017-10-05 20:00] VITALS: BP 140/78
[2017-10-05] MEDS: Levemir Flexpen SUBQ SCH (20:59)
[2017-10-05] MEDS: ceFAZolin sod 1 GM in D5W 55 ML IVPB SCH (23:24)
--- NOTE | 2017-10-05 23:24 | General Progress Note ---
Assessment/Plan Problem List: (1) Cellulitis and abscess of right leg ICD Codes: L03.115 - Cellulitis of right lower limb; L02.415 - Cutaneous abscess of right lower limb SNOMED: 602282733 (2) Non-pressure ulcer of the right leg to the level of muscle (3) Poorly controlled type 2 diabetes mellitus ICD Codes: E11.65 - Type 2 diabetes mellitus with hyperglycemia SNOMED: 42403501, 847865364 (4) CHIQUITA (acute kidney injury) ICD Codes: N17.9 - Acute kidney failure, unspecified SNOMED: 72397107 (5) CKD stage 3 (6) Diabetic nephropathy ICD Codes: E11.21 - Type 2 diabetes mellitus with diabetic nephropathy SNOMED: 50419098, 425177306 (7) Hyperlipidemia ICD Codes: E78.5 - Hyperlipidemia SNOMED: 27629951 (8) Hypertension ICD Codes: I10 - Hypertension SNOMED: 39477858 (9) Anemia of chronic disease ICD Codes: D63.8 - Anemia in other chronic diseases classified elsewhere SNOMED: 961885308 (10) Acute blood loss anemia ICD Codes: D62 - Acute posthemorrhagic anemia SNOMED: 508503850 Assessment/Plan Podiatry and ID consulted, appreciate rec's Endocrinology consulted for elevated blood sugars A1c 10.4. Restarted patient's home levemir 50 units qhs and novolog 15 units TID ac meals + SSi. Ctm blood sugars. s/p s/p incision and drainage deep to the fascia, excisional debridement of wound to the level of muscle, and advancement flap closure on 10/02/17 Empiric vanco and zosyn per ID X-ray R tib/fib images reviewed and showed concern for subcutaneous gas. MRI R tib/fib images reviewed and showed subcutaneous edema consistent with cellulitis but no obvious abscess though evaluation limited given no contrast F/u wound cultures, blood cultures, and OR cultures--pending Nephrology consulted given CHIQUITA. Trend Cr 1.9 --> 1.6 D/c IVFs Pain control, bowel regimen Supportive care Pt requesting postop diabetic shoes. CM consuled DC planning back to SNF tomorrow if OK with podiatry and ID DVT Prophylaxis: SCD, HSQ Code Status: Full Hospital Classification Declaration: Based on this initial evaluation, and depending on the patient's clinical course, I anticipate that this patient will require hospitalization for 1-2 days for RLE cellulitis and abscess and close respiratory/hemodynamic monitoring. Disposition: Once the patient is stable to leave the hospital, I anticipate the patient will likely be discharged to the following environment: back to [facility], [facility] Crowley I spent 35 minutes on this patient's case, and >50% was dedicated to counseling and/or care coordination. Discussed with patient/family, nursing staff, SW/CM, Podiatry, ID regarding clinical status, treatment course, and disposition planning. D/w ID re abx. D/w podiatry re postop mgmt Time of note may not reflect time of encounter. Subjective Date patient seen: October 05, 2017 Time patient seen: 14:10 ROS Limited/Unobtainable: No Constitutional: Reports: no symptoms HEENT: Reports: no symptoms Cardiovascular: Reports: no symptoms Respiratory: Reports: no symptoms Gastrointestinal/Abdominal: Reports: no symptoms Genitourinary: Reports: no symptoms Neurologic/Psychiatric: Reports: no symptoms Endocrine: Reports: no symptoms Hematologic/Lymphatic: Reports: no symptoms Allergies: Coded Allergies: No Known Allergies (Verified , 11/14/10) All Systems: reviewed and negative except above Subjective No acute o/n events s/p incision and drainage deep to the fascia, excisional debridement of wound to the level of muscle, and advancement flap closure POD#3 Pain controlled. Denies f/c, n/v, d/c, chest pain, SOB, abd pain Objective Last 24 Hour Vital Signs Date Time Temp Pulse Resp B/P (MAP) Pulse Ox O2 Delivery O2 Flow Rate FiO2 10/05/17 21:54 Room Air 10/05/17 21:43 140/78 10/05/17 20:00 97.9 72 18 140/78 99 Room Air 97.9 10/05/17 15:52 98.2 67 20 146/79 100 98.2 10/05/17 14:32 138/65 10/05/17 12:00 97.5 65 20 138/65 97 97.5 10/05/17 08:00 97.3 73 20 137/71 97 97.3 10/05/17 05:31 154/78 10/05/17 04:00 97.3 60 18 154/78 96 Room Air 97.3 10/05/17 04:00 Room Air 10/05/17 00:00 97.9 60 20 150/79 99 Nasal Cannula 97.9 10/05/17 00:00 Room Air Intake and Output 10/04/17 10/05/17 19:00 07:00 Intake Total 1254.5 ml 137.5 ml Output Total 870 ml 935 ml Balance 384.5 ml -797.5 ml Intake Oral 620 ml IV Total 634.5 ml 137.5 ml Output Urine Total 850 ml 925 ml Drainage Total 10 ml Estimated Blood Loss 20 ml Laboratory Tests 10/05/17 05:20: White Blood Count 7.8, Red Blood Count 3.18L, Hemoglobin 9.3L, Hematocrit 28.7L , Mean Corpuscular Volume 90, Mean Corpuscular Hemoglobin 29.4, Mean Corpuscular Hemoglobin Concent 32.5, Red Cell Distribution Width 13.6, Platelet Count 298, Mean Platelet Volume 6.5, Neutrophils (%) (Auto) 52.6, Lymphocytes (% ) (Auto) 30.5, Monocytes (%) (Auto) 12.8H, Eosinophils (%) (Auto) 3.6H, Basophils (%) (Auto) 0.5, Sodium Level 141, Potassium Level 4.1, Chloride Level 107, Carbon Dioxide Level 25, Anion Gap 9, Blood Urea Nitrogen 16, Creatinine 1.7H, Estimat Glomerular Filtration Rate 48.7, Glucose Level 168H, Calcium Level 9.0 Height (Feet): 6 Height (Inches): 3.00 Weight (Pounds): 260 Objective General: alert, cooperative, no distress, appears stated age Head: normocephalic, without obvious abnormality, atraumatic Eyes: conjunctivae/corneas clear. PERRL, EOM's intact Throat: lips, mucosa, and tongue normal. MMM Neck: supple, symmetrical, trachea midline, and no JVD Lungs: clear to auscultation bilaterally Heart: regular rate and rhythm, S1, S2 normal, no murmur, click, rub or gallop Abdomen: soft, non-tender, non-distended, bowel sounds normal; no masses or organomegaly Extremities: +b/l hallux amputations, dressing c/d/i Pulses: 2+ and symmetric Neurologic: grossly normal, no focal deficits Js Garcia M.D. October 05, 2017 23:24
[2017-10-06] VITALS: BP 155/82
[2017-10-06 04:00] VITALS: BP 147/72
[2017-10-06] MEDS: HydrALAZINE 25mg tab ORAL SCH ×2 (06:27→13:07)
[2017-10-06] MEDS: ceFAZolin sod 1 GM in D5W 55 ML IVPB SCH ×2 (06:27→13:01)
[2017-10-06] MEDS: NovoLOG Insulin Flexpen SUBQ SCH ×6 (06:28→17:09)
--- NOTE | 2017-10-06 07:25 | General Progress Note ---
Assessment/Plan Assessment/Plan #. Anemia due to underlying chronic disease. --> Continue to closely monitor. Anemia workup has been reviewed. --> Iron 48, TIBC 111, Ferritin 535, B12 1060, Folate 13.7, TSH 2.2 --> Hemoglobin goal is >7. #. Anemia due to kidney disease. --> Creatinine currently 1.7, unknown if this is acute kidney injury versus chronic kidney disease. --> renata has slowly improved --> Currently does not require Epogen or iron supplementation. #. Coagulopathy likely medication related versus decreased po intake --> Monitor inr and ptt #. Abscess in the right extremity, status post administration of antibiotics as well as cellulitis. #. Diabetic neuropathy. Closely monitor. Continue Neurontin. #. History of bilateral toe amputation. MRI has been reviewed #. Chronic kidney disease, stage 3. #. Cellulitis and abscess of right lower extremity. Subjective Constitutional: Denies: no symptoms, chills, diaphoresis, fever, malaise, weakness, other HEENT: Denies: no symptoms, eye pain, blurred vision, tearing, double vision, ear pain, ear discharge, nose pain, nose congestion, throat pain, throat swelling, mouth pain, mouth swelling, other Cardiovascular: Denies: no symptoms, chest pain, edema, irregular heart rate, lightheadedness, palpitations, syncope, other Respiratory: Denies: no symptoms, cough, orthopnea, shortness of breath, SOB with excertion, SOB at rest, sputum, stridor, wheezing, other Gastrointestinal/Abdominal: Denies: no symptoms, abdomen distended, abdominal pain, black stools, tarry stools, blood in stool, constipated, diarrhea, difficulty swallowing, nausea, poor appetite, poor fluid intake, rectal bleeding , vomiting, other Genitourinary: Denies: no symptoms, burning, discharge, frequency, flank pain, hematuria, incontinence, pain, urgency, other Neurologic/Psychiatric: Denies: no symptoms, anxiety, depressed, emotional problems, headache, numbness, paresthesia, pre-existing deficit, seizure, tingling, tremors, weakness, other Hematologic/Lymphatic: Denies: no symptoms, anemia, easy bleeding, easy bruising, other Allergies: Coded Allergies: No Known Allergies (Verified , 11/14/10) Subjective H/H stable. No fever. No significant abd pain, s/p BM this am Objective Last 24 Hour Vital Signs Date Time Temp Pulse Resp B/P (MAP) Pulse Ox O2 Delivery O2 Flow Rate FiO2 10/06/17 06:27 147/72 10/06/17 04:28 Room Air 10/06/17 04:00 97.7 60 19 147/72 97 Room Air 97.7 10/06/17 00:00 Room Air 10/06/17 00:00 97.9 64 20 155/82 99 Room Air 97.9 10/05/17 21:54 Room Air 10/05/17 21:43 140/78 10/05/17 20:00 97.9 72 18 140/78 99 Room Air 97.9 10/05/17 15:52 98.2 67 20 146/79 100 98.2 10/05/17 14:32 138/65 10/05/17 12:00 97.5 65 20 138/65 97 97.5 10/05/17 08:00 97.3 73 20 137/71 97 97.3 Intake and Output 10/05/17 10/06/17 19:00 07:00 Intake Total 620 ml 210 ml Output Total 1200 ml 5 ml Balance -580 ml 205 ml Intake Oral 620 ml IV Total 210 ml Output Urine Total 1200 ml Drainage Total 5 ml # Voids 3 # Bowel Movements 1 Height (Feet): 6 Height (Inches): 3.00 Weight (Pounds): 260 General Appearance: no apparent distress EENT: pharynx normal Neck: supple Cardiovascular: normal rate Respiratory/Chest: lungs clear Abdomen: non tender Extremities: normal inspection Edema: 1+ Leg (L), 1+ Leg (R) Edema: trace edema Skin: warm/dry Guido Lopez MD October 06, 2017 07:25
[2017-10-06 08:00] VITALS: BP 127/71
[2017-10-06 08:06] LABS: BASOPHILS % (AUTO) 0.6 % (0.0-2.0); HEMATOCRIT 29.5 % (42.0-52.0); HEMOGLOBIN 9.3 G/DL (14.2-18.0); LYMPHOCYTES % (AUTO) 34.2 % (20.0-45.0); MEAN CORPUSCULAR VOLUME 89 FL (80-99); MONOCYTES % (AUTO) 11.6 % (1.0-10.0); NEUTROPHILS % (AUTO) 49.6 % (45.0-75.0); PLATELET COUNT 315 K/UL (150-450); RED CELL DISTRIBUTION WIDTH 13.7 % (11.6-14.8); WHITE BLOOD COUNT 7.7 K/UL (4.8-10.8)
[2017-10-06 08:24] LABS: ANION GAP 9 mmol/L (5-15); BLOOD UREA NITROGEN 18 mg/dL (7-18); CALCIUM 8.8 MG/DL (8.5-10.1); CARBON DIOXIDE 25 MMOL/L (21-32); CHLORIDE 108 MMOL/L (98-107); CREATININE 1.6 MG/DL (0.55-1.30); POTASSIUM 3.7 MMOL/L (3.5-5.1); SODIUM 142 MMOL/L (136-145)
[2017-10-06] MEDS: Docusate 100mg cap ORAL SCH ×3 (08:27→17:06)
[2017-10-06] MEDS: Heparin 5000 units/ml inj SUBQ SCH (08:29)
--- NOTE | 2017-10-06 11:20 | Nephrology Progress Note ---
Assessment/Plan Problem List: (1) Diabetic foot ulcer (2) Renal failure (ARF), acute on chronic (3) Anemia of chronic disease (4) Diabetes Assessment: with nephropathy Assessment 1) Renal failure (ARF), acute on chronic Cr down 1.6 (2) DM2 (diabetes mellitus, type 2), Nephropathy , HypoAlbuminemia (3) Acute on chronic anemia (4) Diabetic foot ulcer (5) High Cholestrol Plan Plan: Mag IV as needed Per consultants monitor renal parameters avoid Nephrotoxics per orders Subjective ROS Limited/Unobtainable: No Constitutional: Reports: malaise Objective Objective Last 24 Hour Vital Signs Date Time Temp Pulse Resp B/P (MAP) Pulse Ox O2 Delivery O2 Flow Rate FiO2 10/06/17 08:00 98.1 77 19 127/71 97 98.1 10/06/17 06:27 147/72 10/06/17 04:28 Room Air 10/06/17 04:00 97.7 60 19 147/72 97 Room Air 97.7 10/06/17 00:00 Room Air 10/06/17 00:00 97.9 64 20 155/82 99 Room Air 97.9 10/05/17 21:54 Room Air 10/05/17 21:43 140/78 10/05/17 20:00 97.9 72 18 140/78 99 Room Air 97.9 10/05/17 15:52 98.2 67 20 146/79 100 98.2 10/05/17 14:32 138/65 10/05/17 12:00 97.5 65 20 138/65 97 97.5 Intake and Output 10/05/17 10/06/17 19:00 07:00 Intake Total 620 ml 210 ml Output Total 1200 ml 5 ml Balance -580 ml 205 ml Intake Oral 620 ml IV Total 210 ml Output Urine Total 1200 ml Drainage Total 5 ml # Voids 3 # Bowel Movements 1 Laboratory Tests 10/06/17 05:35: White Blood Count 7.7, Red Blood Count 3.30L, Hemoglobin 9.3L, Hematocrit 29.5L , Mean Corpuscular Volume 89, Mean Corpuscular Hemoglobin 28.2, Mean Corpuscular Hemoglobin Concent 31.6L, Red Cell Distribution Width 13.7, Platelet Count 315, Mean Platelet Volume 6.5, Neutrophils (%) (Auto) 49.6, Lymphocytes (%) (Auto) 34.2, Monocytes (%) (Auto) 11.6H, Eosinophils (%) (Auto) 4.0H, Basophils (%) (Auto) 0.6, Sodium Level 142, Potassium Level 3.7, Chloride Level 108H, Carbon Dioxide Level 25, Anion Gap 9, Blood Urea Nitrogen 18, Creatinine 1.6H, Estimat Glomerular Filtration Rate 52.2, Glucose Level 153H, Calcium Level 8.8 Height (Feet): 6 Height (Inches): 3.00 Weight (Pounds): 260 General Appearance: no apparent distress Objective no change GRIFFIN ASTORGA October 06, 2017 11:20
[2017-10-06 12:00] VITALS: BP 147/78
--- NOTE | 2017-10-06 12:58 | General Progress Note ---
Assessment/Plan Problem List: (1) Cellulitis of right lower extremity ICD Codes: L03.115 - Cellulitis of right lower limb SNOMED: 950267390 (2) Anemia of chronic disease ICD Codes: D63.8 - Anemia in other chronic diseases classified elsewhere SNOMED: 850787933 (3) Diabetic nephropathy ICD Codes: E11.21 - Type 2 diabetes mellitus with diabetic nephropathy SNOMED: 64381383, 552051618 (4) Hypertension ICD Codes: I10 - Hypertension SNOMED: 86392586 (5) resides in SNF (6) s/p R partial first ray amputation and excisional debridement of necrotic tissue to level of bone on 07/22/17 (7) s/p incision and drainage deep to fascia, excisional debridement of necrotic tissue to level of bone, and delayed primary closure with drain placement on 07/28/17 (8) CHIQUITA (acute kidney injury) ICD Codes: N17.9 - Acute kidney failure, unspecified SNOMED: 51387169 (9) Poorly controlled type 2 diabetes mellitus ICD Codes: E11.65 - Type 2 diabetes mellitus with hyperglycemia SNOMED: 81798228, 205924676 (10) Cellulitis and abscess of right leg ICD Codes: L03.115 - Cellulitis of right lower limb; L02.415 - Cutaneous abscess of right lower limb SNOMED: 783420294 (11) Non-pressure ulcer of the right leg to the level of muscle (12) Hyperlipidemia ICD Codes: E78.5 - Hyperlipidemia SNOMED: 12041068 Status: stable Assessment/Plan Podiatry and ID consulted, appreciate rec's Endocrinology consulted for elevated blood sugars A1c 10.4. Restarted patient's home levemir 50 units qhs and novolog 15 units TID ac meals + SSi. Ctm blood sugars. s/p incision and drainage deep to the fascia, excisional debridement of wound to the level of muscle, and advancement flap closure on 10/02/17 s/p vanco and zosyn. now on ancef and doxycycline per ID X-ray R tib/fib images reviewed and showed concern for subcutaneous gas. MRI R tib/fib images reviewed and showed subcutaneous edema consistent with cellulitis but no obvious abscess though evaluation limited given no contrast F/u wound cultures, blood cultures, and OR cultures--E. coli, sensitive to ancef Nephrology consulted given CHIQUITA. Trend Cr 1.9 --> 1.6, now at baseline D/c IVFs Pain control, bowel regimen Supportive care Pt requesting postop diabetic shoes. CM consulted DC planning back to SNF today or tomorrow if OK with podiatry and ID pending AIDA drain removal and abx rec's DVT Prophylaxis: SCD, HSQ Code Status: Full Hospital Classification Declaration: Based on this initial evaluation, and depending on the patient's clinical course, I anticipate that this patient will require hospitalization for 1-2 days for RLE cellulitis and abscess and close respiratory/hemodynamic monitoring. Disposition: Once the patient is stable to leave the hospital, I anticipate the patient will likely be discharged to the following environment: back to SNF, CECILIA Crowley I spent 35 minutes on this patient's case, and >50% was dedicated to counseling and/or care coordination. Discussed with patient/family, nursing staff, SW/CM, Podiatry, ID regarding clinical status, treatment course, and disposition planning. D/w ID re abx. D/w podiatry re postop mgmt Time of note may not reflect time of encounter. Subjective Date patient seen: October 06, 2017 Time patient seen: 12:52 Allergies: Coded Allergies: No Known Allergies (Verified , 11/14/10) Subjective - no acute o/n events - with AIDA drain, draining minimal serosanguinous fluid - s/p I&D of right lower extremity, POD #4 Objective Last 24 Hour Vital Signs Date Time Temp Pulse Resp B/P (MAP) Pulse Ox O2 Delivery O2 Flow Rate FiO2 10/06/17 12:00 97.3 68 18 147/78 96 Room Air 97.3 10/06/17 08:00 98.1 77 19 127/71 97 98.1 10/06/17 06:27 147/72 10/06/17 04:28 Room Air 10/06/17 04:00 97.7 60 19 147/72 97 Room Air 97.7 10/06/17 00:00 Room Air 10/06/17 00:00 97.9 64 20 155/82 99 Room Air 97.9 10/05/17 21:54 Room Air 10/05/17 21:43 140/78 10/05/17 20:00 97.9 72 18 140/78 99 Room Air 97.9 10/05/17 15:52 98.2 67 20 146/79 100 98.2 10/05/17 14:32 138/65 Intake and Output 10/05/17 10/06/17 19:00 07:00 Intake Total 620 ml 210 ml Output Total 1200 ml 5 ml Balance -580 ml 205 ml Intake Oral 620 ml IV Total 210 ml Output Urine Total 1200 ml Drainage Total 5 ml # Voids 3 # Bowel Movements 1 Laboratory Tests 10/06/17 05:35: White Blood Count 7.7, Red Blood Count 3.30L, Hemoglobin 9.3L, Hematocrit 29.5L , Mean Corpuscular Volume 89, Mean Corpuscular Hemoglobin 28.2, Mean Corpuscular Hemoglobin Concent 31.6L, Red Cell Distribution Width 13.7, Platelet Count 315, Mean Platelet Volume 6.5, Neutrophils (%) (Auto) 49.6, Lymphocytes (%) (Auto) 34.2, Monocytes (%) (Auto) 11.6H, Eosinophils (%) (Auto) 4.0H, Basophils (%) (Auto) 0.6, Sodium Level 142, Potassium Level 3.7, Chloride Level 108H, Carbon Dioxide Level 25, Anion Gap 9, Blood Urea Nitrogen 18, Creatinine 1.6H, Estimat Glomerular Filtration Rate 52.2, Glucose Level 153H, Calcium Level 8.8 Height (Feet): 6 Height (Inches): 3.00 Weight (Pounds): 260 General Appearance: no apparent distress, alert, obese EENT: PERRL/EOMI, normal ENT inspection Neck: non-tender, normal alignment, supple Cardiovascular: normal peripheral pulses, normal rate, regular rhythm Respiratory/Chest: chest wall non-tender, lungs clear, normal breath sounds Abdomen: normal bowel sounds, non tender, soft Extremities: other - RLE wrapped with AIDA drain, draining serosanguinous fluid. s/p 4th toe amputation. 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
--- NOTE | 2017-10-06 13:06 | General Progress Note ---
Assessment/Plan Assessment/Plan Anxiety depressive d/o -ativan prn -provided ro/s -reluctant to antidepressants Subjective Date patient seen: October 06, 2017 Neurologic/Psychiatric: Reports: anxiety, depressed Allergies: Coded Allergies: No Known Allergies (Verified , 11/14/10) Subjective the pt stated that he feels more depressed being at hospital with current condition Objective Last 24 Hour Vital Signs Date Time Temp Pulse Resp B/P (MAP) Pulse Ox O2 Delivery O2 Flow Rate FiO2 10/06/17 12:00 97.3 68 18 147/78 96 Room Air 97.3 10/06/17 08:00 98.1 77 19 127/71 97 98.1 10/06/17 06:27 147/72 10/06/17 04:28 Room Air 10/06/17 04:00 97.7 60 19 147/72 97 Room Air 97.7 10/06/17 00:00 Room Air 10/06/17 00:00 97.9 64 20 155/82 99 Room Air 97.9 10/05/17 21:54 Room Air 10/05/17 21:43 140/78 10/05/17 20:00 97.9 72 18 140/78 99 Room Air 97.9 10/05/17 15:52 98.2 67 20 146/79 100 98.2 10/05/17 14:32 138/65 Intake and Output 10/05/17 10/06/17 19:00 07:00 Intake Total 620 ml 210 ml Output Total 1200 ml 5 ml Balance -580 ml 205 ml Intake Oral 620 ml IV Total 210 ml Output Urine Total 1200 ml Drainage Total 5 ml # Voids 3 # Bowel Movements 1 Laboratory Tests 10/06/17 05:35: White Blood Count 7.7, Red Blood Count 3.30L, Hemoglobin 9.3L, Hematocrit 29.5L , Mean Corpuscular Volume 89, Mean Corpuscular Hemoglobin 28.2, Mean Corpuscular Hemoglobin Concent 31.6L, Red Cell Distribution Width 13.7, Platelet Count 315, Mean Platelet Volume 6.5, Neutrophils (%) (Auto) 49.6, Lymphocytes (%) (Auto) 34.2, Monocytes (%) (Auto) 11.6H, Eosinophils (%) (Auto) 4.0H, Basophils (%) (Auto) 0.6, Sodium Level 142, Potassium Level 3.7, Chloride Level 108H, Carbon Dioxide Level 25, Anion Gap 9, Blood Urea Nitrogen 18, Creatinine 1.6H, Estimat Glomerular Filtration Rate 52.2, Glucose Level 153H, Calcium Level 8.8 Height (Feet): 6 Height (Inches): 3.00 Weight (Pounds): 260 General Appearance: WD/WN, no apparent distress, alert Neurologic: oriented x 3, responsive, depressed affect Kory Bales M.D. October 06, 2017 13:06
--- NOTE | 2017-10-06 14:40 | Podiatric Progress Note ---
Assessment/Plan Patient Best Dhillon is a 67 year old male who was admitted on October 01, 2017 at 11:45 with Assessment/Plan A/ 1) Abscess right ankle/leg 2) Cellulitis right lower extremity 3) Diabetic Neuropathy 4) h/o bilateral toe amputations P/ 1) S/p I&D - doing well. AIDA drain was pulled without complication. 2) Cont iv abx per ID 3) Ok to d/c from my stand point. Will follow at SNF 4) Patient can be weight bearing as tolerated with PT. Subjective Allergies: Coded Allergies: No Known Allergies (Verified , 11/14/10) Subjective Patient is feeling good. No pain. Objective Exam Last 24 Hour Vital Signs Date Time Temp Pulse Resp B/P (MAP) Pulse Ox O2 Delivery O2 Flow Rate FiO2 10/06/17 13:07 147/78 10/06/17 12:00 97.3 68 18 147/78 96 Room Air 97.3 10/06/17 08:00 98.1 77 19 127/71 97 98.1 10/06/17 06:27 147/72 10/06/17 04:28 Room Air 10/06/17 04:00 97.7 60 19 147/72 97 Room Air 97.7 10/06/17 00:00 Room Air 10/06/17 00:00 97.9 64 20 155/82 99 Room Air 97.9 10/05/17 21:54 Room Air 10/05/17 21:43 140/78 10/05/17 20:00 97.9 72 18 140/78 99 Room Air 97.9 10/05/17 15:52 98.2 67 20 146/79 100 98.2 Laboratory Tests Test 10/06/17 05:35 White Blood Count 7.7 K/UL (4.8-10.8) Red Blood Count 3.30 M/UL (4.70-6.10) L Hemoglobin 9.3 G/DL (14.2-18.0) L Hematocrit 29.5 % (42.0-52.0) L Mean Corpuscular Volume 89 FL (80-99) Mean Corpuscular Hemoglobin 28.2 PG (27.0-31.0) Mean Corpuscular Hemoglobin Concent 31.6 G/DL (32.0-36.0) L Red Cell Distribution Width 13.7 % (11.6-14.8) Platelet Count 315 K/UL (150-450) Mean Platelet Volume 6.5 FL (6.5-10.1) Neutrophils (%) (Auto) 49.6 % (45.0-75.0) Lymphocytes (%) (Auto) 34.2 % (20.0-45.0) Monocytes (%) (Auto) 11.6 % (1.0-10.0) H Eosinophils (%) (Auto) 4.0 % (0.0-3.0) H Basophils (%) (Auto) 0.6 % (0.0-2.0) Sodium Level 142 MMOL/L (136-145) Potassium Level 3.7 MMOL/L (3.5-5.1) Chloride Level 108 MMOL/L (98-107) H Carbon Dioxide Level 25 MMOL/L (21-32) Anion Gap 9 mmol/L (5-15) Blood Urea Nitrogen 18 mg/dL (7-18) Creatinine 1.6 MG/DL (0.55-1.30) H Estimat Glomerular Filtration Rate 52.2 mL/min (>60) Glucose Level 153 MG/DL (74-106) H Calcium Level 8.8 MG/DL (8.5-10.1) Microbiology Date/Time Source Procedure Growth Status 10/01/17 11:15 Blood Blood Culture - Preliminary NO GROWTH AFTER 4 DAYS Resulted 10/01/17 20:00 Wound Gram Stain - Final Complete 10/01/17 20:00 Wound Culture - Final Escherichia Coli Complete 10/01/17 12:52 Nasal Nares MRSA Culture - Final NO METHICILLIN RESISTANT STAPH AUREUS... Complete 10/01/17 12:52 Rectum VRE Culture - Final NO VANCOMYCIN RESISTANT ENTEROCOCCUS ... Complete Dermatological Wound Assessment : Exudate Amount: Mild Dermatological Narrative Edema has resolved. Minimal serious fluid in drain. Central portion of wound is open. Remaining portion is well coapted. No pain. Wiliam Bernard DPM October 06, 2017 14:40
[2017-10-06] MEDS ORDERED: CEPHALEXIN500 MG ORAL (16:07)
[2017-10-06] MEDS ORDERED: DOXYCYCLINE MO100 M2 PO (16:09)
[2017-10-06 16:13] VITALS: BP 150/80
--- NOTE | 2017-10-13 08:11 | Discharge Summary ---
Discharge Summary Hospital Course Date of Admission October 01, 2017 at 11:45 Date of Discharge October 06, 2017 at 19:04 Admitting Diagnosis INFECTED LEG ULCER HPI Best Dhillon is a 67 year old male who was admitted on October 01, 2017 at 11:45 for Abcess Of Left Ankle 67 y/o male with pmh of uncontrolled DM2 (lA1C 9.6), HLD, chronic diabetic ulcers, 1st toe osteomyelitis s/p R partial first ray amputation and excisional debridement of necrotic tissue to level of bone on 07/22/17, s/p incision and drainage deep to fascia, excisional debridement of necrotic tissue to level of bone, and delayed primary closure with drain placement on 07/28/17, CKD, diabetic nephropathy, AOCD who presents with worsening RLE wound with drainage. Pt has been residing in SNF since last hospital discharge. He has been able to stand with help of PT. He was noted to have worsening wound to RLE mid calf area with increased purulent bloody drainage as well as increased swelling, redness and pain. Denies f/c, n/v, d/c, chest pain, SOB, abd pain. Consultations podiatry, Dr. Bernard ID, Dr. Araya endocrinology, Dr. Menon nephrology, Dr. Cota Hospital Course Patient was admitted. Podiatry and ID were consulted. X-ray R tib/fib images reviewed and showed concern for subcutaneous gas. MRI R tib/fib images reviewed and showed subcutaneous edema consistent with cellulitis but no obvious abscess though evaluation limited given no contrast. Patient as started on IV vancomycin and zosyn. Patient was noted to go into CHIQUITA with Cr bump upto 1.9. Nephrology was consulted. Patient's antibiotics were changed to ancef and docyxyxline and Cr went back down to baseline of 1.6. Patient was also noted to have elevated blood sugars and hence endocrinology was consulted for furthe rmanagement of blood sugars as A1c was 10.4. Patient underwent a incision and drainage deep to the fascia, excisional debridement of wound to the level of muscle, and advancement flap closure on 10/02/17. AIDA drain was placed. Postoperatively, patient's diet was advanced to regular, and patient tolerated it well. Patient ambulated appropriately. Patient's AIDA drain was therefore removed. Patient's OR cultures returned, which was E. coli. Patient was therefore hemodynamically stable prior to discharge and was discharged on PO antibiotics. Discharge Medications Continued Medications: Acetaminophen* (Acetaminophen 325MG Tablet*) 325 Mg Tablet 650 MG ORAL Q4H PRN for Prn Headache/Temp > 101, TAB (This prescription has been renewed) [asa ] () Cephalexin* (Keflex*) 500 Mg Capsule 500 MG ORAL EVERY 12 HOURS for 7 Days, #14 CAP 0 Refills (This prescription has been renewed) Dextromethorphan HBr/B-Chay (Cepacol Sorethroat-Cough Stefanie) 1 Each Lozenge 1 EACH PO, LOZENGE (This prescription has been renewed) Dextrose 50 % In Water (Dextrose 50%-Water Vial) 50 Ml Vial 50 ML IV, VIAL (This prescription has been renewed) Docusate Sodium* (Colace*) 100 Mg Capsule 100 MG ORAL DAILY, CAP (This prescription has been renewed) Doxycycline Monohydrate (Doxycycline Monohydrate) 100 Mg Tablet 100 MG PO BID for 7 Days, TAB (This prescription has been renewed) Fluconazole* (Diflucan*) 200 Mg Tablet 200 MG ORAL DAILY for 7 Days, #7 TAB 0 Refills Furosemide* (Lasix*) 40 Mg Tablet 40 MG PO DAILY, TAB (This prescription has been renewed) Take 1 tablet by mouth every day. Glipizide* (Glipizide*) 5 Mg Tablet 5 MG ORAL BIDAC, TAB Hydrocodone Bit/Acetaminophen 10-325* (Hydrocodon-Acetaminophn 10-325*) 1 Each Tablet 1 TAB ORAL Q4H, #30 TAB 0 Refills (This prescription has been renewed) Insulin Aspart* (Novolog*) 100 Unit/1 Ml Insuln.pen 15 UNITS SUBQ BID, UNITS (This prescription has been renewed) Inject subcutaneously per sliding scale order Insulin Detemir (Levemir Flexpen) 100 Unit/1 Ml Insuln.pen 50 SUBQ, #1 UNITS 15 Refills Meropenem (Merrem) 1 Gm Vial 1 GM IV Q8HR, #28 VIAL Vancomycin Hcl/D5w (Vancomycin-D5w 1 G/250 Ml) 1 Gm/250 Ml Plast..bag 1 GM IVPB Q12H for 28 Days, BAG Discharge Condition Upon Discharge: stable Discharge Disposition Patient was discharged to SNF/Subacute Facility(03) Discharge Diagnoses: (1) Diabetic foot ulcer (2) Cellulitis of right lower extremity (3) Anemia of chronic disease (4) Diabetic nephropathy (5) Hypertension (6) Hyperlipidemia (7) resides in SNF (8) CKD stage 3 (9) s/p R partial first ray amputation and excisional debridement of necrotic tissue to level of bone on 07/22/17 (10) s/p incision and drainage deep to fascia, excisional debridement of necrotic tissue to level of bone, and delayed primary closure with drain placement on 07/28/17 (11) CHIQUITA (acute kidney injury) (12) Non-pressure ulcer of the right leg to the level of muscle Suzanne Mustafa NP October 13, 2017 08:11
== END 2017-10-06 19:04 | DRG 580 ==
LOC: EDBD 10:20 → EMR 11:34 → 2E 11:45 → EDBEDREQ 11:56 → 4W 10-03 18:47
PROC: 0Y9H00Z Drainage of Right Lower Leg with Drainage Device, Open Approach (ICD-10-PCS; principal; 2017-10-02 11:30)
PROC: 0JXN0ZZ Transfer Right Lower Leg Subcutaneous Tissue and Fascia, Open Approach (ICD-10-PCS; principal; 2017-10-02 11:30)
PROC: 0KBS0ZZ Excision of Right Lower Leg Muscle, Open Approach (ICD-10-PCS; principal; 2017-10-02 11:30)
DX: L02.415 Cutaneous abscess of right lower limb (principal); E87.1 Hypo-osmolality and hyponatremia; N17.9 Acute kidney failure, unspecified; L97.215 Non-pressure chronic ulcer of right calf with muscle involvement without evidence of necrosis; I13.0 Hypertensive heart and chronic kidney disease with heart failure and stage 1 through stage 4 chronic kidney disease, or unspecified chronic kidney disease; L03.115 Cellulitis of right lower limb; E11.22 Type 2 diabetes mellitus with diabetic chronic kidney disease; E11.65 Type 2 diabetes mellitus with hyperglycemia; E11.621 Type 2 diabetes mellitus with foot ulcer; N18.3 Chronic kidney disease, stage 3 (moderate); D63.1 Anemia in chronic kidney disease; E78.5 Hyperlipidemia, unspecified; Z89.411 Acquired absence of right great toe; I50.9 Heart failure, unspecified; Z89.422 Acquired absence of other left toe(s); I73.9 Peripheral vascular disease, unspecified
CPT/HCPCS: 36415; 71045; 80048; 80053; 80061; 80202; 81001; 81050; 82607; 82728; 82746; 82962; 82977; 83036; 83540; 83550; 83735; 83880; 84100; 84156; 84300; 84443; 84484; 84550; 85025; 85610; 85730; 86140; 86850; 86900; 86901; 87040; 87070; 87081; 87181; 87205; 93005; 94003; 94150; 99285; J1815; J3490; S5561